=== PATIENT | female | born 1980 | race Two or more races ===

== ENCOUNTER 2020-07-13 09:58 | Outpatient (REF) | payer OTHER, SELFPAY ==
[2020-07-20 02:17] LABS: HPV 16 RNA NOT DETECTED (NOT DETECTED); HPV mRNA E6/E7 rflx Detected (Not Detected)
== END 2020-07-13 09:59 | disposition home or self-care (01) ==
LOC: HO.LAB 09:58
PROVIDERS: PCP Internal Medicine; Referring Provider Internal Medicine; Visit Provider Obstetrics & Gynecology
DX: Z01.419 Encounter for gynecological examination (general) (routine) without abnormal findings (principal); R87.610 Atypical squamous cells of undetermined significance on cytologic smear of cervix (ASC-US); R87.810 Cervical high risk human papillomavirus (HPV) DNA test positive; N94.9 Unspecified condition associated with female genital organs and menstrual cycle; F17.200 Nicotine dependence, unspecified, uncomplicated; Z79.899 Other long term (current) drug therapy; Z79.82 Long term (current) use of aspirin; Z79.84 Long term (current) use of oral hypoglycemic drugs; Z79.3 Long term (current) use of hormonal contraceptives
CPT/HCPCS: 87624; 87625; 88141; 88142

== ENCOUNTER 2020-07-25 15:38 | Outpatient (REF) | payer OTHER, SELFPAY ==
--- NOTE | 2020-07-25 15:41 | US_ITS ---
EXAMINATION: ULTRASOUND OF THE PELVIS CLINICAL INFORMATION: Unspecified condition associated with the menstrual cycle. Cramping.. COMPARISON: 01/23/2018. TECHNIQUE: Transabdominal and transvaginal pelvic ultrasound. A transvaginal study was performed in addition to the transabdominal study which did not yield an adequate examination of the uterus and ovaries due to superimposed distended gas-filled loops of bowel. FINDINGS: The uterus is normal in size and appearance, measuring 11.2 x 3.9 x 5.2 cm longitudinally, anteroposteriorly and transversely. The endometrial stripe thickness is normal, measuring 0.6 cm in thickness. Fluid in the endometrial canal noted. No focal myometrial mass is seen. Nabothian cysts at the cervix. The ovaries bilaterally are visualized, with the right ovary measuring 6.2 x 4.1 x 4.1 cm and the left ovary measuring 2 x 1.8 x 2.1 cm. There is a dominant right ovarian cyst which measures 4.5 x 3.4 x 3.5 cm. No adnexal mass or free fluid collection seen. US/US transvaginal IMPRESSION: 1. Enlargement of the right ovary associated with a dominant right ovarian cyst which measures up to 4.5 cm. No free fluid. 2. Fluid in the endometrial canal, likely associated with the phase of cycle.
--- NOTE | 2020-07-25 15:41 | US_ITS ---
EXAMINATION: ULTRASOUND OF THE PELVIS CLINICAL INFORMATION: Unspecified condition associated with the menstrual cycle. Cramping.. COMPARISON: 01/23/2018. TECHNIQUE: Transabdominal and transvaginal pelvic ultrasound. A transvaginal study was performed in addition to the transabdominal study which did not yield an adequate examination of the uterus and ovaries due to superimposed distended gas-filled loops of bowel. FINDINGS: The uterus is normal in size and appearance, measuring 11.2 x 3.9 x 5.2 cm longitudinally, anteroposteriorly and transversely. The endometrial stripe thickness is normal, measuring 0.6 cm in thickness. Fluid in the endometrial canal noted. No focal myometrial mass is seen. Nabothian cysts at the cervix. The ovaries bilaterally are visualized, with the right ovary measuring 6.2 x 4.1 x 4.1 cm and the left ovary measuring 2 x 1.8 x 2.1 cm. There is a dominant right ovarian cyst which measures 4.5 x 3.4 x 3.5 cm. No adnexal mass or free fluid collection seen. US/US pelvic complete IMPRESSION: 1. Enlargement of the right ovary associated with a dominant right ovarian cyst which measures up to 4.5 cm. No free fluid. 2. Fluid in the endometrial canal, likely associated with the phase of cycle.
== END 2020-07-25 15:39 | disposition home or self-care (01) ==
LOC: HO.US 15:38
PROVIDERS: PCP Internal Medicine; Visit Provider Obstetrics & Gynecology
DX: N94.9 Unspecified condition associated with female genital organs and menstrual cycle (principal)
CPT/HCPCS: 76830; 76856

== ENCOUNTER → 2020-08-08 10:50 | Outpatient (BNVA) | payer OTHER, SELFPAY | PROVIDERS: Visit Provider Obstetrics & Gynecology | DX: Z76.89 Persons encountering health services in other specified circumstances (principal) ==

== ENCOUNTER 2020-10-02 08:45 | Outpatient (REF) | payer OTHER, SELFPAY | END 2020-10-02 08:46 | disposition home or self-care (01) | LOC: HO.LAB 08:45 | PROVIDERS: PCP Internal Medicine; Visit Provider Obstetrics & Gynecology | DX: R87.610 Atypical squamous cells of undetermined significance on cytologic smear of cervix (ASC-US) (principal); R87.810 Cervical high risk human papillomavirus (HPV) DNA test positive | CPT/HCPCS: 57454; 88305; 88341; 88342; 88360 ==

== ENCOUNTER → 2020-10-16 12:35 | Outpatient (BNVA) | payer OTHER, SELFPAY | PROVIDERS: PCP Internal Medicine; Visit Provider Obstetrics & Gynecology ==

== ENCOUNTER → 2020-10-26 09:01 | Outpatient (BNVA) | payer OTHER, SELFPAY | PROVIDERS: PCP Internal Medicine; Visit Provider Obstetrics & Gynecology ==

== ENCOUNTER 2020-11-03 11:26 | Day surgery (SDC) | payer OTHER, SELFPAY ==
--- NOTE | 2020-11-01 12:21 | P.CONAN_ITS ---
HPI - Anesthesia Eval Consult details Narrative: 40yo F for Cone LEEP PMFSH Active Problems Active Problems: All Active Problems (Updated 10/16/20 @ 12:52 by Ryan Zamarripa MD) ELLI III (cervical intraepithelial neoplasia grade III) with severe dysplasia (Acute) Simple physiological cyst of ovary (Acute) ASCUS with positive high risk HPV cervical (Acute) Adnexal fullness (Acute) Well woman exam (Acute) Past Medical History Medical History Anxiety ASCUS with positive high risk HPV cervical History of migraine headaches PCOS (polycystic ovarian syndrome) Family History Family History Mother Diabetes HTN (hypertension) Maternal Uncle Esophageal cancer Maternal Grandmother Diabetes HTN (hypertension) Maternal Grandfather Diabetes HTN (hypertension) Paternal Grandmother Diabetes Paternal Uncle CVD (cardiovascular disease) Surgical History Surgical History History of History of cholecystectomy Hx of tonsillectomy Social History Social History Alcohol intake: current Alcohol intake frequency: holidays/special occasions only Smoking Status: Former smoker Sexual orientation: Straight/Heterosexual Gender identity: female Meds Allergies Allergy/AdvReac Type Severity Reaction Status Date / Time bee pollen [BEE STINGS] Allergy Unknown SWELLING Verified 11/03/20 11:52 Home Medications Medication Instructions Recorded Confirmed Last Taken Type albuterol sulfate 90 mcg/actuation INHALATION 07/13/20 08/08/20 Unknown History aerosol inhaler aspirin 81 mg tablet,delayed 81 mg PO DAILY 07/13/20 08/08/20 11/02/20 08:00 History release cetirizine 10 mg tablet 10 mg PO DAILY 07/13/20 08/08/20 Unknown History fenofibrate micronized 200 mg 200 mg PO QAM 07/13/20 08/08/20 Unknown History capsule fluticasone propionate 50 INTRANASAL 07/13/20 08/08/20 Unknown History mcg/actuation nasal spray,suspension lorazepam 0.5 mg tablet 0.5 mg PO BID PRN 07/13/20 08/08/20 Unknown History metformin 500 mg tablet,extended 1,000 mg PO BID 07/13/20 08/08/20 Unknown History release 24 hr pantoprazole 40 mg tablet,delayed 40 mg PO DAILY 07/13/20 08/08/20 Unknown Hist ory release sertraline 50 mg tablet 50 mg PO DAILY 07/13/20 08/08/20 Unknown History spironolactone 100 mg tablet mg PO 07/13/20 08/08/20 Unknown History varenicline 1 mg tablet 1 mg PO BID 10/02/20 Unknown History Exam Exam Date and Time: November 01, 2020 1221 Assessment and Plan Assessment Anesthesia Assessment: Chart Reviewed
[2020-11-03] VITALS (8 sets, daily range): BP systolic 116–134; BP diastolic 76–86; PULSE 77–91; RESP 16–18; TEMP 36.1; O2SAT 95–100; BMI 37.4
[2020-11-03 11:54] LABS: UPreg QC Valid YES; Urine Pregnancy NEGATIVE (NEGATIVE)
[2020-11-03] MEDS: Lactated Ringers 1,000 ML 100 ML IVCONT (12:12)
--- NOTE | 2020-11-03 12:42 | MHC.SHP ---
Pre-Procedural Eval Section A The patient is an INPATIENT: No Changes since office visit: No Cold of Flu in the past 2 weeks, No New Medical Problems, No Changes in Medication and No Patient answered all questions The History & Physical has been completed within 30 days and I have reviewed it.: Yes Section B Chief Complaint: ELLI 2-3 Allergies: Allergies Allergy/AdvReac Type Severity Reaction Status Date / Time bee pollen [BEE STINGS] Allergy Unknown SWELLING Verified 11/03/20 11:52 Plan Diagnosis/Plan: Unchanged I have reviewed the history and physical and performed a pertinent physical examination on my patient. No changes have occurred unless specified.
--- NOTE | 2020-11-03 13:29 | PM.OP ---
Brief Operative Note Date of Service: 11/03/20 Pre-op diagnosis: ELLI 2-3 with + ECC ELLI I Post-op diagnosis: same Procedure: LEEP CONE with post CONE ECC Surgeon: Ryan Zamarripa MD Anesthesia: local and other (Paracervical block) Estimated blood loss (mL): 0 Pathology: other (Ant+post Cerv lip, Endocx, Post cone ECC) Condition: stable Disposition: other (Home)
--- NOTE | 2020-11-03 13:31 | W.PM.OPN ---
Operative Note Operative Note Date of Service: 08/18/20 Narrative: Preop diagnosis: ELLI 2-3 with + ECC Operation: LEEP Cone with post cone ECC Post op diagnosis: same Anesthesia: paracervical block Complications: none Pathology: Anterior and Posterior cervical lip with endocervix & post cone RCC QBL: minimal Procedure: The patient was put in the dorsal lithotomy position, was prepped and draped in the usual sterile fashion. A sterile speculum was inserted inside the patient vagina. Using Lugol solution the cervix with Dyed with Lugol solution to identifiy the abnormal demarcating line. 10 cc of Marcaine 0.5% with epinephrine were given at 2,4 , 8, and 10 o'clock. Using a medium-size loop wire, the anterior cervical lip was excised followed by the posterior cervical lip and endocervix, post cone ECC was done afterwards. Hemostasis was assured using cautery and Monsel solution. All instruments were taken out of the patient's vaginal cavity. the patient tolerated the procedure well and was discharged home with the following instructions: call if temperature is above 100.4, vaginal bleeding, abdominal pain or nausea or vomiting. Follow-up in the office in 2 weeks for postop visit
[2020-11-03] MEDS: Acetaminophen 325 MG TABLET 650 MG PO (14:23)
== END 2020-11-03 15:21 | disposition home or self-care (01) ==
LOC: HO.SSS 11:27
PROVIDERS: Nurse Practitioner; PCP Internal Medicine; Visit Provider Obstetrics & Gynecology
PROC: 0UBC7ZZ Excision of Cervix, Via Natural or Artificial Opening (ICD-10-PCS; CPT 57522; principal; 2020-11-03 13:10)
DX: D06.9 Carcinoma in situ of cervix, unspecified (principal); E28.2 Polycystic ovarian syndrome; Z90.49 Acquired absence of other specified parts of digestive tract; Z79.82 Long term (current) use of aspirin
CPT/HCPCS: 57522; 81025; 88305; 88307; 88342; 88360; J1100; J2250; J2405; J3010

== ENCOUNTER → 2020-11-16 11:41 | Outpatient (BNVA) | payer OTHER, SELFPAY | PROVIDERS: PCP Internal Medicine; Visit Provider Obstetrics & Gynecology ==

== ENCOUNTER 2021-11-13 08:53 | Outpatient (REF) | payer OTHER, SELFPAY ==
[2021-11-17 09:52] LABS: HPV mRNA E6/E7 rflx Not Detected (Not Detected)
== END 2021-11-13 08:54 | disposition home or self-care (01) ==
LOC: HO.LAB 08:53
PROVIDERS: PCP Internal Medicine; Visit Provider Obstetrics & Gynecology
DX: Z01.419 Encounter for gynecological examination (general) (routine) without abnormal findings (principal); Z11.51 Encounter for screening for human papillomavirus (HPV); D06.9 Carcinoma in situ of cervix, unspecified
CPT/HCPCS: 57454; 81025; 87624; 88142; 88305

== ENCOUNTER 2021-11-28 12:26 | Outpatient (REF) | payer OTHER, SELFPAY | END 2021-11-28 12:27 | disposition home or self-care (01) | LOC: HO.LAB 12:26 | PROVIDERS: PCP Internal Medicine; Visit Provider Obstetrics & Gynecology | DX: D06.9 Carcinoma in situ of cervix, unspecified (principal) | CPT/HCPCS: 81025; 88305 ==

== ENCOUNTER → 2021-12-12 14:30 | Outpatient (BNVA) | payer OTHER, SELFPAY | PROVIDERS: Visit Provider Obstetrics & Gynecology | DX: Z13.89 Encounter for screening for other disorder (principal) ==

== ENCOUNTER 2022-06-19 10:34 | Outpatient (REF) | payer OTHER, SELFPAY ==
--- NOTE | ~2022-06-19 | MM_ITS ---
EXAMINATION: MM SCREENING DIGITAL BREAST TOMOSYNTHESIS, BILATERAL CLINICAL INFORMATION: Screening. Asymptomatic. No prior breast imaging. Age 42. No known family history breast cancer. The lifetime risk of breast cancer based on the Tyrer-Cuzick Model is 11%. COMPARISON: None (current study represents initial baseline exam). TECHNIQUE: Digital breast tomosynthesis is performed in both the craniocaudal and mediolateral oblique views along with computer-aided detection (CAD). Synthesized 2D images are generated from the tomosynthesis. FINDINGS: There are scattered areas of fibroglandular density (ACR BI-RADS breast composition Category b). There are no significant masses, abnormal calcifications, or other abnormalities. No architectural abnormality. The axilla are unremarkable. Skin contours are smooth. MM/MM tomosynthesis screening BI IMPRESSION: No mammographic evidence of malignancy. ASSESSMENT: BI-RADS 1: Negative RECOMMENDATION: Routine annual mammography screening. This patient's information was entered into a reminder system with a target due date for their next mammogram.
== END 2022-06-19 10:35 | disposition home or self-care (01) ==
LOC: HO.MAMMO 10:34
PROVIDERS: PCP Internal Medicine; Visit Provider Internal Medicine
DX: Z12.31 Encounter for screening mammogram for malignant neoplasm of breast (principal)
CPT/HCPCS: 77063; 77067

== ENCOUNTER → 2022-08-12 16:00 | Outpatient (BNVA) | payer OTHER, SELFPAY | PROVIDERS: PCP Internal Medicine; Visit Provider Surgery | DX: K64.8 Other hemorrhoids (principal) | CPT/HCPCS: 46600 ==

== ENCOUNTER 2022-09-27 07:34 | Day surgery (SDC) | payer OTHER, SELFPAY ==
[2022-09-24 10:35] VITALS: BMI 35.7
[2022-09-27] VITALS (7 sets, daily range): BP systolic 119–155; BP diastolic 78–94; PULSE 90–108; RESP 14–21; TEMP 36.1–36.7; O2SAT 94–98
[2022-09-27 07:51] LABS: UPreg QC Valid YES; Urine Pregnancy NEGATIVE (NEGATIVE)
[2022-09-27] MEDS: Lactated Ringers 1,000 ML 50 ML IVCONT (08:01)
--- NOTE | 2022-09-27 08:27 | HO.ANESPROP2 ---
HPI - Anesthesia Eval Consult details Narrative: hemorrhoidectomy PMFSH Active Problems Active Problems: All Active Problems (Updated 09/24/22 @ 10:28 by Radha Enrique, RN) Well woman exam (Acute) Adnexal fullness (Acute) Simple physiological cyst of ovary (Acute) ELLI III (cervical intraepithelial neoplasia grade III) with severe dysplasia (Acute) Hemorrhoids with complication (Acute) ASCUS with positive high risk HPV cervical (Acute) Past Medical History Medical History (Updated 09/24/22 @ 10:28 by Radha Enrique RN) Anxiety ASCUS with positive high risk HPV cervical Asthma Environmental and seasonal allergies Hemorrhoids with complication History of migraine headaches VACA (nonalcoholic steatohepatitis) PCOS (polycystic ovarian syndrome) Patient : No Family History Family History Mother Diabetes HTN (hypertension) Maternal Uncle Esophageal cancer Maternal Grandmother Diabetes HTN (hypertension) Maternal Grandfather Diabetes HTN (hypertension) Paternal Grandmother Diabetes Paternal Uncle CVD (cardiovascular disease) Family history of problems with anesthesia: No Surgical History Surgical History (Updated 09/24/22 @ 10:29 by Radha Enrique RN) History of History of cholecystectomy History of loop electrosurgical excision procedure (LEEP) Hx of tonsillectomy History of Problems with Anesthesia: No Social History Social History Are you a primary career placement specialist to a significant other at home: Yes (son) Do you presently have visiting nurse or other home services: No Alcohol intake: current Alcohol intake frequency: holidays/special occasions only Patient Tobacco Use Status: Current everyday Tobacco user Tobacco use type: Cigarette Cigarettes Per Day: 10 Years Smoked: 24 Substance Use Frequency: Occasionally Have you been hit, kicked, punched, or otherwise hurt by someone within the past year? If so, by whom?: No Are you DNR?: No Advance Directives: No Advance Directives Information Provided: Yes Advance Directives on File: No Recently lost weight without trying: No Nutrition Risks: No Nutritional Risk Patient : No FDLMP: 09/06/2022 : No Poor oral hygiene: No Sexual orientation: Straight/Heterosexual Gender identity: Female Meds Allergies Allergy/AdvReac Type Severity Reaction Status Date / Time bee pollen [BEE STINGS] Allergy Severe Anaphylaxis Verified 09/24/22 10:30 Active Medications: Current Medications Lactated Ringer's (Lr) 1,000 mls @ 50 mls/hr IVCONT .Q20H JORGITO Last Admin: 09/27/22 08:01 Dose: 50 mls/hr Home Medications Medication Instructions Recorded Confirmed Last Taken Type albuterol sulfate 90 mcg/actuation 2 puff inhalation Q4-6H PRN 07/13/20 09/24/22 08/26/22 History aerosol inhaler Shortness Of Breath Or Wheezing aspirin 81 mg tablet,delayed 81 mg PO DAILY 07/13/20 09/24/22 09/26/22 History release fenofibrate micronized 200 mg 200 mg PO QAM 07/13/20 09/24/22 09/26/22 History capsule fluticasone propionate 50 1 spray intranasal DAILY 07/13/20 09/27/22 08/26/22 History mcg/actuation nasal spray,suspension lorazepam 0.5 mg tablet 0.5 mg PO BID PRN anxiety 07/13/20 09/24/22 09/27/22 History metformin 500 mg tablet,extended 1,000 mg PO BID 07/13/20 09/24/22 09/26/22 History release 24 hr pantoprazole 40 mg tablet,delayed 40 mg PO DAILY 07/13/20 09/24/22 09/26/22 History release spironolactone 100 mg tablet 100 mg PO BID 07/13/20 09/24/22 09/26/22 History epinephrine 0.3 mg/0.3 mL 1 mg IM DIRECTED 11/28/21 09/27/22 03/06/16 History injection, auto-injector fexofenadine 180 mg tablet 180 mg PO DAILY 08/12/22 09/24/22 09/27/22 History (Allergy Relief (fexofenadine)) sertraline 50 mg tablet 150 mg PO BEDTIME 08/12/22 09/24/22 09/26/22 History Exam Exam Date and Time: September 27, 2022826 Height,Weight and Vital Signs: Height 5 ft 5 in Weight 97.522 kg Last Vital Signs Temp 97 F 09/27/22 07:39 Pulse 108 H 09/27/22 07:39 Resp 18 01/20/23 07:39 BP 119/78 09/27/22 07:39 Pulse Ox 98 09/27/22 07:39 O2 Del Method 09/27/22 07:39 Pertinent Lab Results Pertinent Lab Results: Laboratory Tests 09/27/22 07:40 Urine Test NEGATIVE Airway Mallampati Class: II TM Dist: >3cm Neck ROM: Full Loose/Missing/Broken Teeth: No Heart: ok Lungs: ok Assessment and Plan Final Anesthetic Review Family History of Problems with Anesthesia: No History of Problems with Anesthesia: No NPO: Yes ASA Class: II Final Preanesthetic Review: No Changes in Pt Med Stat, Meds/Allgs Chart Reviewed, Consent Obtained/Reviewed and Anes Risks/Benef Reviewed Patient Risk: Intermediate Procedure Risk: Intermediate Anesthetic Plan Anesthetic Plan: GA and Agree w/ Assess. and Plan Disposition: Standard PACU
--- NOTE | 2022-09-27 09:39 | P.OP_ITS ---
Operative Note Operative Note Date of Service: 09/27/22 Narrative: Preop diagnosis: Internal and external hemorrhoids with pain and bleeding Postop diagnosis: The same Procedure: Exam under anesthesia, hemorrhoidectomy x2 columns Surgeon: Kael Garcia MD The patient is a 42-year-old female, the a long history of pain and bleeding with her hemorrhoids. She was seen in the office and was noted to have moderate-sized internal hemorrhoid. She wanted to proceed with hemorrhoide ctomy. She understood the technique of the procedure. She was aware of the risks, benefits, and alternatives. She was brought to the operating room placed in prone kodak-knife position under general seizure via endotracheal tube. The buttocks were retracted with wide tape laterally. The perianal area was prepped draped in the usual sterile fashion. A surgical time-out was done. The patient received Cefotan 2 g IV preoperatively. Examination of the anal orifice revealed very prominent external hemorrhoids on both the left and right side. I inserted the Melodie Duran retractor. I examined the anal canal circumferentially. These mixed internal external hemorrhoids were seen on both the left and right side. There were no other lesions. There was no fissure. I applied a Palomino grasper at the moderate size hemorrhoidal column on the left to retract this. I made a figure 8 stitch at the pedicle using a chromic 3-0 stitch. I made an incision around this hemorrhoidal column to the perianal skin using a bed 15. I excised this hemorrhoidal column above the plane of sphincters along this incision using Metzenbaum scissors. I closed this incision with a running chromic 3-0 stitch. Multiple [id number] hemostatic sutures were placed for oozing areas. I repeated the procedure on the hemorrhoidal column on the right. Again this was retracted with a Palomino grasper. I applied a [id number]-gr-[id number] stitch at the pedicle. I made an incision around this hemorrhoidal column to the perianal skin and excised this above the plane of sphincters using scissors. I closed this incision with a running chromic 3-0 stitch. Again multiple hemostatic [id number]-qi-rgpbr sutures were placed. Hemostasis was ensured. I infiltrated the perianal area with Marcaine 0.5% for postop analgesia. A Gelfoam packing was placed in the anal canal for additional hemostasis The procedure was then completed. The patient tolerated procedure well. There were no immediate complications. Initial and final counts of sponges and instruments were correct. Estimated blood loss was about 5 cc The patient was extubated without difficulty and transferred to the recovery room with stable vital signs.
[2022-09-27] MEDS: Acetaminophen 325 MG TABLET 650 MG PO (10:16)
[2022-09-27] MEDS: oxyCODONE HCl Immed Release 5 MG TABLET PO (10:17)
== END 2022-09-27 11:15 | disposition home or self-care (01) ==
PROVIDERS: Anesthesiology; PCP Internal Medicine; Visit Provider Surgery
PROC: (CPT 46260; principal; 2022-09-27 09:00)
DX: K64.8 Other hemorrhoids (principal); K64.4 Residual hemorrhoidal skin tags; K62.89 Other specified diseases of anus and rectum; F41.1 Generalized anxiety disorder; J45.909 Unspecified asthma, uncomplicated; D06.9 Carcinoma in situ of cervix, unspecified; E28.2 Polycystic ovarian syndrome; K75.81 Nonalcoholic steatohepatitis (NASH); Z79.82 Long term (current) use of aspirin; Z79.51 Long term (current) use of inhaled steroids; Z79.899 Other long term (current) drug therapy; Z90.49 Acquired absence of other specified parts of digestive tract; F17.210 Nicotine dependence, cigarettes, uncomplicated
CPT/HCPCS: 46260; 81025; 88304; J1100; J1885; J2250; J2405; J2795; J3010

== ENCOUNTER → 2022-10-10 09:28 | Outpatient (BNVA) | payer OTHER, SELFPAY | PROVIDERS: PCP Internal Medicine; Visit Provider Surgery | DX: Z13.89 Encounter for screening for other disorder (principal) ==

== ENCOUNTER 2022-12-25 11:39 | Outpatient (REF) | payer OTHER, SELFPAY ==
[2022-12-28 03:09] LABS: HPV mRNA E6/E7 rflx Not Detected (Not Detected)
== END 2022-12-25 11:40 | disposition home or self-care (01) ==
LOC: HO.LNP 11:39
PROVIDERS: PCP Internal Medicine; Visit Provider Obstetrics & Gynecology
DX: Z01.419 Encounter for gynecological examination (general) (routine) without abnormal findings (principal); Z11.51 Encounter for screening for human papillomavirus (HPV); D06.9 Carcinoma in situ of cervix, unspecified
CPT/HCPCS: 87624; 88142

== ENCOUNTER 2023-01-22 15:51 | Outpatient (REF) | payer OTHER, SELFPAY ==
--- NOTE | ~2023-01-22 | XR_ITS ---
EXAMINATION: XR CERVICAL SPINE CLINICAL INFORMATION: Neck pain COMPARISON: None available. TECHNIQUE: 5 views of the cervical spine were obtained. FINDINGS: Bone alignment is normal. No fracture or dislocation. Mild degenerative spondylosis at C4-C5 and C5-C6. Left-sided neural foramen are patent. Right-sided neuroforamen difficult to visualize due to technique. No definite right-sided neuroforaminal narrowing is seen. Soft tissues are normal. XR/XR cervical spine 4V IMPRESSION: Mild degenerative spondylosis at C4-C5 and C5-C6.
== END 2023-01-22 15:52 | disposition home or self-care (01) ==
LOC: HO.HHCX 15:51
PROVIDERS: Visit Provider Internal Medicine
DX: M54.2 Cervicalgia (principal)
CPT/HCPCS: 72050

== ENCOUNTER 2023-04-21 09:07 | Outpatient (REF) | payer OTHER, SELFPAY ==
[2023-04-21 12:24] LABS: Estimated Average Glucose 94 mg/dL; Hemoglobin A1c % 4.9 %
[2023-04-21 12:38] LABS: Cholesterol 224 mg/dL; HDL Cholesterol 37 mg/dL; LDL Cholesterol Calculated 139 mg/dl; Triglycerides 242 mg/dL
[2023-04-21 13:26] LABS: Insulin 23 uU/mL (2-29)
== END 2023-04-21 09:08 | disposition home or self-care (01) ==
LOC: HO.HHCL 09:07
PROVIDERS: Visit Provider Registered Nurse Emergency
DX: Z13.1 Encounter for screening for diabetes mellitus (principal); Z13.220 Encounter for screening for lipoid disorders
CPT/HCPCS: 36415; 80061; 83036; 83525

== ENCOUNTER 2023-05-06 09:45 | Outpatient (REF) | payer OTHER, SELFPAY ==
[2023-05-07 08:26] LABS: HBS Num1 > 1000.00 mIU/mL (0-7.99); ~Hepatitis B Surface Antibody REACTIVE (Nonreactive)
[2023-05-08 01:19] LABS: Rubella IgG Antibody 5.94 Index
[2023-05-08 20:38] LABS: TS Negative Control Passed; TS Panel A 1; TS Panel B 0; TS Positive Control Passed; TSpotTB Negative (Negative)
== END 2023-05-06 09:46 | disposition home or self-care (01) ==
LOC: HO.HHCL 09:45
PROVIDERS: Visit Provider Internal Medicine
DX: Z00.00 Encounter for general adult medical examination without abnormal findings (principal); Z11.1 Encounter for screening for respiratory tuberculosis
CPT/HCPCS: 36415; 86481; 86706; 86735; 86762; 86765; 86787

== ENCOUNTER 2023-08-15 08:47 | Outpatient (REF) | payer OTHER, SELFPAY ==
[2023-08-15 14:42] LABS: MANUAL DIFF FLAG NO
[2023-08-15 14:46] LABS: Basophils Absolute Auto 0.1 X10*3/uL (0.0-0.2); Basophils Percent Auto 0.7 % (0-2); Eosinophils Absolute Auto 0.7 X10*3/uL (0.0-0.4); Eosinophils Percent Auto 5.4 % (0-4); Hematocrit 44.9 % (37.0-47.0); Hemoglobin 14.6 g/dl (12.0-16.0); Imm Gran Abs Auto 0.04 X10*3/uL (0.00-0.03); Imm Gran Pct Auto 0.3 % (0.0-0.4); Lymphocytes Absolute Auto 2.7 X10*3/uL (1.2-4.9); Lymphocytes Percent Auto 21.4 % (20-40); Mean Corpuscular HGB Conc 32.5 g/dl (31.0-35.0); Mean Corpuscular Hemoglobin 31.8 pg (27.0-33.0); Mean Corpuscular Volume 97.8 fL (80.0-98.0); Mean Platelet Volume 9.6 fL (9.4-12.3); Monocytes Absolute Auto 0.6 X10*3/uL (0.1-1.2); Monocytes Percent Auto 4.5 % (2-11); Neutrophils Absolute Auto 8.5 x10*3/uL (2.0-8.3); Neutrophils Percent Auto 67.7 % (45-73); Platelet Count 454 X10*3/uL (160-400); Red Blood Count 4.59 X10*6/uL (4.20-5.50); Red Cell Distribution Width 12.2 % (11.0-16.0); White Blood Count 12.6 X10*3/uL (4.8-10.8)
[2023-08-15 14:53] LABS: Appearance Urine Cloudy; Color Urine Dark Yellow; Glucose Urine UA Negative (Negative); Leukocyte Esterase Urine Moderate (2+) (Negative); Nitrite Urine Positive (Negative); Specific Gravity - Urine 1.025 (1.005-1.025); UMIC TRIGGER UACC YES; Urine Blood Negative (Negative); Urine Ketones Trace mg/dL (Negative); Urine Protein Trace mg/dL (Neg-Trace)
[2023-08-15 15:00] LABS: Bacteria Urine 4+ (None Seen); Hyaline Casts Urine 0-2 /LPF (0-2); RBC Urine 0-2 /HPF (0-2); UACC Culture Trigger YES; WBC Urine >50 /HPF (0-5)
== END 2023-08-15 08:48 | disposition home or self-care (01) ==
LOC: HO.CHCLDS 08:47
PROVIDERS: Visit Provider Internal Medicine
DX: E66.9 Obesity, unspecified (principal); Z68.36 Body mass index [BMI] 36.0-36.9, adult; R35.0 Frequency of micturition; D72.828 Other elevated white blood cell count
CPT/HCPCS: 36415; 81001; 85025; 87086; 87088; 87186

== ENCOUNTER 2023-11-25 08:42 | Outpatient (REF) | payer OTHER, SELFPAY ==
[2023-11-25 14:06] LABS: MANUAL DIFF FLAG NO
[2023-11-25 14:08] LABS: Basophils Absolute Auto 0.1 X10*3/uL (0.0-0.2); Basophils Percent Auto 0.5 % (0-2); Eosinophils Absolute Auto 0.3 X10*3/uL (0.0-0.4); Eosinophils Percent Auto 2.6 % (0-4); Hemoglobin 13.3 g/dl (12.0-16.0); Imm Gran Abs Auto 0.02 X10*3/uL (0.00-0.03); Imm Gran Pct Auto 0.2 % (0.0-0.4); Lymphocytes Absolute Auto 3.2 X10*3/uL (1.2-4.9); Lymphocytes Percent Auto 32.4 % (20-40); Mean Corpuscular HGB Conc 33.3 g/dl (31.0-35.0); Mean Corpuscular Hemoglobin 32.3 pg (27.0-33.0); Mean Corpuscular Volume 97.1 fL (80.0-98.0); Mean Platelet Volume 9.2 fL (9.4-12.3); Monocytes Absolute Auto 0.6 X10*3/uL (0.1-1.2); Monocytes Percent Auto 6.2 % (2-11); Neutrophils Absolute Auto 5.7 x10*3/uL (2.0-8.3); Neutrophils Percent Auto 58.1 % (45-73); Platelet Count 440 X10*3/uL (160-400); Red Blood Count 4.12 X10*6/uL (4.20-5.50); Red Cell Distribution Width 12.5 % (11.0-16.0); White Blood Count 9.8 X10*3/uL (4.8-10.8)
[2023-11-25 14:48] LABS: Erythrocyte Sedimentation Rate 10 MM/HR (0-20)
[2023-11-25 15:09] LABS: Rheumatoid Factor < 13.0 IU/mL (<15.0)
[2023-11-25 15:17] LABS: Alanine Aminotransferase 14 U/L (0-31); Albumin Level 4.6 g/dL (3.5-5.0); Alkaline Phosphatase 45 U/L (39-117); Anion Gap 15 (12-20); Aspartate Amino Transferase 13 U/L (5-31); Bilirubin Direct 0.1 mg/dL (0.0-0.5); Bilirubin Total 0.5 mg/dL (0.0-1.0); Blood Urea Nitrogen 10 mg/dL (9-16); C Reactive Protein 0.32 mg/dL (< or = 0.50); Calcium 9.3 mg/dL (8.4-10.2); Carbon Dioxide 24 mmol/L (22-29); Chloride 105 mmol/L (96-108); Cholesterol 211 mg/dL (<200); Estimated Glomerular Filt Rate > 60; Glucose Random 42 mg/dL (60-115); HDL Cholesterol 45 mg/dL (>40); LDL Cholesterol Calculated 130 mg/dL (<100); Potassium 3.7 mmol/L (3.3-5.1); Sodium 140 mmol/L (135-145); Total Protein 7.4 g/dL (6.5-8.0); Triglycerides 180 mg/dL (<150)
[2023-11-25 15:18] LABS: Vitamin D 25-OH Total 39.8 ng/mL (>30)
[2023-11-25 15:25] LABS: Folate 10.5 ng/mL (> or = 4.0); Vitamin B12 611 pg/mL (200-900)
[2023-11-29 06:04] LABS: Methylmalonic Acid 83 nmol/L (87-318)
[2023-12-02 08:19] LABS: Anti Nuclear Antibody Screen NEGATIVE (NEGATIVE)
== END 2023-11-25 08:43 | disposition home or self-care (01) ==
LOC: HO.CHCLDS 08:42
PROVIDERS: Visit Provider Internal Medicine
DX: Z13.6 Encounter for screening for cardiovascular disorders (principal); R53.82 Chronic fatigue, unspecified
CPT/HCPCS: 36415; 80048; 80061; 80076; 82306; 82607; 82746; 83921; 84443; 85025; 85652; 86038; 86140; 86431

== ENCOUNTER 2023-12-30 11:38 | Outpatient (REF) | payer OTHER, SELFPAY ==
[2024-01-05 23:24] LABS: HPV mRNA E6/E7 rflx Not Detected (Not Detected)
== END 2023-12-30 11:39 | disposition home or self-care (01) ==
LOC: HO.LNP 11:38
PROVIDERS: PCP Internal Medicine; Visit Provider Obstetrics & Gynecology
DX: Z01.419 Encounter for gynecological examination (general) (routine) without abnormal findings (principal); Z11.51 Encounter for screening for human papillomavirus (HPV); D06.9 Carcinoma in situ of cervix, unspecified
CPT/HCPCS: 87624; 88142

== ENCOUNTER 2023-12-30 11:38 | Outpatient (AMB) | payer OTHER, SELFPAY ==
[2023-12-30 11:49] VITALS: BP 122/82; BMI 31.2
--- NOTE | 2023-12-30 11:49 | A.OFFVIS_ITS ---
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 No complaints. Last Pap/HPV was negative in 12/29, the patient has history of ELLI 3 status post LEEP in 2020 Last Mammogram was BI-RADS 1 in 06/29 [facility] Medical History Asthma VACA (nonalcoholic steatohepatitis) Environmental and seasonal allergies Hemorrhoids with complication ELLI III (cervical intraepithelial neoplasia grade III) with severe dysplasia ASCUS with positive high risk HPV cervical Anxiety History of migraine headaches PCOS (polycystic ovarian syndrome) Surgical History Hx of hemorrhoidectomy History of loop electrosurgical excision procedure (LEEP) Hx of tonsillectomy History of cholecystectomy History of Family History Mother Diabetes HTN (hypertension) Maternal Uncle Esophageal cancer Maternal Grandmother Diabetes HTN (hypertension) Maternal Grandfather Diabetes HTN (hypertension) Paternal Grandmother Diabetes Paternal Uncle CVD (cardiovascular disease) Maternal Aunt Breast cancer Social History Household Members: Spouse Household Members Other:: son Housing: House Are you a primary child care counselor to a significant other at home: Yes (son) Do you presently have visiting nurse or other home services: No Alcohol intake: current Alcohol intake frequency: holidays/special occasions only Patient Tobacco Use Status: Current everyday Tobacco user Tobacco use type: Cigarette Cigarettes Per Day: 10 Years Smoked: 24 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 occupational 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 Sexual orientation: Straight/Heterosexual Gender identity: Female Female Reproductive History Menstrual Age of Menarche: 12 Duration of menses: 3-5 days Date of last menstrual period: 12/11/23 control method: none Total pregnancies: 1 Full term: 1 Number of Living Children: 1 Date of last pap smear: 12/26/22 (negative) History of abnormal pap smear: Yes Date of Mammogram: 06/19/22 Review of Systems Const All systems reviewed & are unremarkable except as noted in HPI and below Card Reports as per HPI Resp Reports as per HPI GI Reports as per HPI and Reports no additional complaints Reports as per HPI Physical Exam Vital Signs: BMI result Body Mass Index 31.2 Const General: cooperative, healthy appearing and comfortable Chest Chest palpation & inspection: normal inspection of the chest and normal palpation of entire chest wall Breast/axilla inspection: normal inspection of the breasts and normal inspection of the axillae Breast/axilla palpation: normal palpation of the breasts, normal palpation of the axillae and no axillary lymphadenopathy Resp Effort & Inspection: normal respiratory effort Auscultation: clear to auscultation bilaterally Percussion: percussion normal Cardio Palpation: normal PMI Rate: regular rate Rhythm: regular rhythm Heart sounds: no murmurs and no rubs Peripheral pulses: Peripheral pulses 2+ throughout GI Inspection: Yes normal to inspection Palpation (GI): Soft to palpation, nontender, no guarding, not rigid and No hepatosplenomegaly present Percussion: Yes normal to percussion Auscultation: normal bowel sounds Rectal Exam - Female: deferred General: Yes bladder normal to palpation External Female Exam: No lesion Speculum Exam - Vagina: normal appearance of the vagina, normal palpation, normal vaginal discharge and not erythematous Speculum Exam - Cervix: normal appearance of the cervix and normal palpation Bimanual exam- vagina & uterus: normal bimanual exam, normal palpation, uterine size normal, bladder normal to palpation, consistency normal and normal palpation Bimanual Exam- Adnexa, other: normal adnexae, no masses and no tenderness Assessment & Plan Assessment & Plan (1) Well woman exam: Code(s): Z01.419 - Encounter for gynecological examination (general) (routine) without abnormal findings Category: Medical Plan: Cotesting done. Mammogram ordered. Counseled the patient about the recommended dietary allowance of 1000 mg of Calcium & 600 IU of vitamin D. The patient was instructed to perform monthly self-breast exams and to schedule an annual exam in a year; All questions answered and the patient verbalized understanding. Instructed the patient to schedule annual exam in a year Orders: Orders MM tomosynthesis screening BI Today Z12.31 - Encounter for screening mammogram for malignant neoplasm of breast Coding Level of Care Code Est Pt Prev Care 40-64y(41894) Diagnoses Well woman exam Z01.419
== END 2023-12-30 12:05 | disposition home or self-care (01) ==
LOC: HO.HWS 11:38
PROVIDERS: PCP Internal Medicine; Visit Provider Obstetrics & Gynecology
DX: Z01.419 Encounter for gynecological examination (general) (routine) without abnormal findings (principal)
CPT/HCPCS: 99396

== ENCOUNTER → 2024-01-14 15:30 | Outpatient (BNV) | payer OTHER, SELFPAY | PROVIDERS: PCP Internal Medicine; Visit Provider Radiology Diagnostic Radiology | DX: Z12.31 Encounter for screening mammogram for malignant neoplasm of breast (principal) | CPT/HCPCS: 77063; 77067 ==

== ENCOUNTER 2024-01-14 15:31 | Outpatient (REF) | payer OTHER, SELFPAY | END 2024-01-14 15:32 | disposition home or self-care (01) | LOC: HO.MAMMO 15:31 | PROVIDERS: PCP Internal Medicine; Visit Provider Obstetrics & Gynecology | DX: Z12.31 Encounter for screening mammogram for malignant neoplasm of breast (principal) | CPT/HCPCS: 77063; 77067 ==

== ENCOUNTER 2024-12-14 08:32 | Outpatient (REF) | payer OTHER, SELFPAY ==
--- OUTSIDE RECORDS SUMMARY | 2024-12-14 08:54 | XMS_ITS | Encounter Summary ---
Author Organization [employer] Address [address] [place] [address] [address] [place] [address] Care Team Providers Care Lokie Driver Name Role Phone Komal Ghotra MD Primary Care Provide r Reason for Visit * Reason Comments Med Refill Encounter Details Date Type Department Care Team (Late st Contact Info) Description 05/06/2023 Refill [facility] [address] [place], [place] [phone] Komal Ghotra MD [address] [place], [place] [phone] Chronic migraine without aura without status migrainosus, not intractable Social History Tobacco Use Types Packs/Day Years Used Date Smoking Tobacco: Every Day Cigarettes Smokeless Tobacco: Never Alcohol Use Standard Drinks/Week Comments Not Currently 0 (1 standard drink = 0.6 oz pur e alcohol) Comments Unknown Sex and Gender Information Value Date Recorded Sex Assigned at Female 07/08/2022 10:37 AM EDT Legal Sex Female 10:37 AM EDT Gender Identity Female 07/08/2022 10:37 AM EDT Sexual Orientation Straight 07/08/2022 10 :37 AM EDT documented as of this encounter Plan of Treatment Not on file documented as of this encounter Visit Diagnoses Diagnosis Chronic migraine without aura without status migrainosus, not intractable documented in this encounter Care Teams Lokie Driver Relationship Specialty Start Date End Date Komal Ghotra MD [address] [place], [place] [phone] PCP - General Family Medicine 12/20/21 documented as of this encounter
--- OUTSIDE RECORDS SUMMARY | 2024-12-14 08:54 | XMS_ITS | Encounter Summary ---
Author Organization [facility] Address [address] [place] [address] 7 [place] [address] Care Team Providers Care Ocular Care Technician Name Role Phone Komal Ghotra MD Primary Care Provide r Reason for Visit * Reason Comments Med Refill Encounter Details Date Type Department Care Team ([facility] st Contact Info) Description 02/25/2023 Refill [facility] [address] [place], [place] [phone] Name, MD Kory [address] [place], [place] [phone] Gastroesophageal reflux disease without esophagitis Social History Tobacco Use Types Packs/Day Years [...] Orientation Straight 07/08/2022 10 :37 AM EDT COVID-19 Exposure Response Date Recorded In the last 10 days, have yo u been in contact with someone who was confirmed or suspected to have Coronavirus/COVID-19? No / Unsure 02/12/2023 9:57 AM EDT documented as of this encounter Plan of Treatment Not on file documented as of this encounter Visit Diagnoses Diagnosis Gastroesophageal reflux disease without esophagitis Esophageal reflux documented in this encounter Care Teams Ocular Care Technician Relationship Specialty Start Date End Date Komal Ghotra MD [address] [place] [address] PCP - General Family Medicine 12/20/21 documented as of this encounter
--- OUTSIDE RECORDS SUMMARY | 2024-12-14 08:54 | XMS_ITS | Encounter Summary ---
Author Organization [employer] Address [address] [place] [address] 7 [place] [address] Care Team Providers Care Information Coder Name Role Phone Komal Ghotra MD Primary Care Provide r Encounter Details Date Type Department Care Team (Late st Contact Info) Description 05/30/2023 Orders Only [facility] [address] [place], [place] [phone] Provider, MD Maria G Social History Tobacco Use Types Packs/Day Years [...] on file documented as of this encounter Procedures Procedure Name Priority Date/Time Associated Diagnosis Comments HM PAP/HPV Routine 11/15/2021 documented in this encounter Results * Hm Pap Smear (11/15/2021) Historical Provider HEALTH MAINTENANCE Final Result documented in this encounter Visit Diagnoses Not on filedocumented in this encounter Care Teams Information Coder Relationship Specialty Start Date End Date Komal Ghotra MD [address] [place], [place] [phone] PCP - General Family Medicine 12/20/21 documented as of this encounter
--- OUTSIDE RECORDS SUMMARY | 2024-12-14 08:54 | XMS_ITS ---
Author Organization [facility] Address [address] [place] [address] Care Team Providers Care Material Lister Name Role Phone WILVERVERNELL ANDERSON Unavailable [phone] REASON FOR VISIT zepbound MEDICATIONS Medication SIG (Take, Route, Fr equency, Duration) Notes Start Date End Date Status Zepbound 5 MG/0.5ML 0.5 mL Subcutaneous once a week for 30 days 11/12/2024 Active Encounters Encounter Location Date Provider Diagnosis [address] [facility] [address] [place] [address] 11/11/2024 VERNELL TAM PLAN OF TREATMENT Medication Medication Name Sig Start Date Stop Date Notes Zepbound 5 MG/0.5ML 0.5 mL Subcutaneous once a week for 30 days 11/12/2024 Next Appt Details Provider Name:VERNELL TAM, 01/11/2025 03:00:00 PM, [address] [facility], [address], [place], [address], Progress Notes * SOULEYMANEIrenafernyDOB:1980 ( 44 yo F)Acc No.[id number]:11/11/2024 Patient:??COMERCaroline :1980?Age:44 Y?Sex:Fe male Address:[place] [address] * Refills?? Start Zepbound Solution, 5 MG/0.5ML, Subcutaneous, 4 Pen Needle, 0.5 mL, once a week, 30 days, Refills=1 * true * Date:??
--- OUTSIDE RECORDS SUMMARY | 2024-12-14 08:54 | XMS_ITS | Encounter Summary ---
Author Organization [employer] Address [address] [place] [address] 7 [place] [address] Care Team Providers Care Mold Puller Name Role Phone Komal Ghotra MD Primary Care Provide r Encounter Details Date Type Department Care Team (Late st Contact Info) Description 04/01/2023 Orders Only [facility] [address] [place], [place] [phone] Komal Ghotra MD [address] [place], [place] [phone] Social History Tobacco Use Types Packs/Day Years [...] documented as of this encounter Visit Diagnoses Not on filedocumented in this encounter Care Teams Mold Puller Relationship Specialty Start Date End Date Komal Ghotra MD [address] [place], [place] [phone] PCP - General Family Medicine 12/20/21 documented as of this encounter
--- OUTSIDE RECORDS SUMMARY | 2024-12-14 08:54 | XMS_ITS ---
Author Organization [facility] Address [address] [place] [address] Care Team Providers Care Media Sales Representative Name Role Phone WILVERVERNELL ANDERSON Unavailable [phone] REASON FOR VISIT RE:RE:zepbound MEDICATIONS Medication SIG (Take, Route, Fr equency, Duration) Notes Start Date End Date Status Zepbound 5 MG/0.5ML inject.5mg Subcutane ous once a week for 30 days 10/19/2024 Active Encounters Encounter Location Date Provider Diagnosis [address] [facility] [address] [place] [address] 11/10/2024 VERNELLMILKA HOLLANDClint Other obesity due to excess calories E66.09 ASSESSMENTS Encounter Date Diagnosis Assessment Notes Treatment Notes Treatment Clinical Notes Section Notes 11/10/2024 Other obesity due to excess calories (ICD-10 - E66.09) PLAN OF TREATMENT Medication Medication Name Sig Start Date Stop Date Notes Zepbound 5 MG/0.5ML inject.5mg Subcutane ous once a week for 30 days 10/19/2024 Next Appt Details Provider Name:VERNELL TAM, 01/11/2025 03:00:00 PM, [address] , [address], [place], [address], Progress Notes * Caroline COMERDOB:1980 ( 44 yo F)Acc No.[id number]:11/10/2024 Patient:??Caroline COMER :1980?Age:44 Y?Sex:Fe male Address:[place] [address] * Refills?? Refill Zepbound Solution Auto-injector, 5 MG/0.5ML, Subcutaneous, 4 Pen Needle, inject.5mg, once a week, 30 days, Refills=0 * true * Date:??
--- OUTSIDE RECORDS SUMMARY | 2024-12-14 08:55 | XMS_ITS | Encounter Summary ---
Author Organization [employer] Address [address] [place] [address] [address] [place] [address] Care Team Providers Care Embedded Software Engineer Name Role Phone Komal Ghotra MD Primary Care Provide r Reason for Visit * Reason Comments Med Refill Encounter Details Date Type Department Care Team (Late st Contact Info) Description 12/11/[address] [facility] MED[facility]INE [address] [place], [place] [phone] Komal Ghotra MD [address] [place], [place] [phone] Gastroesophageal reflux disease without esophagitis Social History Tobacco Use Types Packs/Day Years Used Date Smoking Tobacco: Every Day Cigarettes Passive Smoke Exposure: Current Smokeless Tobacco: Never Alcohol Use Standard Drinks/Week Comments Not Currently 0 (1 standard drink = 0.6 oz pur e alcohol) Depression Answer Date Recorded Patient Health Questionnaire-9 Score 0 09/09/2024 Patient Health Questionnaire-9 Score 0 09/09/2024 Last PHQ-9: Questionnaire Data Not on file 0 09/09/2024 Housing Stability Answer Date Recorded What is your housing situation today? I have tamra garcía 03/08/[address] you li ve. Do you have problems with any of the following? None of the above 03/08/2024 Food Insecurity Answer Date Recorded Within the past 12 months, y ou worried that your food would run out before you got money to buy more: Never True 03/08/2024 Within the past 12 months,th e food you bought just didn't last and you didn't have enough money to get more: Never True 09/2023 Transportation Answer Date Recorded In the past 12 months, has l ack of transportation kept you from medical appts, meetings, work or from getting things needed for daily living? No 03/08/2024 Utilities Answer Date Recorded In the past 12 months, has t he electric, gas, oil or water company threatened to shut off services in your home? No 03/08/2024 Depression Answer Date Recorded Patient Health Questionnaire-2 Score 0 09/09/2024 Internet Access Answer Date Recorded Internet Access Q1 Yes 05/10/2024 Internet Access Q2 Not on file 05/10/2024 Comments Unknown Sex and Gender Information Value [...] esophagitis Esophageal reflux documented in this encounter Additional Health Concerns Assessment Noted Time PHQ-9 Depression Total Score: 0 09/09/19 25 11:24 AM EST documented as of this encounter Care Teams Embedded Software Engineer Relationship Specialty Start Date End Date Komal Ghotra MD [address] [place] [address] PCP - General Family Medicine 12/20/21 documented as of this encounter
--- OUTSIDE RECORDS SUMMARY | 2024-12-14 08:55 | XMS_ITS | Clinical Summary ---
Author Organization [employer] Address [address] [place] [address] 7[address] [place] [address] Care Team Providers Care Dental Director Name Role Phone Komal Ghotra MD Primary Care Provide r Allergies Active Allergy Reactions Criticality Noted Date Comments Bee Venom Anaphylaxis High 11/18/2018 Wasp Venom Protein Anaphylaxis High 04/03/2021 Medications docusate sodium (Colace) 100 MG capsule Take 1 capsule by mouth every 12 (twelve) hours. 06/25/20 22 Active EPINEPHrine (EpiPen 2-Rajesh) 0.3 MG/0.3ML injection syringe Inject 0.3 mL into the shoulder, thigh, or buttocks. 12/21/19 22 Active fluticasone (Flonase) 50 MCG/ACT nasal spray Administer 1-2 sprays into affected nostril(s) at bed time. 12/21/19 22 Active hydrocortisone 2.5 % creamIndication s:Rash Apply topically 2 times daily. 28 g 1 01/23/20 23 Active Aspirin Adult Low Strength 81 MG EC tablet TAKE 1 TABLET BY MOUTH EVERY MORNING 90 tablet 1 06/17/20 23 Active famotidine (Pepcid) 20 MG tabletIndicatio ns:Epigastric pain Take 1 tablet (20 mg) by mouth 2 times daily. 60 tablet 11 08/11/20 23 Active Lancets miscIndications :Hypoglycemia Use to test blood sugar 2 times daily 100 each 1 12/09/19 24 Active Blood Glucose Monitoring Suppl (FreeStyle [place] Lite) w/Device kitIndications: Hypoglycemia Use to test blood sugar 2 times daily 1 kit 2 12/09/19 24 Active Semaglutide-Guille ght Management (Wegovy) 2.4 MG/0.75ML solution auto-injectorIn dications:Class 2 obesity without serious comorbidity with body mass index (BMI) of 36.0 to 36.9 in adult, unspecified obesity type Inject 2.4 mg under the skin 1 (one) time per week. 3 mL 2 12/10/19 24 Active fexofenadine (Paola Allergy) 180 MG tabletIndicatio ns:Allergy, subsequent encounter Take 1 tablet (180 mg) by mouth Once per day. 30 tablet 11 03/08/20 24 Active buPROPion SR (Wellbutrin SR) 150 MG 12 hr tabletIndicatio ns:Smoking Take 1 tablet (150 mg) by mouth 2 times daily. Do not crush, chew, or split. 60 tablet 11 04/07/20 24 025 Active hydrOXYzine HCl (Atarax) 25 MG tabletIndicatio ns:Anxiety with depression Take 1-2 tablets by oral route as needed up to four times daily for anxiety 60 tablet 05/31/20 24 Active fenofibrate micronized (Lofibra) 200 MG capsuleIndicati ons:Dyslipidemi a Take 1 capsule (200 mg) by mouth with breakfast. 90 capsule 1 07/08/20 24 Active LORazepam (Ativan) 0.5 MG tabletIndicatio ns:Anxiety with depression Take 1 tablet (0.5 mg) by mouth every 6 (six) hours if needed for anxiety for up to 10 days. 10 tablet 07/08/20 24 Active spironolactone (Aldactone) 100 MG tablet TAKE ONE TABLET TWICE DAILY 180 tablet 1 09/07/20 24 Active albuterol 108 (90 Base) MCG/ACT inhalerIndicati ons:Mild intermittent asthma, unspecified whether complicated Inhale 2 puffs every 4 (four) hours if needed for wheezing. 18 g 1 09/09/19 25 Active azithromycin (Zithromax) 250 MG tabletIndicatio ns:Acute cough 500 mg on day 1, followed by 250 mg day 2-5 6 tablet 09/16/19 25 Active sertraline (Zoloft) 50 MG tabletIndicatio ns:Anxiety TAKE ONE TABLET EVERY DAY WITH 100 MG TABLET 90 tablet 2 09/24/19 25 Active sertraline (Zoloft) 100 MG tabletIndicatio ns:Anxiety TAKE ONE TABLET EVERY DAY WITH 50 MG TABLET 90 tablet 2 09/24/19 25 Active amitriptyline (Elavil) 75 MG tabletIndicatio ns:Chronic migraine without aura without status migrainosus, not intractable Take 1 tablet (75 mg) by mouth at bedtime. 90 tablet 3 11/16/19 25 026 Active pantoprazole (ProtoNix) 40 MG EC tabletIndicatio ns:Gastroesopha geal reflux disease without esophagitis TAKE ONE TABLET EVERY MORNING BEFORE BREAKFAST 30 tablet 3 12/14/19 25 Active FREESTYLE LITE test stripIndication s:Hypoglycemia Use to test blood sugar 2 times daily 100 each 12 12/09/19 24 025 pantoprazole (ProtoNix) 40 MG EC tabletIndicatio ns:Gastroesopha geal reflux disease without esophagitis TAKE ONE TABLET EVERY MORNING BEFORE BREAKFAST 30 tablet 3 09/09/19 25 025 Discontinued amitriptyline (Elavil) 75 MG tabletIndicatio ns:Chronic migraine without aura without status migrainosus, not intractable TAKE ONE TABLET EVERY NIGHT AT BEDTIME 30 tablet 10/04/19 25 025 Discontinued(R eorder (will not trigger notification to Pharmacy)) Active Problems Problem Noted Date Diagnosed Date Acute maxillary sinusitis 09/09/2024 Assessment & Plan (09/09/2024 3:59 PM EST): Conservatory treatment for now (Flonase + antihistaminics) if symptoms persist or worse call back, will consider antibiotic treatment Anxiety with depression 05/31/2024 Assessment & Plan (09/09/2024 3:59 PM EST): Stable c/w same interventions Assessment & Plan (07/08/2024 10:19 AM EDT): Stable C/w same medication regimen Sertraline 150mg daily Hydroxyzine PRN Lorazepam only with extreme anxiety Assessment & Plan (05/31/2024 4:30 PM EDT): Counseling done today, I will refer her to [facility] I will refill her lorazepam for short course and I advise to try to intercalate with hydroxyzine PRN (do not take both medications at the same time) Smoking 04/07/2024 Assessment & Plan (04/07/2024 4:41 PM EDT): Smoking cessation counseling done Bupropion initiated today Hypoglycemia 12/08/2023 Assessment & Plan (12/08/2023 11:22 AM EDT): I will prescribe for patient glucometer supply I advise frequent meals low in sugar and carbs but high in protein and vegetables, I advise to eat 5 times a day and f/u with weight management Chronic fatigue 11/24/2023 Assessment & Plan (11/26/2023 11:43 AM EDT): Blood work will be check Rtc 2 weeks Acute pain of right shoulder 02/12/2023 Assessment & Plan (02/12/2023 10:30 AM EDT): As above Viral gastroenteritis 02/12/2023 Assessment & Plan (02/12/2023 10:31 AM EDT): Drink plenty of fluids and rest Continue with pantoprazole zofran PRN Neck pain 01/21/2023 Assessment & Plan (03/08/2024 4:21 PM EDT): Apply heat on affected area Acetaminophen and ibuprofen PRN Assessment & Plan (02/12/2023 10:30 AM EDT): Apply heat on affected area Alternate acetaminophen and ibuprofen PRN Cyclobenzaprine 5mg Q 8hrs PT referral Orthopedics referral RTC 4 weeks Anxiety 09/21/2022 Assessment & Plan (04/07/2024 4:41 PM EDT): Controlled with current medication regimen, continue for now with same medications Assessment & Plan (03/08/2024 4:21 PM EDT): C/w same dose of sertraline I will prescribe lorazepam 0.5mg to be use only if she has a panic attack COVID-19 09/21/2022 Hemorrhoids 09/21/2022 Hypertriglyceridemia 09/21/2022 Assessment & Plan (07/08/2024 10:18 AM EDT): I renewed her fenofibrate Today extensive discussion was done about life style modifications I advise healthy diet (low calorie) and cardiovascular exercise Mild intermittent asthma 09/21/2022 Assessment & Plan (09/09/2024 3:58 PM EST): Patient educated to avoid triggers Albuterol refilled Polycystic ovary syndrome 09/21/2022 Assessment & Plan (12/08/2023 11:22 AM EDT): Patient will f/u with gynecology Assessment & Plan (11/26/2023 11:42 AM EDT): At this point after significant amount of weight loss I believe she will no longer need metformin I will recheck her glucose and A1C Obesity 03/07/2017 Assessment & Plan (01/21/2023 4:06 PM EDT): Please see HPI In light of failure weight reduction with healthy diet and exercise and failure to pheniramine I will submit PA for ozempic Asthma 02/18/2017 Assessment & Plan (07/08/2024 10:20 AM EDT): Stable c/w same interventions Chronic nonalcoholic liver disease 02/18/2017 Esophageal reflux 02/18/2017 Assessment & Plan (09/09/2024 3:58 PM EST): I advise patient to avoid NSAIDs, spicy and acid food, I advise to eat at the same time every day, I advise to elevate the head of the bed and take medications as prescribe Thrombocytosis 02/18/2017 Overview (01/21/2023): Per transfer records - OCPs stopped due to mild thrombocytosis - plt 455 (2015). Per transfer records - OCPs stopped due to mild thrombocytosis - plt 455 (2016). Depression 12/06/2005 Migraine 12/06/2005 Assessment & Plan (03/08/2024 4:22 PM EDT): I advise to avoid migraine triggers like red wine, chocolate, cheese, strong perfumes I will increase amitriptyline to 75mg at bed time Acetaminophen and ibuprofen PRN for break through headaches Assessment & Plan (12/08/2023 11:23 AM EDT): I advise to avoid migraine triggers like red wine, chocolate, cheese, strong perfumes C/w amitriptyline 50mg at bed time Assessment & Plan (11/26/2023 11:43 AM EDT): I advise to avoid migraine triggers like red wine, chocolate, cheese, strong perfumes I will increase elavil to 50mg at bed nubia Assessment & Plan (01/21/2023 4:03 PM EDT): I advise to avoid migraine triggers like red wine, chocolate, cheese, strong perfumes I will start amytriptiline 25mg at bed time RTC 6 weeks Encounters Date Type Department Care Team Description 12/11/2024 Refill [facility] [address] [place] [address] Komal Ghotra MD Gastroesophageal reflux disease without esophagitis 11/15/2024 Telephone [facility] [address] [place] [address] Baltazar Luevano MD 10/02/2024 Refill [facility] [address] [place] [address] Komal Ghotra MD Chronic migraine without aura without status migrainosus, not intractable 09/24/2024 Refill [facility] [address] [place] [address] Baltazar Luevano MD Anxiety 09/16/2024 Orders Only [facility] [address] [place] [address] Baltazar Luevano MD Acute cough (Primary Dx) from Last 3 Months Immunizations Name Administration Dates Next Due Hep B, Unspecified 02/07/2014 Hep B, adult 02/07/2014 Influenza Injectable Quadriv alant Preservative Free IIV4 MDCK 05/29/2021,05/17/2020 Influenza injectable quadriv alent IIV4 with preservative 05/19/2019,05/20/2018 Influenza injectable quadriv alent preservative free 08/27/2023,08/05/2022,06/28/2016 Influenza, IIV3, injectable 05/19/2019, 8,06/28/2016 Influenza, seasonal, injecta ble, preservative free 07/08/2024 MMR 02/07/2014 Moderna Covid-19 Vaccine 12+ 09/28/2020 Pneumococcal Polysaccharide PPSV23 11/18/2018 Tdap 11/18/2018 Social History Tobacco Use Types Packs/Day Years [...] Orientation Straight 07/08/2022 10 :37 AM EDT Last Filed Vital Signs Vital Sign Reading Time Taken Comments Blood Pressure 112/80 07/08/2024 9:13 AM EDT Pulse 82 07/08/2024 9:13 AM EDT Temperature 36.5 ??C (97.7 ??F) 07/08/2024 9:13 AM ED T Respiratory Rate 17 07/08/2024 9:13 AM EDT Oxygen Saturation 99% 03/08/2024 3:39 PM EDT Inhaled Oxygen Concentration - - Weight 85 kg (187 lb 8 oz) 07/08/2024 9:13 AM ED T Height 162.6 cm (5' 4 ) 07/08/2024 9:13 AM EDT Body Mass Index 32.18 07/08/2024 9:13 AM EDT Plan of Treatment Health Maintenance Due Date Last Done Comments HIV Screening 1980 Family Planning (PISQ) 1997 Hepatitis C Screening 2000 Hepatitis A Vaccines (1 of 2 - Risk 2-dose series) 2001 Hepatitis B Vaccines (2 of 3 - 19+ 3-dose series) 03/07/2014 02/07/2014, 02/07/2014 Pneumococcal Vaccine: Pediatrics (0 to 5 Years) and At-Risk Patients (6 to 49) Years) (2 of 2 - PCV) 11/19/2019 11/18/2018 COVID-19 Vaccine ( season) 2024 08/05/2022, 09/05/2021, 09/28/2020, Additional history exists Mammogram 01/13/2025 01/14/2024, 06/19/2022 SDOH Screening 03/08/2025 03/08/2024 Alcohol/Substance Use Screening 07/08/2025 07/08/2024 Depression Screening 09/09/2025 09/09/2024, 09/09/19 Tobacco Screening 09/16/2025 09/16/2024 Pap Smear 12/29/2026 12/30/2023, 12/07, 11/15/2021 Cervical Cancer Screening 12/26/2027 HPV/Cotest 12/26/2027 12/25/2022 DTaP/Tdap/Td Vaccines (2 - Td or Tdap) 11/18/2028 11/18/2018 Lipid Panel 11/24/2028 11/25/2023, 02/26/2022 Zoster Vaccines (1 of 2) 2032 RSV Patients and Patients Aged 60 years or older (1 - 1-dose 75+ series) 2057 Influenza Vaccine Completed 07/08/2024, , 08/05/2022, Additional history exists HIB Vaccines Aged Out No longer eligi ble based on patient's age to complete this topic HPV Vaccines Aged Out No longer eligi ble based on patient's age to complete this topic IPV Vaccines Aged Out No longer eligi ble based on patient's age to complete this topic Meningococcal Vaccine Aged Out No dinesh pamela eligible based on patient's age to complete this topic RSV under 20 months Aged Out No longe r eligible based on patient's age to complete this topic Rotavirus Vaccines Aged Out No longer eligible based on patient's age to complete this topic Procedures Procedure Name Priority Date/Time Associated Diagnosis Comments BI MAMMOGRAM SCREENING TOMOSYNTHESIS BILATERAL Routine 01/14/2024 3:48 PM EDT PAP SMEAR Routine 12/30/2023 12:19 PM EDT LIPID PANEL, STANDARD Routine 11/25/2023 8:49 AM EDT Chronic fatigue HPV MRNA E6/E7 REFLEX TO HPV 16, 18/45 Routine 12/25/2022 12:17 PM EDT from Last 3 Months or Most Recently Relevant to Health Maintenance Results * BI Mammogram Screening Tomosynthesis Bilateral (01/14/2024 3:48 PM EDT) Anatomical Region Laterality Modality Breast Bilateral Mammography 01/14/2024 3:48 PM EDT Narrative 02/13/2024 8:59 AM EDT ? [facility] [place] ? [address] ?[place] [address] ? Mammography Report ? Signed ? Patient: Caroline Bernard ?MR#: [id number] ? : 1980 ?Acct:[id number] ? Age/Sex: 43 / F ?ADM Date: 01/14/24 ? Loc: HO.MAMMO ? Attending Dr: Ryan Zamarripa MD ? Ordering Physician: Ryan Zamarripa MD ?Results: 1Negativ ?? e ? Date of Service: 01/14/24 ?Follow Up: 1 Year From Orig ?? inal Mammogram ? Procedure(s): MM tomosynthesis screening BI ?? Accession Number(s): [id number] ? cc: Komal Ghotra MD; Ryan Zamarripa MD ? EXAMINATION: ?? MM SCREENING DIGITAL BREAST TOMOSYNTHESIS, BILATERAL ? CLINICAL INFORMATION: ? Screening. Asymptomatic. ? COMPARISON: ?? Mammography: This study is compared with prior exams dating back to ?? 2021. ? TECHNIQUE: ?? Digital breast tomosynthesis is performed in both the craniocaudal and ?? mediolateral oblique views along with computer-aided detection (CAD). ?? Synthesized 2D images are generated from the tomosynthesis. ? FINDINGS: ?? There are scattered areas of fibroglandular density (ACR BI-RADS breast ?? composition Category b). ? There are no significant masses, abnormal calcifications, or other ?? abnormalities. ? MM/MM tomosynthesis screening BI ?? IMPRESSION: ?? No mammographic evidence of malignancy. ? ASSESSMENT: ? BI-RADS BI-RADS 1 - Negative ? RECOMMENDATION: ?? Routine annual mammography screening. ? 1 year F/U ? This examination should not preclude the clinical evaluation of a ?? suspicious palpable abnormality. ? This patient's information was entered into a reminder system with a ?? target due date for their next mammogram. ? Dictated By: ?Irais Stallworth MD ? Signed By: ?<Electronically signed by Irias Stallworth MD in OV> ? 02/13/24 0856 ? DD/ 1548 ? TD/TT: ? Electronic Calibration Technician: ? Procedure Note Jose, Image - 02/13/2024 [facility] [address] [place] [address] Mammography Report Signed Patient: Octavio Bernard#: [id number] : 1980Acct:[id number] Age/Sex: 43 / FADM Date: 01/14/24 Loc: HO.MAMMO Attending Dr: Ryan Zamarripa MD Ordering Physician: Ryan Zamarripa MDResults: 1Negativ e Date of Service: 01/14/24Follow Up: 1 Year From Orig inal Mammogram Procedure(s): MM tomosynthesis screening BI Accession Number(s): [id number] cc: Komal Ghotra MD; Ryan Zamarripa MD EXAMINATION: MM SCREENING DIGITAL BREAST TOMOSYNTHESIS, BILATERAL CLINICAL INFORMATION: Screening. Asymptomatic. COMPARISON: Mammography: This study is compared with prior exams dating back to 2021. TECHNIQUE: Digital breast tomosynthesis is performed in both the craniocaudal and mediolateral oblique views along with computer-aided detection (CAD). Synthesized 2D images are generated from the tomosynthesis. FINDINGS: There are scattered areas of fibroglandular density (ACR BI-RADS breast composition Category b). There are no significant masses, abnormal calcifications, or other abnormalities. MM/MM tomosynthesis screening BI IMPRESSION: No mammographic evidence of malignancy. ASSESSMENT: BI-RADS BI-RADS 1 - Negative RECOMMENDATION: Routine annual mammography screening. 1 year F/U This examination should not preclude the clinical evaluation of a suspicious palpable abnormality. This patient's information was entered into a reminder system with a target due date for their next mammogram. Dictated By: Irais Stallworth MD Signed By: <Electronically signed by Irais Stallworth MD in OV> 02/13/24 0856 DD/ 1548 TD/TT: Electronic Calibration Technician: [facility] External Provider IMG BI PROCEDURES Edited Result - Final * Pap Smear (12/30/2023 12:19 PM EDT) 12/30/2023 12:1 9 PM EDT 12/31/2023 1:00 PM EDT [facility] - 01/19/2024 12:05 PM EDT ----- ------- Name: Caroline Bernard ?Age/Sex: 43/F ? : 1980 Unit#: [id number] ?? Attend Dr: Ryan Zamarripa MD ?Re12/30/23 ?Status: DEP REF ? Location: HO.LN ?Disch: ? ----- ------- SPEC : [id number] ? RECD: 12/31/23-1299 ? STATUS: ??SOUT ? REQ NUM: [id number] ? PRITI: 12/30/23-1219 ? SUBM DR: Ryan Zamarripa MD ? ENTERED: ??12/31/23-1 ?SP TYPE: Pap Smr ?OTHR DR: Komal Ghotra MD ? ORDERED: ??Pap Smear ? Interpretation ?? Satisfactory for evaluation. ?? Negative for intraepithelial lesion or malignancy. ?HPV mRNA E6/E7: ?NOT DETECTED ? This assay detects E6/E7 viral messenger RNA (mRNA) from 14 high-risk HPV types (16, 18, ?? 31, 33, 35, 39, 45, 51, 52, 56, 58, 59, 66, 68) ?? HPV testing performed by [facility], [place], [place]. ??See reference laboratory ?? portion of the EMR for entire report. ?Clinical Information LMP: 12/12/23 Previous PAP test: 2022, ELLI III Other history: Carcinoma in situ of cervix ? Material Received ?? ThinPrep-Cervical Copies To: ?? Komal Ghotra MD ?? [address] [facility] ?? [place] [address] ?? [phone] ?? Ryan Zamarripa MD ?? [address] [facility] ?? [place] ?? [phone] ----- ------- Signed (signature on file) RICKIE Mcnulty (ASCP) 01/19/24 1205 ? ----- ------- ? END OF REPORT ? us Generic External Data Provider LAB CYTOLOGY EMELIA LOMAS Final Result [facility] [address] [place] [phone] * (ABNORMAL) Lipid Panel, Standard (11/25/2023 8:49 AM EDT) Triglycerides 180(H) <150 mg/dL [facility] Comment:Desirable Triglyceri de: less than 150 mg/dLBorderline High Triglyceride 150-199 mg/dLHigh Triglyceride: 200-499 mg/dLVery High Triglyceride: greater than or equal to 5OO mg/dL Cholesterol 211(H) <200 mg/dL [facility] Comment:Desirable Cholestero l: less than 200 mg/dLBorderline High Cholesterol: 200-239 mg/dLHigh Cholesterol: greater than 239 mg/dL LDL Cholesterol Calculated 130(H) <100 mg/dL [facility] Comment:Desirable LDL: less than 100 mg/dLNear Optimal/Above Optimal LDL: 110- 129 mg/dLBorderline High LDL: 130-159 mg/dLHigh LDL: 160-189 mg/dLVery High LDL: greater than or equal to 190 mg/dL HDL Cholesterol 45 >40 mg/dL [facility] Comment:Desirable HDL: great er than 40 mg/dL Note: This HDL assay may give artificially low results in patients with liver disease. Blood Venous blood specimen / Unknown 11/25/2023 8:49 AM EDT 11/25/2023 1:59 PM EDT Komal Spivey MD LAB BLOOD ORDERABLES Final Result [facility] [address] [place] [phone] * HPV mRNA E6/E7 w/Reflex to HPV Genotypes 16, 18/45 (12/25/2022 12:17 PM EDT) HPV nRNA E6/E7 Not Detected Not Detected [facility] Comment:Methodology: Transcr iption-Mediated AmplificationThis assay detects E6/E7 viral messenger RNA (mRNA) from 14high-risk HPV types (16,18,31,33,35,39,45,51,52,56,58,59,66,68).Cervical sources are required for HPV testing.If a vaginal source from a patient who has had atotal hysterectomy with removal of cervix wassubmitted, please contact the testing laboratoryfor alternative testing options.For additional information, please refer [email or web address](This link if provided for information/educational purposes only.)THIS TEST WAS PERFORMED AT:[facility] [place] [id number] PIERRE MD HPV mRNA E6/E7 [facility] HPV 16 RNA [facility] HPV 18/45 RNA [facility] 12/25/2022 12:1 7 PM EDT 12/26/2022 8:15 AM EDT [facility] External Provider LAB CYT OLOGY ORDERABLES Final Result Performing Organization Address City/State/[facility] Co de Phone Number [facility] [address] [place] [phone] from Last 3 Months or Most Recently Relevant to Health Maintenance Insurance Care Teams Dental Director Relationship Specialty Start Date End Date Komal Ghotra MD [address] [place] [phone] PCP - General Family Medicine 12/20/21
--- OUTSIDE RECORDS SUMMARY | 2024-12-14 08:55 | XMS_ITS | Encounter Summary ---
Author Organization [employer] Address [address] [place] [address] Care Team Providers Care Crusher Machine Operator Name Role Phone Komal Ghotra MD Primary Care Provide r Encounter Details Date Type Department Care Team ([facility] st Contact Info) Description 11/25/2023 Telephone [facility] [address] [place], [place] [phone] Komal Ghotra MD [address] [place], [place] [phone] Social History Tobacco Use Types Packs/Day Years Used Date Smoking Tobacco: Every Day Cigarettes Smokeless Tobacco: Never Alcohol Use Standard Drinks/Week Comments Not Currently 0 (1 standard drink = 0.6 oz pur e alcohol) Housing Stability Answer Date Recorded What is your housing situation today? I have tamraselena garcía 07/04/[address] you li ve. Do you have problems with any of the following? None of the above 07/04/2023 Food Insecurity Answer Date Recorded Within the past 12 months, y ou worried that your food would run out before you got money to buy more: Never True 07/04/2023 Within the past 12 months,th e food you bought just didn't last and you didn't have enough money to get more: Never True Transportation Answer Date Recorded In the past 12 months, has l ack of transportation kept you from medical appts, meetings, work or from getting things needed for daily living? No 07/04/2023 Utilities Answer Date Recorded In the past 12 months, has t he electric, gas, oil or water company threatened to shut off services in your home? No 07/04/2023 Comments Unknown Sex and Gender Information Value Date Recorded Sex Assigned at Female 07/08/2022 10:37 AM EDT Legal Sex Female 10:37 AM EDT Gender Identity Female 07/08/2022 10:37 AM EDT Sexual Orientation Straight 07/08/2022 10 :37 AM EDT documented as of this encounter Miscellaneous Notes * Telephone Encounter - Tana Farnsworth RN - 11/25/2023 3:52 PM EDT Critical Lab Result of 42 blood glucose noted this morning at 819 for pt. Currently asymptomatic asshe fasting at the time of the fingerstick. PCP made aware * Telephone Encounter - Laura Humphreys LPN - 11/25/2023 3:25 PM EDT Critical result line call received at this time Suzanna reporting patient Blood Glucose 42 as drawn this morning at 819am. Patient called and informed. She is fine and was fasting at time of blood draw. Please update PCP. documented in this encounter Plan of Treatment Not on file documented as of this encounter Visit Diagnoses Not on filedocumented in this encounter Care Teams Crusher Machine Operator Relationship Specialty Start Date End Date Komal Ghotra MD [address] [place] [phone] PCP - General Family Medicine 12/20/21 documented as of this encounter
--- OUTSIDE RECORDS SUMMARY | 2024-12-14 08:55 | XMS_ITS ---
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 MEDICATIONS Medication SIG (Take, Route, Frequency, Duration) Notes Start Date End Date Status Ondansetron 4 MG 1 tablet on the tong ue and allow to dissolve prn nausea/vomiting Orally Once a day for 30 days Active Zepbound 7.5 MG/0.5ML 7.5mg Subcutaneous weekly for 30 days 11/30/2024 Active Fenofibrate 48 MG 1 tablet Orally Once a day Not-Taking metFORMIN HCl 1000 MG 1 tablet with a me al Orally TWICE DAILY Not-Taking Zepbound 2.5 MG/0.5ML Inject 2.5 mg (0.5 mL) Subcutaneous once weekly for 28 days 08/24/2024 Not-Taking Baby Aspirin Not-Bunny ing Zepbound 5 MG/0.5ML inject.5mg Subcutane ous once a week for 30 days 10/19/2024 Active Sertraline HCl 150 MG 1 capsule Orally O nce a day Active Spironolactone 100 MG 1 tablet Orally TW ICE DAILY Active Pantoprazole Sodium 40 MG 1 tablet Orall y Once a day Active Amitriptyline HCl 25 MG 1 tablet at bedt rangel Orally Once a day Active Linzess 145 MCG 1 capsule at least 3 0 minutes before the first meal of the day on an empty stomach Orally Once a day for 30 days 08/24/2024 Active LORazepam 0.5 MG 1 tablet at bedtime as needed Orally Once a day Active Probiotic 250 MG as directed Orally Active Wegovy 2.4 MG/0.75ML as directed Subcutaneous weekly for 30 days Active SOCIAL HISTORY Tobacco Use: Social History Observation Description Date Details (start date - stop date) Never Smoker NA - NA Sex Assigned At : Social History Observation Description Sex Assigned At Unknown Tobacco Use/Smoking Question Answer Notes Are you a nonsmoker PROBLEMS Problem Type ICD Code Onset Dates Problem Status W/U Status Risk SNOMED Code Notes Problem BMI 35.0-35.9,ad ult (Z68.35) Active confirmed 591489869 Problem HARMAN (obstructive sleep apnea) (G47.33) Active confirmed 67908059 VITAL SIGNS Blood pressure systolic 114 mm Hg 12/01/19 Blood pressure diastolic 82 mm Hg 025 Heart Rate 96 /min 11/30/2024 Height 64 in 11/30/2024 Weight 206 lbs 11/30/2024 BMI 35.36 kg/m2 11/30/2024 Oximetry 98 % 11/30/2024 Encounters Encounter Location Date Provider Diagnosis [facility] [address] [facility] [address] [place] [address] 11/30/2024 VERNELL TAM Other obesity due to excess calories E66.09 ; BMI 35.0-35.9,adult Z68.35 ; Dietary counseling and surveillance Z71.3 ; Daytime somnolence R40.0 ; Snoring R06.83 and HARMAN (obstructive sleep apnea) G47.33 ASSESSMENTS Encounter Date Diagnosis Assessment Notes Treatment Notes Treatment Clinical Notes Section Notes 11/30/2024 Other obesity due to excess calories (ICD-10 - E66.09) #Weight Management 11/30/2024 _update labs Not recommended to use borth Wegovy and Zepbound at the same time, discussed patient should stick to Zepbound, Would like to increase from 5-7.5 in the upcoming weeks She has decided against sleep study Total time spent today was 30 minutes of which greater than 50% was spent on coordinating and counseling Patient has been found to be obese with a BMI of (32). Patient has class (1) obesity Of note, some information is being carried forward from prior records for informational purposes only and is being cited so that efficiency, safety and quality of the patient's care is not compromised This note was prepared using voice recognition software and direct typing Please excuse inadvertent information security consultant or typing errors, or uncorrected word substitutions Although every attempt has been made by the provider to proofread this document, occasional misspellings and typographical errors may still be present Due to the previous pandemic, and the use of personal protective equipment (PPE) This may decrease voice recognition accuracy Inadvertent information security consultant errors may occur 11/30/2024 BMI 35.0-35.9,adult (ICD-10 - Z68.35) #Weight Management 11/30/2024 _update labs Not recommended to use borth Wegovy and Zepbound at the same time, discussed patient should stick to Zepbound, Would like to increase from 5-7.5 in the upcoming weeks She has decided against sleep study Total time spent today was 30 minutes of which greater than 50% was spent on coordinating and counseling Patient has been found to be obese with a BMI of (32). Patient has class (1) obesity Of note, some information is being carried forward from prior records for informational purposes only and is being cited so that efficiency, safety and quality of the patient's care is not compromised This note was prepared using voice recognition software and direct typing Please excuse inadvertent information security consultant or typing errors, or uncorrected word substitutions Although every attempt has been made by the provider to proofread this document, occasional misspellings and typographical errors may still be present Due to the previous pandemic, and the use of personal protective equipment (PPE) This may decrease voice recognition accuracy Inadvertent information security consultant errors may occur 11/30/2024 Dietary counseling and surveillance (ICD-10 - Z71.3) #Weight Management 11/30/2024 _update labs Not recommended to use borth Wegovy and Zepbound at the same time, discussed patient should stick to Zepbound, Would like to increase from 5-7.5 in the upcoming weeks She has decided against sleep study Total time spent today was 30 minutes of which greater than 50% was spent on coordinating and counseling Patient has been found to be obese with a BMI of (32). Patient has class (1) obesity Of note, some information is being carried forward from prior records for informational purposes only and is being cited so that efficiency, safety and quality of the patient's care is not compromised This note was prepared using voice recognition software and direct typing Please excuse inadvertent information security consultant or typing errors, or uncorrected word substitutions Although every attempt has been made by the provider to proofread this document, occasional misspellings and typographical errors may still be present Due to the previous pandemic, and the use of personal protective equipment (PPE) This may decrease voice recognition accuracy Inadvertent information security consultant errors may occur 11/30/2024 Daytime somnolence (ICD-10 - R40.0) #Weight Management 11/30/2024 _update labs Not recommended to use borth Wegovy and Zepbound at the same time, discussed patient should stick to Zepbound, Would like to increase from 5-7.5 in the upcoming weeks She has decided against sleep study Total time spent today was 30 minutes of which greater than 50% was spent on coordinating and counseling Patient has been found to be obese with a BMI of (32). Patient has class (1) obesity Of note, some information is being carried forward from prior records for informational purposes only and is being cited so that efficiency, safety and quality of the patient's care is not compromised This note was prepared using voice recognition software and direct typing Please excuse inadvertent information security consultant or typing errors, or uncorrected word substitutions Although every attempt has been made by the provider to proofread this document, occasional misspellings and typographical errors may still be present Due to the previous pandemic, and the use of personal protective equipment (PPE) This may decrease voice recognition accuracy Inadvertent information security consultant errors may occur 11/30/2024 Snoring (ICD-10 - R06.83) #Weight Management 11/30/2024 _update labs Not recommended to use borth Wegovy and Zepbound at the same time, discussed patient should stick to Zepbound, Would like to increase from 5-7.5 in the upcoming weeks She has decided against sleep study Total time spent today was 30 minutes of which greater than 50% was spent on coordinating and counseling Patient has been found to be obese with a BMI of (32). Patient has class (1) obesity Of note, some information is being carried forward from prior records for informational purposes only and is being cited so that efficiency, safety and quality of the patient's care is not compromised This note was prepared using voice recognition software and direct typing Please excuse inadvertent information security consultant or typing errors, or uncorrected word substitutions Although every attempt has been made by the provider to proofread this document, occasional misspellings and typographical errors may still be present Due to the previous pandemic, and the use of personal protective equipment (PPE) This may decrease voice recognition accuracy Inadvertent information security consultant errors may occur 11/30/2024 HARMAN (obstructive sleep apnea) (ICD-10 - G47.33) #Weight Management 11/30/2024 _update labs Not recommended to use borth Wegovy and Zepbound at the same time, discussed patient should stick to Zepbound, Would like to increase from 5-7.5 in the upcoming weeks She has decided against sleep study Total time spent today was 30 minutes of which greater than 50% was spent on coordinating and counseling Patient has been found to be obese with a BMI of (32). Patient has class (1) obesity Of note, some information is being carried forward from prior records for informational purposes only and is being cited so that efficiency, safety and quality of the patient's care is not compromised This note was prepared using voice recognition software and direct typing Please excuse inadvertent information security consultant or typing errors, or uncorrected word substitutions Although every attempt has been made by the provider to proofread this document, occasional misspellings and typographical errors may still be present Due to the previous pandemic, and the use of personal protective equipment (PPE) This may decrease voice recognition accuracy Inadvertent information security consultant errors may occur PLAN OF TREATMENT Medication Medication Name Sig Start Date Stop Date Notes Ondansetron 4 MG 1 tablet on the tong ue and allow to dissolve prn nausea/vomiting Orally Once a day for 30 days Zepbound 7.5 MG/0.5ML 7.5mg Subcutaneous weekly for 30 days 11/30/2024 Pending Test Test Name Order Date VITAMIN B12 11/30/2024 LIPID PANEL, STANDARD 11/30/2024 COMPREHENSIVE METABOLIC PANEL 11/30/2024 CBC (INCLUDES DIFF/PLT) 11/30/2024 URINALYSIS, COMPLETE 11/30/2024 HEMOGLOBIN A1c 11/30/2024 TSH W/REFLEX TO FT4 11/30/2024 VITAMIN D,25-OH,TOTAL,IA 11/30/2024 Next Appt Details Provider Name:VERNELL TAM, 01/11/2025 03:00:00 PM, [address], [address], [place], [address], Progress Notes * Lauren COMER:1980 ( 44 yo F)Acc No.[id number]:11/30/2024 Patient:??Caroline COMER Provider:??VERNELL TAM NP :1980?Age:44 Y?Sex:Fe male Date:11/30/2024 Address: [id number] Subjective: * Chief Complaints: * ?1. Pt here for weight management follow up, SECA done.. * HPI: ?Constitutional:? Patient presents for a weight management follow up. ?Patient seen and examined. ? Full past medical history, social history, family history, ?allergies and current medications were reviewed and updated. ?Body composition analysis reviewed ?#Weight Management ?11/30/2024 ?Due for updated labs ?PCP, Dr. Melo at [facility], ?On Wegovy 2.4 mg weekly, alternating with Zepbound 5mg just started last week ?Zepbound 5mg through [facility] direct, started in october ?Feels she does not feel full with this dose ?Injection Day: Vary but is either Friday or Friday ?New Goal weight: 140-150 ?Was initially having nausea after the injection but denies any at this time. ?Although she has done quite well she feels as if she is plateauing ?No longer taking Contrave ?We discussed the new surmount HARMAN trial and indication for tirzepatide ?She would be amendable to sleep study given her ESS score but feels this is an extra expense at this time ?Currently denies nausea, vomiting, diarrhea, lightheadedness, or dizziness. ?Her PCP took her off of metformin as well as her fibrate with significant improvements while on GLP-1 ?Discussed importance of protein consumption for muscle maintenance ?No longer taking phentermine. ?However, once her prescription was up, she stated she slowly regained the weight. ?Because of her PCOS, she also is prescribed spironolactone and previously metformin which she says helps her to keep weight off. ?She states she does not exercise and does not follow any certain diet or lifestyle. ?Denies tracking calories or protein intake, reports most of her calories during the day and with chocolates. ?Is working on high-protein and increasing her step count. ?Exercise: Walking 1506-2390 steps a day (prev 6048-3046) ?highest weight: 250 lbs ?goal weight: 190 lbs ?11/30/2024, Weight 207lbs, BMI 35.9 (+8lbs) ?10/18/2024, Weight 199lbs , BMI 34 (+4lbs) ?09/21/2024, Weight 195lbs , BMI 33 ?08/24/2024, Weight 194lbs, BMI 33 ?06/17/2024, Weight 186, BMI 32.07 ?04/14/2024, Weight 187, BMI 32 ?12/23/2023, Weight 182lbs , BMI 31 ?11/05/2023, Weight 182, BMI 31, (-10Ibs) ?09/12/2023, Weight 192, BMI (-10) ?07/17/2023: Weight 202 lbs, BMI 35 (-13lbs) ?2023: 215lbs, BMI 36 (-2 lbs) ?05/13/2023: weight 217, BMI 37, (-4 lbs) ?04/25/2023:, weight 221, BMI 38 (-5 lbs) ?03/28/2023:, 226 pounds, BMI 38 ?Comprehensive Labs 11/2023 at [facility] ?CBC stable ?Renal fun, electrolytes, and LFTs stable ?Total Cholesterol 211 ?Triglycerides 180 ?LDL 130 ?HDL 45 ?Vitamin D 39 ?TSH 0.7 ?B12 611 ?Folate 10.5 ?MITCHEL and rheumatoid factor were negative. * ROS:?All Other Systems:?Review of Systems (ROS)??All others negative except those mentioned in HPI.? * Medical History:??PCOS, FATT Y LIVER, HYPERLIPIDEMIA, GERD, ANXIETY. * Family History:??No Family H istory documented..?? * Social History:?Tobacco Use:??Tobacco Use/Smoking??Are you a??nonsmoker.?? * Medications:??Taking Wegovy 2.4 MG/0.75ML Solution Auto-injector as directed Subcutaneous weekly , Taking Ondansetron 4 MG Tablet Disintegrating 1 tablet on the tongue and allow to dissolve prn nausea/vomiting Orally Once a day , Taking LORazepam 0.5 MG Tablet 1 tablet at bedtime as needed Orally Once a day , Taking Probiotic 250 MG Capsule as directed Orally , Taking Pantoprazole Sodium 40 MG Tablet Delayed Release 1 tablet Orally Once a day , Taking Amitriptyline HCl 25 MG Tablet 1 tablet at bedtime Orally Once a day , Taking Sertraline HCl 150 MG Capsule 1 capsule Orally Once a day , Taking Spironolactone 100 MG Tablet 1 tablet Orally TWICE DAILY , Taking Linzess 145 MCG Capsule 1 capsule at least 30 minutes before the first meal of the day on an empty stomach Orally Once a day , Taking Zepbound 5 MG/0.5ML Solution Auto-injector inject.5mg Subcutaneous once a week , Not-Taking Zepbound 2.5 MG/0.5ML Solution Inject 2.5 mg (0.5 mL) Subcutaneous once weekly , Not-Taking Baby Aspirin , Not-Taking metFORMIN HCl 1000 MG Tablet 1 tablet with a meal Orally TWICE DAILY , Not-Taking Fenofibrate 48 MG Tablet 1 tablet Orally Once a day , Discontinued Wegovy 2.4 MG/0.75ML Solution Auto-injector INJECT 2.4 MG SUBCUTANEOUSLY ONCE A WEEK , Discontinued Zepbound 5 MG/0.5ML Solution 0.5 mL Subcutaneous once a week , Discontinued Contrave 8-90 MG Tablet Extended Release 12 Hour Week 1, take 1 tablet in the morning Week 2 take 1 tablet in the morning, 1 tablet in the evening Week 3 take 2 tablets in the morning, 1 tablet in the evening Week 4 onward 2 tablets in the morning, 2 tablets in the evening Orally twice a day , Medication List reviewed and reconciled with the patient * Allergies:??N.K.D.A. Objective: * Vitals:??HR:96/min, BP:114/8 2mm Hg, Wt:206lbs, BMI:35.36Index, Ht: 64 in, Oxygen sat %:98%. * Examination: ?General Examination: ?GENERAL APPEARANCE:??in no acute distress, well developed, well nourished.??HEAD:??normocephalic, atraumatic.??EYES:??pupils equal, round, reactive to light and accommodation.??EARS:??normal.??ORAL CAVITY:??mucosa moist.??THROAT:??clear.??NECK/THYROID:??neck supple, full range of motion, no cervical lymphadenopathy.??SKIN:??no suspicious lesions, warm and dry.??HEART:??no murmurs, regular rate and rhythm, S1, S2 normal.??LUNGS:??clear to auscultation bilaterally.??ABDOMEN:??normal, bowel sounds present, soft, nontender, nondistended.??EXTREMITIES:??no clubbing, cyanosis, or edema.??NEUROLOGIC:??nonfocal, motor strength normal upper and lower extremities, sensory exam intact.? Assessment: * Assessment: 1.??Other obesity due to exc ess calories - E66.09 (Primary)??2.??BMI 35.0- 35.9,adult - Z68.35??3.??Dietary counseling and surveillance - Z71.3??4.??Daytime somnolence - R40.0??5.??Snoring - R06.83??6.??HARMAN (obstructive sleep apnea) - G47.33?? #Weight Management 11/30/2024 _update labs Not recommended to use borth Wegovy and Zepbound at the same time, discussed patient should stick to Zepbound, Would like to increase from 5-7.5 in the upcoming weeks She has decided against sleep study Total time spent today was 30 minutes of which greater than 50% was spent on coordinating and counseling Patient has been found to be obese with a BMI of (32). Patient has class (1) obesity Of note, some information is being carried forward from prior records for informational purposes only and is being cited so that efficiency, safety and quality of the patient's care is not compromised This note was prepared using voice recognition software and direct typing Please excuse inadvertent information security consultant or typing errors, or uncorrected word substitutions Although every attempt has been made by the provider to proofread this document, occasional misspellings and typographical errors may still be present Due to the previous pandemic, and the use of personal protective equipment (PPE) This may decrease voice recognition accuracy Inadvertent information security consultant errors may occur. Plan: * Treatment: 2.??HARMAN (obstructive sleep a pnea)?? Start Zepbound Solution Auto-injector, 7.5 MG/0.5ML, 7.5mg, Subcutaneous, weekly, 30 days, 4 Pen Needle, Refills 1.? * Labs:?? * ?Lab: VITAMIN B12 ?Lab: HEMOGLOBIN A1 c ?Lab: VITAMIN D,25- [place],TOTAL,IA ?Lab: URINALYSIS, C OMPLETE ?Lab: COMPREHENSIVE METABOLIC PANEL ?Lab: CBC (INCLUDES DIFF/PLT) ?Lab: TSH W/REFLEX TO FT4 ?Lab: LIPID PANEL, STANDARD * Procedure Codes:??74305 P/M FALSEWORK BUILDER, INDIV 15 MIN, Modifiers: 33 , SA * Images: Billing Information: * Visit Code:?? 56944 Office Visit, Est Pt., Level 4. Modifiers: 25, SA * Procedure Codes:?? 79674 P/M FALSEWORK BUILDER, INDIV 15 MIN. Modifiers: 33, SA * Sign off status: Completed true * Provider:??VERNELL TAM NP Date:??11/07 History and Physical Notes * HPI (History of Present Illness) Category Sub-Category Detail Notes Category Not es Constitutional Patient presents for a weight management follow up. Patient seen and examined. Full past medical history, social history, family history, allergies and current medications were reviewed and updated. Body composition analysis reviewed #Weight Management 11/30/2024 Due for updated labs PCP, Dr. Melo at [facility], On Wegovy 2.4 mg weekly, alternating with Zepbound 5mg just started last week Zepbound 5mg through [facility] direct, started in october Feels she does not feel full with this dose Injection Day: Vary but is either Friday or Friday New Goal weight: 140-150 Was initially having nausea after the injection but denies any at this time. Although she has done quite well she feels as if she is plateauing No longer taking Contrave We discussed the new surmount HARMAN trial and indication for tirzepatide She would be amendable to sleep study given her ESS score but feels this is an extra expense at this time Currently denies nausea, vomiting, diarrhea, lightheadedness, or dizziness. Her PCP took her off of metformin as well as her fibrate with significant improvements while on GLP-1 Discussed importance of protein consumption for muscle maintenance No longer taking phentermine. However, once her prescription was up, she stated she slowly regained the weight. Because of her PCOS, she also is prescribed spironolactone and previously metformin which she says helps her to keep weight off. She states she does not exercise and does not follow any certain diet or lifestyle. Denies tracking calories or protein intake, reports most of her calories during the day and with chocolates. Is working on high-protein and increasing her step count. Exercise: Walking 6315-3592 steps a day (prev [id number]) highest weight: 250 lbs goal weight: 190 lbs 11/30/2024, Weight 207lbs, BMI 35.9 (+8lbs) 10/18/2024, Weight 199lbs , BMI 34 (+4lbs) 09/21/2024, Weight 195lbs , BMI 33 08/24/2024, Weight 194lbs, BMI 33 06/17/2024, Weight 186, BMI 32.07 04/14/2024, Weight 187, BMI 32 12/23/2023, Weight 182lbs , BMI 31 11/05/2023, Weight 182, BMI 31, (-10Ibs) 09/12/2023, Weight 192, BMI (-10) 07/17/2023: Weight 202 lbs, BMI 35 (-13lbs) 2023: 215lbs, BMI 36 (-2 lbs) 05/13/2023: weight 217, BMI 37, (-4 lbs) 04/25/2023:, weight 221, BMI 38 (-5 lbs) 03/28/2023:, 226 pounds, BMI 38 Comprehensive Labs 11/2023 at [facility] CBC stable Renal fun, electrolytes, and LFTs stable Total Cholesterol 211 Triglycerides 180 LDL 130 HDL 45 Vitamin D 39 TSH 0.7 B12 611 Folate 10.5 MITCHEL and rheumatoid factor were negative Examination Category Sub-Category Detail Notes Category Not es General Examination GENERAL APPEARANCE: in no ac heather distress, well developed, well nourished HEAD: normocephalic, atrau matic EYES: pupils equal, round, reactive to light and accommodation EARS: normal THROAT: clear NECK/THYROID: neck supple, full ra nge of motion, no cervical lymphadenopathy HEART: no murmurs, regular rate and rhythm, S1, S2 normal LUNGS: clear to auscultatio n bilaterally ABDOMEN: normal, bowel sounds present, soft, nontender, nondistended NEUROLOGIC: nonfocal, motor stre ngth normal upper and lower extremities, sensory exam intact SKIN: no suspicious lesion s, warm and dry EXTREMITIES: no clubbing, cyanosi s, or edema ORAL CAVITY: mucosa moist
--- OUTSIDE RECORDS SUMMARY | 2024-12-14 08:55 | XMS_ITS | Patient Health Record ---
Author Organization [facility] Address [address] [place] [address] Care Team Providers Care Rug Sizer Name Role Phone SKYLERClintVERNELL Unavailable [phone] REGIS WATSON Unavailable [phone] ALLERGIES No Known Allergies REASON FOR REFERRAL Reason Sleep Medicine Servi thom Diagnosis 1 Daytime sleepiness ( R40.0) Diagnosis 2 Habitual snoring (R0 6.83) Referral Organization [facility] 119 Referring Provider First Name VERNELL Referring Provider Last Name ANEL Referring Provider Speciality Internal M edicine Referred Provider Specialty Pulmonology General Notes Cyndy Zazueta 07/2025 08:58:56 AM > referral form faxed to [phone] and pt given phone [phone] to call and make an appt. Clinical Notes Nelly Milner 04:01:06 PM > I called the office and they informed me that they have contacted the patient and left her voicemails but has not received a callback yet Referral Priority Routine MEDICATIONS Medication SIG (Take, Route, Frequency, Duration) Notes Start Date End Date Status Zepbound 2.5 MG/0.5ML Inject 2.5 mg (0.5 mL) Subcutaneous once weekly for 28 days 08/24/2024 Not-Taking Ondansetron 4 MG 1 tablet on the tong ue and allow to dissolve prn nausea/vomiting Orally Once a day for 30 days Active Wegovy 2.4 MG/0.75ML as directed Subcutaneous weekly for 30 days Active Baby Aspirin Not-Bunny ing Linzess 145 MCG 1 capsule at least 3 0 minutes before the first meal of the day on an empty stomach Orally Once a day for 30 days 08/24/2024 Active Zepbound 7.5 MG/0.5ML 7.5mg Subcutaneous weekly for 30 days 11/30/2024 Active Zepbound 5 MG/0.5ML inject.5mg Subcutane ous once a week for 30 days 10/19/2024 Active Sertraline HCl 150 MG 1 capsule Orally O nce a day Active Spironolactone 100 MG 1 tablet Orally TW ICE DAILY Active Pantoprazole Sodium 40 MG 1 tablet Orall y Once a day Active Amitriptyline HCl 25 MG 1 tablet at bedt rangel Orally Once a day Active LORazepam 0.5 MG 1 tablet at bedtime as needed Orally Once a day Active Fenofibrate 48 MG 1 tablet Orally Once a day Not-Taking Probiotic 250 MG as directed Orally Active metFORMIN HCl 1000 MG 1 tablet with a me al Orally TWICE DAILY Not-Taking SOCIAL HISTORY Tobacco Use: Social History Observation Description Date Details (start date - stop date) Never Smoker NA - NA Sex Assigned At : Social History Observation Description Sex Assigned At Unknown Tobacco Use/Smoking Question Answer Notes Are you a nonsmoker PROBLEMS Problem Type ICD Code Onset Dates Problem Status W/U Status Risk SNOMED Code Notes Problem Other obesity due to excess calories (E66.09) Active confirmed 254905999 Problem Mixed hyperlipidemia (E78.2) Active confirmed 891729031 Problem Encounter for screening for lipoid disorders (Z13.220) Active confirmed Lipid sc reening (656236984) Problem Irritable bowel syndrome with constipation (K58.1) Active confirmed 737724693 Problem Anxiety (F41.9) Active confirmed 274625 02 Problem Adult general medica l exam (Z00.00) Active confirmed Adult health examination (532716580) Problem HARMAN (obstructive sleep apnea) (G47.33) Active confirmed 67753771 Problem Diabetes mellitus screening (Z13.1) Active confirmed Diabetes m ellitus screening (501260300) Problem Body mass index [BMI ] 36.0-36.9, adult (Z68.36) Active confirmed 946810563 Problem BMI 37.0-37.9, adult (Z68.37) Active confirmed Obese class II (722552558423775) Problem BMI 35.0-35.9,adult (Z68.35) Active confirmed 611806447 Problem BMI 33.0-33.9,adult (Z68.33) Active confirmed 981386335 Problem BMI 32.0-32.9,adult (Z68.32) Active confirmed 030080281 Problem Screening for diabetes mellitus (Z13.1) Active confirmed Diabetes mellit us screening (680342834) Problem PCOS (polycystic ovarian syndrome) (E28.2) Active confirmed 520777443 Problem Hypertriglyceridemia (E78.1) Active confirmed Hypertriglyceri demia (971807085) Problem Anemia due to vitami n B12 deficiency, unspecified B12 deficiency type (D51.9) Active confirmed Vitamin B>12< deficiency anaemia (15794392) Problem BMI 38.0-38.9,adult (Z68.38) Active confirmed Obese class II (612849085688800) Problem BMI 31.0-31.9,adult (Z68.31) Active confirmed 201533686 Problem Adult-onset obesity (E66.9) Active confirmed 935750359 Problem BMI 34.0-34.9,adult (Z68.34) Active confirmed 069297969 Problem Daytime somnolence (R40.0) Active confirmed 218422498542 Problem Screening for cardiovascular condition (Z13.6) Active confirmed Screening for cardiovascular system disease (693677652) Problem GERD without esophagitis (K21.9) Active confirmed 354586637 Problem Daytime sleepiness (R40.0) Active confirmed Excessive dayti me sleepiness - normal night sleep (787984851) Problem Avitaminosis D (E55.9) Active confirmed Avitaminosis D (61243788) Problem Encounter for screening for endocrine disorder (Z13.29) Active confirmed Endocrine/metab olic screening (098860052) Problem Lipid screening (Z13.220) Active confirmed Lipid screening (374067267) Problem Habitual snoring (R06.83) Active confirmed Habitual snorin g (606599807) VITAL SIGNS Heart Rate 96 /min 11/30/2024 Blood pressure diastolic 82 mm Hg 11/30/2024 Oximetry 98 % 11/30/2024 Height 64 in 11/30/2024 Blood pressure systolic 114 mm Hg 11/30/2024 Weight 206 lbs 11/30/2024 BMI 35.36 kg/m2 11/30/2024 Encounters Encounter Location Date Provider Diagnosis [facility] 119 [address] [facility] [address] [place] [address] 02/16/2024 VERNELL TAM [place] [address] 07/26/2024 REGIS WATSON [place] [address] 12/23/2023 VERNELL BORHOT Other obesity due to excess calories E66.09 and BMI 31.0-31.9,adult Z68.31 [place] [address] 04/14/2024 VERNELL BORHOT Other obesity due to excess calories E66.09 ; BMI 32.0-32.9,adult Z68.32 and Dietary counseling and surveillance Z71.3 [place] [address] 06/17/2024 VERNELL BORHOT Other obesity due to excess calories E66.09 ; BMI 32.0-32.9,adult Z68.32 and Dietary counseling and surveillance Z71.3 [place] [address] 08/24/2024 REGIS WATSON Adult-onset obesity E66.9 ; BMI 33.0-33.9,adult Z68.33 ; PCOS (polycystic ovarian syndrome) E28.2 ; GERD without esophagitis K21.9 ; Anxiety F41.9 ; Mixed hyperlipidemia E78.2 and Irritable bowel syndrome with constipation K58.1 [place] [address] [address] 09/21/2024 REGIS WATSON Adult-onset obesity E66.9 ; BMI 33.0-33.9,adult Z68.33 ; PCOS (polycystic ovarian syndrome) E28.2 ; GERD without esophagitis K21.9 ; Anxiety F41.9 ; Mixed hyperlipidemia E78.2 and Irritable bowel syndrome with constipation K58.1 [place] [address] 10/19/2024 VERNELL BORHOT Other obesity due to excess calories E66.09 ; BMI 34.0-34.9,adult Z68.34 ; Dietary counseling and surveillance Z71.3 ; Daytime somnolence R40.0 and Snoring R06.83 [place] [address] [address] 11/30/2024 VERNELL BORHOT Other obesity due to excess calories E66.09 ; BMI 35.0-35.9,adult Z68.35 ; Dietary counseling and surveillance Z71.3 ; Daytime somnolence R40.0 ; Snoring R06.83 and HARMAN (obstructive sleep apnea) G47.33 [facility] [address] [address] 01/26/2024 VERNELL BORHOT [facility] [address] [address] 01/28/2024 VERNELL BORHOT Other obesity due to excess calories E66.09 [place] [address] [address] 08/24/2024 REGIS WATSON [place] [address] [address] 09/17/2024 REGIS CLKS [address] [address] 09/21/2024 REGIS BIRKS [address] [address] 11/08/2024 VERNELL BORHOT Other obesity due to excess calories E66.09 [address] [address] 11/09/2024 VERNELL BORHOT [address] [address] 11/09/2024 VERNELL BORHOT [address] [address] 11/10/2024 VERNELL BORHOT Other obesity due to excess calories E66.09 [address] [address] 11/10/2024 VERNELL BORHOT Other obesity due to excess calories E66.09 [address] [address] 11/11/2024 VERNELL BORHOT ASSESSMENTS Encounter Date Diagnosis Assessment Notes Treatment Notes Treatment Clinical Notes Section Notes 12/23/2023 Other obesity due to excess calories (ICD-10 - E66.09) #Weight Management 12/23/2023 Request recent labs cont 2.4mg marvin Discussed adding on perhaps Hayley Discussed importance of protein consumption for muscle maintenance as well as probiotics, B12 complex biotin , iron and other nutrients, To help avoid telogen effluvium while on weight loss medications such as GLP-1 Total time spent today was 30 minutes of which greater than 50% was spent on coordinating and counseling Patient has been found to be obese with a BMI of (31). Patient has class (1) obesity We are a board certified obesity and weight management practice Patient has trialed behavioral modification, dietary restrictions and exercise for a minimum of 6 months Patient counseled regarding effects of GLP/GIP-1 agonists, and other FDA approved wgt loss meds with regards to a multifactorial approach of weight loss as mentioned above and not solely appetite suppression. We have discussed the mechanism of GLP-1's/GIP I think this would be fantastic option for her given her metabolic workup and body composition We have discussed the risks and benefits and side effects including/and not limited to Sarcopenia, intestinal obstruction, constipation, nausea, lethargy, headache Discussed importance of protein consumption for muscle maintenance as well as probiotics, B12 complex biotin , iron and other nutrients, To help avoid telogen effluvium We have discussed the lifelong requirement of nutritional supplementation And adherence to an exercise regimen as well as importance of follow-up The patient understands and agrees There is no history of medullary thyroid cancer or multiple endocrine neoplasia There is also no history of cardiovascular disease, hypertension, palpitations, or arrhythmias In the setting of potential stimulant/amphetamin e use such as phentermine We have also discussed risks and benefits, and the use of compounded medications to help offset the national shortages as well as financial implications vs trade name drugs Patient was reassured and welcomed to the practice. We discussed that we stress a hollistic medical approach with emphasis on lifestyle modification. Patient was informed that a healthy lifestyle with exercise and good eating habits can help reduce his risk of medical complications. He is explained that obesity increases his risk of diabetes, cardiovascular disease, or organ damage. We spent a lot of time discussing the relationship between food, exercise, sleep, mental health and obesity. Patient was counseled on the importance EATING local, organic food when possible. Patient was educated on clean 15 and dirty dozen. I provided information about reading books called The Food Rules by Eyal Borges and Eat Fat Get Lean by Dr Malik Mansfield. Self education is important in the journey for weight management. Patient was offered diagnostic testing. We want to measure visceral adiposity, advanced body composition, adverse lipids, fatty acid balance, risk for heart disease and atherosclerosis, markers of inflammation and genetic susceptibility. Patient was counseled on weight management and was advised to lose weight using A. Meal Replacement Products We discussed the lifelong requirement of nutritional supplementation and adherence to an exercise regimen as well as importance of dietary follow-up Patient was educated on the replacement products called optifast. This is a good way of taking fixed amount of calories. It has been shown in studies to be ineffective weight management tool. We also recommend maintaining adequate protein intake and muscle composition, 1.5mg/kg This however has to be coupled with lifestyle intervention as well as laboratory data and EKG monitoring. It is impossible to know how a person will tolerate complete meal replacement. The side effects of meal replacement and weight loss could include syncopal attacks, dizziness, gallstones, potential cholecystectomy, possible heart attack and even . The benefits of meal replacement would be potential weight loss but no guarantees can be made. Meal replacement products are not covered by insurance. Once the patient has bought these products we cannot return them B. Lifestyle management which includes several strategies as below 1. Eat a low carbohydrate good fat good protein diet. Eliminate refined carbohydrates from the diet. Continue blood sugar and sugared beverages. Eat local organic when possible. Cook your own meals. Read food labels. None about healthy snacks. Portion control and food with low glycemic index 2. Exercise regularly. Try to get at least 6000 steps a day. Use a predominant to track activity level. Consider using apps like Lema21, myfitnesspal, lose it, stick as needed for self-monitoring and weight management. Consider group exercises. Consider hiring a personal lines appraiser. Regular exercise is brandon to sustainable health and prevents as a buffer against weight regain 3. Sleep is most important for healing. Tried to sleep at least 8 hours a night. A good quality sleep needs a sleep ritual with ideal room temperature of around 68. It might help to take a shower and have no electronics in the room and sleep in a very dark room without artificial light. Start her sleep routine and get up early in the morning and go to bed on time 4. Make a social connection. Surround yourself with positive people with positive energy. Connect with friends and family. 5. Get into the habit of meditating and mindfulness while doing everything. 6. Go outside and connect with nature. C. Prescription medications Patient was educated on the use of prescription medications for medical weight loss. This is a growing list and includes phentermine, Topamax,Qsymia, contrave, belviq and saxenda. All prescription medications could have side effects including but not limited to kidney stones, seizure disorder cardiac arrhythmias heart attack pancreatitis etc. etc.. Patient was encouraged to read the prescription insert and have coaching with their pharmacist and make an informed decision about taking medication and know that these medications are being prescribed with good intentions and we do not know how a patient would react to her medication. Sudden medications are FDA approved for weight loss and there is also off label use depending on patient's inability to afford medications in an attempt to lose weight D. Behavioral counseling was done to establish a relationship between food and an mood. Patient was provided information about local counseling and psychiatry and Dr Cuevas at [facility]. We would like to cover regular topics and build on low glycemic eating exercise mindful eating, using yoga and meditation along with deep breathing and connecting with friends and family. E. MASS PAT reviewed, Patient's current medications were reviewed and opinion was given on medication that can cause weight gain and can be substituted F. Patient was assessed for risk with obesity including and not limiting to atherosclerosis heart disease stroke kidney disease, restrictive lung disease, irritable bowel syndrome and overall mortality. Risk of developing prediabetes diabetes and metabolic syndrome was discussed G. Therapeutic plan: We have decided to make therapeutic plan which would include choosing wisely on calories restricting portion getting active, tracking weight, getting good quality sleep and working on time management H. Patient will follow up in (4) weeks for weight management Of note, some information is being carried forward from prior records for informational purposes only and is being cited so that efficiency, safety and quality of the patient's care is not compromised This note was prepared using voice recognition software and direct typing Please excuse inadvertent master black belt or typing errors, or uncorrected word substitutions Although every attempt has been made by the provider to proofread this document, occasional misspellings and typographical errors may still be present Due to the previous pandemic, and the use of personal protective equipment (PPE) This may decrease voice recognition accuracy Inadvertent master black belt errors may occur 01/28/2024 Other obesity due to excess calories (ICD-10 - E66.09) 04/14/2024 Other obesity due to excess calories (ICD-10 - E66.09) #Weight Management 04/14/2024 Labs recently reviewed Continue 2.4 mg of Wegovy Will send Hayley to [facility] per her request at $70 monthly cost which is reasonable for her Discussed importance of protein consumption for muscle maintenance as well as probiotics, B12 complex biotin , iron and other nutrients, To help avoid telogen effluvium while on weight loss medications such as GLP-1 Total time spent today was 30 minutes of which greater than 50% was spent on coordinating and counseling Patient has been found to be obese with a BMI of (32). Patient has class (1) obesity We are a board certified obesity and weight management practice Patient has trialed behavioral modification, dietary restrictions and exercise for a minimum of 6 months Patient counseled regarding effects of GLP/GIP-1 agonists, and other FDA approved wgt loss meds with regards to a multifactorial approach of weight loss as mentioned above and not solely appetite suppression. We have discussed the mechanism of GLP-1's/GIP I think this would be fantastic option for her given her metabolic workup and body composition We have discussed the risks and benefits and side effects including/and not limited to Sarcopenia, intestinal obstruction, constipation, nausea, lethargy, headache Discussed importance of protein consumption for muscle maintenance as well as probiotics, B12 complex biotin , iron and other nutrients, To help avoid telogen effluvium We have discussed the lifelong requirement of nutritional supplementation And adherence to an exercise regimen as well as importance of follow-up The patient understands and agrees There is no history of medullary thyroid cancer or multiple endocrine neoplasia There is also no history of cardiovascular disease, hypertension, palpitations, or arrhythmias In the setting of potential stimulant/amphetamin e use such as phentermine We have also discussed risks and benefits, and the use of compounded medications to help offset the national shortages as well as financial implications vs trade name drugs Patient was reassured and welcomed to the practice. We discussed that we stress a hollistic medical approach with emphasis on lifestyle modification. Patient was informed that a healthy lifestyle with exercise and good eating habits can help reduce his risk of medical complications. He is explained that obesity increases his risk of diabetes, cardiovascular disease, or organ damage. We spent a lot of time discussing the relationship between food, exercise, sleep, mental health and obesity. Patient was counseled on the importance EATING local, organic food when possible. Patient was educated on clean 15 and dirty dozen. I provided information about reading books called The Food Rules by Eyal Borges and Eat Fat Get Lean by Dr Malik Mansfield. Self education is important in the journey for weight management. Patient was offered diagnostic testing. We want to measure visceral adiposity, advanced body composition, adverse lipids, fatty acid balance, risk for heart disease and atherosclerosis, markers of inflammation and genetic susceptibility. Patient was counseled on weight management and was advised to lose weight using A. Meal Replacement Products We discussed the lifelong requirement of nutritional supplementation and adherence to an exercise regimen as well as importance of dietary follow-up Patient was educated on the replacement products called optifast. This is a good way of taking fixed amount of calories. It has been shown in studies to be ineffective weight management tool. We also recommend maintaining adequate protein intake and muscle composition, 1.5mg/kg This however has to be coupled with lifestyle intervention as well as laboratory data and EKG monitoring. It is impossible to know how a person will tolerate complete meal replacement. The side effects of meal replacement and weight loss could include syncopal attacks, dizziness, gallstones, potential cholecystectomy, possible heart attack and even . The benefits of meal replacement would be potential weight loss but no guarantees can be made. Meal replacement products are not covered by insurance. Once the patient has bought these products we cannot return them B. Lifestyle management which includes several strategies as below 1. Eat a low carbohydrate good fat good protein diet. Eliminate refined carbohydrates from the diet. Continue blood sugar and sugared beverages. Eat local organic when possible. Cook your own meals. Read food labels. None about healthy snacks. Portion control and food with low glycemic index 2. Exercise regularly. Try to get at least 6000 steps a day. Use a predominant to track activity level. Consider using apps like Lema21, myfitnesspal, lose it, stick as needed for self-monitoring and weight management. Consider group exercises. Consider hiring a personal lines appraiser. Regular exercise is brandon to sustainable health and prevents as a buffer against weight regain 3. Sleep is most important for healing. Tried to sleep at least 8 hours a night. A good quality sleep needs a sleep ritual with ideal room temperature of around 68. It might help to take a shower and have no electronics in the room and sleep in a very dark room without artificial light. Start her sleep routine and get up early in the morning and go to bed on time 4. Make a social connection. Surround yourself with positive people with positive energy. Connect with friends and family. 5. Get into the habit of meditating and mindfulness while doing everything. 6. Go outside and connect with nature. C. Prescription medications Patient was educated on the use of prescription medications for medical weight loss. This is a growing list and includes phentermine, Topamax,Qsymia, contrave, belviq and saxenda. All prescription medications could have side effects including but not limited to kidney stones, seizure disorder cardiac arrhythmias heart attack pancreatitis etc. etc.. Patient was encouraged to read the prescription insert and have coaching with their pharmacist and make an informed decision about taking medication and know that these medications are being prescribed with good intentions and we do not know how a patient would react to her medication. Sudden medications are FDA approved for weight loss and there is also off label use depending on patient's inability to afford medications in an attempt to lose weight D. Behavioral counseling was done to establish a relationship between food and an mood. Patient was provided information about local counseling and psychiatry and Dr Cuevas at [facility]. We would like to cover regular topics and build on low glycemic eating exercise mindful eating, using yoga and meditation along with deep breathing and connecting with friends and family. E. MASS PAT reviewed, Patient's current medications were reviewed and opinion was given on medication that can cause weight gain and can be substituted F. Patient was assessed for risk with obesity including and not limiting to atherosclerosis heart disease stroke kidney disease, restrictive lung disease, irritable bowel syndrome and overall mortality. Risk of developing prediabetes diabetes and metabolic syndrome was discussed G. Therapeutic plan: We have decided to make therapeutic plan which would include choosing wisely on calories restricting portion getting active, tracking weight, getting good quality sleep and working on time management H. Patient will follow up in (4) weeks for weight management Of note, some information is being carried forward from prior records for informational purposes only and is being cited so that efficiency, safety and quality of the patient's care is not compromised This note was prepared using voice recognition software and direct typing Please excuse inadvertent master black belt or typing errors, or uncorrected word substitutions Although every attempt has been made by the provider to proofread this document, occasional misspellings and typographical errors may still be present Due to the previous pandemic, and the use of personal protective equipment (PPE) This may decrease voice recognition accuracy Inadvertent master black belt errors may occur 04/14/2024 BMI 32.0-32.9,adult (ICD-10 - Z68.32) #Weight Management 04/14/2024 Labs recently reviewed Continue 2.4 mg of Wegovy Will send Hayley to [facility] per her request at $70 monthly cost which is reasonable for her Discussed importance of protein consumption for muscle maintenance as well as probiotics, B12 complex biotin , iron and other nutrients, To help avoid telogen effluvium while on weight loss medications such as GLP-1 Total time spent today was 30 minutes of which greater than 50% was spent on coordinating and counseling Patient has been found to be obese with a BMI of (32). Patient has class (1) obesity We are a board certified obesity and weight management practice Patient has trialed behavioral modification, dietary restrictions and exercise for a minimum of 6 months Patient counseled regarding effects of GLP/GIP-1 agonists, and other FDA approved wgt loss meds with regards to a multifactorial approach of weight loss as mentioned above and not solely appetite suppression. We have discussed the mechanism of GLP-1's/GIP I think this would be fantastic option for her given her metabolic workup and body composition We have discussed the risks and benefits and side effects including/and not limited to Sarcopenia, intestinal obstruction, constipation, nausea, lethargy, headache Discussed importance of protein consumption for muscle maintenance as well as probiotics, B12 complex biotin , iron and other nutrients, To help avoid telogen effluvium We have discussed the lifelong requirement of nutritional supplementation And adherence to an exercise regimen as well as importance of follow-up The patient understands and agrees There is no history of medullary thyroid cancer or multiple endocrine neoplasia There is also no history of cardiovascular disease, hypertension, palpitations, or arrhythmias In the setting of potential stimulant/amphetamin e use such as phentermine We have also discussed risks and benefits, and the use of compounded medications to help offset the national shortages as well as financial implications vs trade name drugs Patient was reassured and welcomed to the practice. We discussed that we stress a hollistic medical approach with emphasis on lifestyle modification. Patient was informed that a healthy lifestyle with exercise and good eating habits can help reduce his risk of medical complications. He is explained that obesity increases his risk of diabetes, cardiovascular disease, or organ damage. We spent a lot of time discussing the relationship between food, exercise, sleep, mental health and obesity. Patient was counseled on the importance EATING local, organic food when possible. Patient was educated on clean 15 and dirty dozen. I provided information about reading books called The Food Rules by Eyal Borges and Eat Fat Get Lean by Dr Malik Mansfield. Self education is important in the journey for weight management. Patient was offered diagnostic testing. We want to measure visceral adiposity, advanced body composition, adverse lipids, fatty acid balance, risk for heart disease and atherosclerosis, markers of inflammation and genetic susceptibility. Patient was counseled on weight management and was advised to lose weight using A. Meal Replacement Products We discussed the lifelong requirement of nutritional supplementation and adherence to an exercise regimen as well as importance of dietary follow-up Patient was educated on the replacement products called optifast. This is a good way of taking fixed amount of calories. It has been shown in studies to be ineffective weight management tool. We also recommend maintaining adequate protein intake and muscle composition, 1.5mg/kg This however has to be coupled with lifestyle intervention as well as laboratory data and EKG monitoring. It is impossible to know how a person will tolerate complete meal replacement. The side effects of meal replacement and weight loss could include syncopal attacks, dizziness, gallstones, potential cholecystectomy, possible heart attack and even . The benefits of meal replacement would be potential weight loss but no guarantees can be made. Meal replacement products are not covered by insurance. Once the patient has bought these products we cannot return them B. Lifestyle management which includes several strategies as below 1. Eat a low carbohydrate good fat good protein diet. Eliminate refined carbohydrates from the diet. Continue blood sugar and sugared beverages. Eat local organic when possible. Cook your own meals. Read food labels. None about healthy snacks. Portion control and food with low glycemic index 2. Exercise regularly. Try to get at least 6000 steps a day. Use a predominant to track activity level. Consider using apps like [employer], [employer], lose it, stick as needed for self-monitoring and weight management. Consider group exercises. Consider hiring a personal lines appraiser. Regular exercise is brandon to sustainable health and prevents as a buffer against weight regain 3. Sleep is most important for healing. Tried to sleep at least 8 hours a night. A good quality sleep needs a sleep ritual with ideal room temperature of around 68. It might help to take a shower and have no electronics in the room and sleep in a very dark room without artificial light. Start her sleep routine and get up early in the morning and go to bed on time 4. Make a social connection. Surround yourself with positive people with positive energy. Connect with friends and family. 5. Get into the habit of meditating and mindfulness while doing everything. 6. Go outside and connect with nature. C. Prescription medications Patient was educated on the use of prescription medications for medical weight loss. This is a growing list and includes phentermine, Topamax,Qsymia, contrave, belviq and saxenda. All prescription medications could have side effects including but not limited to kidney stones, seizure disorder cardiac arrhythmias heart attack pancreatitis etc. etc.. Patient was encouraged to read the prescription insert and have coaching with their pharmacist and make an informed decision about taking medication and know that these medications are being prescribed with good intentions and we do not know how a patient would react to her medication. Sudden medications are FDA approved for weight loss and there is also off label use depending on patient's inability to afford medications in an attempt to lose weight D. Behavioral counseling was done to establish a relationship between food and an mood. Patient was provided information about local counseling and psychiatry and Dr Cuevas at [facility]. We would like to cover regular topics and build on low glycemic eating exercise mindful eating, using yoga and meditation along with deep breathing and connecting with friends and family. E. MASS PAT reviewed, Patient's current medications were reviewed and opinion was given on medication that can cause weight gain and can be substituted F. Patient was assessed for risk with obesity including and not limiting to atherosclerosis heart disease stroke kidney disease, restrictive lung disease, irritable bowel syndrome and overall mortality. Risk of developing prediabetes diabetes and metabolic syndrome was discussed G. Therapeutic plan: We have decided to make therapeutic plan which would include choosing wisely on calories restricting portion getting active, tracking weight, getting good quality sleep and working on time management H. Patient will follow up in (4) weeks for weight management Of note, some information is being carried forward from prior records for informational purposes only and is being cited so that efficiency, safety and quality of the patient's care is not compromised This note was prepared using voice recognition software and direct typing Please excuse inadvertent master black belt or typing errors, or uncorrected word substitutions Although every attempt has been made by the provider to proofread this document, occasional misspellings and typographical errors may still be present Due to the previous pandemic, and the use of personal protective equipment (PPE) This may decrease voice recognition accuracy Inadvertent master black belt errors may occur 06/17/2024 Other obesity due to excess calories (ICD-10 - E66.09) #Weight Management 06/17/2024 Labs recently reviewed. Discussed adding fish oil supplement to lower triglycerides. Continue 2.4 mg of Wegovy and Contrave 8-90 mg BID until she can reapply for Zepbound coverage with insurance. Educated patient on Martha direct and compounded options. She chose to stay on her current regimen. She will try a sample of Linzess in office today. Advised that she can also take Miralax PRN for constipation. Discussed importance of protein consumption for muscle maintenance as well as probiotics, B12 complex biotin , iron and other nutrients, To help avoid telogen effluvium while on weight loss medications such as GLP-1 F/u 1 month Total time spent today was 30 minutes of which greater than 50% was spent on coordinating and counseling Patient has been found to be obese with a BMI of (32). Patient has class (1) obesity We are a board certified obesity and weight management practice Patient has trialed behavioral modification, dietary restrictions and exercise for a minimum of 6 months Patient counseled regarding effects of GLP/GIP-1 agonists, and other FDA approved wgt loss meds with regards to a multifactorial approach of weight loss as mentioned above and not solely appetite suppression. We have discussed the mechanism of GLP-1's/GIP I think this would be fantastic option for her given her metabolic workup and body composition We have discussed the risks and benefits and side effects including/and not limited to Sarcopenia, intestinal obstruction, constipation, nausea, lethargy, headache Discussed importance of protein consumption for muscle maintenance as well as probiotics, B12 complex biotin , iron and other nutrients, To help avoid telogen effluvium We have discussed the lifelong requirement of nutritional supplementation And adherence to an exercise regimen as well as importance of follow-up The patient understands and agrees There is no history of medullary thyroid cancer or multiple endocrine neoplasia There is also no history of cardiovascular disease, hypertension, palpitations, or arrhythmias In the setting of potential stimulant/amphetamin e use such as phentermine We have also discussed risks and benefits, and the use of compounded medications to help offset the national shortages as well as financial implications vs trade name drugs Patient was reassured and welcomed to the practice. We discussed that we stress a hollistic medical approach with emphasis on lifestyle modification. Patient was informed that a healthy lifestyle with exercise and good eating habits can help reduce his risk of medical complications. He is explained that obesity increases his risk of diabetes, cardiovascular disease, or organ damage. We spent a lot of time discussing the relationship between food, exercise, sleep, mental health and obesity. Patient was counseled on the importance EATING local, organic food when possible. Patient was educated on clean 15 and dirty dozen. I provided information about reading books called The Food Rules by Eyal Borges and Eat Fat Get Lean by Dr Malik Mansfield. Self education is important in the journey for weight management. Patient was offered diagnostic testing. We want to measure visceral adiposity, advanced body composition, adverse lipids, fatty acid balance, risk for heart disease and atherosclerosis, markers of inflammation and genetic susceptibility. Patient was counseled on weight management and was advised to lose weight using A. Meal Replacement Products We discussed the lifelong requirement of nutritional supplementation and adherence to an exercise regimen as well as importance of dietary follow-up Patient was educated on the replacement products called optifast. This is a good way of taking fixed amount of calories. It has been shown in studies to be ineffective weight management tool. We also recommend maintaining adequate protein intake and muscle composition, 1.5mg/kg This however has to be coupled with lifestyle intervention as well as laboratory data and EKG monitoring. It is impossible to know how a person will tolerate complete meal replacement. The side effects of meal replacement and weight loss could include syncopal attacks, dizziness, gallstones, potential cholecystectomy, possible heart attack and even . The benefits of meal replacement would be potential weight loss but no guarantees can be made. Meal replacement products are not covered by insurance. Once the patient has bought these products we cannot return them B. Lifestyle management which includes several strategies as below 1. Eat a low carbohydrate good fat good protein diet. Eliminate refined carbohydrates from the diet. Continue blood sugar and sugared beverages. Eat local organic when possible. Cook your own meals. Read food labels. None about healthy snacks. Portion control and food with low glycemic index 2. Exercise regularly. Try to get at least 6000 steps a day. Use a predominant to track activity level. Consider using apps like [employer], [employer], lose it, stick as needed for self-monitoring and weight management. Consider group exercises. Consider hiring a personal lines appraiser. Regular exercise is brandon to sustainable health and prevents as a buffer against weight regain 3. Sleep is most important for healing. Tried to sleep at least 8 hours a night. A good quality sleep needs a sleep ritual with ideal room temperature of around 68. It might help to take a shower and have no electronics in the room and sleep in a very dark room without artificial light. Start her sleep routine and get up early in the morning and go to bed on time 4. Make a social connection. Surround yourself with positive people with positive energy. Connect with friends and family. 5. Get into the habit of meditating and mindfulness while doing everything. 6. Go outside and connect with nature. C. Prescription medications Patient was educated on the use of prescription medications for medical weight loss. This is a growing list and includes phentermine, Topamax,Qsymia, contrave, belviq and saxenda. All prescription medications could have side effects including but not limited to kidney stones, seizure disorder cardiac arrhythmias heart attack pancreatitis etc. etc.. Patient was encouraged to read the prescription insert and have coaching with their pharmacist and make an informed decision about taking medication and know that these medications are being prescribed with good intentions and we do not know how a patient would react to her medication. Sudden medications are FDA approved for weight loss and there is also off label use depending on patient's inability to afford medications in an attempt to lose weight D. Behavioral counseling was done to establish a relationship between food and an mood. Patient was provided information about local counseling and psychiatry and Dr Cuevas at [facility]. We would like to cover regular topics and build on low glycemic eating exercise mindful eating, using yoga and meditation along with deep breathing and connecting with friends and family. E. MASS PAT reviewed, Patient's current medications were reviewed and opinion was given on medication that can cause weight gain and can be substituted F. Patient was assessed for risk with obesity including and not limiting to atherosclerosis heart disease stroke kidney disease, restrictive lung disease, irritable bowel syndrome and overall mortality. Risk of developing prediabetes diabetes and metabolic syndrome was discussed G. Therapeutic plan: We have decided to make therapeutic plan which would include choosing wisely on calories restricting portion getting active, tracking weight, getting good quality sleep and working on time management H. Patient will follow up in (4) weeks for weight management Of note, some information is being carried forward from prior records for informational purposes only and is being cited so that efficiency, safety and quality of the patient's care is not compromised This note was prepared using voice recognition software and direct typing Please excuse inadvertent master black belt or typing errors, or uncorrected word substitutions Although every attempt has been made by the provider to proofread this document, occasional misspellings and typographical errors may still be present Due to the previous pandemic, and the use of personal protective equipment (PPE) This may decrease voice recognition accuracy Inadvertent master black belt errors may occur 08/24/2024 Adult-onset obesity (ICD-10 - E66.9) Patient is here for weight management follow-up. We focused on significance of healthy lifestyle changes. We talked about need to track steps with goal between 6000-10,000 steps daily, focus on portion control, read food labels, get adequate sleep between 7 to 8 hours, get adequate rest to the body, meditate, frequent nutritious meals including vegetables and healthy choices of lean meats, fish, and elimination of refined carbohydrates. We also talked about mindfulness and mindful eating. Particular focus was on continuing portion control, mindful eating, and increasing activity. Total time spent with 30 minutes with greater than 50% spent on counseling and coordinating care. 03/28/2023: Weight 226 pounds, BMI 38 04/25/2023: Weight 221 pounds, BMI 38 05/13/2023: Weight 217 pounds, BMI 37 2023: Weight 215 pounds, BMI 36 07/17/2023: Weight 202 pounds, BMI 35 09/12/2023: Weight 192 pounds 11/05/2023: Weight 182 pounds, BMI 31 12/23/23: Weight 182 pounds, BMI 31 04/14/2024: Weight 187 pounds, BMI 32 06/17/2024: Weight 186 pounds, BMI 32.07 08/24/2024: Weight 194 pounds, BMI 33.3. SECA scan completed today and interpreted with the patient. Has had an increase in weight including increase of fat mass by 5 pounds. Was off the medication for several weeks while prior authorization was being reinitiated. Has now been back on Wegovy 2.4 mg for the past week. Tolerating medication well. Has decreased her Contrave to 1 tablet once daily as she is continuing to experience constipation. Has tried vqxz-skj-xlyofsr medications like Colace, fiber, senna, and MiraLAX. Has responded well to samples of Linzess. Will attempt prior authorization for the medication for constipation. Advised to take Linzess 145 mcg once daily 30 minutes before morning meal for constipation. Discussed proper use of the medication as well as expected side effect profile including but not limited to diarrhea, abdominal pain, and flatulence. At this time we also discussed methods of transitioning to Zepbound. Low likelihood of insurance coverage. Discussed use of co-pay card for $550 per month as well as Martha direct. She is interested in Martha direct 2.5 mg once weekly with medication mailed to her address for $399 per month. When she has access of the medication advised to discontinue Wegovy. Discussed proper use of the medication as well as expected side effect profile including but not limited to nausea, constipation, abdominal pain, and heartburn. She will follow-up in the office in approximately 4 weeks for continued weight management. # PCOS: Continue spironolactone 100 mg 1 tablet twice daily. Will continue to monitor. Please follow-up with PCP. Was removed off of metformin due to improvement on GLP-1. # GERD: Continue pantoprazole 40 mg 1 tablet once daily 30 to 60 minutes for morning meal. Will continue to monitor. # Anxiety: Stable mood in the office today. Continue sertraline 150 mg once daily. Continue amitriptyline 25 mg 1 tablet at bedtime once daily. Continue lorazepam 0.5 mg 1 tablet at bedtime as needed for increased anxiety. Will continue to monitor. # Hyperlipidemia: Lipid panel with cholesterol 211, triglycerides 180, LDL 130, HDL 45. No longer on fenofibrate. Discussed importance of increasing omega-3 fatty acids to reduce triglyceride levels and maintain high levels of HDL. Will continue to monitor. All questions have been answered to patient's satisfaction. Patient verbalized understanding of diagnosis and treatments explained. Advised to call sooner prior to next visit it any questions/concerns arise. Case discussed with collaborating physician Florin Leslie who reviewed the assessment and plan. Chart, medications, labs, vital signs reviewed. Dictation was accomplished with the use of [employer] voice recognition software, which is prone to medical misidentifications and grammatical errors. This are unintentional and the practitioner does try to identify and correct these, but some could still be present. Please do not hesitate to contact practitioner for clarification. 08/24/2024 BMI 33.0-33.9,adult (ICD-10 - Z68.33) Patient is here for weight management follow-up. We focused on significance of healthy lifestyle changes. We talked about need to track steps with goal between 6000-10,000 steps daily, focus on portion control, read food labels, get adequate sleep between 7 to 8 hours, get adequate rest to the body, meditate, frequent nutritious meals including vegetables and healthy choices of lean meats, fish, and elimination of refined carbohydrates. We also talked about mindfulness and mindful eating. Particular focus was on continuing portion control, mindful eating, and increasing activity. Total time spent with 30 minutes with greater than 50% spent on counseling and coordinating care. 03/28/2023: Weight 226 pounds, BMI 38 04/25/2023: Weight 221 pounds, BMI 38 05/13/2023: Weight 217 pounds, BMI 37 2023: Weight 215 pounds, BMI 36 07/17/2023: Weight 202 pounds, BMI 35 09/12/2023: Weight 192 pounds 11/05/2023: Weight 182 pounds, BMI 31 12/23/23: Weight 182 pounds, BMI 31 04/14/2024: Weight 187 pounds, BMI 32 06/17/2024: Weight 186 pounds, BMI 32.07 08/24/2024: Weight 194 pounds, BMI 33.3. SECA scan completed today and interpreted with the patient. Has had an increase in weight including increase of fat mass by 5 pounds. Was off the medication for several weeks while prior authorization was being reinitiated. Has now been back on Wegovy 2.4 mg for the past week. Tolerating medication well. Has decreased her Contrave to 1 tablet once daily as she is continuing to experience constipation. Has tried meac-cew-uyjcflu medications like Colace, fiber, senna, and MiraLAX. Has responded well to samples of Linzess. Will attempt prior authorization for the medication for constipation. Advised to take Linzess 145 mcg once daily 30 minutes before morning meal for constipation. Discussed proper use of the medication as well as expected side effect profile including but not limited to diarrhea, abdominal pain, and flatulence. At this time we also discussed methods of transitioning to Zepbound. Low likelihood of insurance coverage. Discussed use of co-pay card for $550 per month as well as Martha direct. She is interested in Martha direct 2.5 mg once weekly with medication mailed to her address for $399 per month. When she has access of the medication advised to discontinue Wegovy. Discussed proper use of the medication as well as expected side effect profile including but not limited to nausea, constipation, abdominal pain, and heartburn. She will follow-up in the office in approximately 4 weeks for continued weight management. # PCOS: Continue spironolactone 100 mg 1 tablet twice daily. Will continue to monitor. Please follow-up with PCP. Was removed off of metformin due to improvement on GLP-1. # GERD: Continue pantoprazole 40 mg 1 tablet once daily 30 to 60 minutes for morning meal. Will continue to monitor. # Anxiety: Stable mood in the office today. Continue sertraline 150 mg once daily. Continue amitriptyline 25 mg 1 tablet at bedtime once daily. Continue lorazepam 0.5 mg 1 tablet at bedtime as needed for increased anxiety. Will continue to monitor. # Hyperlipidemia: Lipid panel with cholesterol 211, triglycerides 180, LDL 130, HDL 45. No longer on fenofibrate. Discussed importance of increasing omega-3 fatty acids to reduce triglyceride levels and maintain high levels of HDL. Will continue to monitor. All questions have been answered to patient's satisfaction. Patient verbalized understanding of diagnosis and treatments explained. Advised to call sooner prior to next visit it any questions/concerns arise. Case discussed with collaborating physician Florin Leslie who reviewed the assessment and plan. Chart, medications, labs, vital signs reviewed. Dictation was accomplished with the use of Crossbar voice recognition software, which is prone to medical misidentifications and grammatical errors. This are unintentional and the practitioner does try to identify and correct these, but some could still be present. Please do not hesitate to contact practitioner for clarification. 09/21/2024 Adult-onset obesity (ICD-10 - E66.9) Patient is here for weight management follow-up. We focused on significance of healthy lifestyle changes. We talked about need to track steps with goal between 6000-10,000 steps daily, focus on portion control, read food labels, get adequate sleep between 7 to 8 hours, get adequate rest to the body, meditate, frequent nutritious meals including vegetables and healthy choices of lean meats, fish, and elimination of refined carbohydrates. We also talked about mindfulness and mindful eating. Particular focus was on continuing portion control, mindful eating, and increasing activity. Total time spent with 30 minutes with greater than 50% spent on counseling and coordinating care. 03/28/2023: Weight 226 pounds, BMI 38 04/25/2023: Weight 221 pounds, BMI 38 05/13/2023: Weight 217 pounds, BMI 37 2023: Weight 215 pounds, BMI 36 07/17/2023: Weight 202 pounds, BMI 35 09/12/2023: Weight 192 pounds 11/05/2023: Weight 182 pounds, BMI 31 12/23/23: Weight 182 pounds, BMI 31 04/14/2024: Weight 187 pounds, BMI 32 06/17/2024: Weight 186 pounds, BMI 32.07 08/24/2024: Weight 194 pounds, BMI 33.3. SECA scan completed today and interpreted with the patient. Has had an increase in weight including increase of fat mass by 5 pounds. Was off the medication for several weeks while prior authorization was being reinitiated. Has now been back on Wegovy 2.4 mg for the past week. Tolerating medication well. Has decreased her Contrave to 1 tablet once daily as she is continuing to experience constipation. Has tried xvgq-yzs-rhvlunb medications like Colace, fiber, senna, and MiraLAX. Has responded well to samples of Linzess. Will attempt prior authorization for the medication for constipation. Advised to take Linzess 145 mcg once daily 30 minutes before morning meal for constipation. Discussed proper use of the medication as well as expected side effect profile including but not limited to diarrhea, abdominal pain, and flatulence. At this time we also discussed methods of transitioning to Zepbound. Low likelihood of insurance coverage. Discussed use of co-pay card for $550 per month as well as Martha direct. She is interested in Martha direct 2.5 mg once weekly with medication mailed to her address for $399 per month. When she has access of the medication advised to discontinue Wegovy. Discussed proper use of the medication as well as expected side effect profile including but not limited to nausea, constipation, abdominal pain, and heartburn. She will follow-up in the office in approximately 4 weeks for continued weight management. 09/21/2024: Weight 195, BMI 33.47. Seca scan completed today and interpreted with the patient. Weight has been stable since previous visit. Currently on Wegovy 2.4 mg weekly. Tolerating medication well without side effects. Reviewed goals of diet and exercise and discussed importance of increasing her physical activity to further augment weight loss. Pending determination of Zepbound at this time with prior authorization initiated at last visit. Otherwise until further notice will continue Wegovy 2.4 mg weekly. Discussed proper use of medication and side effect profile. She will follow-up in office in 4 weeks for further management. # PCOS: Continue spironolactone 100 mg 1 tablet twice daily. Will continue to monitor. Please follow-up with PCP. Was removed off of metformin due to improvement on GLP-1. # GERD: Continue pantoprazole 40 mg 1 tablet once daily 30 to 60 minutes for morning meal. Will continue to monitor. # Anxiety: Stable mood in the office today. Continue sertraline 150 mg once daily. Continue amitriptyline 25 mg 1 tablet at bedtime once daily. Continue lorazepam 0.5 mg 1 tablet at bedtime as needed for increased anxiety. Will continue to monitor. # Hyperlipidemia: Lipid panel with cholesterol 211, triglycerides 180, LDL 130, HDL 45. No longer on fenofibrate. Discussed importance of increasing omega-3 fatty acids to reduce triglyceride levels and maintain high levels of HDL. Will continue to monitor. All questions have been answered to patient's satisfaction. Patient verbalized understanding of diagnosis and treatments explained. Advised to call sooner prior to next visit it any questions/concerns arise. Case discussed with collaborating physician Florin Leslie who reviewed the assessment and plan. Chart, medications, labs, vital signs reviewed. Dictation was accomplished with the use of Crossbar voice recognition software, which is prone to medical misidentifications and grammatical errors. This are unintentional and the practitioner does try to identify and correct these, but some could still be present. Please do not hesitate to contact practitioner for clarification. 10/19/2024 Other obesity due to excess calories (ICD-10 - E66.09) #Weight Management 10/19/2024 We discussed the new [place] [facility] trial and indication for tirzepatide Sleep study Discussed [employer], will send 2.5 in the interim Total time spent today was 30 minutes [...] software and direct typing Please excuse inadvertent master black belt or typing errors, or uncorrected word substitutions Although every attempt has been made by the provider to proofread this document, occasional misspellings and typographical errors may still be present Due to the previous pandemic, and the use of personal protective equipment (PPE) This may decrease voice recognition accuracy Inadvertent master black belt errors may occur 10/19/2024 BMI 34.0-34.9,adult (ICD-10 - Z68.34) #Weight Management 10/19/2024 We discussed the new [place] [facility] trial and indication for tirzepatide Sleep study Discussed [employer], will send 2.5 in the interim Total time spent today was 30 minutes [...] software and direct typing Please excuse inadvertent master black belt or typing errors, or uncorrected word substitutions Although every attempt has been made by the provider to proofread this document, occasional misspellings and typographical errors may still be present Due to the previous pandemic, and the use of personal protective equipment (PPE) This may decrease voice recognition accuracy Inadvertent master black belt errors may occur 11/08/2024 Other obesity due to excess calories (ICD-10 - E66.09) 11/10/2024 Other obesity due to excess calories (ICD-10 - E66.09) 11/10/2024 Other obesity due to excess calories (ICD-10 - E66.09) 11/30/2024 Other obesity due to excess calories [...] software and direct typing Please excuse inadvertent master black belt or typing errors, or uncorrected word substitutions Although every attempt has been made by the provider to proofread this document, occasional misspellings and typographical errors may still be present Due to the previous pandemic, and the use of personal protective equipment (PPE) This may decrease voice recognition accuracy Inadvertent master black belt errors may occur 11/30/2024 BMI 35.0-35.9,adult (ICD-10 [...] software and direct typing Please excuse inadvertent master black belt or typing errors, or uncorrected word substitutions Although every attempt has been made by the provider to proofread this document, occasional misspellings and typographical errors may still be present Due to the previous pandemic, and the use of personal protective equipment (PPE) This may decrease voice recognition accuracy Inadvertent master black belt errors may occur 11/30/2024 Dietary counseling and [...] software and direct typing Please excuse inadvertent master black belt or typing errors, or uncorrected word substitutions Although every attempt has been made by the provider to proofread this document, occasional misspellings and typographical errors may still be present Due to the previous pandemic, and the use of personal protective equipment (PPE) This may decrease voice recognition accuracy Inadvertent master black belt errors may occur 10/19/2024 Dietary counseling and surveillance (ICD-10 - Z71.3) #Weight Management 10/19/2024 We discussed the new [place] [facility] trial and indication for tirzepatide Sleep study Discussed Martha direct, will send 2.5 in the interim Total time spent today was 30 minutes [...] software and direct typing Please excuse inadvertent master black belt or typing errors, or uncorrected word substitutions Although every attempt has been made by the provider to proofread this document, occasional misspellings and typographical errors may still be present Due to the previous pandemic, and the use of personal protective equipment (PPE) This may decrease voice recognition accuracy Inadvertent master black belt errors may occur 08/24/2024 PCOS (polycystic ovarian syndrome) (ICD-10 - E28.2) Patient is here for weight management follow-up. We focused on significance of healthy lifestyle changes. We talked about need to track steps with goal between 6000-10,000 steps daily, focus on portion control, read food labels, get adequate sleep between 7 to 8 hours, get adequate rest to the body, meditate, frequent nutritious meals including vegetables and healthy choices of lean meats, fish, and elimination of refined carbohydrates. We also talked about mindfulness and mindful eating. Particular focus was on continuing portion control, mindful eating, and increasing activity. Total time spent with 30 minutes with greater than 50% spent on counseling and coordinating care. 03/28/2023: Weight 226 pounds, BMI 38 04/25/2023: Weight 221 pounds, BMI 38 05/13/2023: Weight 217 pounds, BMI 37 2023: Weight 215 pounds, BMI 36 07/17/2023: Weight 202 pounds, BMI 35 09/12/2023: Weight 192 pounds 11/05/2023: Weight 182 pounds, BMI 31 12/23/23: Weight 182 pounds, BMI 31 04/14/2024: Weight 187 pounds, BMI 32 06/17/2024: Weight 186 pounds, BMI 32.07 08/24/2024: Weight 194 pounds, BMI 33.3. SECA scan completed today and interpreted with the patient. Has had an increase in weight including increase of fat mass by 5 pounds. Was off the medication for several weeks while prior authorization was being reinitiated. Has now been back on Wegovy 2.4 mg for the past week. Tolerating medication well. Has decreased her Contrave to 1 tablet once daily as she is continuing to experience constipation. Has tried sfyx-pxq-sxhzocq medications like Colace, fiber, senna, and MiraLAX. Has responded well to samples of Linzess. Will attempt prior authorization for the medication for constipation. Advised to take Linzess 145 mcg once daily 30 minutes before morning meal for constipation. Discussed proper use of the medication as well as expected side effect profile including but not limited to diarrhea, abdominal pain, and flatulence. At this time we also discussed methods of transitioning to Zepbound. Low likelihood of insurance coverage. Discussed use of co-pay card for $550 per month as well as Martha direct. She is interested in Martha direct 2.5 mg once weekly with medication mailed to her address for $399 per month. When she has access of the medication advised to discontinue Wegovy. Discussed proper use of the medication as well as expected side effect profile including but not limited to nausea, constipation, abdominal pain, and heartburn. She will follow-up in the office in approximately 4 weeks for continued weight management. # PCOS: Continue spironolactone 100 mg 1 tablet twice daily. Will continue to monitor. Please follow-up with PCP. Was removed off of metformin due to improvement on GLP-1. # GERD: Continue pantoprazole 40 mg 1 tablet once daily 30 to 60 minutes for morning meal. Will continue to monitor. # Anxiety: Stable mood in the office today. Continue sertraline 150 mg once daily. Continue amitriptyline 25 mg 1 tablet at bedtime once daily. Continue lorazepam 0.5 mg 1 tablet at bedtime as needed for increased anxiety. Will continue to monitor. # Hyperlipidemia: Lipid panel with cholesterol 211, triglycerides 180, LDL 130, HDL 45. No longer on fenofibrate. Discussed importance of increasing omega-3 fatty acids to reduce triglyceride levels and maintain high levels of HDL. Will continue to monitor. All questions have been answered to patient's satisfaction. Patient verbalized understanding of diagnosis and treatments explained. Advised to call sooner prior to next visit it any questions/concerns arise. Case discussed with collaborating physician Florin Leslie who reviewed the assessment and plan. Chart, medications, labs, vital signs reviewed. Dictation was accomplished with the use of Crossbar voice recognition software, which is prone to medical misidentifications and grammatical errors. This are unintentional and the practitioner does try to identify and correct these, but some could still be present. Please do not hesitate to contact practitioner for clarification. 09/21/2024 BMI 33.0-33.9,adult (ICD-10 - Z68.33) Patient is here for weight management follow-up. We focused on significance of healthy lifestyle changes. We talked about need to track steps with goal between 6000-10,000 steps daily, focus on portion control, read food labels, get adequate sleep between 7 to 8 hours, get adequate rest to the body, meditate, frequent nutritious meals including vegetables and healthy choices of lean meats, fish, and elimination of refined carbohydrates. We also talked about mindfulness and mindful eating. Particular focus was on continuing portion control, mindful eating, and increasing activity. Total time spent with 30 minutes with greater than 50% spent on counseling and coordinating care. 03/28/2023: Weight 226 pounds, BMI 38 04/25/2023: Weight 221 pounds, BMI 38 05/13/2023: Weight 217 pounds, BMI 37 2023: Weight 215 pounds, BMI 36 07/17/2023: Weight 202 pounds, BMI 35 09/12/2023: Weight 192 pounds 11/05/2023: Weight 182 pounds, BMI 31 12/23/23: Weight 182 pounds, BMI 31 04/14/2024: Weight 187 pounds, BMI 32 06/17/2024: Weight 186 pounds, BMI 32.07 08/24/2024: Weight 194 pounds, BMI 33.3. SECA scan completed today and interpreted with the patient. Has had an increase in weight including increase of fat mass by 5 pounds. Was off the medication for several weeks while prior authorization was being reinitiated. Has now been back on Wegovy 2.4 mg for the past week. Tolerating medication well. Has decreased her Contrave to 1 tablet once daily as she is continuing to experience constipation. Has tried ddyb-hxv-ruxhnfx medications like Colace, fiber, senna, and MiraLAX. Has responded well to samples of Linzess. Will attempt prior authorization for the medication for constipation. Advised to take Linzess 145 mcg once daily 30 minutes before morning meal for constipation. Discussed proper use of the medication as well as expected side effect profile including but not limited to diarrhea, abdominal pain, and flatulence. At this time we also discussed methods of transitioning to Zepbound. Low likelihood of insurance coverage. Discussed use of co-pay card for $550 per month as well as Martha direct. She is interested in Martha direct 2.5 mg once weekly with medication mailed to her address for $399 per month. When she has access of the medication advised to discontinue Wegovy. Discussed proper use of the medication as well as expected side effect profile including but not limited to nausea, constipation, abdominal pain, and heartburn. She will follow-up in the office in approximately 4 weeks for continued weight management. 09/21/2024: Weight 195, BMI 33.47. Seca scan completed today and interpreted with the patient. Weight has been stable since previous visit. Currently on Wegovy 2.4 mg weekly. Tolerating medication well without side effects. Reviewed goals of diet and exercise and discussed importance of increasing her physical activity to further augment weight loss. Pending determination of Zepbound at this time with prior authorization initiated at last visit. Otherwise until further notice will continue Wegovy 2.4 mg weekly. Discussed proper use of medication and side effect profile. She will follow-up in office in 4 weeks for further management. # PCOS: Continue spironolactone 100 mg 1 tablet twice daily. Will continue to monitor. Please follow-up with PCP. Was removed off of metformin due to improvement on GLP-1. # GERD: Continue pantoprazole 40 mg 1 tablet once daily 30 to 60 minutes for morning meal. Will continue to monitor. # Anxiety: Stable mood in the office today. Continue sertraline 150 mg once daily. Continue amitriptyline 25 mg 1 tablet at bedtime once daily. Continue lorazepam 0.5 mg 1 tablet at bedtime as needed for increased anxiety. Will continue to monitor. # Hyperlipidemia: Lipid panel with cholesterol 211, triglycerides 180, LDL 130, HDL 45. No longer on fenofibrate. Discussed importance of increasing omega-3 fatty acids to reduce triglyceride levels and maintain high levels of HDL. Will continue to monitor. All questions have been answered to patient's satisfaction. Patient verbalized understanding of diagnosis and treatments explained. Advised to call sooner prior to next visit it any questions/concerns arise. Case discussed with collaborating physician Florin Leslie who reviewed the assessment and plan. Chart, medications, labs, vital signs reviewed. Dictation was accomplished with the use of Crossbar voice recognition software, which is prone to medical misidentifications and grammatical errors. This are unintentional and the practitioner does try to identify and correct these, but some could still be present. Please do not hesitate to contact practitioner for clarification. 04/14/2024 Dietary counseling and surveillance (ICD-10 - Z71.3) #Weight Management 04/14/2024 Labs recently reviewed Continue 2.4 mg of Wegovy Will send Hayley to [facility] per her request at $70 monthly cost which is reasonable for her Discussed importance of protein consumption for muscle maintenance as well as probiotics, B12 complex biotin , iron and other nutrients, To help avoid telogen effluvium while on weight loss medications such as GLP-1 Total time spent today was 30 minutes of which greater than 50% was spent on coordinating and counseling Patient has been found to be obese with a BMI of (32). Patient has class (1) obesity We are a board certified obesity and weight management practice Patient has trialed behavioral modification, dietary restrictions and exercise for a minimum of 6 months Patient counseled regarding effects of GLP/GIP-1 agonists, and other FDA approved wgt loss meds with regards to a multifactorial approach of weight loss as mentioned above and not solely appetite suppression. We have discussed the mechanism of GLP-1's/GIP I think this would be fantastic option for her given her metabolic workup and body composition We have discussed the risks and benefits and side effects including/and not limited to Sarcopenia, intestinal obstruction, constipation, nausea, lethargy, headache Discussed importance of protein consumption for muscle maintenance as well as probiotics, B12 complex biotin , iron and other nutrients, To help avoid telogen effluvium We have discussed the lifelong requirement of nutritional supplementation And adherence to an exercise regimen as well as importance of follow-up The patient understands and agrees There is no history of medullary thyroid cancer or multiple endocrine neoplasia There is also no history of cardiovascular disease, hypertension, palpitations, or arrhythmias In the setting of potential stimulant/amphetamin e use such as phentermine We have also discussed risks and benefits, and the use of compounded medications to help offset the national shortages as well as financial implications vs trade name drugs Patient was reassured and welcomed to the practice. We discussed that we stress a hollistic medical approach with emphasis on lifestyle modification. Patient was informed that a healthy lifestyle with exercise and good eating habits can help reduce his risk of medical complications. He is explained that obesity increases his risk of diabetes, cardiovascular disease, or organ damage. We spent a lot of time discussing the relationship between food, exercise, sleep, mental health and obesity. Patient was counseled on the importance EATING local, organic food when possible. Patient was educated on clean 15 and dirty dozen. I provided information about reading books called The Food Rules by Eyal Borges and Eat Fat Get Lean by Dr Malik Mansfield. Self education is important in the journey for weight management. Patient was offered diagnostic testing. We want to measure visceral adiposity, advanced body composition, adverse lipids, fatty acid balance, risk for heart disease and atherosclerosis, markers of inflammation and genetic susceptibility. Patient was counseled on weight management and was advised to lose weight using A. Meal Replacement Products We discussed the lifelong requirement of nutritional supplementation and adherence to an exercise regimen as well as importance of dietary follow-up Patient was educated on the replacement products called optifast. This is a good way of taking fixed amount of calories. It has been shown in studies to be ineffective weight management tool. We also recommend maintaining adequate protein intake and muscle composition, 1.5mg/kg This however has to be coupled with lifestyle intervention as well as laboratory data and EKG monitoring. It is impossible to know how a person will tolerate complete meal replacement. The side effects of meal replacement and weight loss could include syncopal attacks, dizziness, gallstones, potential cholecystectomy, possible heart attack and even . The benefits of meal replacement would be potential weight loss but no guarantees can be made. Meal replacement products are not covered by insurance. Once the patient has bought these products we cannot return them B. Lifestyle management which includes several strategies as below 1. Eat a low carbohydrate good fat good protein diet. Eliminate refined carbohydrates from the diet. Continue blood sugar and sugared beverages. Eat local organic when possible. Cook your own meals. Read food labels. None about healthy snacks. Portion control and food with low glycemic index 2. Exercise regularly. Try to get at least 6000 steps a day. Use a predominant to track activity level. Consider using apps like Foldax exceFanIQise, myFlapsharepal, lose it, stick as needed for self-monitoring and weight management. Consider group exercises. Consider hiring a personal lines appraiser. Regular exercise is brandon to sustainable health and prevents as a buffer against weight regain 3. Sleep is most important for healing. Tried to sleep at least 8 hours a night. A good quality sleep needs a sleep ritual with ideal room temperature of around 68. It might help to take a shower and have no electronics in the room and sleep in a very dark room without artificial light. Start her sleep routine and get up early in the morning and go to bed on time 4. Make a social connection. Surround yourself with positive people with positive energy. Connect with friends and family. 5. Get into the habit of meditating and mindfulness while doing everything. 6. Go outside and connect with nature. C. Prescription medications Patient was educated on the use of prescription medications for medical weight loss. This is a growing list and includes phentermine, Topamax,Qsymia, contrave, belviq and saxenda. All prescription medications could have side effects including but not limited to kidney stones, seizure disorder cardiac arrhythmias heart attack pancreatitis etc. etc.. Patient was encouraged to read the prescription insert and have coaching with their pharmacist and make an informed decision about taking medication and know that these medications are being prescribed with good intentions and we do not know how a patient would react to her medication. Sudden medications are FDA approved for weight loss and there is also off label use depending on patient's inability to afford medications in an attempt to lose weight D. Behavioral counseling was done to establish a relationship between food and an mood. Patient was provided information about local counseling and psychiatry and Dr Cuevas at [facility]. We would like to cover regular topics and build on low glycemic eating exercise mindful eating, using yoga and meditation along with deep breathing and connecting with friends and family. E. MASS PAT reviewed, Patient's current medications were reviewed and opinion was given on medication that can cause weight gain and can be substituted F. Patient was assessed for risk with obesity including and not limiting to atherosclerosis heart disease stroke kidney disease, restrictive lung disease, irritable bowel syndrome and overall mortality. Risk of developing prediabetes diabetes and metabolic syndrome was discussed G. Therapeutic plan: We have decided to make therapeutic plan which would include choosing wisely on calories restricting portion getting active, tracking weight, getting good quality sleep and working on time management H. Patient will follow up in (4) weeks for weight management Of note, some information is being carried forward from prior records for informational purposes only and is being cited so that efficiency, safety and quality of the patient's care is not compromised This note was prepared using voice recognition software and direct typing Please excuse inadvertent master black belt or typing errors, or uncorrected word substitutions Although every attempt has been made by the provider to proofread this document, occasional misspellings and typographical errors may still be present Due to the previous pandemic, and the use of personal protective equipment (PPE) This may decrease voice recognition accuracy Inadvertent master black belt errors may occur 06/17/2024 BMI 32.0-32.9,adult (ICD-10 - Z68.32) #Weight Management 06/17/2024 Labs recently reviewed. Discussed adding fish oil supplement to lower triglycerides. Continue 2.4 mg of Wegovy and Contrave 8-90 mg BID until she can reapply for Zepbound coverage with insurance. Educated patient on Martha direct and compounded options. She chose to stay on her current regimen. She will try a sample of Linzess in office today. Advised that she can also take Miralax PRN for constipation. Discussed importance of protein consumption for muscle maintenance as well as probiotics, B12 complex biotin , iron and other nutrients, To help avoid telogen effluvium while on weight loss medications such as GLP-1 F/u 1 month Total time spent today was 30 minutes of which greater than 50% was spent on coordinating and counseling Patient has been found to be obese with a BMI of (32). Patient has class (1) obesity We are a board certified obesity and weight management practice Patient has trialed behavioral modification, dietary restrictions and exercise for a minimum of 6 months Patient counseled regarding effects of GLP/GIP-1 agonists, and other FDA approved wgt loss meds with regards to a multifactorial approach of weight loss as mentioned above and not solely appetite suppression. We have discussed the mechanism of GLP-1's/GIP I think this would be fantastic option for her given her metabolic workup and body composition We have discussed the risks and benefits and side effects including/and not limited to Sarcopenia, intestinal obstruction, constipation, nausea, lethargy, headache Discussed importance of protein consumption for muscle maintenance as well as probiotics, B12 complex biotin , iron and other nutrients, To help avoid telogen effluvium We have discussed the lifelong requirement of nutritional supplementation And adherence to an exercise regimen as well as importance of follow-up The patient understands and agrees There is no history of medullary thyroid cancer or multiple endocrine neoplasia There is also no history of cardiovascular disease, hypertension, palpitations, or arrhythmias In the setting of potential stimulant/amphetamin e use such as phentermine We have also discussed risks and benefits, and the use of compounded medications to help offset the national shortages as well as financial implications vs trade name drugs Patient was reassured and welcomed to the practice. We discussed that we stress a hollistic medical approach with emphasis on lifestyle modification. Patient was informed that a healthy lifestyle with exercise and good eating habits can help reduce his risk of medical complications. He is explained that obesity increases his risk of diabetes, cardiovascular disease, or organ damage. We spent a lot of time discussing the relationship between food, exercise, sleep, mental health and obesity. Patient was counseled on the importance EATING local, organic food when possible. Patient was educated on clean 15 and dirty dozen. I provided information about reading books called The Food Rules by Eyal Borges and Eat Fat Get Lean by Dr Malik Mansfield. Self education is important in the journey for weight management. Patient was offered diagnostic testing. We want to measure visceral adiposity, advanced body composition, adverse lipids, fatty acid balance, risk for heart disease and atherosclerosis, markers of inflammation and genetic susceptibility. Patient was counseled on weight management and was advised to lose weight using A. Meal Replacement Products We discussed the lifelong requirement of nutritional supplementation and adherence to an exercise regimen as well as importance of dietary follow-up Patient was educated on the replacement products called optifast. This is a good way of taking fixed amount of calories. It has been shown in studies to be ineffective weight management tool. We also recommend maintaining adequate protein intake and muscle composition, 1.5mg/kg This however has to be coupled with lifestyle intervention as well as laboratory data and EKG monitoring. It is impossible to know how a person will tolerate complete meal replacement. The side effects of meal replacement and weight loss could include syncopal attacks, dizziness, gallstones, potential cholecystectomy, possible heart attack and even . The benefits of meal replacement would be potential weight loss but no guarantees can be made. Meal replacement products are not covered by insurance. Once the patient has bought these products we cannot return them B. Lifestyle management which includes several strategies as below 1. Eat a low carbohydrate good fat good protein diet. Eliminate refined carbohydrates from the diet. Continue blood sugar and sugared beverages. Eat local organic when possible. Cook your own meals. Read food labels. None about healthy snacks. Portion control and food with low glycemic index 2. Exercise regularly. Try to get at least 6000 steps a day. Use a predominant to track activity level. Consider using apps like [employer], myfitnesspal, lose it, stick as needed for self-monitoring and weight management. Consider group exercises. Consider hiring a personal lines appraiser. Regular exercise is brandon to sustainable health and prevents as a buffer against weight regain 3. Sleep is most important for healing. Tried to sleep at least 8 hours a night. A good quality sleep needs a sleep ritual with ideal room temperature of around 68. It might help to take a shower and have no electronics in the room and sleep in a very dark room without artificial light. Start her sleep routine and get up early in the morning and go to bed on time 4. Make a social connection. Surround yourself with positive people with positive energy. Connect with friends and family. 5. Get into the habit of meditating and mindfulness while doing everything. 6. Go outside and connect with nature. C. Prescription medications Patient was educated on the use of prescription medications for medical weight loss. This is a growing list and includes phentermine, Topamax,Qsymia, contrave, belviq and saxenda. All prescription medications could have side effects including but not limited to kidney stones, seizure disorder cardiac arrhythmias heart attack pancreatitis etc. etc.. Patient was encouraged to read the prescription insert and have coaching with their pharmacist and make an informed decision about taking medication and know that these medications are being prescribed with good intentions and we do not know how a patient would react to her medication. Sudden medications are FDA approved for weight loss and there is also off label use depending on patient's inability to afford medications in an attempt to lose weight D. Behavioral counseling was done to establish a relationship between food and an mood. Patient was provided information about local counseling and psychiatry and Dr Cuevas at [facility]. We would like to cover regular topics and build on low glycemic eating exercise mindful eating, using yoga and meditation along with deep breathing and connecting with friends and family. E. MASS PAT reviewed, Patient's current medications were reviewed and opinion was given on medication that can cause weight gain and can be substituted F. Patient was assessed for risk with obesity including and not limiting to atherosclerosis heart disease stroke kidney disease, restrictive lung disease, irritable bowel syndrome and overall mortality. Risk of developing prediabetes diabetes and metabolic syndrome was discussed G. Therapeutic plan: We have decided to make therapeutic plan which would include choosing wisely on calories restricting portion getting active, tracking weight, getting good quality sleep and working on time management H. Patient will follow up in (4) weeks for weight management Of note, some information is being carried forward from prior records for informational purposes only and is being cited so that efficiency, safety and quality of the patient's care is not compromised This note was prepared using voice recognition software and direct typing Please excuse inadvertent master black belt or typing errors, or uncorrected word substitutions Although every attempt has been made by the provider to proofread this document, occasional misspellings and typographical errors may still be present Due to the previous pandemic, and the use of personal protective equipment (PPE) This may decrease voice recognition accuracy Inadvertent master black belt errors may occur 12/23/2023 BMI 31.0-31.9,adult (ICD-10 - Z68.31) #Weight Management 12/23/2023 Request recent labs cont 2.4mg marvin Discussed adding on perhaps Contrave Discussed importance of protein consumption for muscle maintenance as well as probiotics, B12 complex biotin , iron and other nutrients, To help avoid telogen effluvium while on weight loss medications such as GLP-1 Total time spent today was 30 minutes of which greater than 50% was spent on coordinating and counseling Patient has been found to be obese with a BMI of (31). Patient has class (1) obesity We are a board certified obesity and weight management practice Patient has trialed behavioral modification, dietary restrictions and exercise for a minimum of 6 months Patient counseled regarding effects of GLP/GIP-1 agonists, and other FDA approved wgt loss meds with regards to a multifactorial approach of weight loss as mentioned above and not solely appetite suppression. We have discussed the mechanism of GLP-1's/GIP I think this would be fantastic option for her given her metabolic workup and body composition We have discussed the risks and benefits and side effects including/and not limited to Sarcopenia, intestinal obstruction, constipation, nausea, lethargy, headache Discussed importance of protein consumption for muscle maintenance as well as probiotics, B12 complex biotin , iron and other nutrients, To help avoid telogen effluvium We have discussed the lifelong requirement of nutritional supplementation And adherence to an exercise regimen as well as importance of follow-up The patient understands and agrees There is no history of medullary thyroid cancer or multiple endocrine neoplasia There is also no history of cardiovascular disease, hypertension, palpitations, or arrhythmias In the setting of potential stimulant/amphetamin e use such as phentermine We have also discussed risks and benefits, and the use of compounded medications to help offset the national shortages as well as financial implications vs trade name drugs Patient was reassured and welcomed to the practice. We discussed that we stress a hollistic medical approach with emphasis on lifestyle modification. Patient was informed that a healthy lifestyle with exercise and good eating habits can help reduce his risk of medical complications. He is explained that obesity increases his risk of diabetes, cardiovascular disease, or organ damage. We spent a lot of time discussing the relationship between food, exercise, sleep, mental health and obesity. Patient was counseled on the importance EATING local, organic food when possible. Patient was educated on clean 15 and dirty dozen. I provided information about reading books called The Food Rules by Eyal Borges and Eat Fat Get Lean by Dr Malik Mansfield. Self education is important in the journey for weight management. Patient was offered diagnostic testing. We want to measure visceral adiposity, advanced body composition, adverse lipids, fatty acid balance, risk for heart disease and atherosclerosis, markers of inflammation and genetic susceptibility. Patient was counseled on weight management and was advised to lose weight using A. Meal Replacement Products We discussed the lifelong requirement of nutritional supplementation and adherence to an exercise regimen as well as importance of dietary follow-up Patient was educated on the replacement products called optifast. This is a good way of taking fixed amount of calories. It has been shown in studies to be ineffective weight management tool. We also recommend maintaining adequate protein intake and muscle composition, 1.5mg/kg This however has to be coupled with lifestyle intervention as well as laboratory data and EKG monitoring. It is impossible to know how a person will tolerate complete meal replacement. The side effects of meal replacement and weight loss could include syncopal attacks, dizziness, gallstones, potential cholecystectomy, possible heart attack and even . The benefits of meal replacement would be potential weight loss but no guarantees can be made. Meal replacement products are not covered by insurance. Once the patient has bought these products we cannot return them B. Lifestyle management which includes several strategies as below 1. Eat a low carbohydrate good fat good protein diet. Eliminate refined carbohydrates from the diet. Continue blood sugar and sugared beverages. Eat local organic when possible. Cook your own meals. Read food labels. None about healthy snacks. Portion control and food with low glycemic index 2. Exercise regularly. Try to get at least 6000 steps a day. Use a predominant to track activity level. Consider using apps like [employer], [employer], lose it, stick as needed for self-monitoring and weight management. Consider group exercises. Consider hiring a personal lines appraiser. Regular exercise is brandon to sustainable health and prevents as a buffer against weight regain 3. Sleep is most important for healing. Tried to sleep at least 8 hours a night. A good quality sleep needs a sleep ritual with ideal room temperature of around 68. It might help to take a shower and have no electronics in the room and sleep in a very dark room without artificial light. Start her sleep routine and get up early in the morning and go to bed on time 4. Make a social connection. Surround yourself with positive people with positive energy. Connect with friends and family. 5. Get into the habit of meditating and mindfulness while doing everything. 6. Go outside and connect with nature. C. Prescription medications Patient was educated on the use of prescription medications for medical weight loss. This is a growing list and includes phentermine, Topamax,Qsymia, contrave, belviq and saxenda. All prescription medications could have side effects including but not limited to kidney stones, seizure disorder cardiac arrhythmias heart attack pancreatitis etc. etc.. Patient was encouraged to read the prescription insert and have coaching with their pharmacist and make an informed decision about taking medication and know that these medications are being prescribed with good intentions and we do not know how a patient would react to her medication. Sudden medications are FDA approved for weight loss and there is also off label use depending on patient's inability to afford medications in an attempt to lose weight D. Behavioral counseling was done to establish a relationship between food and an mood. Patient was provided information about local counseling and psychiatry and Dr Cuevas at [facility]. We would like to cover regular topics and build on low glycemic eating exercise mindful eating, using yoga and meditation along with deep breathing and connecting with friends and family. E. MASS PAT reviewed, Patient's current medications were reviewed and opinion was given on medication that can cause weight gain and can be substituted F. Patient was assessed for risk with obesity including and not limiting to atherosclerosis heart disease stroke kidney disease, restrictive lung disease, irritable bowel syndrome and overall mortality. Risk of developing prediabetes diabetes and metabolic syndrome was discussed G. Therapeutic plan: We have decided to make therapeutic plan which would include choosing wisely on calories restricting portion getting active, tracking weight, getting good quality sleep and working on time management H. Patient will follow up in (4) weeks for weight management Of note, some information is being carried forward from prior records for informational purposes only and is being cited so that efficiency, safety and quality of the patient's care is not compromised This note was prepared using voice recognition software and direct typing Please excuse inadvertent master black belt or typing errors, or uncorrected word substitutions Although every attempt has been made by the provider to proofread this document, occasional misspellings and typographical errors may still be present Due to the previous pandemic, and the use of personal protective equipment (PPE) This may decrease voice recognition accuracy Inadvertent master black belt errors may occur 06/17/2024 Dietary counseling and surveillance (ICD-10 - Z71.3) #Weight Management 06/17/2024 Labs recently reviewed. Discussed adding fish oil supplement to lower triglycerides. Continue 2.4 mg of Wegovy and Contrave 8-90 mg BID until she can reapply for Zepbound coverage with insurance. Educated patient on Martha direct and compounded options. She chose to stay on her current regimen. She will try a sample of Linzess in office today. Advised that she can also take Miralax PRN for constipation. Discussed importance of protein consumption for muscle maintenance as well as probiotics, B12 complex biotin , iron and other nutrients, To help avoid telogen effluvium while on weight loss medications such as GLP-1 F/u 1 month Total time spent today was 30 minutes of which greater than 50% was spent on coordinating and counseling Patient has been found to be obese with a BMI of (32). Patient has class (1) obesity We are a board certified obesity and weight management practice Patient has trialed behavioral modification, dietary restrictions and exercise for a minimum of 6 months Patient counseled regarding effects of GLP/GIP-1 agonists, and other FDA approved wgt loss meds with regards to a multifactorial approach of weight loss as mentioned above and not solely appetite suppression. We have discussed the mechanism of GLP-1's/GIP I think this would be fantastic option for her given her metabolic workup and body composition We have discussed the risks and benefits and side effects including/and not limited to Sarcopenia, intestinal obstruction, constipation, nausea, lethargy, headache Discussed importance of protein consumption for muscle maintenance as well as probiotics, B12 complex biotin , iron and other nutrients, To help avoid telogen effluvium We have discussed the lifelong requirement of nutritional supplementation And adherence to an exercise regimen as well as importance of follow-up The patient understands and agrees There is no history of medullary thyroid cancer or multiple endocrine neoplasia There is also no history of cardiovascular disease, hypertension, palpitations, or arrhythmias In the setting of potential stimulant/amphetamin e use such as phentermine We have also discussed risks and benefits, and the use of compounded medications to help offset the national shortages as well as financial implications vs trade name drugs Patient was reassured and welcomed to the practice. We discussed that we stress a hollistic medical approach with emphasis on lifestyle modification. Patient was informed that a healthy lifestyle with exercise and good eating habits can help reduce his risk of medical complications. He is explained that obesity increases his risk of diabetes, cardiovascular disease, or organ damage. We spent a lot of time discussing the relationship between food, exercise, sleep, mental health and obesity. Patient was counseled on the importance EATING local, organic food when possible. Patient was educated on clean 15 and dirty dozen. I provided information about reading books called The Food Rules by Eyal Borges and Eat Fat Get Lean by Dr Malik Mansfield. Self education is important in the journey for weight management. Patient was offered diagnostic testing. We want to measure visceral adiposity, advanced body composition, adverse lipids, fatty acid balance, risk for heart disease and atherosclerosis, markers of inflammation and genetic susceptibility. Patient was counseled on weight management and was advised to lose weight using A. Meal Replacement Products We discussed the lifelong requirement of nutritional supplementation and adherence to an exercise regimen as well as importance of dietary follow-up Patient was educated on the replacement products called optifast. This is a good way of taking fixed amount of calories. It has been shown in studies to be ineffective weight management tool. We also recommend maintaining adequate protein intake and muscle composition, 1.5mg/kg This however has to be coupled with lifestyle intervention as well as laboratory data and EKG monitoring. It is impossible to know how a person will tolerate complete meal replacement. The side effects of meal replacement and weight loss could include syncopal attacks, dizziness, gallstones, potential cholecystectomy, possible heart attack and even . The benefits of meal replacement would be potential weight loss but no guarantees can be made. Meal replacement products are not covered by insurance. Once the patient has bought these products we cannot return them B. Lifestyle management which includes several strategies as below 1. Eat a low carbohydrate good fat good protein diet. Eliminate refined carbohydrates from the diet. Continue blood sugar and sugared beverages. Eat local organic when possible. Cook your own meals. Read food labels. None about healthy snacks. Portion control and food with low glycemic index 2. Exercise regularly. Try to get at least 6000 steps a day. Use a predominant to track activity level. Consider using apps like [employer], [employer], lose it, stick as needed for self-monitoring and weight management. Consider group exercises. Consider hiring a personal lines appraiser. Regular exercise is brandon to sustainable health and prevents as a buffer against weight regain 3. Sleep is most important for healing. Tried to sleep at least 8 hours a night. A good quality sleep needs a sleep ritual with ideal room temperature of around 68. It might help to take a shower and have no electronics in the room and sleep in a very dark room without artificial light. Start her sleep routine and get up early in the morning and go to bed on time 4. Make a social connection. Surround yourself with positive people with positive energy. Connect with friends and family. 5. Get into the habit of meditating and mindfulness while doing everything. 6. Go outside and connect with nature. C. Prescription medications Patient was educated on the use of prescription medications for medical weight loss. This is a growing list and includes phentermine, Topamax,Qsymia, contrave, belviq and saxenda. All prescription medications could have side effects including but not limited to kidney stones, seizure disorder cardiac arrhythmias heart attack pancreatitis etc. etc.. Patient was encouraged to read the prescription insert and have coaching with their pharmacist and make an informed decision about taking medication and know that these medications are being prescribed with good intentions and we do not know how a patient would react to her medication. Sudden medications are FDA approved for weight loss and there is also off label use depending on patient's inability to afford medications in an attempt to lose weight D. Behavioral counseling was done to establish a relationship between food and an mood. Patient was provided information about local counseling and psychiatry and Dr Cuevas at [facility]. We would like to cover regular topics and build on low glycemic eating exercise mindful eating, using yoga and meditation along with deep breathing and connecting with friends and family. E. MASS PAT reviewed, Patient's current medications were reviewed and opinion was given on medication that can cause weight gain and can be substituted F. Patient was assessed for risk with obesity including and not limiting to atherosclerosis heart disease stroke kidney disease, restrictive lung disease, irritable bowel syndrome and overall mortality. Risk of developing prediabetes diabetes and metabolic syndrome was discussed G. Therapeutic plan: We have decided to make therapeutic plan which would include choosing wisely on calories restricting portion getting active, tracking weight, getting good quality sleep and working on time management H. Patient will follow up in (4) weeks for weight management Of note, some information is being carried forward from prior records for informational purposes only and is being cited so that efficiency, safety and quality of the patient's care is not compromised This note was prepared using voice recognition software and direct typing Please excuse inadvertent master black belt or typing errors, or uncorrected word substitutions Although every attempt has been made by the provider to proofread this document, occasional misspellings and typographical errors may still be present Due to the previous pandemic, and the use of personal protective equipment (PPE) This may decrease voice recognition accuracy Inadvertent master black belt errors may occur 09/21/2024 PCOS (polycystic ovarian syndrome) (ICD-10 - E28.2) Patient is here for weight management follow-up. We focused on significance of healthy lifestyle changes. We talked about need to track steps with goal between 6000-10,000 steps daily, focus on portion control, read food labels, get adequate sleep between 7 to 8 hours, get adequate rest to the body, meditate, frequent nutritious meals including vegetables and healthy choices of lean meats, fish, and elimination of refined carbohydrates. We also talked about mindfulness and mindful eating. Particular focus was on continuing portion control, mindful eating, and increasing activity. Total time spent with 30 minutes with greater than 50% spent on counseling and coordinating care. 03/28/2023: Weight 226 pounds, BMI 38 04/25/2023: Weight 221 pounds, BMI 38 05/13/2023: Weight 217 pounds, BMI 37 2023: Weight 215 pounds, BMI 36 07/17/2023: Weight 202 pounds, BMI 35 09/12/2023: Weight 192 pounds 11/05/2023: Weight 182 pounds, BMI 31 12/23/23: Weight 182 pounds, BMI 31 04/14/2024: Weight 187 pounds, BMI 32 06/17/2024: Weight 186 pounds, BMI 32.07 08/24/2024: Weight 194 pounds, BMI 33.3. SECA scan completed today and interpreted with the patient. Has had an increase in weight including increase of fat mass by 5 pounds. Was off the medication for several weeks while prior authorization was being reinitiated. Has now been back on Wegovy 2.4 mg for the past week. Tolerating medication well. Has decreased her Contrave to 1 tablet once daily as she is continuing to experience constipation. Has tried gvna-yqk-yjddvpj medications like Colace, fiber, senna, and MiraLAX. Has responded well to samples of Linzess. Will attempt prior authorization for the medication for constipation. Advised to take Linzess 145 mcg once daily 30 minutes before morning meal for constipation. Discussed proper use of the medication as well as expected side effect profile including but not limited to diarrhea, abdominal pain, and flatulence. At this time we also discussed methods of transitioning to Zepbound. Low likelihood of insurance coverage. Discussed use of co-pay card for $550 per month as well as Martha direct. She is interested in Martha direct 2.5 mg once weekly with medication mailed to her address for $399 per month. When she has access of the medication advised to discontinue Wegovy. Discussed proper use of the medication as well as expected side effect profile including but not limited to nausea, constipation, abdominal pain, and heartburn. She will follow-up in the office in approximately 4 weeks for continued weight management. 09/21/2024: Weight 195, BMI 33.47. Seca scan completed today and interpreted with the patient. Weight has been stable since previous visit. Currently on Wegovy 2.4 mg weekly. Tolerating medication well without side effects. Reviewed goals of diet and exercise and discussed importance of increasing her physical activity to further augment weight loss. Pending determination of Zepbound at this time with prior authorization initiated at last visit. Otherwise until further notice will continue Wegovy 2.4 mg weekly. Discussed proper use of medication and side effect profile. She will follow-up in office in 4 weeks for further management. # PCOS: Continue spironolactone 100 mg 1 tablet twice daily. Will continue to monitor. Please follow-up with PCP. Was removed off of metformin due to improvement on GLP-1. # GERD: Continue pantoprazole 40 mg 1 tablet once daily 30 to 60 minutes for morning meal. Will continue to monitor. # Anxiety: Stable mood in the office today. Continue sertraline 150 mg once daily. Continue amitriptyline 25 mg 1 tablet at bedtime once daily. Continue lorazepam 0.5 mg 1 tablet at bedtime as needed for increased anxiety. Will continue to monitor. # Hyperlipidemia: Lipid panel with cholesterol 211, triglycerides 180, LDL 130, HDL 45. No longer on fenofibrate. Discussed importance of increasing omega-3 fatty acids to reduce triglyceride levels and maintain high levels of HDL. Will continue to monitor. All questions have been answered to patient's satisfaction. Patient verbalized understanding of diagnosis and treatments explained. Advised to call sooner prior to next visit it any questions/concerns arise. Case discussed with collaborating physician Florin Leslie who reviewed the assessment and plan. Chart, medications, labs, vital signs reviewed. Dictation was accomplished with the use of Cross[employer] voice recognition software, which is prone to medical misidentifications and grammatical errors. This are unintentional and the practitioner does try to identify and correct these, but some could still be present. Please do not hesitate to contact practitioner for clarification. 08/24/2024 GERD without esophagitis (ICD-10 - K21.9) Patient is here for weight management follow-up. We focused on significance of healthy lifestyle changes. We talked about need to track steps with goal between 6000-10,000 steps daily, focus on portion control, read food labels, get adequate sleep between 7 to 8 hours, get adequate rest to the body, meditate, frequent nutritious meals including vegetables and healthy choices of lean meats, fish, and elimination of refined carbohydrates. We also talked about mindfulness and mindful eating. Particular focus was on continuing portion control, mindful eating, and increasing activity. Total time spent with 30 minutes with greater than 50% spent on counseling and coordinating care. 03/28/2023: Weight 226 pounds, BMI 38 04/25/2023: Weight 221 pounds, BMI 38 05/13/2023: Weight 217 pounds, BMI 37 2023: Weight 215 pounds, BMI 36 07/17/2023: Weight 202 pounds, BMI 35 09/12/2023: Weight 192 pounds 11/05/2023: Weight 182 pounds, BMI 31 12/23/23: Weight 182 pounds, BMI 31 04/14/2024: Weight 187 pounds, BMI 32 06/17/2024: Weight 186 pounds, BMI 32.07 08/24/2024: Weight 194 pounds, BMI 33.3. SECA scan completed today and interpreted with the patient. Has had an increase in weight including increase of fat mass by 5 pounds. Was off the medication for several weeks while prior authorization was being reinitiated. Has now been back on Wegovy 2.4 mg for the past week. Tolerating medication well. Has decreased her Contrave to 1 tablet once daily as she is continuing to experience constipation. Has tried ojxj-pym-ghieezf medications like Colace, fiber, senna, and MiraLAX. Has responded well to samples of Linzess. Will attempt prior authorization for the medication for constipation. Advised to take Linzess 145 mcg once daily 30 minutes before morning meal for constipation. Discussed proper use of the medication as well as expected side effect profile including but not limited to diarrhea, abdominal pain, and flatulence. At this time we also discussed methods of transitioning to Zepbound. Low likelihood of insurance coverage. Discussed use of co-pay card for $550 per month as well as Martha direct. She is interested in Martha direct 2.5 mg once weekly with medication mailed to her address for $399 per month. When she has access of the medication advised to discontinue Wegovy. Discussed proper use of the medication as well as expected side effect profile including but not limited to nausea, constipation, abdominal pain, and heartburn. She will follow-up in the office in approximately 4 weeks for continued weight management. # PCOS: Continue spironolactone 100 mg 1 tablet twice daily. Will continue to monitor. Please follow-up with PCP. Was removed off of metformin due to improvement on GLP-1. # GERD: Continue pantoprazole 40 mg 1 tablet once daily 30 to 60 minutes for morning meal. Will continue to monitor. # Anxiety: Stable mood in the office today. Continue sertraline 150 mg once daily. Continue amitriptyline 25 mg 1 tablet at bedtime once daily. Continue lorazepam 0.5 mg 1 tablet at bedtime as needed for increased anxiety. Will continue to monitor. # Hyperlipidemia: Lipid panel with cholesterol 211, triglycerides 180, LDL 130, HDL 45. No longer on fenofibrate. Discussed importance of increasing omega-3 fatty acids to reduce triglyceride levels and maintain high levels of HDL. Will continue to monitor. All questions have been answered to patient's satisfaction. Patient verbalized understanding of diagnosis and treatments explained. Advised to call sooner prior to next visit it any questions/concerns arise. Case discussed with collaborating physician Florin Leslie who reviewed the assessment and plan. Chart, medications, labs, vital signs reviewed. Dictation was accomplished with the use of Cross[employer] voice recognition software, which is prone to medical misidentifications and grammatical errors. This are unintentional and the practitioner does try to identify and correct these, but some could still be present. Please do not hesitate to contact practitioner for clarification. 10/19/2024 Daytime somnolence (ICD-10 - R40.0) #Weight Management 10/19/2024 We discussed the new [place] [facility] trial and indication for tirzepatide Sleep study Discussed Martha direct, will send 2.5 in the interim Total time spent today was 30 minutes [...] software and direct typing Please excuse inadvertent master black belt or typing errors, or uncorrected word substitutions Although every attempt has been made by the provider to proofread this document, occasional misspellings and typographical errors may still be present Due to the previous pandemic, and the use of personal protective equipment (PPE) This may decrease voice recognition accuracy Inadvertent master black belt errors may occur 11/30/2024 Daytime somnolence (ICD-10 [...] software and direct typing Please excuse inadvertent master black belt or typing errors, or uncorrected word substitutions Although every attempt has been made by the provider to proofread this document, occasional misspellings and typographical errors may still be present Due to the previous pandemic, and the use of personal protective equipment (PPE) This may decrease voice recognition accuracy Inadvertent master black belt errors may occur 11/30/2024 Snoring (ICD-10 - [...] software and direct typing Please excuse inadvertent master black belt or typing errors, or uncorrected word substitutions Although every attempt has been made by the provider to proofread this document, occasional misspellings and typographical errors may still be present Due to the previous pandemic, and the use of personal protective equipment (PPE) This may decrease voice recognition accuracy Inadvertent master black belt errors may occur 10/19/2024 Snoring (ICD-10 - R06.83) #Weight Management 10/19/2024 We discussed the new [place] [facility] trial and indication for tirzepatide Sleep study Discussed Martha direct, will send 2.5 in the interim Total time spent today was 30 minutes [...] software and direct typing Please excuse inadvertent master black belt or typing errors, or uncorrected word substitutions Although every attempt has been made by the provider to proofread this document, occasional misspellings and typographical errors may still be present Due to the previous pandemic, and the use of personal protective equipment (PPE) This may decrease voice recognition accuracy Inadvertent master black belt errors may occur 09/21/2024 GERD without esophagitis (ICD-10 - K21.9) Patient is here for weight management follow-up. We focused on significance of healthy lifestyle changes. We talked about need to track steps with goal between 6000-10,000 steps daily, focus on portion control, read food labels, get adequate sleep between 7 to 8 hours, get adequate rest to the body, meditate, frequent nutritious meals including vegetables and healthy choices of lean meats, fish, and elimination of refined carbohydrates. We also talked about mindfulness and mindful eating. Particular focus was on continuing portion control, mindful eating, and increasing activity. Total time spent with 30 minutes with greater than 50% spent on counseling and coordinating care. 03/28/2023: Weight 226 pounds, BMI 38 04/25/2023: Weight 221 pounds, BMI 38 05/13/2023: Weight 217 pounds, BMI 37 2023: Weight 215 pounds, BMI 36 07/17/2023: Weight 202 pounds, BMI 35 09/12/2023: Weight 192 pounds 11/05/2023: Weight 182 pounds, BMI 31 12/23/23: Weight 182 pounds, BMI 31 04/14/2024: Weight 187 pounds, BMI 32 06/17/2024: Weight 186 pounds, BMI 32.07 08/24/2024: Weight 194 pounds, BMI 33.3. SECA scan completed today and interpreted with the patient. Has had an increase in weight including increase of fat mass by 5 pounds. Was off the medication for several weeks while prior authorization was being reinitiated. Has now been back on Wegovy 2.4 mg for the past week. Tolerating medication well. Has decreased her Contrave to 1 tablet once daily as she is continuing to experience constipation. Has tried uvfh-wup-krgewbn medications like Colace, fiber, senna, and MiraLAX. Has responded well to samples of Linzess. Will attempt prior authorization for the medication for constipation. Advised to take Linzess 145 mcg once daily 30 minutes before morning meal for constipation. Discussed proper use of the medication as well as expected side effect profile including but not limited to diarrhea, abdominal pain, and flatulence. At this time we also discussed methods of transitioning to Zepbound. Low likelihood of insurance coverage. Discussed use of co-pay card for $550 per month as well as Martha direct. She is interested in Martha direct 2.5 mg once weekly with medication mailed to her address for $399 per month. When she has access of the medication advised to discontinue Wegovy. Discussed proper use of the medication as well as expected side effect profile including but not limited to nausea, constipation, abdominal pain, and heartburn. She will follow-up in the office in approximately 4 weeks for continued weight management. 09/21/2024: Weight 195, BMI 33.47. Seca scan completed today and interpreted with the patient. Weight has been stable since previous visit. Currently on Wegovy 2.4 mg weekly. Tolerating medication well without side effects. Reviewed goals of diet and exercise and discussed importance of increasing her physical activity to further augment weight loss. Pending determination of Zepbound at this time with prior authorization initiated at last visit. Otherwise until further notice will continue Wegovy 2.4 mg weekly. Discussed proper use of medication and side effect profile. She will follow-up in office in 4 weeks for further management. # PCOS: Continue spironolactone 100 mg 1 tablet twice daily. Will continue to monitor. Please follow-up with PCP. Was removed off of metformin due to improvement on GLP-1. # GERD: Continue pantoprazole 40 mg 1 tablet once daily 30 to 60 minutes for morning meal. Will continue to monitor. # Anxiety: Stable mood in the office today. Continue sertraline 150 mg once daily. Continue amitriptyline 25 mg 1 tablet at bedtime once daily. Continue lorazepam 0.5 mg 1 tablet at bedtime as needed for increased anxiety. Will continue to monitor. # Hyperlipidemia: Lipid panel with cholesterol 211, triglycerides 180, LDL 130, HDL 45. No longer on fenofibrate. Discussed importance of increasing omega-3 fatty acids to reduce triglyceride levels and maintain high levels of HDL. Will continue to monitor. All questions have been answered to patient's satisfaction. Patient verbalized understanding of diagnosis and treatments explained. Advised to call sooner prior to next visit it any questions/concerns arise. Case discussed with collaborating physician Florin Leslie who reviewed the assessment and plan. Chart, medications, labs, vital signs reviewed. Dictation was accomplished with the use of Crossbar voice recognition software, which is prone to medical misidentifications and grammatical errors. This are unintentional and the practitioner does try to identify and correct these, but some could still be present. Please do not hesitate to contact practitioner for clarification. 08/24/2024 Anxiety (ICD-10 - F41.9) Patient is here for weight management follow-up. We focused on significance of healthy lifestyle changes. We talked about need to track steps with goal between 6000-10,000 steps daily, focus on portion control, read food labels, get adequate sleep between 7 to 8 hours, get adequate rest to the body, meditate, frequent nutritious meals including vegetables and healthy choices of lean meats, fish, and elimination of refined carbohydrates. We also talked about mindfulness and mindful eating. Particular focus was on continuing portion control, mindful eating, and increasing activity. Total time spent with 30 minutes with greater than 50% spent on counseling and coordinating care. 03/28/2023: Weight 226 pounds, BMI 38 04/25/2023: Weight 221 pounds, BMI 38 05/13/2023: Weight 217 pounds, BMI 37 2023: Weight 215 pounds, BMI 36 07/17/2023: Weight 202 pounds, BMI 35 09/12/2023: Weight 192 pounds 11/05/2023: Weight 182 pounds, BMI 31 4/16/24: Weight 182 pounds, BMI 31 04/14/2024: Weight 187 pounds, BMI 32 06/17/2024: Weight 186 pounds, BMI 32.07 08/24/2024: Weight 194 pounds, BMI 33.3. SECA scan completed today and interpreted with the patient. Has had an increase in weight including increase of fat mass by 5 pounds. Was off the medication for several weeks while prior authorization was being reinitiated. Has now been back on Wegovy 2.4 mg for the past week. Tolerating medication well. Has decreased her Contrave to 1 tablet once daily as she is continuing to experience constipation. Has tried wara-ooi-hpjaigu medications like Colace, fiber, senna, and MiraLAX. Has responded well to samples of Linzess. Will attempt prior authorization for the medication for constipation. Advised to take Linzess 145 mcg once daily 30 minutes before morning meal for constipation. Discussed proper use of the medication as well as expected side effect profile including but not limited to diarrhea, abdominal pain, and flatulence. At this time we also discussed methods of transitioning to Zepbound. Low likelihood of insurance coverage. Discussed use of co-pay card for $550 per month as well as Martha direct. She is interested in Martha direct 2.5 mg once weekly with medication mailed to her address for $399 per month. When she has access of the medication advised to discontinue Wegovy. Discussed proper use of the medication as well as expected side effect profile including but not limited to nausea, constipation, abdominal pain, and heartburn. She will follow-up in the office in approximately 4 weeks for continued weight management. # PCOS: Continue spironolactone 100 mg 1 tablet twice daily. Will continue to monitor. Please follow-up with PCP. Was removed off of metformin due to improvement on GLP-1. # GERD: Continue pantoprazole 40 mg 1 tablet once daily 30 to 60 minutes for morning meal. Will continue to monitor. # Anxiety: Stable mood in the office today. Continue sertraline 150 mg once daily. Continue amitriptyline 25 mg 1 tablet at bedtime once daily. Continue lorazepam 0.5 mg 1 tablet at bedtime as needed for increased anxiety. Will continue to monitor. # Hyperlipidemia: Lipid panel with cholesterol 211, triglycerides 180, LDL 130, HDL 45. No longer on fenofibrate. Discussed importance of increasing omega-3 fatty acids to reduce triglyceride levels and maintain high levels of HDL. Will continue to monitor. All questions have been answered to patient's satisfaction. Patient verbalized understanding of diagnosis and treatments explained. Advised to call sooner prior to next visit it any questions/concerns arise. Case discussed with collaborating physician Florin Leslie who reviewed the assessment and plan. Chart, medications, labs, vital signs reviewed. Dictation was accomplished with the use of Crossbar voice recognition software, which is prone to medical misidentifications and grammatical errors. This are unintentional and the practitioner does try to identify and correct these, but some could still be present. Please do not hesitate to contact practitioner for clarification. 08/24/2024 Mixed hyperlipidemia (ICD-10 - E78.2) Patient is here for weight management follow-up. We focused on significance of healthy lifestyle changes. We talked about need to track steps with goal between 6000-10,000 steps daily, focus on portion control, read food labels, get adequate sleep between 7 to 8 hours, get adequate rest to the body, meditate, frequent nutritious meals including vegetables and healthy choices of lean meats, fish, and elimination of refined carbohydrates. We also talked about mindfulness and mindful eating. Particular focus was on continuing portion control, mindful eating, and increasing activity. Total time spent with 30 minutes with greater than 50% spent on counseling and coordinating care. 03/28/2023: Weight 226 pounds, BMI 38 04/25/2023: Weight 221 pounds, BMI 38 05/13/2023: Weight 217 pounds, BMI 37 2023: Weight 215 pounds, BMI 36 07/17/2023: Weight 202 pounds, BMI 35 09/12/2023: Weight 192 pounds 11/05/2023: Weight 182 pounds, BMI 31 12/23/23: Weight 182 pounds, BMI 31 04/14/2024: Weight 187 pounds, BMI 32 06/17/2024: Weight 186 pounds, BMI 32.07 08/24/2024: Weight 194 pounds, BMI 33.3. SECA scan completed today and interpreted with the patient. Has had an increase in weight including increase of fat mass by 5 pounds. Was off the medication for several weeks while prior authorization was being reinitiated. Has now been back on Wegovy 2.4 mg for the past week. Tolerating medication well. Has decreased her Contrave to 1 tablet once daily as she is continuing to experience constipation. Has tried yerc-qik-uamuwpy medications like Colace, fiber, senna, and MiraLAX. Has responded well to samples of Linzess. Will attempt prior authorization for the medication for constipation. Advised to take Linzess 145 mcg once daily 30 minutes before morning meal for constipation. Discussed proper use of the medication as well as expected side effect profile including but not limited to diarrhea, abdominal pain, and flatulence. At this time we also discussed methods of transitioning to Zepbound. Low likelihood of insurance coverage. Discussed use of co-pay card for $550 per month as well as Martha direct. She is interested in Martha direct 2.5 mg once weekly with medication mailed to her address for $399 per month. When she has access of the medication advised to discontinue Wegovy. Discussed proper use of the medication as well as expected side effect profile including but not limited to nausea, constipation, abdominal pain, and heartburn. She will follow-up in the office in approximately 4 weeks for continued weight management. # PCOS: Continue spironolactone 100 mg 1 tablet twice daily. Will continue to monitor. Please follow-up with PCP. Was removed off of metformin due to improvement on GLP-1. # GERD: Continue pantoprazole 40 mg 1 tablet once daily 30 to 60 minutes for morning meal. Will continue to monitor. # Anxiety: Stable mood in the office today. Continue sertraline 150 mg once daily. Continue amitriptyline 25 mg 1 tablet at bedtime once daily. Continue lorazepam 0.5 mg 1 tablet at bedtime as needed for increased anxiety. Will continue to monitor. # Hyperlipidemia: Lipid panel with cholesterol 211, triglycerides 180, LDL 130, HDL 45. No longer on fenofibrate. Discussed importance of increasing omega-3 fatty acids to reduce triglyceride levels and maintain high levels of HDL. Will continue to monitor. All questions have been answered to patient's satisfaction. Patient verbalized understanding of diagnosis and treatments explained. Advised to call sooner prior to next visit it any questions/concerns arise. Case discussed with collaborating physician Florin Leslie who reviewed the assessment and plan. Chart, medications, labs, vital signs reviewed. Dictation was accomplished with the use of Crossbar voice recognition software, which is prone to medical misidentifications and grammatical errors. This are unintentional and the practitioner does try to identify and correct these, but some could still be present. Please do not hesitate to contact practitioner for clarification. 09/21/2024 Anxiety (ICD-10 - F41.9) Patient is here for weight management follow-up. We focused on significance of healthy lifestyle changes. We talked about need to track steps with goal between 6000-10,000 steps daily, focus on portion control, read food labels, get adequate sleep between 7 to 8 hours, get adequate rest to the body, meditate, frequent nutritious meals including vegetables and healthy choices of lean meats, fish, and elimination of refined carbohydrates. We also talked about mindfulness and mindful eating. Particular focus was on continuing portion control, mindful eating, and increasing activity. Total time spent with 30 minutes with greater than 50% spent on counseling and coordinating care. 03/28/2023: Weight 226 pounds, BMI 38 04/25/2023: Weight 221 pounds, BMI 38 05/13/2023: Weight 217 pounds, BMI 37 2023: Weight 215 pounds, BMI 36 07/17/2023: Weight 202 pounds, BMI 35 09/12/2023: Weight 192 pounds 11/05/2023: Weight 182 pounds, BMI 31 12/23/23: Weight 182 pounds, BMI 31 04/14/2024: Weight 187 pounds, BMI 32 06/17/2024: Weight 186 pounds, BMI 32.07 08/24/2024: Weight 194 pounds, BMI 33.3. SECA scan completed today and interpreted with the patient. Has had an increase in weight including increase of fat mass by 5 pounds. Was off the medication for several weeks while prior authorization was being reinitiated. Has now been back on Wegovy 2.4 mg for the past week. Tolerating medication well. Has decreased her Contrave to 1 tablet once daily as she is continuing to experience constipation. Has tried nidq-pko-gsuidmy medications like Colace, fiber, senna, and MiraLAX. Has responded well to samples of Linzess. Will attempt prior authorization for the medication for constipation. Advised to take Linzess 145 mcg once daily 30 minutes before morning meal for constipation. Discussed proper use of the medication as well as expected side effect profile including but not limited to diarrhea, abdominal pain, and flatulence. At this time we also discussed methods of transitioning to Zepbound. Low likelihood of insurance coverage. Discussed use of co-pay card for $550 per month as well as Martha direct. She is interested in Martha direct 2.5 mg once weekly with medication mailed to her address for $399 per month. When she has access of the medication advised to discontinue Wegovy. Discussed proper use of the medication as well as expected side effect profile including but not limited to nausea, constipation, abdominal pain, and heartburn. She will follow-up in the office in approximately 4 weeks for continued weight management. 09/21/2024: Weight 195, BMI 33.47. Seca scan completed today and interpreted with the patient. Weight has been stable since previous visit. Currently on Wegovy 2.4 mg weekly. Tolerating medication well without side effects. Reviewed goals of diet and exercise and discussed importance of increasing her physical activity to further augment weight loss. Pending determination of Zepbound at this time with prior authorization initiated at last visit. Otherwise until further notice will continue Wegovy 2.4 mg weekly. Discussed proper use of medication and side effect profile. She will follow-up in office in 4 weeks for further management. # PCOS: Continue spironolactone 100 mg 1 tablet twice daily. Will continue to monitor. Please follow-up with PCP. Was removed off of metformin due to improvement on GLP-1. # GERD: Continue pantoprazole 40 mg 1 tablet once daily 30 to 60 minutes for morning meal. Will continue to monitor. # Anxiety: Stable mood in the office today. Continue sertraline 150 mg once daily. Continue amitriptyline 25 mg 1 tablet at bedtime once daily. Continue lorazepam 0.5 mg 1 tablet at bedtime as needed for increased anxiety. Will continue to monitor. # Hyperlipidemia: Lipid panel with cholesterol 211, triglycerides 180, LDL 130, HDL 45. No longer on fenofibrate. Discussed importance of increasing omega-3 fatty acids to reduce triglyceride levels and maintain high levels of HDL. Will continue to monitor. All questions have been answered to patient's satisfaction. Patient verbalized understanding of diagnosis and treatments explained. Advised to call sooner prior to next visit it any questions/concerns arise. Case discussed with collaborating physician Florin Leslie who reviewed the assessment and plan. Chart, medications, labs, vital signs reviewed. Dictation was accomplished with the use of Crossbar voice recognition software, which is prone to medical misidentifications and grammatical errors. This are unintentional and the practitioner does try to identify and correct these, but some could still be present. Please do not hesitate to contact practitioner for clarification. 11/30/2024 HARMAN (obstructive sleep apnea) (ICD-10 - [...] software and direct typing Please excuse inadvertent master black belt or typing errors, or uncorrected word substitutions Although every attempt has been made by the provider to proofread this document, occasional misspellings and typographical errors may still be present Due to the previous pandemic, and the use of personal protective equipment (PPE) This may decrease voice recognition accuracy Inadvertent master black belt errors may occur 08/24/2024 Irritable bowel syndrome with constipation (ICD-10 - K58.1) Patient is here for weight management follow-up. We focused on significance of healthy lifestyle changes. We talked about need to track steps with goal between 6000-10,000 steps daily, focus on portion control, read food labels, get adequate sleep between 7 to 8 hours, get adequate rest to the body, meditate, frequent nutritious meals including vegetables and healthy choices of lean meats, fish, and elimination of refined carbohydrates. We also talked about mindfulness and mindful eating. Particular focus was on continuing portion control, mindful eating, and increasing activity. Total time spent with 30 minutes with greater than 50% spent on counseling and coordinating care. 03/28/2023: Weight 226 pounds, BMI 38 04/25/2023: Weight 221 pounds, BMI 38 05/13/2023: Weight 217 pounds, BMI 37 2023: Weight 215 pounds, BMI 36 07/17/2023: Weight 202 pounds, BMI 35 09/12/2023: Weight 192 pounds 11/05/2023: Weight 182 pounds, BMI 31 12/23/23: Weight 182 pounds, BMI 31 04/14/2024: Weight 187 pounds, BMI 32 06/17/2024: Weight 186 pounds, BMI 32.07 08/24/2024: Weight 194 pounds, BMI 33.3. SECA scan completed today and interpreted with the patient. Has had an increase in weight including increase of fat mass by 5 pounds. Was off the medication for several weeks while prior authorization was being reinitiated. Has now been back on Wegovy 2.4 mg for the past week. Tolerating medication well. Has decreased her Contrave to 1 tablet once daily as she is continuing to experience constipation. Has tried atcg-scj-helrfta medications like Colace, fiber, senna, and MiraLAX. Has responded well to samples of Linzess. Will attempt prior authorization for the medication for constipation. Advised to take Linzess 145 mcg once daily 30 minutes before morning meal for constipation. Discussed proper use of the medication as well as expected side effect profile including but not limited to diarrhea, abdominal pain, and flatulence. At this time we also discussed methods of transitioning to Zepbound. Low likelihood of insurance coverage. Discussed use of co-pay card for $550 per month as well as Martha direct. She is interested in Martha direct 2.5 mg once weekly with medication mailed to her address for $399 per month. When she has access of the medication advised to discontinue Wegovy. Discussed proper use of the medication as well as expected side effect profile including but not limited to nausea, constipation, abdominal pain, and heartburn. She will follow-up in the office in approximately 4 weeks for continued weight management. # PCOS: Continue spironolactone 100 mg 1 tablet twice daily. Will continue to monitor. Please follow-up with PCP. Was removed off of metformin due to improvement on GLP-1. # GERD: Continue pantoprazole 40 mg 1 tablet once daily 30 to 60 minutes for morning meal. Will continue to monitor. # Anxiety: Stable mood in the office today. Continue sertraline 150 mg once daily. Continue amitriptyline 25 mg 1 tablet at bedtime once daily. Continue lorazepam 0.5 mg 1 tablet at bedtime as needed for increased anxiety. Will continue to monitor. # Hyperlipidemia: Lipid panel with cholesterol 211, triglycerides 180, LDL 130, HDL 45. No longer on fenofibrate. Discussed importance of increasing omega-3 fatty acids to reduce triglyceride levels and maintain high levels of HDL. Will continue to monitor. All questions have been answered to patient's satisfaction. Patient verbalized understanding of diagnosis and treatments explained. Advised to call sooner prior to next visit it any questions/concerns arise. Case discussed with collaborating physician Florin Leslie who reviewed the assessment and plan. Chart, medications, labs, vital signs reviewed. Dictation was accomplished with the use of Crossbar voice recognition software, which is prone to medical misidentifications and grammatical errors. This are unintentional and the practitioner does try to identify and correct these, but some could still be present. Please do not hesitate to contact practitioner for clarification. 09/21/2024 Mixed hyperlipidemia (ICD-10 - E78.2) Patient is here for weight management follow-up. We focused on significance of healthy lifestyle changes. We talked about need to track steps with goal between 6000-10,000 steps daily, focus on portion control, read food labels, get adequate sleep between 7 to 8 hours, get adequate rest to the body, meditate, frequent nutritious meals including vegetables and healthy choices of lean meats, fish, and elimination of refined carbohydrates. We also talked about mindfulness and mindful eating. Particular focus was on continuing portion control, mindful eating, and increasing activity. Total time spent with 30 minutes with greater than 50% spent on counseling and coordinating care. 03/28/2023: Weight 226 pounds, BMI 38 04/25/2023: Weight 221 pounds, BMI 38 05/13/2023: Weight 217 pounds, BMI 37 2023: Weight 215 pounds, BMI 36 07/17/2023: Weight 202 pounds, BMI 35 09/12/2023: Weight 192 pounds 11/05/2023: Weight 182 pounds, BMI 31 12/23/23: Weight 182 pounds, BMI 31 04/14/2024: Weight 187 pounds, BMI 32 06/17/2024: Weight 186 pounds, BMI 32.07 08/24/2024: Weight 194 pounds, BMI 33.3. SECA scan completed today and interpreted with the patient. Has had an increase in weight including increase of fat mass by 5 pounds. Was off the medication for several weeks while prior authorization was being reinitiated. Has now been back on Wegovy 2.4 mg for the past week. Tolerating medication well. Has decreased her Contrave to 1 tablet once daily as she is continuing to experience constipation. Has tried nvpt-coz-jajiezy medications like Colace, fiber, senna, and MiraLAX. Has responded well to samples of Linzess. Will attempt prior authorization for the medication for constipation. Advised to take Linzess 145 mcg once daily 30 minutes before morning meal for constipation. Discussed proper use of the medication as well as expected side effect profile including but not limited to diarrhea, abdominal pain, and flatulence. At this time we also discussed methods of transitioning to Zepbound. Low likelihood of insurance coverage. Discussed use of co-pay card for $550 per month as well as Martha direct. She is interested in Martha direct 2.5 mg once weekly with medication mailed to her address for $399 per month. When she has access of the medication advised to discontinue Wegovy. Discussed proper use of the medication as well as expected side effect profile including but not limited to nausea, constipation, abdominal pain, and heartburn. She will follow-up in the office in approximately 4 weeks for continued weight management. 09/21/2024: Weight 195, BMI 33.47. Seca scan completed today and interpreted with the patient. Weight has been stable since previous visit. Currently on Wegovy 2.4 mg weekly. Tolerating medication well without side effects. Reviewed goals of diet and exercise and discussed importance of increasing her physical activity to further augment weight loss. Pending determination of Zepbound at this time with prior authorization initiated at last visit. Otherwise until further notice will continue Wegovy 2.4 mg weekly. Discussed proper use of medication and side effect profile. She will follow-up in office in 4 weeks for further management. # PCOS: Continue spironolactone 100 mg 1 tablet twice daily. Will continue to monitor. Please follow-up with PCP. Was removed off of metformin due to improvement on GLP-1. # GERD: Continue pantoprazole 40 mg 1 tablet once daily 30 to 60 minutes for morning meal. Will continue to monitor. # Anxiety: Stable mood in the office today. Continue sertraline 150 mg once daily. Continue amitriptyline 25 mg 1 tablet at bedtime once daily. Continue lorazepam 0.5 mg 1 tablet at bedtime as needed for increased anxiety. Will continue to monitor. # Hyperlipidemia: Lipid panel with cholesterol 211, triglycerides 180, LDL 130, HDL 45. No longer on fenofibrate. Discussed importance of increasing omega-3 fatty acids to reduce triglyceride levels and maintain high levels of HDL. Will continue to monitor. All questions have been answered to patient's satisfaction. Patient verbalized understanding of diagnosis and treatments explained. Advised to call sooner prior to next visit it any questions/concerns arise. Case discussed with collaborating physician Florin Leslie who reviewed the assessment and plan. Chart, medications, labs, vital signs reviewed. Dictation was accomplished with the use of Crossbar voice recognition software, which is prone to medical misidentifications and grammatical errors. This are unintentional and the practitioner does try to identify and correct these, but some could still be present. Please do not hesitate to contact practitioner for clarification. 09/21/2024 Irritable bowel syndrome with constipation (ICD-10 - K58.1) Patient is here for weight management follow-up. We focused on significance of healthy lifestyle changes. We talked about need to track steps with goal between 6000-10,000 steps daily, focus on portion control, read food labels, get adequate sleep between 7 to 8 hours, get adequate rest to the body, meditate, frequent nutritious meals including vegetables and healthy choices of lean meats, fish, and elimination of refined carbohydrates. We also talked about mindfulness and mindful eating. Particular focus was on continuing portion control, mindful eating, and increasing activity. Total time spent with 30 minutes with greater than 50% spent on counseling and coordinating care. 03/28/2023: Weight 226 pounds, BMI 38 04/25/2023: Weight 221 pounds, BMI 38 05/13/2023: Weight 217 pounds, BMI 37 2023: Weight 215 pounds, BMI 36 07/17/2023: Weight 202 pounds, BMI 35 09/12/2023: Weight 192 pounds 11/05/2023: Weight 182 pounds, BMI 31 12/23/23: Weight 182 pounds, BMI 31 04/14/2024: Weight 187 pounds, BMI 32 06/17/2024: Weight 186 pounds, BMI 32.07 08/24/2024: Weight 194 pounds, BMI 33.3. SECA scan completed today and interpreted with the patient. Has had an increase in weight including increase of fat mass by 5 pounds. Was off the medication for several weeks while prior authorization was being reinitiated. Has now been back on Wegovy 2.4 mg for the past week. Tolerating medication well. Has decreased her Contrave to 1 tablet once daily as she is continuing to experience constipation. Has tried mcsc-shq-sctgqrq medications like Colace, fiber, senna, and MiraLAX. Has responded well to samples of Linzess. Will attempt prior authorization for the medication for constipation. Advised to take Linzess 145 mcg once daily 30 minutes before morning meal for constipation. Discussed proper use of the medication as well as expected side effect profile including but not limited to diarrhea, abdominal pain, and flatulence. At this time we also discussed methods of transitioning to Zepbound. Low likelihood of insurance coverage. Discussed use of co-pay card for $550 per month as well as Martha direct. She is interested in Martha direct 2.5 mg once weekly with medication mailed to her address for $399 per month. When she has access of the medication advised to discontinue Wegovy. Discussed proper use of the medication as well as expected side effect profile including but not limited to nausea, constipation, abdominal pain, and heartburn. She will follow-up in the office in approximately 4 weeks for continued weight management. 09/21/2024: Weight 195, BMI 33.47. Seca scan completed today and interpreted with the patient. Weight has been stable since previous visit. Currently on Wegovy 2.4 mg weekly. Tolerating medication well without side effects. Reviewed goals of diet and exercise and discussed importance of increasing her physical activity to further augment weight loss. Pending determination of Zepbound at this time with prior authorization initiated at last visit. Otherwise until further notice will continue Wegovy 2.4 mg weekly. Discussed proper use of medication and side effect profile. She will follow-up in office in 4 weeks for further management. # PCOS: Continue spironolactone 100 mg 1 tablet twice daily. Will continue to monitor. Please follow-up with PCP. Was removed off of metformin due to improvement on GLP-1. # GERD: Continue pantoprazole 40 mg 1 tablet once daily 30 to 60 minutes for morning meal. Will continue to monitor. # Anxiety: Stable mood in the office today. Continue sertraline 150 mg once daily. Continue amitriptyline 25 mg 1 tablet at bedtime once daily. Continue lorazepam 0.5 mg 1 tablet at bedtime as needed for increased anxiety. Will continue to monitor. # Hyperlipidemia: Lipid panel with cholesterol 211, triglycerides 180, LDL 130, HDL 45. No longer on fenofibrate. Discussed importance of increasing omega-3 fatty acids to reduce triglyceride levels and maintain high levels of HDL. Will continue to monitor. All questions have been answered to patient's satisfaction. Patient verbalized understanding of diagnosis and treatments explained. Advised to call sooner prior to next visit it any questions/concerns arise. Case discussed with collaborating physician Florin Leslie who reviewed the assessment and plan. Chart, medications, labs, vital signs reviewed. Dictation was accomplished with the use of Crossbar voice recognition software, which is prone to medical misidentifications and grammatical errors. This are unintentional and the practitioner does try to identify and correct these, but some could still be present. Please do not hesitate to contact practitioner for clarification. PLAN OF TREATMENT Pending Test Test Name Order Date VITAMIN B12 11/30/2024 LIPID PANEL, STANDARD 03/28/2023 LIPID PANEL, STANDARD 11/30/2024 COMPREHENSIVE METABOLIC PANEL 11/30/2024 CBC (INCLUDES DIFF/PLT) 11/30/2024 URINALYSIS, COMPLETE 11/30/2024 HEMOGLOBIN A1c 11/30/2024 HEMOGLOBIN A1c 03/28/2023 INSULIN 03/28/2023 TSH W/REFLEX TO FT4 11/30/2024 VITAMIN D,25-OH,TOTAL,IA 11/30/2024 Next Appt Details Provider Name:VERNELL TAM, 01/11/2025 03:00:00 PM, [address] [facility], [facility] [address], [place], [id number], Insurance Providers Payer Name Payer Address Payer Phone Subscriber Number Group Number Insured Name Patient Relationship to Insured Coverage Start Date Coverage End Date [facility] [address] [place] [address] [id number] Caroilne Bernard Self - patient is the insured 3 MEDICATIONS ADMINISTERED Medication Instructions Date of Administration Dosage Notes MICC B12 INJECTION 03/28/2023 Lot# [id number] MICC B12 INJECTION 06/19/2023 Semaglutide 04/25/2023 .25 Lot#[id number] Semaglutide 04/30/2023 Semaglutide 05/07/2023 0.50 mL Semaglutide 05/13/2023 sema 0.25mg Semaglutide 05/20/2023 sema 0.25mg Semaglutide 2023 0.50 mL Semaglutide 06/13/2023 0.50 mL Semaglutide 06/25/2023 1 mL MEDICAL (GENERAL) HISTORY Medical History History ICD Code PCOS FATTY LIVER HYPERLIPIDEMIA GERD ANXIETY
--- OUTSIDE RECORDS SUMMARY | 2024-12-14 08:55 | XMS_ITS | Encounter Summary ---
Author Organization [employer] Address [address] [place] [address] 7 [place] [address] Care Team Providers Care Sports Complex Attendant Name Role Phone Komal Ghotra MD Primary Care Provide r Encounter Details Date Type Department Care Team ([facility] st Contact Info) Description 09/16/2024 Orders Only [facility] CH[facility] MED & PEDS [address] [place], [place] [phone] Baltazar Luevano MD 505 [place] [address] Acute cough (Primary Dx) Social History Tobacco Use Types Packs/Day Years [...] as of this encounter Visit Diagnoses Diagnosis Acute cough- Primary documented in this encounter Additional Health Concerns Assessment Noted Time PHQ-9 Depression Total Score: 0 09/09/19 25 11:24 AM EST documented as of this encounter Care Teams Sports Complex Attendant Relationship Specialty Start Date End Date Komal Ghotra MD [address] [place] [address] PCP - General Family Medicine 12/20/21 documented as of this encounter
--- OUTSIDE RECORDS SUMMARY | 2024-12-14 08:55 | XMS_ITS | Encounter Summary ---
Author Organization [employer] Address [address] [place] [address] 7 [place] [address] Care Team Providers Care Email Marketing Intern Name Role Phone Komal Ghotra MD Primary Care Provide r Encounter Details Date Type Department Care Team ([facility] st Contact Info) Description 02/13/2024 Orders Only [facility] CHC MED & PEDS [address] [place], [place] [phone] Baltazar Luevano MD 505 [place] [address] Chronic migraine without aura without status migrainosus, not intractable Social History Tobacco Use Types Packs/Day Years Used Date Smoking Tobacco: Every Day Cigarettes Smokeless Tobacco: Never Alcohol Use Standard Drinks/Week Comments Not Currently 0 (1 standard drink = 0.6 oz pur e alcohol) Housing Stability Answer Date Recorded What is your housing situation today? I have tamra garcía 07/04/[address] you [...] the past 12 months, has t he [employer], [employer], oil or water [employer] threatened to shut off services in your [...] intractable documented in this encounter Care Teams Email Marketing Intern Relationship Specialty Start Date End Date Komal Ghotra MD [address] [place] [phone] PCP - General Family Medicine 12/20/21 documented as of this encounter
--- OUTSIDE RECORDS SUMMARY | 2024-12-14 08:55 | XMS_ITS | Encounter Summary ---
Author Organization [employer] Address [address] [place] [address] 7 [place] [address] Care Team Providers Care Personal Lines Appraiser Name Role Phone Komal Ghotra MD Primary Care Provide r Reason for Visit * Reason Onset Date Comments Paperwork/Forms 08/06/2023 Encounter Details Date Type Department Care Team ([facility] st Contact Info) Description 08/06/2023 Telephone [facility] MEDICINE [address] [place], [place] [phone] Komal Ghotra MD [address] [place] [address] Paperwork/Forms Social History Tobacco Use Types Packs/Day Years [...] t he electric, gas, oil or water [employer] threatened to shut off services in your home? No 07/04/2023 Comments Unknown Sex and Gender Information Value Date Recorded Sex Assigned at Female 07/08/2022 10:37 AM EDT Legal Sex Female 10:37 AM EDT Gender Identity Female 07/08/2022 10:37 AM EDT Sexual Orientation Straight 07/08/2022 10 :37 AM EDT documented as of this encounter Miscellaneous Notes * Telephone Encounter - Lisa Fatima RN - 08/06/2023 2:00 PM EST Can number of visits be updated to 3 if possible and faxed? Thank you! * Telephone Encounter - Hermilo Lawler - 08/06/2023 1:50 PM EST Tc from [facility] from the doctors office of Dr. Sean Newman requesting the referral for manager fine dining on 06/17 - 07/15 for three times and it can be faxed to documented in this encounter Plan of Treatment Not on file documented as of this encounter Visit Diagnoses Not on filedocumented in this encounter Care Teams Personal Lines Appraiser Relationship Specialty Start Date End Date Komal Ghotra MD [address] [place] [phone] PCP - General Family Medicine 12/20/21 documented as of this encounter
--- OUTSIDE RECORDS SUMMARY | 2024-12-14 08:56 | XMS_ITS | Encounter Summary ---
Author Organization [employer] Address [address] [place] [address] 7 [place] [address] Care Team Providers Care Dye House Vat Worker Name Role Phone Komal Ghotra MD Primary Care Provide r Encounter Details Date Type Department Care Team ([facility] st Contact Info) Description 12/24/2023 Orders Only [facility] CHC MED & PEDS 505 [place], [place] [phone] Baltazar Luevano MD [address] [place] [address] Anxiety Social History Tobacco Use Types Packs/Day Years [...] as of this encounter Visit Diagnoses Diagnosis Anxiety Anxiety state, unspecified documented in this encounter Care Teams Dye House Vat Worker Relationship Specialty Start Date End Date Komal Ghotra MD 230 [place] [address] PCP - General Family Medicine 12/20/21 documented as of this encounter
[2024-12-14 14:09] LABS: MANUAL DIFF FLAG NO
[2024-12-14 14:10] LABS: Appearance Urine Clear; Color Urine Dark Yellow; Glucose Urine UA Negative (Negative); Leukocyte Esterase Urine Trace (Negative); Nitrite Urine Positive (Negative); Specific Gravity - Urine 1.025 (1.005-1.025); UMIC TRIGGER UA YES; Urine Blood Negative (Negative); Urine Ketones Trace mg/dL (Negative); Urine Protein Negative (Neg-Trace)
[2024-12-14 14:14] LABS: Basophils Absolute Auto 0.1 X10*3/uL (0.0-0.2); Basophils Percent Auto 0.7 % (0-2); Eosinophils Absolute Auto 0.3 X10*3/uL (0.0-0.4); Eosinophils Percent Auto 1.9 % (0-4); Hematocrit 41.2 % (37.0-47.0); Hemoglobin 13.8 g/dl (12.0-16.0); Imm Gran Abs Auto 0.12 X10*3/uL (0.00-0.03); Imm Gran Pct Auto 0.9 % (0.0-0.4); Lymphocytes Absolute Auto 3.7 X10*3/uL (1.2-4.9); Lymphocytes Percent Auto 27.6 % (20-40); Mean Corpuscular HGB Conc 33.5 g/dl (31.0-35.0); Mean Corpuscular Hemoglobin 32.1 pg (27.0-33.0); Mean Corpuscular Volume 95.8 fL (80.0-98.0); Mean Platelet Volume 8.7 fL (9.4-12.3); Monocytes Absolute Auto 0.8 X10*3/uL (0.1-1.2); Monocytes Percent Auto 5.8 % (2-11); NRBC Pct Auto 0.2 /100WBC (0.0-0.2); Neutrophils Absolute Auto 8.4 x10*3/uL (2.0-8.3); Neutrophils Percent Auto 63.1 % (45-73); Platelet Count 444 X10*3/uL (160-400); Red Cell Distribution Width 12.3 % (11.0-16.0); White Blood Count 13.3 X10*3/uL (4.8-10.8)
[2024-12-14 14:22] LABS: Bacteria Urine 4+ (None Seen); Hyaline Casts Urine 0-2 /LPF (0-2); RBC Urine 0-2 /HPF (0-2); Squamous Epithelial Cell Urine 0-2 /HPF (0-2); WBC Urine 0-5 /HPF (0-5)
[2024-12-14 14:29] LABS: Estimated Average Glucose 94 mg/dL; Hemoglobin A1C 111.8635 umol/L; Hemoglobin A1c % 4.9 % (<6.0); Total Hemoglobin (HGBA1C) 3710.1049 umol/L
[2024-12-14 14:55] LABS: Vitamin B12 419 pg/mL (200-900)
[2024-12-14 15:07] LABS: Alanine Aminotransferase 13 U/L (0-31); Albumin Level 4.5 g/dL (3.5-5.0); Alkaline Phosphatase 46 U/L (39-117); Anion Gap 12 (12-20); Aspartate Amino Transferase 23 U/L (5-31); Bilirubin Total 0.3 mg/dL (0.0-1.0); Blood Urea Nitrogen 11 mg/dL (9-16); Calcium 9.2 mg/dL (8.4-10.2); Carbon Dioxide 24 mmol/L (22-29); Chloride 106 mmol/L (96-108); Cholesterol 227 mg/dL (<200); Estimated Glomerular Filt Rate > 60; Glucose Fasting 77 mg/dL (60-99); HDL Cholesterol 46 mg/dL (>40); LDL Cholesterol Calculated 150 mg/dL (<100); Potassium 4.2 mmol/L (3.3-5.1); Sodium 138 mmol/L (135-145); Total Protein 7.5 g/dL (6.5-8.0); Triglycerides 157 mg/dL (<150)
[2024-12-14 15:22] LABS: Vitamin D 25-OH Total 63.6 ng/mL (>30)
== END 2024-12-14 08:33 | disposition home or self-care (01) ==
LOC: HO.CHCLDS 08:32
PROVIDERS: Visit Provider Nurse Practitioner Acute Care
DX: Z00.00 Encounter for general adult medical examination without abnormal findings (principal); D51.9 Vitamin B12 deficiency anemia, unspecified; Z13.1 Encounter for screening for diabetes mellitus; E55.9 Vitamin D deficiency, unspecified; Z13.29 Encounter for screening for other suspected endocrine disorder; Z13.220 Encounter for screening for lipoid disorders; Z13.6 Encounter for screening for cardiovascular disorders
CPT/HCPCS: 36415; 80053; 80061; 81001; 82306; 82607; 83036; 84443; 85025

== ENCOUNTER 2025-01-19 15:26 | Outpatient (REF) | payer OTHER, SELFPAY ==
--- OUTSIDE RECORDS SUMMARY | 2025-01-19 15:29 | XMS_ITS | Encounter Summary ---
Author Organization [employer] Address [address] [place] [address] 7t [place] [address] Care Team Providers Care Control Systems Designer Name Role Phone Komal Ghotra MD Primary Care Provide r Reason for Visit * Reason Comments Med Refill Encounter Details Date Type Department Care Team ([facility] st Contact Info) Description 02/25/2023 Refill [facility] MEDICINE [address] [place], [place] [phone] Name, MD Kory [address] [place] [address] Gastroesophageal reflux disease without esophagitis Social History [...] reflux documented in this encounter Care Teams Control Systems Designer Relationship Specialty Start Date End Date Komal Ghotra MD [address] [place] [phone] PCP - General Family Medicine 12/20/21 documented as of this encounter
--- OUTSIDE RECORDS SUMMARY | 2025-01-19 15:29 | XMS_ITS | Encounter Summary ---
Author Organization [employer] Address [address] [place] [address] 7 [place] [address] Care Team Providers Care Sales Support Technician Name Role Phone Komal Ghotra MD Primary Care Provide r Reason for Visit * Reason Comments Med Refill Encounter Details Date Type Department Care Team (Late st Contact Info) Description 05/06/2023 Refill [facility] MEDICINE 230 [place], [place] [phone] Komal Ghotra MD 230 [place], [place] [phone] Chronic migraine without aura without status migrainosus, [...] intractable documented in this encounter Care Teams Sales Support Technician Relationship Specialty Start Date End Date Komal Ghotra MD 230 [place], [place] [phone] PCP - General Family Medicine 12/20/21 documented as of this encounter
--- OUTSIDE RECORDS SUMMARY | 2025-01-19 15:29 | XMS_ITS | Encounter Summary ---
Author Organization [employer] Address [address] [place] [address] 7t [place] [address] Care Team Providers Care Clerk Travel Reservations Name Role Phone Komal hGotra MD Primary Care Provide r Encounter Details Date Type Department Care Team (Late st Contact Info) Description 04/01/2023 Orders Only [facility] MEDICINE [address] [place], [place] [phone] Komal Ghotra MD 230 [place], [place] [phone] Social History Tobacco Use Types Packs/Day Years [...] on filedocumented in this encounter Care Teams Clerk Travel Reservations Relationship Specialty Start Date End Date Komal Ghotra MD 230 [place], [place] [phone] PCP - General Family Medicine 12/20/21 documented as of this encounter
--- OUTSIDE RECORDS SUMMARY | 2025-01-19 15:29 | XMS_ITS | Encounter Summary ---
Author Organization [employer] Address [address] [facility] 7 [place] [address] Care Team Providers Care Edi Developer Name Role Phone Komal Ghotra MD Primary Care Provide r Reason for Visit * Reason Onset Date Comments Paperwork/Forms 08/06/2023 Encounter Details Date Type Department Care Team ([facility] st Contact Info) Description 08/06/2023 Telephone [facility] MEDICINE 230 [place], [place] [phone] Komal Ghotra MD 230 [place] [address] Paperwork/Forms Social History Tobacco Use Types Packs/Day [...] t he electric, gas, oil or water [employer] threatened to shut off services in your [...] - 08/06/2023 1:50 PM EST Tc from [facility] from the doctors office of Dr. Sean Newman requesting the referral for nut threader on 06/17 - 07/15 for three times and it can be faxed to documented in this encounter Plan of Treatment Not on file documented as of this encounter Visit Diagnoses Not on filedocumented in this encounter Care Teams Edi Developer Relationship Specialty Start Date End Date Komal Ghotra MD [address] [place] [address] PCP - General Family Medicine 12/20/21 documented as of this encounter
--- OUTSIDE RECORDS SUMMARY | 2025-01-19 15:29 | XMS_ITS | Encounter Summary ---
Author Organization [employer] Address [address] [place] [address] 7 [place] [address] Care Team Providers Care Galley Boy Name Role Phone Komal Ghotra MD Primary Care Provide r Encounter Details Date Type Department Care Team ([facility] st Contact Info) Description 02/13/2024 Orders Only [facility] CHC MED & PEDS [address] [place], [place] [phone] Baltazar Luevano MD 505 [place] [address] Chronic migraine without aura without status migrainosus, [...] intractable documented in this encounter Care Teams Galley Boy Relationship Specialty Start Date End Date Komal Ghotra MD [address] [place] [address] PCP - General Family Medicine 12/20/21 documented as of this encounter
--- OUTSIDE RECORDS SUMMARY | 2025-01-19 15:29 | XMS_ITS | Clinical Summary ---
Author Organization [employer] Address [address] [place] [address] 7t [place] [address] Care Team Providers Care El Teacher Name Role Phone Komal Ghotra MD Primary Care Provide r Allergies Active Allergy Reactions Criticality Noted Date Comments Bee Venom Anaphylaxis High 11/18/2018 Wasp Venom Protein Anaphylaxis High 04/03/2021 Medications docusate sodium (Colace) 100 MG capsule Take 1 capsule by mouth every 12 (twelve) hours. 2 Active EPINEPHrine (EpiPen 2-Rajesh) 0.3 MG/0.3ML injection syringe Inject 0.3 mL into the shoulder, thigh, or buttocks. 2 Active fluticasone (Flonase) 50 MCG/ACT nasal spray Administer 1-2 sprays into affected nostril(s) at bed time. 2 Active hydrocortisone 2.5 % creamIndications: Rash Apply topically 2 times daily. 28 g 1 3 Active Aspirin Adult Low Strength 81 MG EC tablet TAKE 1 TABLET BY MOUTH EVERY MORNING 90 tablet 1 3 Active famotidine (Pepcid) 20 MG tabletIndications :Epigastric pain Take 1 tablet (20 mg) by mouth 2 times daily. 60 tablet 11 3 Active Lancets miscIndications:H ypoglycemia Use to test blood sugar 2 times daily 100 each 1 4 Active Blood Glucose Monitoring Suppl (FreeStyle Farwell Lite) w/Device kitIndications:Hy poglycemia Use to test blood sugar 2 times daily 1 kit 2 4 Active Semaglutide-Weigh t Management (Wegovy) 2.4 MG/0.75ML solution auto-injectorIndi cations:Class 2 obesity without serious comorbidity with body mass index (BMI) of 36.0 to 36.9 in adult, unspecified obesity type Inject 2.4 mg under the skin 1 (one) time per week. 3 mL 2 4 Active fexofenadine (Paola Allergy) 180 MG tabletIndications :Allergy, subsequent encounter Take 1 tablet (180 mg) by mouth Once per day. 30 tablet 11 4 Active buPROPion SR (Wellbutrin SR) 150 MG 12 hr tabletIndications :Smoking Take 1 tablet (150 mg) by mouth 2 times daily. Do not crush, chew, or split. 60 tablet 11 4 04/07/20 25 Active hydrOXYzine HCl (Atarax) 25 MG tabletIndications :Anxiety with depression Take 1-2 tablets by oral route as needed up to four times daily for anxiety 60 tablet 4 Active fenofibrate micronized (Lofibra) 200 MG capsuleIndication s:Dyslipidemia Take 1 capsule (200 mg) by mouth with breakfast. 90 capsule 1 4 Active LORazepam (Ativan) 0.5 MG tabletIndications :Anxiety with depression Take 1 tablet (0.5 mg) by mouth every 6 (six) hours if needed for anxiety for up to 10 days. 10 tablet 4 Active spironolactone (Aldactone) 100 MG tablet TAKE ONE TABLET TWICE DAILY 180 tablet 1 4 Active albuterol 108 (90 Base) MCG/ACT inhalerIndication s:Mild intermittent asthma, unspecified whether complicated Inhale 2 puffs every 4 (four) hours if needed for wheezing. 18 g 1 5 Active azithromycin (Zithromax) 250 MG tabletIndications :Acute cough 500 mg on day 1, followed by 250 mg day 2-5 6 tablet 5 Active sertraline (Zoloft) 50 MG tabletIndications :Anxiety TAKE ONE TABLET EVERY DAY WITH 100 MG TABLET 90 tablet 2 5 Active sertraline (Zoloft) 100 MG tabletIndications :Anxiety TAKE ONE TABLET EVERY DAY WITH 50 MG TABLET 90 tablet 2 5 Active amitriptyline (Elavil) 75 MG tabletIndications :Chronic migraine without aura without status migrainosus, not intractable Take 1 tablet (75 mg) by mouth at bedtime. 90 tablet 3 5 11/16/19 26 Active pantoprazole (ProtoNix) 40 MG EC tabletIndications :Gastroesophageal reflux disease without esophagitis TAKE ONE TABLET EVERY MORNING BEFORE BREAKFAST 30 tablet 3 5 Active Active Problems Problem Noted Date Diagnosed Date [...] done today, I will refer her to [place] I will refill her lorazepam for short [...] Encounters Date Type Department Care Team Description 12/16/2024 Telephone [facility] MEDICINE [address] [place] [address] Komal Ghotra MD March12/11/2024 Refill [facility] MEDICINE [address] [place], [place] [phone] Komal Ghotra MD Gastroesophageal reflux disease without esophagitis 11/15/2024 Telephone [facility] CHC MED & PEDS [address] [place], [place] [phone] Baltazar Luevano MD from Last 3 Months Immunizations Immunization Administration Dates Next Due Hep B, Unspecified [...] 2 - PCV) 11/19/2019 11/18/2018 COVID-19 Vaccine (2023- season) 2024 08/05/2022, 09/05/2021, 09/28/2020, Additional history exists Mammogram 01/13/2025 01/14/2024, 06/19/2022 SDOH Screening 03/08/2025 03/08/2024 Alcohol/Substance Use Screening 07/08/2025 07/08/2024 Depression Screening 09/09/2025 09/09/2024, 09/09/19 Tobacco Screening 09/16/2025 09/16/2024 Pap Smear 12/29/2026 12/30/2023, 04/05/2023, 11/15/2021 Cervical Cancer Screening 12/26/2027 HPV/Cotest 12/26/2027 [...] EDT Narrative 02/13/2024 8:59 AM EDT ? [facility] [place] ? [address] ?[place] [address] ? Mammography Report ? Signed ? Patient: Bernard,Caroline ?MR#: [id number] ? : 1980 ?Acct:[id number] ? Age/Sex: 43 / F ?ADM Date: 05/08/24 ? Loc: HO.MAMMO ? Attending Dr: Ryan Zamarripa MD ? Ordering Physician: Ryan Zamarripa MD ?Results: 1Negativ ?? e ? Date of Service: 01/14/24 ?Follow Up: 1 Year From Orig ?? inal Mammogram ? Procedure(s): MM tomosynthesis screening BI ?? Accession Number(s): [id number] ? cc: Komal Ghotra MD; Ryan Zamarripa [...] MD ? Signed By: ?<Electronically signed by Irais Stallworth MD in OV> ? 02/13/24 08 ? DD/ ? TD/TT: ? Industrial Sales Representative: ? Procedure Note Jose, Ju - 02/13/2024 [facility] [address] [place], [place] [address] Mammography Report Signed Patient: Caroline BernardMR#: [id number] : 1980Acct:[id number] Age/Sex: 43 / FADM Date: 01/14/24 Loc: HO.MAMMO Attending Dr: Ryan Zamarripa MD Ordering Physician: Ryan Zamarripa MDResults: 1Negativ e Date of Service: 01/14/24Follow Up: 1 Year From Orig inal Mammogram Procedure(s): MM tomosynthesis screening BI Accession Number(s): [id number] cc: Komal Ghotra MD; Ryan Zamarripa MD [...] in OV> 02/13/24 0856 DD/ 1548 TD/TT: Industrial Sales Representative: [facility] External Provider IMG BI PROCEDURES Edited Result - Final * Pap Smear (12/30/2023 12:19 PM EDT) 12/30/2023 12:1 9 PM EDT 12/31/2023 1:00 PM EDT Margarita [facility] - 01/19/2024 12:05 PM EDT ----- ------- Name: Caroline Bernard ?Age/Sex: 43/F ? : 1980 Unit#: [id number] ?? Attend Dr: Ryan Zamarripa MD ?Re12/30/23 ?Status: DEP REF ? Location: HO.LNP ?Disch: ? ----- ------- SPEC : [id number] ? RECD: 12/31/23-1300 ? STATUS: ??SOUT ? REQ NUM: [id number] ? PRITI: 12/30/23-1219 ? SUBM DR: Ryan Zamarripa MD ? ENTERED: ??12/31/23-1441 ?SP TYPE: Pap Smr ?OTHR DR: Komal [...] 66, 68) ?? HPV testing performed by [employer], [place], [place]. ??See reference laboratory ?? portion of the EMR for entire report. ?Clinical Information LMP: 12/12/23 Previous PAP test: 2022, ELLI III Other history: Carcinoma in situ of cervix ? Material Received ?? ThinPrep-Cervical Copies To: ?? Komal Ghotra MD ?? [address] [facility] ?? [place] [address] ?? [phone] ?? Ryan Zamarripa MD ?? [address] [place] [address] [address] ?? [place] [address] ?? [phone] ----- ------- Signed (signature on file) RICKIE Mcnulty (ASCP) 01/19/24 1205 ? ----- ------- ? END OF REPORT ? us Generic External Data Provider LAB CYTOLOGY ORDE RABLES Final Result [facility] [address] [place] [address] [phone] * (ABNORMAL) Lipid Panel, Standard (11/25/2023 8:49 AM EDT) Triglycerides 180(H) <150 mg/dL [facility] Comment:Desirable Triglyceri de: less than 150 mg/dLBorderline High Triglyceride 150-199 mg/dLHigh Triglyceride: 200-499 mg/dLVery High Triglyceride: greater than or equal to 5OO mg/dL Cholesterol 211(H) <200 mg/dL [facility] Comment:Desirable Cholestero l: less than 200 mg/dLBorderline High Cholesterol: 200-239 mg/dLHigh Cholesterol: greater than 239 mg/dL LDL Cholesterol Calculated 130(H) <100 mg/dL [facility] Comment:Desirable LDL: less than 100 mg/dLNear Optimal/Above Optimal LDL: 110- 129 mg/dLBorderline High LDL: 130-159 mg/dLHigh LDL: 160-189 mg/dLVery High LDL: greater than or equal to 190 mg/dL HDL Cholesterol 45 >40 mg/dL [facility] Comment:Desirable HDL: great er than 40 mg/dL Note: This HDL assay may give artificially low results in patients with liver disease. Blood Venous blood specimen / Unknown 11/25/2023 8:49 AM EDT 11/25/2023 1:59 PM EDT us Komal Spivey MD LAB BLOOD ORDERABLES Final Result Performing Organization Address [facility]/ZIP Co de Phone Number [facility] [address] [place] [address] [phone] * HPV mRNA E6/E7 w/Reflex to HPV Genotypes 16, 18/45 (12/25/2022 12:17 PM EDT) HPV nRNA E6/E7 Not Detected Not Detected [facility] Comment:Methodology: Transcr iption-Mediated AmplificationThis assay detects E6/E7 viral messenger RNA (mRNA) from 14high-risk HPV types (16,18,31,33,35,39,45,51,52,56,58,59,66,68).Cervical sources are required for HPV testing.If a vaginal source from a patient who has had atotal hysterectomy with removal of cervix wassubmitted, please contact the testing laboratoryfor alternative testing options.For additional information, please refer [email or web address]/faq/TVF679b8(This link if provided for information/educational purposes only.)THIS TEST WAS PERFORMED AT:[facility] [facility] [place] [phone] PIERRE MD HPV mRNA E6/E7 TNP [facility] HPV 16 RNA [facility] HPV 18/45 RNA [facility] 12/25/2022 12:1 7 PM EDT 12/26/2022 8:15 AM EDT [facility] External Provider LAB CYT OLOGY ORDERABLES Final Result Performing Organization Address [facility]/ZIP Co de Phone Number [facility] [address] [place] [address] [phone] from Last 3 Months or Most Recently Relevant to Health Maintenance Insurance , [address] [place] [address] Care Teams El Teacher Relationship Specialty Start Date End Date Komal Ghotra MD [address] [place] [phone] PCP - General Family Medicine 12/20/21
--- OUTSIDE RECORDS SUMMARY | 2025-01-19 15:29 | XMS_ITS | Encounter Summary ---
Author Organization [employer] Address [address] [place] [address] 7 [place] [address] Care Team Providers Care Yardage Caller Name Role Phone Komal Ghotra MD Primary Care Provide r Encounter Details Date Type Department Care Team (Late st Contact Info) Description 05/30/2023 Orders Only [facility] MEDICINE [address] [place], [place] [phone] Provider, Maria G, Social History Tobacco Use Types Packs/Day Years [...] encounter Results * Hm Pap Smear (11/15/2021) us Historical Provider HEALTH MAINTENANCE Final Result documented in this encounter Visit Diagnoses Not on filedocumented in this encounter Care Teams Yardage Caller Relationship Specialty Start Date End Date Komal Ghotra MD [address] [place], [place] [phone] PCP - General Family Medicine 12/20/21 documented as of this encounter
--- OUTSIDE RECORDS SUMMARY | 2025-01-19 15:29 | XMS_ITS | Patient Health Record ---
Author Organization [employer] [facility] Address [address] [place] [address] Care Team Providers [employer] Licensee Name Role Phone VERNELL TAM Unavailable [phone] REGIS WATSON Unavailable [phone] Allergies No Known Allergies Reason For Referral Reason Sleep Medicine Servi thom Diagnosis 1 Daytime sleepiness ( R40.0) Diagnosis 2 Habitual snoring (R0 6.83) Referral Organization [facility] 119 Referring Provider First Name VERNELL Referring Provider Last Name ANEL Referring Provider Speciality Internal M edicine Referred Provider Specialty Pulmonology General Notes Cyndy Zazueta 07/2025 08:58:56 AM > referral form faxed to [phone] and pt given phone [phone] to call and make an appt. Clinical Notes Nelly Milner 04:01:06 PM > I called the office and they informed me that they have contacted the patient and left her voicemails but has not received a callback yet Referral Priority Routine Medications Medication SIG (Take, Route, Frequency, Duration) Notes Start Date End Date Status Wegovy 2.4 MG/0.75ML as directed Subcutaneous weekly for 30 days Not-Taking Zepbound 5 MG/0.5ML inject.5mg Subcutane ous once a week for 30 days 10/19/2024 Not-Taki ng Zepbound 2.5 MG/0.5ML Inject 2.5 mg (0.5 mL) Subcutaneous once weekly for 28 days 08/24/2024 Not-Taking LORazepam 0.5 MG 1 tablet at bedtime as needed Orally Once a day Active Baby Aspirin Not-Bunny ing Probiotic 250 MG as directed Orally Active metFORMIN HCl 1000 MG 1 tablet with a me al Orally TWICE DAILY Not-Taking Pantoprazole Sodium 40 MG 1 tablet Orall y Once a day Active Fenofibrate 48 MG 1 tablet Orally Once a day Not-Taking Amitriptyline HCl 25 MG 1 tablet at bedt rangel Orally Once a day Active Sertraline HCl 150 MG 1 capsule Orally O nce a day Active Ondansetron 4 MG 1 tablet on the tong ue and allow to dissolve prn nausea/vomiting Orally Once a day for 30 days Active Spironolactone 100 MG 1 tablet Orally TW ICE DAILY Active Linzess 145 MCG 1 capsule at least 3 0 minutes before the first meal of the day on an empty stomach Orally Once a day for 30 days 08/24/2024 Active Zepbound 7.5 MG/0.5ML 7.5mg Subcutaneous weekly for 30 days 11/30/2024 Active Zepbound 10 MG/0.5ML 10mg Subcutaneous weekly for 28 days 01/11/2025 Active Social History Tobacco Use: Social History Observation Description Date Details (start date - stop date) Never Smoker NA - NA Tobacco Use/Smoking Question Answer Notes Are you a nonsmoker Problems Problem Type SNOMED Code ICD Code Onset Dates Problem Status W/U Status Risk Notes Problem 101128637 Other obesity du e to excess calories (E66.09) Active confirmed Problem 836810263 Mixed hyperlipid emia (E78.2) Active confirmed Problem Lipid screening (203222717) Encounter for screening for lipoid disorders (Z13.220) Active confirmed Problem 502989030 Irritable bowel syndrome with constipation (K58.1) Active confirmed Problem 02464650 Anxiety (F41.9) Active confirmed Problem Adult health examination (048390036) Adult general medical exam (Z00.00) Active confirmed Problem 74699557 HARMAN (obstructive sleep apnea) (G47.33) Active confirmed Problem Diabetes mellitus screening (325719489) Diabetes mellitus screening (Z13.1) Active confirmed Problem 943958995 Body mass index [BMI] 36.0-36.9, adult (Z68.36) Active confirmed Problem Obese class II (594341362518644) BMI 37.0-37.9, adult (Z68.37) Active confirmed Problem 336884642 BMI 35.0-35.9,ad ult (Z68.35) Active confirmed Problem 437122772 BMI 33.0-33.9,ad ult (Z68.33) Active confirmed Problem 198958903 BMI 32.0-32.9,ad ult (Z68.32) Active confirmed Problem Diabetes mellitus screening (731171215) Screening for diabetes mellitus (Z13.1) Active confirmed Problem 710914140 PCOS (polycystic ovarian syndrome) (E28.2) Active confirmed Problem Hypertriglyceridemia (672084675) Hypertriglyceridemia (E78.1) Active confirmed Problem Vitamin B>12< deficiency anaemia (34782714) Anemia due to vitamin B12 deficiency, unspecified B12 deficiency type (D51.9) Active confirmed Problem Obese class II (073716399771079) BMI 38.0-38.9,adult (Z68.38) Active confirmed Problem 318810740 BMI 31.0-31.9,ad ult (Z68.31) Active confirmed Problem 087120967 Adult-onset obes ity (E66.9) Active confirmed Problem 033018546 BMI 34.0-34.9,ad ult (Z68.34) Active confirmed Problem 638261885747 Daytime somnolen ce (R40.0) Active confirmed Problem Screening for cardiovascular system disease (088847296) Screening for cardiovascular condition (Z13.6) Active confirmed Problem 323113113 GERD without esophagitis (K21.9) Active confirmed Problem Excessive daytime sleepiness - normal night sleep (991149899) Daytime sleepiness (R40.0) Active confirmed Problem Avitaminosis D (77732081) Avitaminosis D (E55.9) Active confirmed Problem Endocrine/metabolic screening (837333287) Encounter for screening for endocrine disorder (Z13.29) Active confirmed Problem Lipid screening (952386670) Lipid screening (Z13.220) Active confirmed Problem Habitual snoring (900378895) Habitual snoring (R06.83) Active confirmed Vital Signs Heart Rate 90 /min 01/11/2025 Oximetry 98 % 01/11/2025 Blood pressure diastolic 86 mm Hg 01/11/2025 Height 64 in 01/11/2025 Blood pressure systolic 128 mm Hg 01/11/2025 Weight 212.9 lbs 01/11/2025 BMI 36.54 kg/m2 01/11/2025 Encounters Encounter Location Date Provider Diagnosis [facility] [address] [address] 04/14/2024 VERNELL BORHOT Other obesity due to excess calories E66.09 ; BMI 32.0-32.9,adult Z68.32 and Dietary counseling and surveillance Z71.3 [place] [address] [address] [address] 06/17/2024 VERNELL BORHOT Other obesity due to excess calories E66.09 ; BMI 32.0-32.9,adult Z68.32 and Dietary counseling and surveillance Z71.3 [place] [address] 08/24/2024 REGIS WATSON Adult-onset obesity E66.9 ; BMI 33.0-33.9,adult Z68.33 ; PCOS (polycystic ovarian syndrome) E28.2 ; GERD without esophagitis K21.9 ; Anxiety F41.9 ; Mixed hyperlipidemia E78.2 and Irritable bowel syndrome with constipation K58.1 [place] [address] 09/21/2024 REGIS WATSON Adult-onset obesity E66.9 ; BMI 33.0-33.9,adult Z68.33 ; PCOS (polycystic ovarian syndrome) E28.2 ; GERD without esophagitis K21.9 ; Anxiety F41.9 ; Mixed hyperlipidemia E78.2 and Irritable bowel syndrome with constipation K58.1 [place] [address] 10/19/2024 VERNELL BORHOT Other obesity due to excess calories E66.09 ; BMI 34.0-34.9,adult Z68.34 ; Dietary counseling and surveillance Z71.3 ; Daytime somnolence R40.0 and Snoring R06.83 [place] [address] 11/30/2024 VERNELL BORHOT Other obesity due to excess calories E66.09 ; BMI 35.0-35.9,adult Z68.35 ; Dietary counseling and surveillance Z71.3 ; Daytime somnolence R40.0 ; Snoring R06.83 and HARMAN (obstructive sleep apnea) G47.33 [place] [address] [address] 01/11/2025 VERNELL BORHOT Other obesity due to excess calories E66.09 ; BMI 35.0-35.9,adult Z68.35 ; Dietary counseling and surveillance Z71.3 ; Daytime somnolence R40.0 ; Snoring R06.83 and HARMAN (obstructive sleep apnea) G47.33 [facility] [address] [address] 01/26/[address] [facility] [address] [address] 01/28/2024 VERNELL BORHOT Other obesity due to excess calories E66.09 [place] [address] [address] 08/24/[address] [facility] [address] [address] 09/17/2024 REGIS BIRKS [address] [address] 09/21/2024 REGIS BIRKS [address] [address] 11/08/2024 VERNELL BORHOT Other obesity due to excess calories E66.09 [address] [address] 11/09/2024 VERNELL BORHOT [address] [address] 11/09/2024 VERNELL BORHOT [address] [address] 11/10/2024 VERNELL BORHOT Other obesity due to excess calories E66.09 [address] [address] 11/10/2024 VERNELL BORHOT Other obesity due to excess calories E66.09 [address] [address] 11/11/2024 VERNELL BORHOT [address] [address] 12/25/2024 VERNELL BORHOT HARMAN (obstructive sle ep apnea) G47.33 Assessments Encounter Date Diagnosis (ICD Code) Assessment Notes Treatment Notes Treatment Clinical Notes Section Notes 01/28/2024 Other obesity due to excess calories (ICD-10 - E66.09) 04/14/2024 Other obesity due to excess calories (ICD-10 - E66.09) #Weight Management 04/14/2024 Labs recently reviewed Continue 2.4 mg of Wegovy Will send Hayley to [facility] pharmacy per her request at $70 monthly [...] track activity level. Consider using apps like [employer] excercise, [employer], lose it, stick as needed for self-monitoring and weight management. Consider group exercises. Consider hiring a personal secretary. Regular exercise is brandon to sustainable health [...] counseling and psychiatry and Dr Cuevas at [facility]. We would like to cover regular topics [...] software and direct typing Please excuse inadvertent contract consultant or typing errors, or uncorrected word substitutions Although every attempt has been made by the provider to proofread this document, occasional misspellings and typographical errors may still be present Due to the previous pandemic, and the use of personal protective equipment (PPE) This may decrease voice recognition accuracy Inadvertent contract consultant errors may occur 04/14/2024 BMI 32.0-32.9,adult (ICD-10 - Z68.32) #Weight Management 04/14/2024 Labs recently reviewed Continue 2.4 mg of Wegovy Will send Hayley to [facility] pharmacy per her request at $70 monthly [...] track activity level. Consider using apps like [employer], [employer], lose it, stick as needed for self-monitoring and weight management. Consider group exercises. Consider hiring a personal secretary. Regular exercise is brandon to sustainable health [...] counseling and psychiatry and Dr Cuevas at [facility]. We would like to cover regular topics [...] software and direct typing Please excuse inadvertent contract consultant or typing errors, or uncorrected word substitutions Although every attempt has been made by the provider to proofread this document, occasional misspellings and typographical errors may still be present Due to the previous pandemic, and the use of personal protective equipment (PPE) This may decrease voice recognition accuracy Inadvertent contract consultant errors may occur 06/17/2024 Other obesity due [...] track activity level. Consider using apps like [employer], [employer], lose it, stick as needed for self-monitoring and weight management. Consider group exercises. Consider hiring a personal secretary. Regular exercise is brandon to sustainable health [...] counseling and psychiatry and Dr Cuevas at [facility]. We would like to cover regular topics [...] software and direct typing Please excuse inadvertent contract consultant or typing errors, or uncorrected word substitutions Although every attempt has been made by the provider to proofread this document, occasional misspellings and typographical errors may still be present Due to the previous pandemic, and the use of personal protective equipment (PPE) This may decrease voice recognition accuracy Inadvertent contract consultant errors may occur 08/24/2024 Adult-onset obesity (ICD-10 [...] is continuing to experience constipation. Has tried dmgg-fxh-vdydnhn medications like Colace, fiber, senna, and MiraLAX. [...] Dictation was accomplished with the use of [employer] voice recognition software, which is prone to [...] is continuing to experience constipation. Has tried gwnr-arv-yyrsguh medications like Colace, fiber, senna, and MiraLAX. [...] Dictation was accomplished with the use of [employer] voice recognition software, which is prone to [...] is continuing to experience constipation. Has tried tgvi-igd-fnpwjtu medications like Colace, fiber, senna, and MiraLAX. [...] Dictation was accomplished with the use of [employer] voice recognition software, which is prone to [...] and indication for tirzepatide Sleep study Discussed [facility], will send 2.5 in the interim Total [...] software and direct typing Please excuse inadvertent contract consultant or typing errors, or uncorrected word substitutions Although every attempt has been made by the provider to proofread this document, occasional misspellings and typographical errors may still be present Due to the previous pandemic, and the use of personal protective equipment (PPE) This may decrease voice recognition accuracy Inadvertent contract consultant errors may occur 10/19/2024 BMI 34.0-34.9,adult (ICD-10 - Z68.34) #Weight Management 10/19/2024 We discussed the new [place] HARMAN trial and indication for tirzepatide Sleep study Discussed [employer], will send 2.5 in the interim Total [...] software and direct typing Please excuse inadvertent contract consultant or typing errors, or uncorrected word substitutions Although every attempt has been made by the provider to proofread this document, occasional misspellings and typographical errors may still be present Due to the previous pandemic, and the use of personal protective equipment (PPE) This may decrease voice recognition accuracy Inadvertent contract consultant errors may occur 11/08/2024 Other obesity due [...] software and direct typing Please excuse inadvertent contract consultant or typing errors, or uncorrected word substitutions Although every attempt has been made by the provider to proofread this document, occasional misspellings and typographical errors may still be present Due to the previous pandemic, and the use of personal protective equipment (PPE) This may decrease voice recognition accuracy Inadvertent contract consultant errors may occur 11/30/2024 BMI 35.0-35.9,adult [...] software and direct typing Please excuse inadvertent contract consultant or typing errors, or uncorrected word substitutions Although every attempt has been made by the provider to proofread this document, occasional misspellings and typographical errors may still be present Due to the previous pandemic, and the use of personal protective equipment (PPE) This may decrease voice recognition accuracy Inadvertent contract consultant errors may occur 12/25/2024 HARMAN (obstructive sleep apnea) (ICD-10 - G47.33) 01/11/2025 Other obesity due to excess calories (ICD-10 - E66.09) #Weight Management 01/11/2025 Comprehensive Labs 12/2024 at [facility] CBC stable Renal fun, electrolytes, and LFTs stable Total Cholesterol 227 LDL 150 HDL 46 TSH 1.10 B12 419 A1C 4.9 Not recommended to use borth Wegovy and Zepbound at the same time, discussed patient should stick to Zepbound at increased dosage of 10mg with contrave to target different pathway and to reduce cravings; patient will use the extra she has at home. She has decided against sleep study Total time spent today was 30 minutes of which greater than 50% was spent on coordinating and counseling Patient has been found to be obese with a BMI of (36). Patient has class (2) obesity Of note, some information is being carried forward from prior records for informational purposes only and is being cited so that efficiency, safety and quality of the patient's care is not compromised This note was prepared using voice recognition software and direct typing Please excuse inadvertent contract consultant or typing errors, or uncorrected word substitutions Although every attempt has been made by the provider to proofread this document, occasional misspellings and typographical errors may still be present Due to the previous pandemic, and the use of personal protective equipment (PPE) This may decrease voice recognition accuracy Inadvertent contract consultant errors may occur 01/11/2025 BMI 35.0-35.9,adult (ICD-10 - Z68.35) #Weight Management 01/11/2025 Comprehensive Labs 12/2024 at [facility] CBC stable Renal fun, electrolytes, and LFTs stable Total Cholesterol 227 LDL 150 HDL 46 TSH 1.10 B12 419 A1C 4.9 Not recommended to use borth Wegovy and Zepbound at the same time, discussed patient should stick to Zepbound at increased dosage of 10mg with contrave to target different pathway and to reduce cravings; patient will use the extra she has at home. She has decided against sleep study Total time spent today was 30 minutes of which greater than 50% was spent on coordinating and counseling Patient has been found to be obese with a BMI of (36). Patient has class (2) obesity Of note, some information is being carried forward from prior records for informational purposes only and is being cited so that efficiency, safety and quality of the patient's care is not compromised This note was prepared using voice recognition software and direct typing Please excuse inadvertent contract consultant or typing errors, or uncorrected word substitutions Although every attempt has been made by the provider to proofread this document, occasional misspellings and typographical errors may still be present Due to the previous pandemic, and the use of personal protective equipment (PPE) This may decrease voice recognition accuracy Inadvertent contract consultant errors may occur 11/30/2024 Dietary counseling [...] software and direct typing Please excuse inadvertent contract consultant or typing errors, or uncorrected word substitutions Although every attempt has been made by the provider to proofread this document, occasional misspellings and typographical errors may still be present Due to the previous pandemic, and the use of personal protective equipment (PPE) This may decrease voice recognition accuracy Inadvertent contract consultant errors may occur 10/19/2024 Dietary counseling and [...] software and direct typing Please excuse inadvertent contract consultant or typing errors, or uncorrected word substitutions Although every attempt has been made by the provider to proofread this document, occasional misspellings and typographical errors may still be present Due to the previous pandemic, and the use of personal protective equipment (PPE) This may decrease voice recognition accuracy Inadvertent contract consultant errors may occur 08/24/2024 PCOS (polycystic ovarian [...] is continuing to experience constipation. Has tried vrag-qed-pbwpyar medications like Colace, fiber, senna, and MiraLAX. [...] Dictation was accomplished with the use of [employer] voice recognition software, which is prone to [...] is continuing to experience constipation. Has tried yqup-njk-axtuxiu medications like Colace, fiber, senna, and MiraLAX. [...] Dictation was accomplished with the use of [employer] voice recognition software, which is prone to medical misidentifications and grammatical errors. This are unintentional and the practitioner does try to identify and correct these, but some could still be present. Please do not hesitate to contact practitioner for clarification. 04/14/2024 Dietary counseling and surveillance (ICD-10 - Z71.3) #Weight Management 04/14/2024 Labs recently reviewed Continue 2.4 mg of Wegovy Will send Contrfrieda to [facility] pharmacy per her request at $70 monthly [...] track activity level. Consider using apps like [employer], [employer], lose it, stick as needed for self-monitoring and weight management. Consider group exercises. Consider hiring a personal secretary. Regular exercise is brandon to sustainable health [...] counseling and psychiatry and Dr Cuevas at [facility]. We would like to cover regular topics [...] software and direct typing Please excuse inadvertent contract consultant or typing errors, or uncorrected word substitutions Although every attempt has been made by the provider to proofread this document, occasional misspellings and typographical errors may still be present Due to the previous pandemic, and the use of personal protective equipment (PPE) This may decrease voice recognition accuracy Inadvertent contract consultant errors may occur 06/17/2024 BMI 32.0-32.9,adult (ICD-10 [...] track activity level. Consider using apps like [employer], [employer], lose it, stick as needed for self-monitoring and weight management. Consider group exercises. Consider hiring a personal secretary. Regular exercise is brandon to sustainable health [...] counseling and psychiatry and Dr Cuevas at [employer]. We would like to cover regular topics [...] software and direct typing Please excuse inadvertent contract consultant or typing errors, or uncorrected word substitutions Although every attempt has been made by the provider to proofread this document, occasional misspellings and typographical errors may still be present Due to the previous pandemic, and the use of personal protective equipment (PPE) This may decrease voice recognition accuracy Inadvertent contract consultant errors may occur 06/17/2024 Dietary counseling and [...] track activity level. Consider using apps like [employer], [employer], lose it, stick as needed for self-monitoring and weight management. Consider group exercises. Consider hiring a personal secretary. Regular exercise is brandon to sustainable health [...] counseling and psychiatry and Dr Cuevas at [employer]. We would like to cover regular topics [...] software and direct typing Please excuse inadvertent contract consultant or typing errors, or uncorrected word substitutions Although every attempt has been made by the provider to proofread this document, occasional misspellings and typographical errors may still be present Due to the previous pandemic, and the use of personal protective equipment (PPE) This may decrease voice recognition accuracy Inadvertent contract consultant errors may occur 09/21/2024 PCOS (polycystic ovarian [...] is continuing to experience constipation. Has tried oidg-zmt-nkirnrt medications like Colace, fiber, senna, and MiraLAX. [...] Dictation was accomplished with the use of [employer] voice recognition software, which is prone to [...] is continuing to experience constipation. Has tried nzkq-wkb-kjwfayo medications like Colace, fiber, senna, and MiraLAX. [...] Dictation was accomplished with the use of [employer] voice recognition software, which is prone to [...] software and direct typing Please excuse inadvertent contract consultant or typing errors, or uncorrected word substitutions Although every attempt has been made by the provider to proofread this document, occasional misspellings and typographical errors may still be present Due to the previous pandemic, and the use of personal protective equipment (PPE) This may decrease voice recognition accuracy Inadvertent contract consultant errors may occur 11/30/2024 Daytime somnolence [...] software and direct typing Please excuse inadvertent contract consultant or typing errors, or uncorrected word substitutions Although every attempt has been made by the provider to proofread this document, occasional misspellings and typographical errors may still be present Due to the previous pandemic, and the use of personal protective equipment (PPE) This may decrease voice recognition accuracy Inadvertent contract consultant errors may occur 01/11/2025 Dietary counseling and surveillance (ICD-10 - Z71.3) #Weight Management 01/11/2025 Comprehensive Labs 12/2024 at [facility] CBC stable Renal fun, electrolytes, and LFTs stable Total Cholesterol 227 LDL 150 HDL 46 TSH 1.10 B12 419 A1C 4.9 Not recommended to use borth Wegovy and Zepbound at the same time, discussed patient should stick to Zepbound at increased dosage of 10mg with contrave to target different pathway and to reduce cravings; patient will use the extra she has at home. She has decided against sleep study Total time spent today was 30 minutes of which greater than 50% was spent on coordinating and counseling Patient has been found to be obese with a BMI of (36). Patient has class (2) obesity Of note, some information is being carried forward from prior records for informational purposes only and is being cited so that efficiency, safety and quality of the patient's care is not compromised This note was prepared using voice recognition software and direct typing Please excuse inadvertent contract consultant or typing errors, or uncorrected word substitutions Although every attempt has been made by the provider to proofread this document, occasional misspellings and typographical errors may still be present Due to the previous pandemic, and the use of personal protective equipment (PPE) This may decrease voice recognition accuracy Inadvertent contract consultant errors may occur 01/11/2025 Daytime somnolence (ICD-10 - R40.0) #Weight Management 01/11/2025 Comprehensive Labs 12/2024 at [facility] CBC stable Renal fun, electrolytes, and LFTs stable Total Cholesterol 227 LDL 150 HDL 46 TSH 1.10 B12 419 A1C 4.9 Not recommended to use borth Wegovy and Zepbound at the same time, discussed patient should stick to Zepbound at increased dosage of 10mg with contrave to target different pathway and to reduce cravings; patient will use the extra she has at home. She has decided against sleep study Total time spent today was 30 minutes of which greater than 50% was spent on coordinating and counseling Patient has been found to be obese with a BMI of (36). Patient has class (2) obesity Of note, some information is being carried forward from prior records for informational purposes only and is being cited so that efficiency, safety and quality of the patient's care is not compromised This note was prepared using voice recognition software and direct typing Please excuse inadvertent contract consultant or typing errors, or uncorrected word substitutions Although every attempt has been made by the provider to proofread this document, occasional misspellings and typographical errors may still be present Due to the previous pandemic, and the use of personal protective equipment (PPE) This may decrease voice recognition accuracy Inadvertent contract consultant errors may occur 11/30/2024 Snoring (ICD-10 [...] software and direct typing Please excuse inadvertent contract consultant or typing errors, or uncorrected word substitutions Although every attempt has been made by the provider to proofread this document, occasional misspellings and typographical errors may still be present Due to the previous pandemic, and the use of personal protective equipment (PPE) This may decrease voice recognition accuracy Inadvertent contract consultant errors may occur 10/19/2024 Snoring (ICD-10 - R06.83) #Weight Management 10/19/2024 We discussed the new surmount HARAMN trial and indication for tirzepatide Sleep study [...] software and direct typing Please excuse inadvertent contract consultant or typing errors, or uncorrected word substitutions Although every attempt has been made by the provider to proofread this document, occasional misspellings and typographical errors may still be present Due to the previous pandemic, and the use of personal protective equipment (PPE) This may decrease voice recognition accuracy Inadvertent contract consultant errors may occur 09/21/2024 GERD without esophagitis [...] is continuing to experience constipation. Has tried rbts-syi-xzcyucy medications like Colace, fiber, senna, and MiraLAX. [...] Dictation was accomplished with the use of [employer] voice recognition software, which is prone to [...] is continuing to experience constipation. Has tried uitg-mxi-dwjrpte medications like Colace, fiber, senna, and MiraLAX. [...] Dictation was accomplished with the use of [employer] voice recognition software, which is prone to [...] is continuing to experience constipation. Has tried wrvh-rjv-rhovecr medications like Colace, fiber, senna, and MiraLAX. [...] Dictation was accomplished with the use of [employer] voice recognition software, which is prone to [...] is continuing to experience constipation. Has tried tgfi-zlh-apnydxc medications like Colace, fiber, senna, and MiraLAX. [...] Dictation was accomplished with the use of [employer] voice recognition software, which is prone to [...] software and direct typing Please excuse inadvertent contract consultant or typing errors, or uncorrected word substitutions Although every attempt has been made by the provider to proofread this document, occasional misspellings and typographical errors may still be present Due to the previous pandemic, and the use of personal protective equipment (PPE) This may decrease voice recognition accuracy Inadvertent contract consultant errors may occur 01/11/2025 Snoring (ICD-10 - R06.83) #Weight Management 01/11/2025 Comprehensive Labs 12/2024 at [facility] CBC stable Renal fun, electrolytes, and LFTs stable Total Cholesterol 227 LDL 150 HDL 46 TSH 1.10 B12 419 A1C 4.9 Not recommended to use borth Wegovy and Zepbound at the same time, discussed patient should stick to Zepbound at increased dosage of 10mg with contrave to target different pathway and to reduce cravings; patient will use the extra she has at home. She has decided against sleep study Total time spent today was 30 minutes of which greater than 50% was spent on coordinating and counseling Patient has been found to be obese with a BMI of (36). Patient has class (2) obesity Of note, some information is being carried forward from prior records for informational purposes only and is being cited so that efficiency, safety and quality of the patient's care is not compromised This note was prepared using voice recognition software and direct typing Please excuse inadvertent contract consultant or typing errors, or uncorrected word substitutions Although every attempt has been made by the provider to proofread this document, occasional misspellings and typographical errors may still be present Due to the previous pandemic, and the use of personal protective equipment (PPE) This may decrease voice recognition accuracy Inadvertent contract consultant errors may occur 01/11/2025 HARMAN (obstructive sleep apnea) (ICD-10 - G47.33) #Weight Management 01/11/2025 Comprehensive Labs 12/2024 at [facility] CBC stable Renal fun, electrolytes, and LFTs stable Total Cholesterol 227 LDL 150 HDL 46 TSH 1.10 B12 419 A1C 4.9 Not recommended to use borth Wegovy and Zepbound at the same time, discussed patient should stick to Zepbound at increased dosage of 10mg with contrave to target different pathway and to reduce cravings; patient will use the extra she has at home. She has decided against sleep study Total time spent today was 30 minutes of which greater than 50% was spent on coordinating and counseling Patient has been found to be obese with a BMI of (36). Patient has class (2) obesity Of note, some information is being carried forward from prior records for informational purposes only and is being cited so that efficiency, safety and quality of the patient's care is not compromised This note was prepared using voice recognition software and direct typing Please excuse inadvertent contract consultant or typing errors, or uncorrected word substitutions Although every attempt has been made by the provider to proofread this document, occasional misspellings and typographical errors may still be present Due to the previous pandemic, and the use of personal protective equipment (PPE) This may decrease voice recognition accuracy Inadvertent contract consultant errors may occur 08/24/2024 Irritable bowel syndrome [...] is continuing to experience constipation. Has tried vozm-jpw-iauquks medications like Colace, fiber, senna, and MiraLAX. [...] Dictation was accomplished with the use of [employer] voice recognition software, which is prone to [...] is continuing to experience constipation. Has tried ryaw-dna-wecvtpd medications like Colace, fiber, senna, and MiraLAX. [...] Dictation was accomplished with the use of [employer] voice recognition software, which is prone to [...] is continuing to experience constipation. Has tried utlk-gxd-ttfvgbv medications like Colace, fiber, senna, and MiraLAX. [...] Dictation was accomplished with the use of [employer] voice recognition software, which is prone to medical misidentifications and grammatical errors. This are unintentional and the practitioner does try to identify and correct these, but some could still be present. Please do not hesitate to contact practitioner for clarification. Plan Of Treatment Pending Test Test Name Order Date VITAMIN B12 11/30/2024 LIPID PANEL, STANDARD 03/28/2023 LIPID PANEL, STANDARD 11/30/2024 COMPREHENSIVE METABOLIC PANEL 11/30/2024 CBC (INCLUDES DIFF/PLT) 11/30/2024 URINALYSIS, COMPLETE 11/30/2024 HEMOGLOBIN A1c 11/30/2024 HEMOGLOBIN A1c 03/28/2023 INSULIN 03/28/2023 TSH W/REFLEX TO FT4 11/30/2024 VITAMIN D,25-OH,TOTAL,IA 11/30/2024 Next Appt Details Provider Name:VERNELLMILKA TAM, 03/03/2025 03:00:00 PM, [address] [facility] [address], [place], [address], Insurance Providers Payer Name Payer Address Payer Phone Subscriber Number Group Number Insured Name Patient Relationship to Insured Coverage Start Date Coverage End Date [facility] [address] [place] [address] [id number] Caroline Bernard Self - patient is the insured 3 Medications Administered Medication Instructions Date of Administration Dosage Notes MICC B12 INJECTION 03/28/2023 Lot# [id number] MICC B12 INJECTION 06/19/2023 Semaglutide 04/25/2023 .25 Lot#[id number] Semaglutide 04/30/2023 Semaglutide 05/07/2023 0.50 mL Semaglutide 05/13/2023 sema 0.25mg Semaglutide 05/20/2023 sema 0.25mg Semaglutide 2023 0.50 mL Semaglutide 06/13/2023 0.50 mL Semaglutide 06/25/2023 1 mL Medical (General) History Medical History History ICD Code PCOS FATTY LIVER HYPERLIPIDEMIA GERD ANXIETY
--- OUTSIDE RECORDS SUMMARY | 2025-01-19 15:30 | XMS_ITS | Encounter Summary ---
Author Organization [employer] Address [address] [place] [address] [address] [place] [address] Care Team Providers Care Lock And Dam Equipment Repairer Name Role Phone Komal Ghotra MD Primary Care Provide r Encounter Details Date Type Department Care Team ([facility] st Contact Info) Description 09/16/2024 Orders Only [facility] [address] [place], [place] [phone] Baltazar Luevano MD [address] [place] [address] Acute cough (Primary Dx) Social History Tobacco [...] documented as of this encounter Care Teams Lock And Dam Equipment Repairer Relationship Specialty Start Date End Date Komal Ghotra MD [address] [place] [address] PCP - General Family Medicine 12/20/21 documented as of this encounter
--- OUTSIDE RECORDS SUMMARY | 2025-01-19 15:30 | XMS_ITS | Encounter Summary ---
Author Organization [employer] Address [address] [place] [address] [address] [place] [address] Care Team Providers Care Substation Operator Automatic Name Role Phone Komal Ghotra MD Primary Care Provide r Encounter Details Date Type Department Care Team ([facility] st Contact Info) Description 12/24/2023 Orders Only [facility] PEDS [address] [place] [address] Baltazar Luevano MD [address] [place] [address] Anxiety Social History Tobacco Use Types Packs/Day [...] unspecified documented in this encounter Care Teams Substation Operator Automatic Relationship Specialty Start Date End Date Komal Ghotra MD [address] [place] [address] PCP - General Family Medicine 12/20/21 documented as of this encounter
--- OUTSIDE RECORDS SUMMARY | 2025-01-19 15:30 | XMS_ITS | Encounter Summary ---
Author Organization [employer] Address [address] [facility] [address] [place] [address] Care Team Providers Care Outboard Motor Mechanic Name Role Phone Komal Ghotra MD Primary Care Provide r Encounter Details Date Type Department Care Team ([facility] st Contact Info) Description 11/25/2023 Telephone [facility] [address] [place], [place] [phone] Komal Ghotra MD [address] [place], [place] [phone] Social History Tobacco Use Types Packs/Day Years [...] on filedocumented in this encounter Care Teams Outboard Motor Mechanic Relationship Specialty Start Date End Date Komal Ghotra MD [address] [place] [address] PCP - General Family Medicine 12/20/21 documented as of this encounter
== END 2025-01-19 15:27 | disposition home or self-care (01) ==
LOC: HO.MAMMO 15:26
PROVIDERS: PCP Internal Medicine; Visit Provider Internal Medicine
DX: Z12.31 Encounter for screening mammogram for malignant neoplasm of breast (principal)
CPT/HCPCS: 77063; 77067

== ENCOUNTER → 2025-01-19 15:30 | Outpatient (BNV) | payer OTHER, SELFPAY | PROVIDERS: PCP Internal Medicine; Visit Provider Internal Medicine | DX: Z12.31 Encounter for screening mammogram for malignant neoplasm of breast (principal) | CPT/HCPCS: 77063; 77067 ==

== ENCOUNTER 2025-02-21 08:54 | Outpatient (REF) | payer OTHER, SELFPAY ==
[2025-02-24 08:18] LABS: HPV Genotype 16 Negative (Negative); HPV Genotype 18 Negative (Negative); HPV High Risk Negative (Negative)
== END 2025-02-21 08:55 | disposition home or self-care (01) ==
LOC: HO.LNP 08:54
PROVIDERS: PCP Internal Medicine; Visit Provider Obstetrics & Gynecology
DX: D06.9 Carcinoma in situ of cervix, unspecified (principal)
CPT/HCPCS: 87626; 88175

== ENCOUNTER 2025-02-21 08:54 | Outpatient (AMB) | payer OTHER, SELFPAY ==
--- NOTE | 2025-02-21 08:55 | A.OFFVIS_ITS ---
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 No complaints. 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 Anxiety History of migraine headaches PCOS (polycystic ovarian syndrome) Surgical History Hx of hemorrhoidectomy History of loop electrosurgical excision procedure (LEEP) Hx of tonsillectomy History of cholecystectomy History of Family History Mother Diabetes HTN (hypertension) Maternal Uncle Esophageal cancer Maternal Grandmother Diabetes HTN (hypertension) Maternal Grandfather Diabetes HTN (hypertension) Paternal Grandmother Diabetes Paternal Uncle CVD (cardiovascular disease) Maternal Aunt Breast cancer Social History Household Members: Spouse Household Members Other:: son Housing: House Are you a primary pharmacist critical care to a significant other at home: Yes (son) Do you presently have visiting nurse or other home services: No Alcohol intake: current Alcohol intake frequency: holidays/special occasions only Patient Tobacco Use Status: Current everyday Tobacco user Tobacco use type: Cigarette Cigarettes Per Day: 10 Years Smoked: 24 Current occupational 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 Sexual orientation: Straight/Heterosexual Gender identity: Female Female Reproductive History Menstrual Age of Menarche: 12 Duration of menses: 3-5 days Date of last menstrual period: 06/03/25 control method: none Total pregnancies: 1 Full term: 1 Number of Living Children: 1 Date of last pap smear: 12/31/23 (negative pap smear, negative hpv ) Date of Mammogram: 01/19/25 (bi rad 1) History of abnormal mammogram: No Review of Systems Const All systems reviewed & are unremarkable except as noted in HPI and below Card Reports as per HPI Resp Reports as per HPI GI Reports as per HPI and Reports no additional complaints Reports as per HPI Physical Exam Vital Signs: Last Vital Signs BP 110/80 02/21/25 09:02 BMI result Body Mass Index 35.4 Const General: cooperative, healthy appearing and comfortable Chest Chest palpation & inspection: normal inspection of the chest and normal palpation of entire chest wall Breast/axilla inspection: normal inspection of the breasts and normal inspection of the axillae Breast/axilla palpation: normal palpation of the breasts, normal palpation of the axillae and no axillary lymphadenopathy Resp Effort & Inspection: normal respiratory effort Auscultation: clear to auscultation bilaterally Percussion: percussion normal Cardio Palpation: normal PMI Rate: regular rate Rhythm: regular rhythm Heart sounds: no murmurs and no rubs Peripheral pulses: Peripheral pulses 2+ throughout GI Inspection: Yes normal to inspection Palpation (GI): Soft to palpation, nontender, no guarding, not rigid and No hepatosplenomegaly present Percussion: Yes normal to percussion Auscultation: normal bowel sounds Rectal Exam - Female: deferred General: Yes bladder normal to palpation External Female Exam: No lesion Speculum Exam - Vagina: normal appearance of the vagina, normal palpation, normal vaginal discharge and not erythematous Speculum Exam - Cervix: normal appearance of the cervix and normal palpation Bimanual exam- vagina & uterus: normal bimanual exam, normal palpation, uterine size normal, bladder normal to palpation, consistency normal and normal palpation Bimanual Exam- Adnexa, other: adnexae abnormal (Right adnexal fullness, left adnexa within normal), no masses and no tenderness Assessment & Plan Assessment & Plan (1) Well woman exam: Comment: History of ELLI 3 status post LEEP with negative pathology in 09/28 followed by 3 negative co testing , and Code(s): Z01.419 - Encounter for gynecological examination (general) (routine) without abnormal findings Category: Medical Plan: Cotesting done. Instructions given the patient to schedule next screening Mammogram in 01/31 Counseled the patient about the recommended dietary allowance of 1000 mg of Calcium & 600 IU of vitamin D. The patient was instructed to perform monthly self-breast exams and to schedule an annual exam in a year; All questions answered and the patient verbalized understanding. Instructed the patient to schedule annual exam in a year (2) Adnexal fullness: Comment: Right side Code(s): N94.9 - Unspecified condition associated with female genital organs and menstrual cycle Category: Medical Plan: Discussed with the patient the finding on pelvic exam, right adnexal fullness. Pelvic ultrasound ordered. Instructions given the patient to schedule a follow- up appointment within 2 weeks. Orders: Orders US pelvic and transvaginal Today N94.9 - Unspecified condition associated with female genital organs and menstrual cycle Coding Level of Care Code Est Pt Prev Care 40-64y(06821) Diagnoses Well woman exam Z01.419 Adnexal fullness N94.9
[2025-02-21 09:02] VITALS: BP 110/80; BMI 35.4
--- OUTSIDE RECORDS SUMMARY | 2025-02-21 09:21 | XMS_ITS | Encounter Summary ---
Author Organization [employer] Address [address] [place] [address] [address] [place] [address] Care Team Providers Care Bookmaker'S Clerk Name Role Phone Komal Ghotra MD Primary Care Provide r Encounter Details Date Type Department Care Team (Late st Contact Info) Description 04/01/2023 Orders Only [facility] [address] [place] [address] [phone] Komal Ghotra MD [address] [place], [place] [phone] Social History Tobacco Use Types Packs/Day Years [...] on filedocumented in this encounter Care Teams Bookmaker'S Clerk Relationship Specialty Start Date End Date Komal Ghotra MD [address] [place] [address] [phone] PCP - General Family Medicine 12/20/21 documented as of this encounter
== END 2025-02-21 09:17 | disposition home or self-care (01) ==
LOC: HO.HWS 08:55
PROVIDERS: PCP Internal Medicine; Visit Provider Obstetrics & Gynecology
DX: Z01.419 Encounter for gynecological examination (general) (routine) without abnormal findings (principal); N94.9 Unspecified condition associated with female genital organs and menstrual cycle
CPT/HCPCS: 99396; 99459

== ENCOUNTER 2025-03-25 16:21 | Outpatient (REF) | payer OTHER, SELFPAY ==
--- NOTE | ~2025-03-25 | US_ITS ---
EXAMINATION: US PELVIS CLINICAL INFORMATION: N94.9 - Unspecified condition associated with female genital organs COMPARISON: July 25, 2020 TECHNIQUE: Ultrasound of the pelvis is performed using both transabdominal and transvaginal transducers along with Doppler. Transvaginal imaging is performed due to inadequate visualization transabdominally. FINDINGS: Uterus: The uterus is anteverted and measures 10 x 4 x 5 cm. The double wall endometrial thickness is 6 mm. The uterus is smooth in contour and has normal myometrial echogenicity. No visible fibroid. Adnexa: Both ovaries are visualized. There is normal color flow to the adnexa. There is no ovarian torsion. There is no pelvic ascites or fluid collection. Right ovary measures 4.0 x 2.3 x 2.2 cm. Left ovary measures 4.8 x 3.4 x 4.0 cm. The left ovary demonstrates a 3.9 x 3.6 x 3.7 centimeter complex appearing cyst that has internal echogenicity with increased through transmission without internal blood flow. There is trace adjacent free fluid. US/US pelvic and transvaginal IMPRESSION: Complex left ovarian cyst measuring 3.9 cm in length. Probable hemorrhagic cyst, follow-up is not indicated. Electronically signed by: Ariel Fraga MD 03/25/2025 05:34 PM EDT
--- OUTSIDE RECORDS SUMMARY | 2025-03-25 16:23 | XMS_ITS | Patient Health Record ---
Author Organization [facility] [address] Address [address] [place] [address] Care Team Providers Care Tobacco Flavorer Name Role Phone VERNELL TAM Unavailable [phone] REGIS WATSON Unavailable [phone] Allergies No Known Allergies Reason For Referral Reason Sleep Medicine Servi thom Diagnosis 1 Daytime sleepiness ( R40.0) Diagnosis 2 Habitual snoring (R0 6.83) Referral Organization [facility] [address] Referring Provider First Name VERNELL Referring Provider Last Name ANEL Referring Provider Speciality Internal M edicine Referred Provider Specialty Pulmonology General Notes Cyndy Zazueta 07/2025 08:58:56 AM > referral form faxed to [phone] and pt given phone [phone] to call and make an appt. Clinical Notes Nelly Milner 04:01:06 PM > I called the office and they informed me that they have contacted the patient and left her voicemails but has not received a callback yet Referral Priority Routine Medications Medication SIG (Take, Route, Frequency, Duration) Notes Start Date End Date Status Pantoprazole Sodium 40 MG 1 tablet Orall y Once a day Active metFORMIN HCl 1000 MG 1 tablet with a me al Orally TWICE DAILY Not-Taking Amitriptyline HCl 25 MG 1 tablet at bedt rangel Orally Once a day Active LORazepam 0.5 MG 1 tablet at bedtime as needed Orally Once a day Active Zepbound 2.5 MG/0.5ML Inject 2.5 mg (0.5 mL) Subcutaneous once weekly; Duration: 28 days 08/24/2024 Not-Taking Probiotic 250 MG as directed Orally Active Baby Aspirin Not-Bunny ing metFORMIN HCl ER 500 MG 1 tablet with ev ening meal Orally Once a day; Duration: 90 days 03/03/2025 Active Wegovy 2.4 MG/0.75ML as directed Subcutaneous weekly; Duration: 30 days Not-Taking Ondansetron 4 MG 1 tablet on the tong ue and allow to dissolve prn nausea/vomiting Orally Once a day; Duration: 30 days Active Zepbound 5 MG/0.5ML inject.5mg Subcutane ous once a week; Duration: 30 days 10/19/2024 Not-Taking Zepbound 7.5 MG/0.5ML 7.5mg Subcutaneous weekly; Duration: 30 days 11/30/2024 Not-Taking Zepbound 10 MG/0.5ML INJECT 0.5 ML (10 M G) UNDER THE SKIN ONCE WEEKLY (0.5ML= 50 UNITS); Duration: 28 Active Spironolactone 100 MG 1 tablet Orally TW ICE DAILY Active Linzess 145 MCG 1 capsule at least 3 0 minutes before the first meal of the day on an empty stomach Orally Once a day; Duration: 30 days 08/24/2024 Active Fenofibrate 48 MG 1 tablet Orally Once a day Not-Taking Sertraline HCl 150 MG 1 capsule Orally O nce a day Active Social History Tobacco Use: Social History Observation Description Date Details (start date - stop date) Never Smoker NA - NA Tobacco Use/Smoking Question Answer Notes Are you a nonsmoker Problems Problem Type SNOMED Code ICD Code Onset Dates Problem Status W/U Status Risk Notes Problem Obesity due to exces s calories (845530523) Other obesity due to excess calories (E66.09) Active confirmed Problem Mixed hyperlipidemia (764919041) Mixed hyperlipidemia (E78.2) Active confirmed Problem Lipid screening (307347867) Encounter for screening for lipoid disorders (Z13.220) Active confirmed Problem Irritable bowel syndrome characterized by constipation (796198042) Irritable bowel syndrome with constipation (K58.1) Active confirmed Problem Anxiety (76401871) Anxiety (F41.9) Active confi rmed Problem Adult health examination (789715479) Adult general medical exam (Z00.00) Active confirmed Problem Obstructive sleep apnea syndrome (00776414) HARMAN (obstructive sleep apnea) (G47.33) Active confirmed Problem Diabetes mellitus screening (330319566) Diabetes mellitus screening (Z13.1) Active confirmed Problem Body mass index 35.0 0 to 39.99 (047182897162725) Body mass index [BMI] 36.0-36.9, adult (Z68.36) Active confirmed Problem Obese class II (418037676615008) BMI 37.0-37.9, adult (Z68.37) Active confirmed Problem Obese class II (116692130213979) BMI 35.0-35.9,adult (Z68.35) Active confirmed Problem Obese class I (632708367047904) BMI 33.0-33.9,adult (Z68.33) Active confirmed Problem BMI 30+ - obesity (484126488) BMI 32.0-32.9,adult (Z68.32) Active confirmed Problem Diabetes mellitus screening (599597066) Screening for diabetes mellitus (Z13.1) Active confirmed Problem Polycystic ovary syndrome (disorder) (227392605) PCOS (polycystic ovarian syndrome) (E28.2) Active confirmed Problem Hypertriglyceridemia (374433645) Hypertriglyceridemia (E78.1) Active confirmed Problem Vitamin B>12< deficiency anaemia (59238691) Anemia due to vitamin B12 deficiency, unspecified B12 deficiency type (D51.9) Active confirmed Problem Obese class II (288347409752198) BMI 38.0-38.9,adult (Z68.38) Active confirmed Problem Body mass index 30.0 0 to 34.99 (428639729093752) BMI 31.0-31.9,adult (Z68.31) Active confirmed Problem Adult-onset obesity (339011522) Adult-onset obesity (E66.9) Active confirmed Problem Body mass index 30.0 0 to 34.99 (191121591776900) BMI 34.0-34.9,adult (Z68.34) Active confirmed Problem Daytime somnolence (204916645285) Daytime somnolence (R40.0) Active confirmed Problem Screening for cardiovascular system disease (718681346) Screening for cardiovascular condition (Z13.6) Active confirmed Problem Gastroesophageal reflux disease (557480164) GERD without esophagitis (K21.9) Active confirmed Problem Excessive daytime sleepiness - normal night sleep (348867580) Daytime sleepiness (R40.0) Active confirmed Problem Avitaminosis D (63807614) Avitaminosis D (E55.9) Active confirmed Problem Endocrine/metabolic screening (142101237) Encounter for screening for endocrine disorder (Z13.29) Active confirmed Problem Lipid screening (184454464) Lipid screening (Z13.220) Active confirmed Problem Habitual snoring (452807181) Habitual snoring (R06.83) Active confirmed Vital Signs Heart Rate 98 /min 03/03/2025 Oximetry 99 % 03/03/2025 Blood pressure diastolic 82 mm Hg 03/03/2025 Height 64 in 03/03/2025 Blood pressure systolic 124 mm Hg 03/03/2025 Weight 209.7 lbs 03/03/2025 BMI 35.99 kg/m2 03/03/2025 Encounters Encounter Location Date Provider Diagnosis [facility] [address] [address] 04/14/2024 VERNELL TAM Other obesity due to excess calories E66.09 ; BMI 32.0-32.9,adult Z68.32 and Dietary counseling and surveillance Z71.3 [facility] [address] [address] 06/17/2024 VERNELL PETTITHOT Other obesity due to excess calories E66.09 ; BMI 32.0-32.9,adult Z68.32 and Dietary counseling and surveillance Z71.3 [facility] [address] [address] 08/24/2024 REGIS WATSON Adult-onset obesity E66.9 ; BMI 33.0-33.9,adult Z68.33 ; PCOS (polycystic ovarian syndrome) E28.2 ; GERD without esophagitis K21.9 ; Anxiety F41.9 ; Mixed hyperlipidemia E78.2 and Irritable bowel syndrome with constipation K58.1 [facility] [address] [address] 09/21/2024 REGIS WATSON Adult-onset obesity E66.9 ; BMI 33.0-33.9,adult Z68.33 ; PCOS (polycystic ovarian syndrome) E28.2 ; GERD without esophagitis K21.9 ; Anxiety F41.9 ; Mixed hyperlipidemia E78.2 and Irritable bowel syndrome with constipation K58.1 [facility] [address] [address] 10/19/2024 VERNELL BORHOT Other obesity due to excess calories E66.09 ; BMI 34.0-34.9,adult Z68.34 ; Dietary counseling and surveillance Z71.3 ; Daytime somnolence R40.0 and Snoring R06.83 [facility] [address] [address] 11/30/2024 VERNELL BORHOT Other obesity due to excess calories E66.09 ; BMI 35.0-35.9,adult Z68.35 ; Dietary counseling and surveillance Z71.3 ; Daytime somnolence R40.0 ; Snoring R06.83 and HARMAN (obstructive sleep apnea) G47.33 [facility] [address] 01/11/2025 VERNELL BORHOT Other obesity due to excess calories E66.09 ; BMI 35.0-35.9,adult Z68.35 ; Dietary counseling and surveillance Z71.3 ; Daytime somnolence R40.0 ; Snoring R06.83 and HARMAN (obstructive sleep apnea) G47.33 [facility] [address] [address] 03/03/2025 VERNELL BORHOT Other obesity due to excess calories E66.09 ; BMI 35.0-35.9,adult Z68.35 ; Dietary counseling and surveillance Z71.3 ; HARMAN (obstructive sleep apnea) G47.33 ; Daytime somnolence R40.0 ; Snoring R06.83 and Encounter for examination of blood pressure without abnormal findings Z01.30 [facility] [address] [address] 08/24/2024 REGIS BIRKS [facility] [address] [address] 09/17/2024 REGIS BIRKS [facility] [address] [address] 03/03/2025 VERNELL BORHOT [facility] [address] [address] 09/21/2024 REGIS BIRKS [facility] [address] [address] 11/08/2024 VERNELL BORHOT Other obesity due to excess calories E66.09 [facility] [address] [address] 11/09/2024 VERNELL BORHOT [facility] [address] [address] 11/09/2024 VERNELL BORHOT [facility] [address] [address] 11/10/2024 VERNELL BORHOT Other obesity due to excess calories E66.09 [facility] [address] [address] 11/10/2024 VERNELL BORHOT Other obesity due to excess calories E66.09 [facility] [address] [address] 11/11/2024 VERNELL BORHOT [facility] [address] [address] 12/25/2024 VERNELL WILVERHOT HARMAN (obstructive sle ep apnea) G47.33 [facility] [address] [address] 01/27/2025 VERNELL BORHOT Other obesity due to excess calories E66.09 Assessments Encounter Date Diagnosis (ICD Code) Assessment Notes Treatment Notes Treatment Clinical Notes Section Notes 04/14/2024 Other obesity due to excess calories (ICD-10 - E66.09) #Weight Management 04/14/2024 Labs recently reviewed Continue 2.4 mg of Wegovy Will send Hayley to [facility] pharmacy per her request [...] track activity level. Consider using apps like Sensr[employer]net, tastytradepal, lose it, stick as needed for self-monitoring and weight management. Consider group exercises. Consider hiring a boxing trainer. Regular exercise is brandon to sustainable health [...] counseling and psychiatry and Dr Cuevas at [employer] [facility]. We would like to cover regular topics [...] software and direct typing Please excuse inadvertent manager leasing or typing errors, or uncorrected word substitutions Although every attempt has been made by the provider to proofread this document, occasional misspellings and typographical errors may still be present Due to the previous pandemic, and the use of personal protective equipment (PPE) This may decrease voice recognition accuracy Inadvertent manager leasing errors may occur 04/14/2024 BMI 32.0-32.9,adult (ICD-10 - Z68.32) #Weight Management 04/14/2024 Labs recently reviewed Continue 2.4 mg of Wegovy Will send Contrfrieda to [facility] pharmacy per her request [...] track activity level. Consider using apps like Sensr[employer]net, tastytradepal, lose it, stick as needed for self-monitoring and weight management. Consider group exercises. Consider hiring a boxing trainer. Regular exercise is brandon to sustainable health [...] counseling and psychiatry and Dr Cuevas at [employer]. We would like to cover regular topics [...] software and direct typing Please excuse inadvertent manager leasing or typing errors, or uncorrected word substitutions Although every attempt has been made by the provider to proofread this document, occasional misspellings and typographical errors may still be present Due to the previous pandemic, and the use of personal protective equipment (PPE) This may decrease voice recognition accuracy Inadvertent manager leasing errors may occur 06/17/2024 Other obesity due [...] track activity level. Consider using apps like Sensr[employer]net, myfitnesspal, lose it, stick as needed for self-monitoring and weight management. Consider group exercises. Consider hiring a boxing trainer. Regular exercise is brandon to sustainable health [...] counseling and psychiatry and Dr Cuevas at [employer]. We would like to cover regular topics [...] software and direct typing Please excuse inadvertent manager leasing or typing errors, or uncorrected word substitutions Although every attempt has been made by the provider to proofread this document, occasional misspellings and typographical errors may still be present Due to the previous pandemic, and the use of personal protective equipment (PPE) This may decrease voice recognition accuracy Inadvertent manager leasing errors may occur 08/24/2024 BMI 33.0-33.9,adult (ICD-10 - Z68.33) Patient [...] is continuing to experience constipation. Has tried uoyb-adb-altyoce medications like Colace, fiber, senna, and MiraLAX. [...] Dictation was accomplished with the use of [employer] voice recognition software, which is prone to medical misidentifications and grammatical errors. This are unintentional and the practitioner does try to identify and correct these, but some could still be present. Please do not hesitate to contact practitioner for clarification. 08/24/2024 Adult-onset obesity (ICD-10 - E66.9) Patient [...] is continuing to experience constipation. Has tried ntas-yuf-npptrff medications like Colace, fiber, senna, and MiraLAX. [...] Dictation was accomplished with the use of [employer] voice recognition software, which is prone to [...] is continuing to experience constipation. Has tried vphv-yql-vdlxpwx medications like Colace, fiber, senna, and MiraLAX. [...] Dictation was accomplished with the use of [employer] voice recognition software, which is prone to [...] software and direct typing Please excuse inadvertent manager leasing or typing errors, or uncorrected word substitutions Although every attempt has been made by the provider to proofread this document, occasional misspellings and typographical errors may still be present Due to the previous pandemic, and the use of personal protective equipment (PPE) This may decrease voice recognition accuracy Inadvertent manager leasing errors may occur 11/08/2024 Other obesity due to excess calories (ICD-10 - E66.09) 11/10/2024 Other obesity due to excess calories (ICD-10 - E66.09) 11/10/2024 Other obesity due to excess calories (ICD-10 - E66.09) 12/25/2024 HARMAN (obstructive sleep apnea) (ICD-10 - G47.33) 01/11/2025 Other obesity due to excess calories (ICD-10 - E66.09) #Weight Management 01/11/2025 Comprehensive Labs 12/2024 at [facility] CBC stable Renal fun, electrolytes, and LFTs [...] software and direct typing Please excuse inadvertent manager leasing or typing errors, or uncorrected word substitutions Although every attempt has been made by the provider to proofread this document, occasional misspellings and typographical errors may still be present Due to the previous pandemic, and the use of personal protective equipment (PPE) This may decrease voice recognition accuracy Inadvertent manager leasing errors may occur 10/19/2024 BMI 34.0-34.9,adult (ICD-10 [...] software and direct typing Please excuse inadvertent manager leasing or typing errors, or uncorrected word substitutions Although every attempt has been made by the provider to proofread this document, occasional misspellings and typographical errors may still be present Due to the previous pandemic, and the use of personal protective equipment (PPE) This may decrease voice recognition accuracy Inadvertent manager leasing errors may occur 01/27/2025 Other obesity due to excess calories (ICD-10 - E66.09) 03/03/2025 Other obesity due to excess calories (ICD-10 - E66.09) #Weight Management 03/03/2025 She would like to resume metformin in the past she was on this and spironolactone for PCOS Discussed with her hypoglycemia risk when combined with the dual incretin and that she needs to eat Down 5 pounds of fat mass She will continue 10 mg dosing Will increase to 12.5 when Martha direct has 12.5 mg dosing option on March 14 with contrave to target different pathway and [...] software and direct typing Please excuse inadvertent manager leasing or typing errors, or uncorrected word substitutions Although every attempt has been made by the provider to proofread this document, occasional misspellings and typographical errors may still be present Due to the previous pandemic, and the use of personal protective equipment (PPE) This may decrease voice recognition accuracy Inadvertent manager leasing errors may occur 03/03/2025 BMI 35.0-35.9,adult (ICD-10 - Z68.35) #Weight Management 03/03/2025 She would like to resume metformin in the past she was on this and spironolactone for PCOS Discussed with her hypoglycemia risk when combined with the dual incretin and that she needs to eat Down 5 pounds of fat mass She will continue 10 mg dosing Will increase to 12.5 when Martha direct has 12.5 mg dosing option on March 14 with contrave to target different pathway and [...] software and direct typing Please excuse inadvertent manager leasing or typing errors, or uncorrected word substitutions Although every attempt has been made by the provider to proofread this document, occasional misspellings and typographical errors may still be present Due to the previous pandemic, and the use of personal protective equipment (PPE) This may decrease voice recognition accuracy Inadvertent manager leasing errors may occur 11/30/2024 Other obesity due to excess calories [...] software and direct typing Please excuse inadvertent manager leasing or typing errors, or uncorrected word substitutions Although every attempt has been made by the provider to proofread this document, occasional misspellings and typographical errors may still be present Due to the previous pandemic, and the use of personal protective equipment (PPE) This may decrease voice recognition accuracy Inadvertent manager leasing errors may occur 11/30/2024 BMI 35.0-35.9,adult (ICD-10 [...] software and direct typing Please excuse inadvertent manager leasing or typing errors, or uncorrected word substitutions Although every attempt has been made by the provider to proofread this document, occasional misspellings and typographical errors may still be present Due to the previous pandemic, and the use of personal protective equipment (PPE) This may decrease voice recognition accuracy Inadvertent manager leasing errors may occur 11/30/2024 Dietary counseling and [...] software and direct typing Please excuse inadvertent manager leasing or typing errors, or uncorrected word substitutions Although every attempt has been made by the provider to proofread this document, occasional misspellings and typographical errors may still be present Due to the previous pandemic, and the use of personal protective equipment (PPE) This may decrease voice recognition accuracy Inadvertent manager leasing errors may occur 01/11/2025 BMI 35.0-35.9,adult (ICD-10 - Z68.35) #Weight Management 01/11/2025 Comprehensive Labs 12/2024 at [facility] CBC stable Renal fun, electrolytes, and LFTs [...] software and direct typing Please excuse inadvertent manager leasing or typing errors, or uncorrected word substitutions Although every attempt has been made by the provider to proofread this document, occasional misspellings and typographical errors may still be present Due to the previous pandemic, and the use of personal protective equipment (PPE) This may decrease voice recognition accuracy Inadvertent manager leasing errors may occur 03/03/2025 Dietary counseling and surveillance (ICD-10 - Z71.3) #Weight Management 03/03/2025 She would like to resume metformin in the past she was on this and spironolactone for PCOS Discussed with her hypoglycemia risk when combined with the dual incretin and that she needs to eat Down 5 pounds of fat mass She will continue 10 mg dosing Will increase to 12.5 when Martha direct has 12.5 mg dosing option on March 14 with contrave to target different pathway and [...] software and direct typing Please excuse inadvertent manager leasing or typing errors, or uncorrected word substitutions Although every attempt has been made by the provider to proofread this document, occasional misspellings and typographical errors may still be present Due to the previous pandemic, and the use of personal protective equipment (PPE) This may decrease voice recognition accuracy Inadvertent manager leasing errors may occur 10/19/2024 Dietary counseling and [...] software and direct typing Please excuse inadvertent manager leasing or typing errors, or uncorrected word substitutions Although every attempt has been made by the provider to proofread this document, occasional misspellings and typographical errors may still be present Due to the previous pandemic, and the use of personal protective equipment (PPE) This may decrease voice recognition accuracy Inadvertent manager leasing errors may occur 09/21/2024 BMI 33.0-33.9,adult (ICD-10 - Z68.33) Patient [...] is continuing to experience constipation. Has tried iunb-vfx-knvfmug medications like Colace, fiber, senna, and MiraLAX. [...] Dictation was accomplished with the use of [employer] voice recognition software, which is prone to medical misidentifications and grammatical errors. This are unintentional and the practitioner does try to identify and correct these, but some could still be present. Please do not hesitate to contact practitioner for clarification. 08/24/2024 PCOS (polycystic ovarian syndrome) (ICD-10 - [...] is continuing to experience constipation. Has tried lcdb-fzj-nepggmy medications like Colace, fiber, senna, and MiraLAX. [...] Dictation was accomplished with the use of [employer] voice recognition software, which is prone to medical misidentifications and grammatical errors. This are unintentional and the practitioner does try to identify and correct these, but some could still be present. Please do not hesitate to contact practitioner for clarification. 06/17/2024 BMI 32.0-32.9,adult (ICD-10 - Z68.32) #Weight [...] track activity level. Consider using apps like Sensr.net, myfitnesspal, lose it, stick as needed for self-monitoring and weight management. Consider group exercises. Consider hiring a boxing trainer. Regular exercise is brandon to sustainable health [...] counseling and psychiatry and Dr Cuevas at [employer]. We would like to cover regular topics [...] software and direct typing Please excuse inadvertent manager leasing or typing errors, or uncorrected word substitutions Although every attempt has been made by the provider to proofread this document, occasional misspellings and typographical errors may still be present Due to the previous pandemic, and the use of personal protective equipment (PPE) This may decrease voice recognition accuracy Inadvertent manager leasing errors may occur 04/14/2024 Dietary counseling and surveillance (ICD-10 - Z71.3) #Weight Management 04/14/2024 Labs recently reviewed Continue 2.4 mg of Wegovy Will send Hayley to [facility] pharmacy per her request [...] track activity level. Consider using apps like Sensr.net, myfitnesspal, lose it, stick as needed for self-monitoring and weight management. Consider group exercises. Consider hiring a boxing trainer. Regular exercise is brandon to sustainable health [...] counseling and psychiatry and Dr Cuevas at [employer]. We would like to cover regular topics [...] software and direct typing Please excuse inadvertent manager leasing or typing errors, or uncorrected word substitutions Although every attempt has been made by the provider to proofread this document, occasional misspellings and typographical errors may still be present Due to the previous pandemic, and the use of personal protective equipment (PPE) This may decrease voice recognition accuracy Inadvertent manager leasing errors may occur 06/17/2024 Dietary counseling and [...] track activity level. Consider using apps like [employer] excercise, [employer], lose it, stick as needed for self-monitoring and weight management. Consider group exercises. Consider hiring a boxing trainer. Regular exercise is brandon to sustainable health [...] counseling and psychiatry and Dr Cuevas at [employer] [employer] We would like to cover regular topics [...] software and direct typing Please excuse inadvertent manager leasing or typing errors, or uncorrected word substitutions Although every attempt has been made by the provider to proofread this document, occasional misspellings and typographical errors may still be present Due to the previous pandemic, and the use of personal protective equipment (PPE) This may decrease voice recognition accuracy Inadvertent manager leasing errors may occur 09/21/2024 PCOS (polycystic ovarian [...] is continuing to experience constipation. Has tried rryc-mjd-sucobhj medications like Colace, fiber, senna, and MiraLAX. [...] Dictation was accomplished with the use of [employer] voice recognition software, which is prone to [...] is continuing to experience constipation. Has tried pkxq-oah-hbsyfnu medications like Colace, fiber, senna, and MiraLAX. [...] Dictation was accomplished with the use of [employer] voice recognition software, which is prone to [...] software and direct typing Please excuse inadvertent manager leasing or typing errors, or uncorrected word substitutions Although every attempt has been made by the provider to proofread this document, occasional misspellings and typographical errors may still be present Due to the previous pandemic, and the use of personal protective equipment (PPE) This may decrease voice recognition accuracy Inadvertent manager leasing errors may occur 01/11/2025 Dietary counseling and surveillance (ICD-10 - Z71.3) #Weight Management 01/11/2025 Comprehensive Labs 12/2024 at [facility] CBC stable Renal fun, electrolytes, and LFTs [...] software and direct typing Please excuse inadvertent manager leasing or typing errors, or uncorrected word substitutions Although every attempt has been made by the provider to proofread this document, occasional misspellings and typographical errors may still be present Due to the previous pandemic, and the use of personal protective equipment (PPE) This may decrease voice recognition accuracy Inadvertent manager leasing errors may occur 03/03/2025 HARMAN (obstructive sleep apnea) (ICD-10 - G47.33) #Weight Management 03/03/2025 She would like to resume metformin in the past she was on this and spironolactone for PCOS Discussed with her hypoglycemia risk when combined with the dual incretin and that she needs to eat Down 5 pounds of fat mass She will continue 10 mg dosing Will increase to 12.5 when Martha direct has 12.5 mg dosing option on March 14 with contrave to target different pathway and [...] software and direct typing Please excuse inadvertent manager leasing or typing errors, or uncorrected word substitutions Although every attempt has been made by the provider to proofread this document, occasional misspellings and typographical errors may still be present Due to the previous pandemic, and the use of personal protective equipment (PPE) This may decrease voice recognition accuracy Inadvertent manager leasing errors may occur 11/30/2024 Daytime somnolence (ICD-10 [...] software and direct typing Please excuse inadvertent manager leasing or typing errors, or uncorrected word substitutions Although every attempt has been made by the provider to proofread this document, occasional misspellings and typographical errors may still be present Due to the previous pandemic, and the use of personal protective equipment (PPE) This may decrease voice recognition accuracy Inadvertent manager leasing errors may occur 01/11/2025 Daytime somnolence (ICD-10 - R40.0) #Weight Management 01/11/2025 Comprehensive Labs 12/2024 at [facility] CBC stable Renal fun, electrolytes, and LFTs [...] software and direct typing Please excuse inadvertent manager leasing or typing errors, or uncorrected word substitutions Although every attempt has been made by the provider to proofread this document, occasional misspellings and typographical errors may still be present Due to the previous pandemic, and the use of personal protective equipment (PPE) This may decrease voice recognition accuracy Inadvertent manager leasing errors may occur 11/30/2024 Snoring (ICD-10 - [...] software and direct typing Please excuse inadvertent manager leasing or typing errors, or uncorrected word substitutions Although every attempt has been made by the provider to proofread this document, occasional misspellings and typographical errors may still be present Due to the previous pandemic, and the use of personal protective equipment (PPE) This may decrease voice recognition accuracy Inadvertent manager leasing errors may occur 03/03/2025 Daytime somnolence (ICD-10 - R40.0) #Weight Management 03/03/2025 She would like to resume metformin in the past she was on this and spironolactone for PCOS Discussed with her hypoglycemia risk when combined with the dual incretin and that she needs to eat Down 5 pounds of fat mass She will continue 10 mg dosing Will increase to 12.5 when Martha direct has 12.5 mg dosing option on March 14 with contrave to target different pathway and [...] software and direct typing Please excuse inadvertent manager leasing or typing errors, or uncorrected word substitutions Although every attempt has been made by the provider to proofread this document, occasional misspellings and typographical errors may still be present Due to the previous pandemic, and the use of personal protective equipment (PPE) This may decrease voice recognition accuracy Inadvertent manager leasing errors may occur 10/19/2024 Snoring (ICD-10 - [...] software and direct typing Please excuse inadvertent manager leasing or typing errors, or uncorrected word substitutions Although every attempt has been made by the provider to proofread this document, occasional misspellings and typographical errors may still be present Due to the previous pandemic, and the use of personal protective equipment (PPE) This may decrease voice recognition accuracy Inadvertent manager leasing errors may occur 09/21/2024 GERD without esophagitis [...] is continuing to experience constipation. Has tried kdgl-ijm-hxsnpqd medications like Colace, fiber, senna, and MiraLAX. [...] Dictation was accomplished with the use of [employer] voice recognition software, which is prone to [...] is continuing to experience constipation. Has tried cncq-hss-fitsmck medications like Colace, fiber, senna, and MiraLAX. [...] Dictation was accomplished with the use of [employer] voice recognition software, which is prone to [...] is continuing to experience constipation. Has tried rzcd-wab-rsioabg medications like Colace, fiber, senna, and MiraLAX. [...] Dictation was accomplished with the use of [employer] voice recognition software, which is prone to [...] is continuing to experience constipation. Has tried bdsr-nil-uhnyehp medications like Colace, fiber, senna, and MiraLAX. [...] Dictation was accomplished with the use of [employer] voice recognition software, which is prone to medical misidentifications and grammatical errors. This are unintentional and the practitioner does try to identify and correct these, but some could still be present. Please do not hesitate to contact practitioner for clarification. 01/11/2025 Snoring (ICD-10 - R06.83) #Weight Management 01/11/2025 Comprehensive Labs 12/2024 at [facility] CBC stable Renal fun, electrolytes, and LFTs [...] software and direct typing Please excuse inadvertent manager leasing or typing errors, or uncorrected word substitutions Although every attempt has been made by the provider to proofread this document, occasional misspellings and typographical errors may still be present Due to the previous pandemic, and the use of personal protective equipment (PPE) This may decrease voice recognition accuracy Inadvertent manager leasing errors may occur 03/03/2025 Snoring (ICD-10 - R06.83) #Weight Management 03/03/2025 She would like to resume metformin in the past she was on this and spironolactone for PCOS Discussed with her hypoglycemia risk when combined with the dual incretin and that she needs to eat Down 5 pounds of fat mass She will continue 10 mg dosing Will increase to 12.5 when Martha direct has 12.5 mg dosing option on March 14 with contrave to target different pathway and [...] software and direct typing Please excuse inadvertent manager leasing or typing errors, or uncorrected word substitutions Although every attempt has been made by the provider to proofread this document, occasional misspellings and typographical errors may still be present Due to the previous pandemic, and the use of personal protective equipment (PPE) This may decrease voice recognition accuracy Inadvertent manager leasing errors may occur 11/30/2024 HARMAN (obstructive sleep [...] software and direct typing Please excuse inadvertent manager leasing or typing errors, or uncorrected word substitutions Although every attempt has been made by the provider to proofread this document, occasional misspellings and typographical errors may still be present Due to the previous pandemic, and the use of personal protective equipment (PPE) This may decrease voice recognition accuracy Inadvertent manager leasing errors may occur 03/03/2025 Encounter for examination of blood pressure without abnormal findings (ICD-10 - Z01.30) #Weight Management 03/03/2025 She would like to resume metformin in the past she was on this and spironolactone for PCOS Discussed with her hypoglycemia risk when combined with the dual incretin and that she needs to eat Down 5 pounds of fat mass She will continue 10 mg dosing Will increase to 12.5 when Martha direct has 12.5 mg dosing option on March 14 with contrave to target different pathway and [...] software and direct typing Please excuse inadvertent manager leasing or typing errors, or uncorrected word substitutions Although every attempt has been made by the provider to proofread this document, occasional misspellings and typographical errors may still be present Due to the previous pandemic, and the use of personal protective equipment (PPE) This may decrease voice recognition accuracy Inadvertent manager leasing errors may occur 01/11/2025 HARMAN (obstructive sleep apnea) (ICD-10 - G47.33) #Weight Management 01/11/2025 Comprehensive Labs 12/2024 at [facility] CBC stable Renal fun, electrolytes, and LFTs [...] software and direct typing Please excuse inadvertent manager leasing or typing errors, or uncorrected word substitutions Although every attempt has been made by the provider to proofread this document, occasional misspellings and typographical errors may still be present Due to the previous pandemic, and the use of personal protective equipment (PPE) This may decrease voice recognition accuracy Inadvertent manager leasing errors may occur 08/24/2024 Irritable bowel syndrome [...] is continuing to experience constipation. Has tried uljc-erw-nxgtjua medications like Colace, fiber, senna, and MiraLAX. [...] Dictation was accomplished with the use of [employer] voice recognition software, which is prone to [...] is continuing to experience constipation. Has tried bicg-mnh-iqibgdl medications like Colace, fiber, senna, and MiraLAX. [...] Dictation was accomplished with the use of [employer] voice recognition software, which is prone to [...] is continuing to experience constipation. Has tried njfi-cld-gdcsoet medications like Colace, fiber, senna, and MiraLAX. [...] Dictation was accomplished with the use of [employer] voice recognition software, which is prone to [...] 11/30/2024 Next Appt Details Provider Name:VERNELL TAM, 04/14/2025 02:30:00 PM, [address] [facility], [facility] [address], [place], [address], Insurance Providers Payer Name Payer Address Payer Phone Subscriber Number Group Number Insured Name Patient Relationship to Insured Coverage Start Date Coverage End Date [facility] [address] [place] [address] [phone] [id number] Caroline Bernard Self - patient is the [...]
== END 2025-03-25 16:22 | disposition home or self-care (01) ==
LOC: HO.US 16:21
PROVIDERS: PCP Internal Medicine; Visit Provider Obstetrics & Gynecology
DX: N94.9 Unspecified condition associated with female genital organs and menstrual cycle (principal)
CPT/HCPCS: 76830; 76856

== ENCOUNTER → 2025-03-25 16:22 | Outpatient (BNV) | payer OTHER, SELFPAY | PROVIDERS: PCP Internal Medicine; Visit Provider Radiology Diagnostic Radiology | DX: N83.292 Other ovarian cyst, left side (principal) | CPT/HCPCS: 76830; 76856 ==

== ENCOUNTER 2025-04-13 16:03 | Outpatient (AMB) | payer OTHER, SELFPAY ==
--- NOTE | 2025-04-13 16:04 | A.OFFVIS_ITS ---
Intake Visit Reasons: TV for ultrasound results/ok Per [facility] Allergies bee pollen (BEE STINGS) Allergy (Severe, Verified 02/21/25 09:02) Anaphylaxis HPI Comments Details: The patient scheduled a telehealth visit for follow-up. On pelvic exam adnexal fullness was detected so a pelvic ultrasound was ordered which showed the following: Uterus: The uterus is anteverted and measures 10 x 4 x 5 cm. The double wall endometrial thickness is 6 mm. The uterus is smooth in contour and has normal myometrial echogenicity. No visible fibroid. Adnexa: Both ovaries are visualized. There is normal color flow to the adnexa. There is no ovarian torsion. There is no pelvic ascites or fluid collection. Right ovary measures 4.0 x 2.3 x 2.2 cm. Left ovary measures 4.8 x 3.4 x 4.0 cm. The left ovary demonstrates a 3.9 x 3.6 x 3.7 centimeter complex appearing cyst that has internal echogenicity with increased through transmission without internal blood flow. There is trace adjacent free fluid. US/US pelvic and transvaginal IMPRESSION: Complex left ovarian cyst measuring 3.9 cm in length. Probable hemorrhagic cyst, follow-up is not indicated. ON LICENSE OF [facility] Medical History Asthma VACA (nonalcoholic steatohepatitis) Environmental and seasonal allergies Hemorrhoids with complication ELLI III (cervical intraepithelial neoplasia grade III) with severe dysplasia ASCUS with positive high risk HPV cervical Anxiety History of migraine headaches PCOS (polycystic ovarian syndrome) Surgical History Hx of hemorrhoidectomy History of loop electrosurgical excision procedure (LEEP) Hx of tonsillectomy History of cholecystectomy History of Family History Mother Diabetes HTN (hypertension) Maternal Uncle Esophageal cancer Maternal Grandmother Diabetes HTN (hypertension) Maternal Grandfather Diabetes HTN (hypertension) Paternal Grandmother Diabetes Paternal Uncle CVD (cardiovascular disease) Maternal Aunt Breast cancer Social History Household Members: Spouse Household Members Other:: son Housing: House Are you a primary resident care supervisor to a significant other at home: Yes (son) Do you presently have visiting nurse or other home services: No Alcohol intake: current Alcohol intake frequency: holidays/special occasions only Patient Tobacco Use Status: Current everyday Tobacco user Tobacco use type: Cigarette Cigarettes Per Day: 10 Years Smoked: 24 Current occupational 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 Sexual orientation: Straight/Heterosexual Gender identity: Female Female Reproductive History Menstrual Age of Menarche: 12 Review of Systems Const All systems reviewed & are unremarkable except as noted in HPI and below Reports as per HPI and Reports no additional complaints GI Reports no additional complaints Reports no additional complaints Telehealth Telehealth Telehealth Platform: Telephone Patient Identification confirmed using: Name, : Yes Telehealth method: video Patient verbally consented to treatment: Yes Patient verbally consented to billing insurance company: Yes Patient informed of any privacy concerns related to visit: Yes Minutes spent on Phone/Video with Pt.: 4 Assessment & Plan Assessment & Plan (1) Complex ovarian cyst: Code(s): N83.299 - Other ovarian cyst, unspecified side Category: Medical Plan: Discussed with the patient the complex ovarian cyst by ultrasound. Discussed with the patient the Ultrasound findings, the main limitation of transvaginal ultrasonography alone as a diagnostic tool to distinguish benign from malignant masses relates to its lack of specificity and low positive predictive value for cancer. Laboratory evaluation include UPT and GC/CT , serum tumor marker CA 125 . Discussed with the patient that CA 125 is a protein associated with epithelial ovarian malignancies, but also frequently expressed at lower levels by nonmalignant tissue. Elevation of CA 125 levels may occur in nonmalignant gynecologic conditions, and in non-gynecologic cancers, It is most useful in postmenopausal women and in identifying non mucinous epithelial cancer. The CA 125 level is elevated in 80% of patients with epithelial ovarian cancer but in only 50% of patients with stage I disease. The overall sensitivity of CA 125 testing in distinguishing benign from malignant adnexal masses reportedly ranges from 61% to 90%; discussed with the patient the specificity, positive predictive value and negative predictive value. Discussed with the patient options of treatment , in case CA 125 is not elevated, including laparoscopy ovarian cystectomy/oophorectomy vs. expectant management with repeat US in repeating pelvic US in 6-12 weeks from previous US. If the ovarian complex cyst is persistent larger and / or more complex looking, or higher CA 125 will refer to gynecologic Oncology. All pros, cons, risks and benefits of each approach were discussed with the patient including but not limited to a delay in the diagnosis and treatment of ovarian cancer affecting the prognosis; The patient decided to go ahead with expectant management. Instructions given the patient to schedule a 3 months follow-up ultrasound appointment. All questions were answered & the patient verbalized understanding and agreed with the plan. I spent a total of 20 minutes reviewing the chart, talking to the patient via video and documenting in the medical record. Orders: Orders CA-125 Today N83.299 - Other ovarian cyst, unspecified side US pelvic and transvaginal 3 Months N83.299 - Other ovarian cyst, unspecified side Coding Level of Care Code Tele Est Pt Level 3 (93904) Diagnoses Complex ovarian cyst N83.299
--- OUTSIDE RECORDS SUMMARY | 2025-04-13 16:20 | XMS_ITS | Clinical Summary ---
Author Organization [facility] Address [address] [address] Phone Care Team Providers Care Flap Presser Name Role Phone Komal Ghotra MD Primary Care Provider Allergies Active Allergy Reactions Criticality Noted Date Comments Hymenoptera Allergenic Extract Anaphylaxis High 03/09 Medications aspirin 81 MG EC tablet Take 81 mg by mouth. 0 Active cetirizine (ZYRTEC) 10 MG tablet Take 10 mg by mouth. 0 Active EPINEPHrine (SYMJEPI) 0.3 mg/0.3 mL syringe Inject 0.3 mg as directed. 1 Active fluticasone propionate (FLONASE) 50 mcg/actuation nasal spray 100 mcg by Nasal route. 0 Active LORazepam (ATIVAN) 0.5 MG tablet Take 0.5 mg by mouth. 1 Active metFORMIN (GLUCOPHAGE-XR) 500 MG 24 hr tablet take 2 tablets by mouth twice a day 1 Active pantoprazole (PROTONIX) 40 MG tablet TAKE 1 TABLET BY MOUTH DAILY 1 Active sertraline (ZOLOFT) 50 MG tablet Take 50 mg by mouth. 1 Active spironolactone (ALDACTONE) 100 MG tablet Take 100 mg by mouth. 1 Active FENOFIBRATE ORAL Take by mouth. Active albuterol 90 mcg/actuation inhalerIndication s:Other asthma Inhale 2 puffs into the lungs every 6 (six) hours as needed for wheezing. 1 Inhaler 07/27/202 1 Active semaglutide (WEGOVY) 2.4 mg/0.75 mL subcutaneous pen injectionIndicati ons:last dose Friday Inject 2.4 mg under the skin every 7 days. Indications: last dose Friday Active Active Problems Problem Noted Date Diagnosed Date Obesity 03/07/2017 Asthma 02/18/2017 Chronic nonalcoholic liver disease 02/18/2017 Esophageal reflux 02/18/2017 Hypertriglyceridemia 02/18/2017 Thrombocytosis 02/18/2017 Overview (04/03/2021): Per transfer records - OCPs stopped due to mild thrombocytosis - plt 455 (2015). Polycystic ovaries 05/28/2007 Depression 12/06/2005 Migraine 12/06/2005 Social History Tobacco Use Types Packs/Day Years Used Date Smoking Tobacco: Every Day Smokeless Tobacco: Never Alcohol Use Standard Drinks/Week Comments Never 0 (1 standard drink = 0.6 oz pur e alcohol) Education Answer Date Recorded Are you interested in more education? Not on yary e 01/03/2023 Are you concerned about learning? Not on file 01/03/2023 No 01/03/2023 No 01/03/2023 Digital Access Answer Date Recorded No 01/31/2023 No 01/31/2023 Reliable internet access at home? Not on file 01/31/2023 Device with a working camera? Not on file Intimate Partner Violence Answer Date R ecorded Are you denied basic needs s [facility] as food, clothing, or medical care? No 08/10/2023 In the past 12 months have y ou been in a relationship with a person who hurts, threatens, or tries to control you? No 08/10/2023 Are you denied basic needs s [facility] as food, clothing, or medical care? No 08/10/2023 In the past 12 months have y ou been in a relationship with a person who hurts, threatens, or tries to control you? No 08/10/2023 Comments Unknown Sex and Gender Information Value Date Recorded Sex Assigned at Female 08/10/2023 6:34 AM EST Legal Sex Female 9:19 PM EDT Gender Identity Female 08/10/2023 6:34 AM EST Sexual Orientation Straight 08/10/2023 6: 34 AM EST Last Filed Vital Signs Vital Sign Reading Time Taken Comments Blood Pressure 108/73 08/10/2023 12:51 PM EST Pulse 79 08/10/2023 12:51 PM EST Temperature 36.8 C (98.2 F) 08/10/2023 12:51 PM EST Respiratory Rate 16 08/10/2023 12:51 PM EST Oxygen Saturation 100% 08/10/2023 12:51 PM EST Inhaled Oxygen Concentration - - Weight 88.9 kg (196 lb) 08/10/2023 6:33 AM EST Height 162.6 cm (5' 4 ) 08/10/2023 6:33 AM EST Body Mass Index 33.64 08/10/2023 6:33 AM EST Plan of Treatment Health Maintenance Due Date Last Done Comments DEPRESSION SCREENING 1994 SMOKING Hx and SMOKELESS TOBACCO SCREENING 1995 HEPATITIS C SCREENING 2000 HIV ONE-TIME SCREENING (18-6 5 YEARS) 2000 HEPATITIS A VACCINES (1 of 2 - Risk 2-dose series) 2001 PAP SMEAR 2003 PNEUMOCOCCAL VACCINES (0-49 years) (2 of 2 - PCV) 11/19/2019 11/18/2018 MAMMOGRAM 2022 COVID-19 VACCINE ( - 2023-2 5 season) 2024 09/27/2020, 08/30/2020 CREATININE LEVEL 08/10/2024 08/10/2023 SCREENING FOR DIABETES 08/10/2026 08/10/2023 Adult Td,Tdap Booster 11/18/2028 11/18/2018 HIB VACCINES Aged Out No longer eligi ble based on patient's age to complete this topic MENINGOCOCCAL VACCINES (ACWY) Aged Out No longer eligible based on patient's age to complete this topic MENINGOCOCCAL VACCINES (B) Aged Out N o longer eligible based on patient's age to complete this topic Medical Devices Not on file Procedures Procedure Name Priority Date/Time Associated Diagnosis Comments BASIC METABOLIC PANEL STAT 08/10/2023 7:38 AM EST from Last 3 Months or Most Recently Relevant to Health Maintenance Results * Basic metabolic panel (08/10/2023 7:38 AM EST) SODIUM 141 133 - 146 mmol/L [facility] CHLORIDE 102 96 - 108 mmol/L [facility] POTASSIUM 3.9 3.3 - 5.1 mmol/L [facility] CO2 24 21 - 35 mmol/L [facility] BUN 13 6 - 19 mg/dL [facility] CREATININE 0.80 0.5 - 1.5 mg/dL [facility] GLUCOSE 95 70 - 99 mg/dL [facility] CALCIUM 9.9 8.4 - 10.3 mg/dL [facility] EGFR 95 >59 mL/min/1.7 3m2 [facility] Comment:Estimated glomerular filtration rate calculated using the CKD-EPI refit equation. ANION GAP 19 10 - 20 mmol/L [facility] Blood 08/10/2023 7:38 AM EST 08/10/2023 7:40 AM EST John Zuniga MD LAB BLOOD [place]AB[place] [address] from Last 3 Months or Most Recently Relevant to Health Maintenance Insurance [address] [place] [id number] [place] [id number] [facility] H[facility] Care Teams Flap Presser Relationship Specialty Start Date End Date Komal Ghotra MD [address] [place] [address] PCP - General Internal Medicine 08/10/23 Additional Source Comments The information contained in this document represents components of the legal health record. It is not the complete legal health record.[facility]
--- OUTSIDE RECORDS SUMMARY | 2025-04-13 16:20 | XMS_ITS ---
Author Name [facility] ([place], [place]) Organization Unknown Care Team Organization Name Specialty Phone Email Start Date End Da te [facility] Maldonado Leslie Primary Care 05/15/2023 [facility] Rosalva, PROVIDER Primary Care 07/16/202204/08
--- OUTSIDE RECORDS SUMMARY | 2025-04-13 16:20 | XMS_ITS | Patient Health Record ---
Author Organization [facility] [address] Address [address] [place] [address] Care Team Providers Care Residential Monitor Name Role Phone VERNELL TAM Unavailable [phone] REGIS WATSON Unavailable [phone] Allergies No Known Allergies Reason For Referral Reason Sleep Medicine Servi thom Diagnosis 1 Daytime sleepiness ( R40.0) Diagnosis 2 Habitual snoring (R0 6.83) Referral Organization [facility] [address] Referring Provider First Name VERNELL Referring Provider Last Name ANEL Referring Provider Speciality Internal M edicine Referred Provider Specialty Pulmonology General Notes Cyndy Zazueta 07/2025 08:58:56 AM > referral form faxed to [phone] and pt given phone [phone] to call and make an appt. Clinical [...] Problem Obesity due to exces s calories (915237703) Other obesity due to excess calories (E66.09) Active confirmed Problem Mixed hyperlipidemia (409604700) Mixed hyperlipidemia (E78.2) Active confirmed Problem Lipid screening (537564542) Encounter for screening for lipoid disorders (Z13.220) Active confirmed Problem Irritable bowel syndrome characterized by constipation (539657108) Irritable bowel syndrome with constipation (K58.1) Active confirmed Problem Anxiety (46348214) Anxiety (F41.9) Active confi rmed Problem Adult health examination (361052677) Adult general medical exam (Z00.00) Active confirmed Problem Obstructive sleep apnea syndrome (85788511) HARMAN (obstructive sleep apnea) (G47.33) Active confirmed Problem Diabetes mellitus screening (094558296) Diabetes mellitus screening (Z13.1) Active confirmed Problem Body mass index 35.0 0 to 39.99 (562248574825723) Body mass index [BMI] 36.0-36.9, adult (Z68.36) Active confirmed Problem Obese class II (053925693335287) BMI 37.0-37.9, adult (Z68.37) Active confirmed Problem Obese class II (246683980326249) BMI 35.0-35.9,adult (Z68.35) Active confirmed Problem Obese class I (509470536297923) BMI 33.0-33.9,adult (Z68.33) Active confirmed Problem BMI 30+ - obesity (208171990) BMI 32.0-32.9,adult (Z68.32) Active confirmed Problem Diabetes mellitus screening (427807111) Screening for diabetes mellitus (Z13.1) Active confirmed Problem Polycystic ovary syndrome (disorder) (942526466) PCOS (polycystic ovarian syndrome) (E28.2) Active confirmed Problem Hypertriglyceridemia (161470119) Hypertriglyceridemia (E78.1) Active confirmed Problem Vitamin B>12< deficiency anaemia (17707117) Anemia due to vitamin B12 deficiency, unspecified B12 deficiency type (D51.9) Active confirmed Problem Obese class II (960392466000922) BMI 38.0-38.9,adult (Z68.38) Active confirmed Problem Body mass index 30.0 0 to 34.99 (533516898747392) BMI 31.0-31.9,adult (Z68.31) Active confirmed Problem Adult-onset obesity (491147153) Adult-onset obesity (E66.9) Active confirmed Problem Body mass index 30.0 0 to 34.99 (418802610808461) BMI 34.0-34.9,adult (Z68.34) Active confirmed Problem Daytime somnolence (552874690335) Daytime somnolence (R40.0) Active confirmed Problem Screening for cardiovascular system disease (697678063) Screening for cardiovascular condition (Z13.6) Active confirmed Problem Gastroesophageal reflux disease (572811978) GERD without esophagitis (K21.9) Active confirmed Problem Excessive daytime sleepiness - normal night sleep (352345910) Daytime sleepiness (R40.0) Active confirmed Problem Avitaminosis D (85588908) Avitaminosis D (E55.9) Active confirmed Problem Endocrine/metabolic screening (691990834) Encounter for screening for endocrine disorder (Z13.29) Active confirmed Problem Lipid screening (512155370) Lipid screening (Z13.220) Active confirmed Problem Habitual snoring (731424890) Habitual snoring (R06.83) Active confirmed Vital Signs Heart Rate 98 /min 03/03/2025 Oximetry 99 % 03/03/2025 Blood pressure diastolic 82 mm Hg 03/03/2025 Height 64 in 03/03/2025 Blood pressure systolic 124 mm Hg 03/03/2025 Weight 209.7 lbs 03/03/2025 BMI 35.99 kg/m2 03/03/2025 Encounters Encounter Location Date Provider Diagnosis [facility] [address] [address] 04/14/2024 VERNELL TAM Other obesity due to excess calories E66.09 ; BMI 32.0-32.9,adult Z68.32 and Dietary counseling and surveillance Z71.3 [facility] [address] [address] 06/17/2024 VERNELL PETTITHOT Other obesity due to excess calories E66.09 ; BMI 32.0-32.9,adult Z68.32 and Dietary counseling and surveillance Z71.3 [facility] [address] [address] 08/24/2024 REGIS WATSON Adult-onset obesity E66.9 ; BMI 33.0-33.9,adult Z68.33 ; PCOS (polycystic ovarian syndrome) E28.2 ; GERD without esophagitis K21.9 ; Anxiety F41.9 ; Mixed hyperlipidemia E78.2 and Irritable bowel syndrome with constipation K58.1 [facility] [address] [address] 09/21/2024 REGIS WATSON Adult-onset obesity E66.9 ; BMI 33.0-33.9,adult Z68.33 ; PCOS (polycystic ovarian syndrome) E28.2 ; GERD without esophagitis K21.9 ; Anxiety F41.9 ; Mixed hyperlipidemia E78.2 and Irritable bowel syndrome with constipation K58.1 [facility] [address] [address] 10/19/2024 VERNELL BORHOT Other obesity due to excess calories E66.09 ; BMI 34.0-34.9,adult Z68.34 ; Dietary counseling and surveillance Z71.3 ; Daytime somnolence R40.0 and Snoring R06.83 [facility] [address] [address] 11/30/2024 VERNELL BORHOT Other obesity due to excess calories E66.09 ; BMI 35.0-35.9,adult Z68.35 ; Dietary counseling and surveillance Z71.3 ; Daytime somnolence R40.0 ; Snoring R06.83 and HARMAN (obstructive sleep apnea) G47.33 [facility] [address] 01/11/2025 VERNELL BORHOT Other obesity due to excess calories E66.09 ; BMI 35.0-35.9,adult Z68.35 ; Dietary counseling and surveillance Z71.3 ; Daytime somnolence R40.0 ; Snoring R06.83 and HARMAN (obstructive sleep apnea) G47.33 [facility] [address] [address] 03/03/2025 VERNELL BORHOT Other obesity due to excess calories E66.09 ; BMI 35.0-35.9,adult Z68.35 ; Dietary counseling and surveillance Z71.3 ; HARMAN (obstructive sleep apnea) G47.33 ; Daytime somnolence R40.0 ; Snoring R06.83 and Encounter for examination of blood pressure without abnormal findings Z01.30 [facility] [address] [address] 08/24/2024 REGIS BIRKS [facility] [address] [address] 09/17/2024 REGIS BIRKS [facility] [address] [address] 03/03/2025 VERNELL BORHOT [facility] [address] [address] 09/21/2024 REGIS BIRKS [facility] [address] [address] 11/08/2024 VERNELL BORHOT Other obesity due to excess calories E66.09 [facility] [address] [address] 11/09/2024 VERNELL BORHOT [facility] [address] [address] 11/09/2024 VERNELL BORHOT [facility] [address] [address] 11/10/2024 VERNELL BORHOT Other obesity due to excess calories E66.09 [facility] [address] [address] 11/10/2024 VERNELL BORHOT Other obesity due to excess calories E66.09 [facility] [address] [address] 11/11/2024 VERNELL BORHOT [facility] [address] [address] 12/25/2024 VERNELL WILVERHOT HARMAN (obstructive sle ep apnea) G47.33 [facility] [address] [address] 01/27/2025 VERNELL BORHOT Other obesity due to excess calories E66.09 Assessments Encounter Date Diagnosis (ICD Code) Assessment Notes Treatment Notes Treatment Clinical Notes Section Notes 04/14/2024 Other obesity due to excess calories (ICD-10 - E66.09) #Weight Management 04/14/2024 Labs recently reviewed Continue 2.4 mg of Wegovy Will send Hayley to [facility] pharmacy per her request at $70 monthly [...] track activity level. Consider using apps like e[employer]olar, [employer], lose it, stick as needed for self-monitoring and weight management. Consider group exercises. Consider hiring a case filler. Regular exercise is brandon to sustainable health [...] counseling and psychiatry and Dr Cuevas at [facility]. We would like to cover regular topics [...] software and direct typing Please excuse inadvertent rigger up or typing errors, or uncorrected word substitutions Although every attempt has been made by the provider to proofread this document, occasional misspellings and typographical errors may still be present Due to the previous pandemic, and the use of personal protective equipment (PPE) This may decrease voice recognition accuracy Inadvertent rigger up errors may occur 04/14/2024 BMI 32.0-32.9,adult (ICD-10 - Z68.32) #Weight Management 04/14/2024 Labs recently reviewed Continue 2.4 mg of Wegovy Will send Contrfrieda to [facility] pharmacy per her request at $70 monthly [...] track activity level. Consider using apps like [employer]olar, [employer], lose it, stick as needed for self-monitoring and weight management. Consider group exercises. Consider hiring a case filler. Regular exercise is brandon to sustainable health [...] counseling and psychiatry and Dr Cuevas at [facility]. We would like to cover regular topics [...] software and direct typing Please excuse inadvertent rigger up or typing errors, or uncorrected word substitutions Although every attempt has been made by the provider to proofread this document, occasional misspellings and typographical errors may still be present Due to the previous pandemic, and the use of personal protective equipment (PPE) This may decrease voice recognition accuracy Inadvertent rigger up errors may occur 06/17/2024 Other obesity due [...] track activity level. Consider using apps like [employer]Solar, myfitnesspal, lose it, stick as needed for self-monitoring and weight management. Consider group exercises. Consider hiring a case filler. Regular exercise is brandon to sustainable health [...] counseling and psychiatry and Dr Cuevas at [facility]. We would like to cover regular topics [...] software and direct typing Please excuse inadvertent rigger up or typing errors, or uncorrected word substitutions Although every attempt has been made by the provider to proofread this document, occasional misspellings and typographical errors may still be present Due to the previous pandemic, and the use of personal protective equipment (PPE) This may decrease voice recognition accuracy Inadvertent rigger up errors may occur 08/24/2024 Adult-onset obesity (ICD-10 [...] is continuing to experience constipation. Has tried zcni-qwk-pnhrlfu medications like Colace, fiber, senna, and MiraLAX. [...] Dictation was accomplished with the use of [employer] voice recognition software, which is prone to [...] is continuing to experience constipation. Has tried rang-lbx-lebxlez medications like Colace, fiber, senna, and MiraLAX. [...] Dictation was accomplished with the use of [employer] voice recognition software, which is prone to [...] is continuing to experience constipation. Has tried zhok-ggq-sbjccim medications like Colace, fiber, senna, and MiraLAX. [...] Dictation was accomplished with the use of [employer] voice recognition software, which is prone to [...] software and direct typing Please excuse inadvertent rigger up or typing errors, or uncorrected word substitutions Although every attempt has been made by the provider to proofread this document, occasional misspellings and typographical errors may still be present Due to the previous pandemic, and the use of personal protective equipment (PPE) This may decrease voice recognition accuracy Inadvertent rigger up errors may occur 10/19/2024 BMI 34.0-34.9,adult (ICD-10 [...] software and direct typing Please excuse inadvertent rigger up or typing errors, or uncorrected word substitutions Although every attempt has been made by the provider to proofread this document, occasional misspellings and typographical errors may still be present Due to the previous pandemic, and the use of personal protective equipment (PPE) This may decrease voice recognition accuracy Inadvertent rigger up errors may occur 11/08/2024 Other obesity due [...] software and direct typing Please excuse inadvertent rigger up or typing errors, or uncorrected word substitutions Although every attempt has been made by the provider to proofread this document, occasional misspellings and typographical errors may still be present Due to the previous pandemic, and the use of personal protective equipment (PPE) This may decrease voice recognition accuracy Inadvertent rigger up errors may occur 11/30/2024 BMI 35.0-35.9,adult (ICD-10 [...] software and direct typing Please excuse inadvertent rigger up or typing errors, or uncorrected word substitutions Although every attempt has been made by the provider to proofread this document, occasional misspellings and typographical errors may still be present Due to the previous pandemic, and the use of personal protective equipment (PPE) This may decrease voice recognition accuracy Inadvertent rigger up errors may occur 12/25/2024 HARMAN (obstructive sleep apnea) (ICD-10 - G47.33) 01/11/2025 Other obesity due to excess calories (ICD-10 - E66.09) #Weight Management 01/11/2025 Comprehensive Labs 12/2024 at [facility] CBC stable Renal fun, electrolytes, and [...] software and direct typing Please excuse inadvertent rigger up or typing errors, or uncorrected word substitutions Although every attempt has been made by the provider to proofread this document, occasional misspellings and typographical errors may still be present Due to the previous pandemic, and the use of personal protective equipment (PPE) This may decrease voice recognition accuracy Inadvertent rigger up errors may occur 01/27/2025 Other obesity due [...] software and direct typing Please excuse inadvertent rigger up or typing errors, or uncorrected word substitutions Although every attempt has been made by the provider to proofread this document, occasional misspellings and typographical errors may still be present Due to the previous pandemic, and the use of personal protective equipment (PPE) This may decrease voice recognition accuracy Inadvertent rigger up errors may occur 03/03/2025 BMI 35.0-35.9,adult (ICD-10 [...] software and direct typing Please excuse inadvertent rigger up or typing errors, or uncorrected word substitutions Although every attempt has been made by the provider to proofread this document, occasional misspellings and typographical errors may still be present Due to the previous pandemic, and the use of personal protective equipment (PPE) This may decrease voice recognition accuracy Inadvertent rigger up errors may occur 01/11/2025 BMI 35.0-35.9,adult (ICD-10 - Z68.35) #Weight Management 01/11/2025 Comprehensive Labs 12/2024 at [facility] CBC stable Renal fun, electrolytes, and [...] software and direct typing Please excuse inadvertent rigger up or typing errors, or uncorrected word substitutions Although every attempt has been made by the provider to proofread this document, occasional misspellings and typographical errors may still be present Due to the previous pandemic, and the use of personal protective equipment (PPE) This may decrease voice recognition accuracy Inadvertent rigger up errors may occur 03/03/2025 Dietary counseling and [...] software and direct typing Please excuse inadvertent rigger up or typing errors, or uncorrected word substitutions Although every attempt has been made by the provider to proofread this document, occasional misspellings and typographical errors may still be present Due to the previous pandemic, and the use of personal protective equipment (PPE) This may decrease voice recognition accuracy Inadvertent rigger up errors may occur 11/30/2024 Dietary counseling and [...] software and direct typing Please excuse inadvertent rigger up or typing errors, or uncorrected word substitutions Although every attempt has been made by the provider to proofread this document, occasional misspellings and typographical errors may still be present Due to the previous pandemic, and the use of personal protective equipment (PPE) This may decrease voice recognition accuracy Inadvertent rigger up errors may occur 10/19/2024 Dietary counseling and [...] software and direct typing Please excuse inadvertent rigger up or typing errors, or uncorrected word substitutions Although every attempt has been made by the provider to proofread this document, occasional misspellings and typographical errors may still be present Due to the previous pandemic, and the use of personal protective equipment (PPE) This may decrease voice recognition accuracy Inadvertent rigger up errors may occur 08/24/2024 PCOS (polycystic ovarian [...] is continuing to experience constipation. Has tried zawd-cky-znlqwan medications like Colace, fiber, senna, and MiraLAX. [...] Dictation was accomplished with the use of [employer] voice recognition software, which is prone to [...] is continuing to experience constipation. Has tried auok-epd-snektue medications like Colace, fiber, senna, and MiraLAX. [...] Dictation was accomplished with the use of [employer] voice recognition software, which is prone to [...] track activity level. Consider using apps like [employer]olar, myfitnesspal, lose it, stick as needed for self-monitoring and weight management. Consider group exercises. Consider hiring a case filler. Regular exercise is brandon to sustainable health [...] counseling and psychiatry and Dr Cuevas at [facility]. We would like to cover regular topics [...] software and direct typing Please excuse inadvertent rigger up or typing errors, or uncorrected word substitutions Although every attempt has been made by the provider to proofread this document, occasional misspellings and typographical errors may still be present Due to the previous pandemic, and the use of personal protective equipment (PPE) This may decrease voice recognition accuracy Inadvertent rigger up errors may occur 04/14/2024 Dietary counseling and surveillance (ICD-10 - Z71.3) #Weight Management 04/14/2024 Labs recently reviewed Continue 2.4 mg of Wegovy Will send Hayley to [facility] pharmacy per her request at $70 monthly [...] track activity level. Consider using apps like [employer]olar, myfitnesspal, lose it, stick as needed for self-monitoring and weight management. Consider group exercises. Consider hiring a case filler. Regular exercise is brandon to sustainable health [...] counseling and psychiatry and Dr Cuevas at [facility]. We would like to cover regular topics [...] software and direct typing Please excuse inadvertent rigger up or typing errors, or uncorrected word substitutions Although every attempt has been made by the provider to proofread this document, occasional misspellings and typographical errors may still be present Due to the previous pandemic, and the use of personal protective equipment (PPE) This may decrease voice recognition accuracy Inadvertent rigger up errors may occur 06/17/2024 Dietary counseling and [...] Consider using apps like 7 [employer]ion[employer] excercise, [employer] Labsp[employer], lose it, stick as needed for self-monitoring and weight management. Consider group exercises. Consider hiring a case filler. Regular exercise is brandon to sustainable health [...] counseling and psychiatry and Dr Cuevas at [facility]. We would like to cover regular topics [...] software and direct typing Please excuse inadvertent rigger up or typing errors, or uncorrected word substitutions Although every attempt has been made by the provider to proofread this document, occasional misspellings and typographical errors may still be present Due to the previous pandemic, and the use of personal protective equipment (PPE) This may decrease voice recognition accuracy Inadvertent rigger up errors may occur 08/24/2024 GERD without esophagitis (ICD-10 - K21.9) [...] is continuing to experience constipation. Has tried sled-lqn-ffaghae medications like Colace, fiber, senna, and MiraLAX. [...] Dictation was accomplished with the use of [employer] voice recognition software, which is prone to medical misidentifications and grammatical errors. This are unintentional and the practitioner does try to identify and correct these, but some could still be present. Please do not hesitate to contact practitioner for clarification. 09/21/2024 PCOS (polycystic ovarian syndrome) (ICD-10 - [...] is continuing to experience constipation. Has tried ahyd-bye-dfcynlp medications like Colace, fiber, senna, and MiraLAX. [...] Dictation was accomplished with the use of [employer] voice recognition software, which is prone to [...] software and direct typing Please excuse inadvertent rigger up or typing errors, or uncorrected word substitutions Although every attempt has been made by the provider to proofread this document, occasional misspellings and typographical errors may still be present Due to the previous pandemic, and the use of personal protective equipment (PPE) This may decrease voice recognition accuracy Inadvertent rigger up errors may occur 11/30/2024 Daytime somnolence (ICD-10 [...] software and direct typing Please excuse inadvertent rigger up or typing errors, or uncorrected word substitutions Although every attempt has been made by the provider to proofread this document, occasional misspellings and typographical errors may still be present Due to the previous pandemic, and the use of personal protective equipment (PPE) This may decrease voice recognition accuracy Inadvertent rigger up errors may occur 01/11/2025 Dietary counseling and surveillance (ICD-10 - Z71.3) #Weight Management 01/11/2025 Comprehensive Labs 12/2024 at [facility] CBC stable Renal fun, electrolytes, and [...] software and direct typing Please excuse inadvertent rigger up or typing errors, or uncorrected word substitutions Although every attempt has been made by the provider to proofread this document, occasional misspellings and typographical errors may still be present Due to the previous pandemic, and the use of personal protective equipment (PPE) This may decrease voice recognition accuracy Inadvertent rigger up errors may occur 03/03/2025 HARMAN (obstructive sleep [...] software and direct typing Please excuse inadvertent rigger up or typing errors, or uncorrected word substitutions Although every attempt has been made by the provider to proofread this document, occasional misspellings and typographical errors may still be present Due to the previous pandemic, and the use of personal protective equipment (PPE) This may decrease voice recognition accuracy Inadvertent rigger up errors may occur 01/11/2025 Daytime somnolence (ICD-10 - R40.0) #Weight Management 01/11/2025 Comprehensive Labs 12/2024 at [facility] CBC stable Renal fun, electrolytes, and [...] software and direct typing Please excuse inadvertent rigger up or typing errors, or uncorrected word substitutions Although every attempt has been made by the provider to proofread this document, occasional misspellings and typographical errors may still be present Due to the previous pandemic, and the use of personal protective equipment (PPE) This may decrease voice recognition accuracy Inadvertent rigger up errors may occur 03/03/2025 Daytime somnolence (ICD-10 [...] software and direct typing Please excuse inadvertent rigger up or typing errors, or uncorrected word substitutions Although every attempt has been made by the provider to proofread this document, occasional misspellings and typographical errors may still be present Due to the previous pandemic, and the use of personal protective equipment (PPE) This may decrease voice recognition accuracy Inadvertent rigger up errors may occur 11/30/2024 Snoring (ICD-10 - [...] software and direct typing Please excuse inadvertent rigger up or typing errors, or uncorrected word substitutions Although every attempt has been made by the provider to proofread this document, occasional misspellings and typographical errors may still be present Due to the previous pandemic, and the use of personal protective equipment (PPE) This may decrease voice recognition accuracy Inadvertent rigger up errors may occur 10/19/2024 Snoring (ICD-10 - [...] software and direct typing Please excuse inadvertent rigger up or typing errors, or uncorrected word substitutions Although every attempt has been made by the provider to proofread this document, occasional misspellings and typographical errors may still be present Due to the previous pandemic, and the use of personal protective equipment (PPE) This may decrease voice recognition accuracy Inadvertent rigger up errors may occur 09/21/2024 GERD without esophagitis [...] is continuing to experience constipation. Has tried hprw-fcy-xmzrvtj medications like Colace, fiber, senna, and MiraLAX. [...] Dictation was accomplished with the use of [employer] voice recognition software, which is prone to [...] is continuing to experience constipation. Has tried dvbo-slp-tqmluic medications like Colace, fiber, senna, and MiraLAX. [...] Dictation was accomplished with the use of [employer] voice recognition software, which is prone to [...] is continuing to experience constipation. Has tried hfmc-uod-egwgyhy medications like Colace, fiber, senna, and MiraLAX. [...] Dictation was accomplished with the use of [employer] voice recognition software, which is prone to [...] is continuing to experience constipation. Has tried ttms-coh-swowqoh medications like Colace, fiber, senna, and MiraLAX. [...] Dictation was accomplished with the use of [employer] voice recognition software, which is prone to medical misidentifications and grammatical errors. This are unintentional and the practitioner does try to identify and correct these, but some could still be present. Please do not hesitate to contact practitioner for clarification. 01/11/2025 Snoring (ICD-10 - R06.83) #Weight Management 01/11/2025 Comprehensive Labs 12/2024 at [facility] CBC stable Renal fun, electrolytes, and [...] software and direct typing Please excuse inadvertent rigger up or typing errors, or uncorrected word substitutions Although every attempt has been made by the provider to proofread this document, occasional misspellings and typographical errors may still be present Due to the previous pandemic, and the use of personal protective equipment (PPE) This may decrease voice recognition accuracy Inadvertent rigger up errors may occur 11/30/2024 HARMAN (obstructive sleep [...] software and direct typing Please excuse inadvertent rigger up or typing errors, or uncorrected word substitutions Although every attempt has been made by the provider to proofread this document, occasional misspellings and typographical errors may still be present Due to the previous pandemic, and the use of personal protective equipment (PPE) This may decrease voice recognition accuracy Inadvertent rigger up errors may occur 03/03/2025 Snoring (ICD-10 - [...] software and direct typing Please excuse inadvertent rigger up or typing errors, or uncorrected word substitutions Although every attempt has been made by the provider to proofread this document, occasional misspellings and typographical errors may still be present Due to the previous pandemic, and the use of personal protective equipment (PPE) This may decrease voice recognition accuracy Inadvertent rigger up errors may occur 03/03/2025 Encounter for examination [...] software and direct typing Please excuse inadvertent rigger up or typing errors, or uncorrected word substitutions Although every attempt has been made by the provider to proofread this document, occasional misspellings and typographical errors may still be present Due to the previous pandemic, and the use of personal protective equipment (PPE) This may decrease voice recognition accuracy Inadvertent rigger up errors may occur 01/11/2025 HARMAN (obstructive sleep apnea) (ICD-10 - G47.33) #Weight Management 01/11/2025 Comprehensive Labs 12/2024 at [facility] CBC stable Renal fun, electrolytes, and [...] software and direct typing Please excuse inadvertent rigger up or typing errors, or uncorrected word substitutions Although every attempt has been made by the provider to proofread this document, occasional misspellings and typographical errors may still be present Due to the previous pandemic, and the use of personal protective equipment (PPE) This may decrease voice recognition accuracy Inadvertent rigger up errors may occur 08/24/2024 Irritable bowel syndrome [...] is continuing to experience constipation. Has tried hwqp-jid-uzxowrx medications like Colace, fiber, senna, and MiraLAX. [...] Dictation was accomplished with the use of [employer] voice recognition software, which is prone to [...] is continuing to experience constipation. Has tried lntx-ogo-qrysblf medications like Colace, fiber, senna, and MiraLAX. [...] Dictation was accomplished with the use of [employer] voice recognition software, which is prone to [...] is continuing to experience constipation. Has tried sqwr-gck-eegkpcg medications like Colace, fiber, senna, and MiraLAX. [...] Dictation was accomplished with the use of [employer] voice recognition software, which is prone to [...] Provider Name:VERNELL TAM, 04/14/2025 02:30:00 PM, [address] [facility], [address], [place], [id number], Insurance Providers Payer Name Payer Address Payer Phone Subscriber Number Group Number Insured Name Patient Relationship to Insured Coverage Start Date Coverage End Date [facility] [address] [place] [address] [phone] [id number] Caroline Bernard Self - patient is the [...]
--- OUTSIDE RECORDS SUMMARY | 2025-04-13 16:20 | XMS_ITS | Encounter Summary ---
Author Organization [employer] Address [address] [place] [address] [address] [place] [address] Care Team Providers Care Manager Asset Name Role Phone Komal Ghotra MD Primary Care Provide r Encounter Details Date Type Department Care Team (Late st Contact Info) Description 04/01/[address] [facility] MEDICINE [address] [place] [address] [phone] Komal Ghotra MD [address] [place], [place] [phone] Social History Tobacco Use Types Packs/Day Years [...] on filedocumented in this encounter Care Teams Manager Asset Relationship Specialty Start Date End Date Komal Ghotra MD [address] [place] [address] [phone] PCP - General Family Medicine 12/20/21 documented as of this encounter
== END 2025-04-13 16:34 | disposition home or self-care (01) ==
LOC: HO.HWS 16:03
PROVIDERS: PCP Internal Medicine; Visit Provider Obstetrics & Gynecology
DX: N83.299 Other ovarian cyst, unspecified side (principal)
CPT/HCPCS: 99213

== ENCOUNTER 2025-05-13 11:05 | Outpatient (REF) | payer OTHER, SELFPAY ==
--- OUTSIDE RECORDS SUMMARY | 2025-05-13 12:09 | XMS_ITS | Clinical Summary ---
Author Organization [facility] Address [address] [address] Phone Care Team Providers Care Property Field Adjuster Name Role Phone Komal Gray MD Primary Care Provider Allergies Active Allergy [...] hours as needed for wheezing. 1 Inhaler Active semaglutide (WEGOVY) 2.4 mg/0.75 mL subcutaneous [...] ecorded Are you denied basic needs s uch as food, clothing, or medical care? No 08/10/2023 In the past 12 months have y ou been in a relationship with a person who hurts, threatens, or tries to control you? No 08/10/2023 Are you denied basic needs s uch as food, clothing, or medical care? No [...] HEPATITIS C SCREENING 2000 HIV ONE-TIME SCREENING (18-65 YEARS) 2000 HEPATITIS A VACCINES (1 of 2 - Risk 2-dose series) 2001 PAP SMEAR 2003 PNEUMOCOCCAL VACCINES (0-49 years) (2 of 2 - PCV) 11/19/2019 11/18/2018 MAMMOGRAM 2022 CREATININE LEVEL 08/10/2024 08/10/2023 INFLUENZA VACCINE (#1) 2025 , 05/19/2019, 05/20/2018, Additional history exists COVID-19 VACCINE ( season) 2025 09/27/2020, 08/30/2020 SCREENING FOR DIABETES 08/10/2026 08/10/2023 Adult Td,Tdap [...] EST) SODIUM 141 133 - 146 mmol/L [facility] CHLORIDE 102 96 - 108 mmol/L [facility] POTASSIUM 3.9 3.3 - 5.1 mmol/L [facility] CO2 24 21 - 35 mmol/L [facility] BUN 13 6 - 19 mg/dL [facility] CREATININE 0.80 0.5 - 1.5 mg/dL [facility] GLUCOSE 95 70 - 99 mg/dL [facility] CALCIUM 9.9 8.4 - 10.3 mg/dL [facility] EGFR 95 >59 mL/min/1.7 3m2 [facility] Comment:Estimated glomerular filtration rate calculated using the CKD-EPI refit equation. ANION GAP 19 10 - 20 mmol/L [facility] Blood 08/10/2023 7:38 AM EST 08/10/2023 7:40 AM EST us John Zuniga MD LAB BLOOD ORDERABLES Final Result [facility] [address] [place], [place] [phone] from Last 3 Months or Most Recently Relevant to Health Maintenance Insurance [facility] [address] [place] [address] [facility] Address: [address] [address] Care Teams Property Field Adjuster Relationship Specialty Start Date End Date Komal Gray MD [address] [place] [phone] PCP - General Internal Medicine 08/10/23 Additional Source Comments The information contained in this document represents components of the legal health record. It is not the complete legal health record.[facility]
--- OUTSIDE RECORDS SUMMARY | 2025-05-13 12:09 | XMS_ITS | Encounter Summary ---
Author Organization [facility] Address [address] [facility] [address] [place] [phone] Phone Care Team Providers Care Enthone Solder Stripper Name Role Phone Komal Gray MD Primary Care Provider Encounter Details Date Type Department Care Team (Late st Contact Info) Description 08/10/2023 Procedure Pass [facility], Ct Scan - [address] [phone] Social History Tobacco Use Types Packs/Day Years [...] Orientation Straight 08/10/2023 6: 34 AM EST documented as of this encounter Plan of Treatment Not on file documented as of this encounter Visit Diagnoses Not on filedocumented in this encounter Care Teams Enthone Solder Stripper Relationship Specialty Start Date End Date Komal Gray MD [address] [place] [phone] PCP - General Internal Medicine 08/10/23 documented as of this encounter Additional Source Comments The information contained in this document represents components of the legal health record. It is not the complete legal health record.[facility]
--- OUTSIDE RECORDS SUMMARY | 2025-05-13 12:09 | XMS_ITS | Encounter Summary ---
Author Organization [employer] Address [address] [place] [address] [address] [place] [address] Care Team Providers Care Block Cleaner Name Role Phone Komal Ghotra MD Primary Care Provide r Encounter Details Date Type Department Care Team (Late st Contact Info) Description 04/01/2023 Orders Only [facility] MEDICINE [address] [place] [address] [phone] Komal Ghotra MD [address] [place], [place] [phone] Social History Tobacco Use Types Packs/Day Years [...] on filedocumented in this encounter Care Teams Block Cleaner Relationship Specialty Start Date End Date Komal Ghotra MD [address] [place] [address] [phone] PCP - General Family Medicine 12/20/21 documented as of this encounter
--- OUTSIDE RECORDS SUMMARY | 2025-05-13 12:09 | XMS_ITS | Encounter Summary ---
Author Organization [employer] Address [address] [place] [address] [address] [place] [address] Care Team Providers Care Java Analyst Name Role Phone Komal Ghotra MD Primary Care Provide r Encounter Details Date Type Department Care Team (Late st Contact Info) Description 05/30/2023 Orders Only [facility] MEDICINE [address] [place], [place] [phone] Provider, Maria G, Social History Tobacco Use [...] on filedocumented in this encounter Care Teams Java Analyst Relationship Specialty Start Date End Date Komal Ghotra MD [address] [place], [place] [phone] PCP - General Family Medicine 12/20/21 documented as of this encounter
--- OUTSIDE RECORDS SUMMARY | 2025-05-13 12:09 | XMS_ITS | Encounter Summary ---
Author Organization [employer] Address [address] [place] [address] [address] [place] [address] Care Team Providers Care Splunk Consultant Name Role Phone Komal Ghotra MD Primary Care Provide r Encounter Details Date Type Department Care Team ([facility] st Contact Info) Description 03/29/2025 Orders Only [facility] & PEDS [address] [place], [place] [phone] Baltazar Luevano MD [address] [place] [address] Social History Tobacco Use Types Packs/Day Years [...] Diagnoses Not on filedocumented in this encounter Additional Health Concerns Assessment Noted Time PHQ-9 Depression Total Score: 0 09/09/19 25 11:24 AM EST documented as of this encounter Care Teams Splunk Consultant Relationship Specialty Start Date End Date Komal Ghotra MD [address] [place] [phone] PCP - General Family Medicine 12/20/21 documented as of this encounter
--- OUTSIDE RECORDS SUMMARY | 2025-05-13 12:09 | XMS_ITS | Patient Health Record ---
Author Organization [facility] [address] Address [address] [place] [address] Care Team Providers Care Shirt Presser Name Role Phone VERNELL TAM Unavailable [phone] REGIS WATSON Unavailable [phone] Allergies No Known Allergies Reason For Referral Reason Sleep Medicine Servi thom Diagnosis 1 Daytime sleepiness ( R40.0) Diagnosis 2 Habitual snoring (R0 6.83) Referral Organization [facility] [address] Referring Provider First Name VERNELL Referring Provider Last Name ANEL Referring Provider Speciality Internal M edicine Referred Provider Specialty Pulmonology General Notes Cyndy Zazueta 07/2025 08:58:56 AM > referral form faxed to [phone] and pt given phone [phone] to call and make an appt. Clinical Notes Nelly Milner 04:01:06 PM > I called the office and they informed me that they have contacted the patient and left her voicemails but has not received a callback yet Referral Priority Routine Medications Medication SIG (Take, Route, Frequency, Duration) Notes Start Date End Date Status Amitriptyline HCl 25 MG 1 tablet at bedt rangel Orally Once a day Active Pantoprazole Sodium 40 MG 1 tablet Orally Once a day Active Baby Aspirin Active Ondansetron 4 MG 1 tablet on the tong ue and allow to dissolve prn nausea/vomiting Orally Once a day; Duration: 30 days Active Probiotic 250 MG as directed Orally Active LORazepam 0.5 MG 1 tablet at bedtime as needed Orally Once a day Active Linzess 145 MCG 1 capsule at least 3 0 minutes before the first meal of the day on an empty stomach Orally Once a day; Duration: 30 days 08/24/2024 Active Spironolactone 100 MG 1 tablet Orally TW ICE DAILY Active Zepbound 10 MG/0.5ML INJECT 0.5 ML (10 M G) UNDER THE SKIN ONCE WEEKLY (0.5ML= 50 UNITS); Duration: 28 Active Contrave 8-90 MG Week 1, take 1 table t in the morning Week 2 take 1 tablet in the morning, 1 tablet in the evening Week 3 take 2 tablets in the morning, 1 tablet in the evening Week 4 onward 2 tablets in the morning, 2 tablets in the evening Orally twice a day; Duration: 30 days 04/14/2025 Active Sertraline HCl 150 MG 1 capsule Orally O nce a day Active metFORMIN HCl ER 500 MG 1 tablet with ev ening meal Orally twice a day; Duration: 90 days Active Social History Tobacco Use: Social History Observation Description Date Details (start date - stop date) Never Smoker NA - NA Tobacco Use/Smoking Question Answer Notes Are you a nonsmoker Problems Problem Type SNOMED Code ICD Code Onset Dates Problem Status W/U Status Risk Notes Problem Obesity due to exces s calories (177940202) Other obesity due to excess calories (E66.09) Active confirmed Problem Mixed hyperlipidemia (720759741) Mixed hyperlipidemia (E78.2) Active confirmed Problem Lipid screening (328718672) Encounter for screening for lipoid disorders (Z13.220) Active confirmed Problem Irritable bowel syndrome characterized by constipation (761906604) Irritable bowel syndrome with constipation (K58.1) Active confirmed Problem Anxiety (32019528) Anxiety (F41.9) Active confi rmed Problem Adult health examination (266658899) Adult general medical exam (Z00.00) Active confirmed Problem Obstructive sleep apnea syndrome (96713613) HARMAN (obstructive sleep apnea) (G47.33) Active confirmed Problem Diabetes mellitus screening (913451818) Diabetes mellitus screening (Z13.1) Active confirmed Problem Body mass index 35.0 0 to 39.99 (458108039362973) Body mass index [BMI] 36.0-36.9, adult (Z68.36) Active confirmed Problem Obese class II (465290347881361) BMI 37.0-37.9, adult (Z68.37) Active confirmed Problem Obese class II (292672654364911) BMI 35.0-35.9,adult (Z68.35) Active confirmed Problem Obese class I (337775807940565) BMI 33.0-33.9,adult (Z68.33) Active confirmed Problem BMI 30+ - obesity (110513176) BMI 32.0-32.9,adult (Z68.32) Active confirmed Problem Diabetes mellitus screening (083965200) Screening for diabetes mellitus (Z13.1) Active confirmed Problem Polycystic ovary syndrome (disorder) (735165676) PCOS (polycystic ovarian syndrome) (E28.2) Active confirmed Problem Hypertriglyceridemia (239193624) Hypertriglyceridemia (E78.1) Active confirmed Problem Vitamin B>12< deficiency anaemia (85995696) Anemia due to vitamin B12 deficiency, unspecified B12 deficiency type (D51.9) Active confirmed Problem Obese class II (717992785124777) BMI 38.0-38.9,adult (Z68.38) Active confirmed Problem Body mass index 30.0 0 to 34.99 (337414838598937) BMI 31.0-31.9,adult (Z68.31) Active confirmed Problem Adult-onset obesity (460400427) Adult-onset obesity (E66.9) Active confirmed Problem Body mass index 30.0 0 to 34.99 (873004234798968) BMI 34.0-34.9,adult (Z68.34) Active confirmed Problem Daytime somnolence (364959848892) Daytime somnolence (R40.0) Active confirmed Problem Screening for cardiovascular system disease (418483108) Screening for cardiovascular condition (Z13.6) Active confirmed Problem Gastroesophageal reflux disease (799652560) GERD without esophagitis (K21.9) Active confirmed Problem Excessive daytime sleepiness - normal night sleep (588924160) Daytime sleepiness (R40.0) Active confirmed Problem Avitaminosis D (53574489) Avitaminosis D (E55.9) Active confirmed Problem Endocrine/metabolic screening (237964104) Encounter for screening for endocrine disorder (Z13.29) Active confirmed Problem Lipid screening (648682851) Lipid screening (Z13.220) Active confirmed Problem Habitual snoring (215606219) Habitual snoring (R06.83) Active confirmed Vital Signs Heart Rate 90 /min 04/14/2025 Blood pressure diastolic 80 mm Hg 04/14/2025 Oximetry 97 % 04/14/2025 Height 64 in 04/14/2025 Blood pressure systolic 128 mm Hg 04/14/2025 Weight 203.4 lbs 04/14/2025 BMI 34.91 kg/m2 04/14/2025 Encounters Encounter Location Date Provider Diagnosis [facility] [address] [address] 06/17/2024 VERNELL BORHOT Other obesity due to excess calories E66.09 ; BMI 32.0-32.9,adult Z68.32 and Dietary counseling and surveillance Z71.3 [facility] [address] [address] 08/24/2024 REGIS WATSON Adult-onset obesity E66.9 ; BMI 33.0-33.9,adult Z68.33 ; PCOS (polycystic ovarian syndrome) E28.2 ; GERD without esophagitis K21.9 ; Anxiety F41.9 ; Mixed hyperlipidemia E78.2 and Irritable bowel syndrome with constipation K58.1 [facility] [address] [address] 09/21/2024 REGIS WATSON Adult-onset obesity E66.9 ; BMI 33.0-33.9,adult Z68.33 ; PCOS (polycystic ovarian syndrome) E28.2 ; GERD without esophagitis K21.9 ; Anxiety F41.9 ; Mixed hyperlipidemia E78.2 and Irritable bowel syndrome with constipation K58.1 [facility] [address] [address] 10/19/2024 VERNELL BORHOT Other obesity due to excess calories E66.09 ; BMI 34.0-34.9,adult Z68.34 ; Dietary counseling and surveillance Z71.3 ; Daytime somnolence R40.0 and Snoring R06.83 [facility] [address] [address] 11/30/2024 VERNELL BORHOT Other obesity due to excess calories E66.09 ; BMI 35.0-35.9,adult Z68.35 ; Dietary counseling and surveillance Z71.3 ; Daytime somnolence R40.0 ; Snoring R06.83 and HARMAN (obstructive sleep apnea) G47.33 [facility] [address] [address] 01/11/2025 VERNELL BORHOT Other obesity due to excess calories E66.09 ; BMI 35.0-35.9,adult Z68.35 ; Dietary counseling and surveillance Z71.3 ; Daytime somnolence R40.0 ; Snoring R06.83 and HARMAN (obstructive sleep apnea) G47.33 [facility] [address] [address] 03/03/2025 VERNELL BORHOT Other obesity due to excess calories E66.09 ; BMI 35.0-35.9,adult Z68.35 ; Dietary counseling and surveillance Z71.3 ; HARMAN (obstructive sleep apnea) G47.33 ; Daytime somnolence R40.0 ; Snoring R06.83 and Encounter for examination of blood pressure without abnormal findings Z01.30 [facility] [address] [address] 04/14/2025 VERNELL BORHOT Other obesity due to excess calories E66.09 ; BMI 34.0-34.9,adult Z68.34 ; Dietary counseling and surveillance Z71.3 ; HARMAN (obstructive sleep apnea) G47.33 and Encounter for examination of blood pressure without abnormal findings Z01.30 [facility] [address] [address] 08/24/2024 REGIS BIRKS [facility] [address] [address] 09/17/2024 REGIS BIRKS [facility] [address] [address] 03/03/2025 VERNELL BORHOT [facility] [address] [address] 09/21/2024 REGIS BIRKS [facility] [address] [address] 11/08/2024 VERNELL BORHOT Other obesity due to excess calories E66.09 [facility] [address] [address] 11/09/2024 VERNELL BORHOT [facility] [address] [address] 11/09/2024 VERNELL BORHOT [facility] [address] [address] 11/10/2024 VERNELL WILVERHOT Other obesity due to excess calories E66.09 [facility] [address] [address] 11/10/2024 VERNELL BORHOT Other obesity due to excess calories E66.09 [facility] [address] [address] 11/11/2024 VERNELL BORHOT [facility] [address] [address] 12/25/2024 VERNELL HOLLANDT HARMAN (obstructive sle ep apnea) G47.33 [facility] [address] [address] 01/27/2025 VERNELL PETTITHOT Other obesity due to excess calories E66.09 Assessments Encounter Date Diagnosis (ICD Code) Assessment Notes Treatment Notes Treatment Clinical Notes Section Notes 06/17/2024 Other obesity due to excess calories [...] track activity level. Consider using apps like [employer], meinKaufpal, lose it, stick as needed for self-monitoring and weight management. Consider group exercises. Consider hiring a link trainer. Regular exercise is brandon to sustainable [...] counseling and psychiatry and Dr Cuevas at [facility]. We would like to cover regular topics [...] software and direct typing Please excuse inadvertent family services coordinator or typing errors, or uncorrected word substitutions Although every attempt has been made by the provider to proofread this document, occasional misspellings and typographical errors may still be present Due to the previous pandemic, and the use of personal protective equipment (PPE) This may decrease voice recognition accuracy Inadvertent family services coordinator errors may occur 08/24/2024 Adult-onset obesity (ICD-10 [...] is continuing to experience constipation. Has tried nvvo-vsh-ievkius medications like Colace, fiber, senna, and MiraLAX. [...] Dictation was accomplished with the use of [employer] voice recognition software, which is prone to [...] is continuing to experience constipation. Has tried efuz-vux-mnuutfr medications like Colace, fiber, senna, and MiraLAX. [...] Dictation was accomplished with the use of [employer] Easy voice recognition software, which is prone to [...] is continuing to experience constipation. Has tried qasr-xys-clawdvp medications like Colace, fiber, senna, and MiraLAX. [...] Dictation was accomplished with the use of [employer] Easy voice recognition software, which is prone to [...] and indication for tirzepatide Sleep study Discussed St[employer], will send 2.5 in the interim Total [...] software and direct typing Please excuse inadvertent family services coordinator or typing errors, or uncorrected word substitutions Although every attempt has been made by the provider to proofread this document, occasional misspellings and typographical errors may still be present Due to the previous pandemic, and the use of personal protective equipment (PPE) This may decrease voice recognition accuracy Inadvertent family services coordinator errors may occur 10/19/2024 BMI 34.0-34.9,adult (ICD-10 - Z68.34) #Weight Management 10/19/2024 We discussed the new [place]mount HARMAN trial and indication for tirzepatide Sleep study Discussed [employer], will send 2.5 in the interim Total [...] software and direct typing Please excuse inadvertent family services coordinator or typing errors, or uncorrected word substitutions Although every attempt has been made by the provider to proofread this document, occasional misspellings and typographical errors may still be present Due to the previous pandemic, and the use of personal protective equipment (PPE) This may decrease voice recognition accuracy Inadvertent family services coordinator errors may occur 11/08/2024 Other obesity due [...] software and direct typing Please excuse inadvertent family services coordinator or typing errors, or uncorrected word substitutions Although every attempt has been made by the provider to proofread this document, occasional misspellings and typographical errors may still be present Due to the previous pandemic, and the use of personal protective equipment (PPE) This may decrease voice recognition accuracy Inadvertent family services coordinator errors may occur 11/30/2024 BMI 35.0-35.9,adult (ICD-10 [...] software and direct typing Please excuse inadvertent family services coordinator or typing errors, or uncorrected word substitutions Although every attempt has been made by the provider to proofread this document, occasional misspellings and typographical errors may still be present Due to the previous pandemic, and the use of personal protective equipment (PPE) This may decrease voice recognition accuracy Inadvertent family services coordinator errors may occur 12/25/2024 HARMAN (obstructive sleep apnea) (ICD-10 - G47.33) 01/11/2025 Other obesity due to excess calories (ICD-10 - E66.09) #Weight Management 01/11/2025 Comprehensive Labs 12/2024 at [facility] CBC stable Renal fun, electrolytes, and LFTs [...] software and direct typing Please excuse inadvertent family services coordinator or typing errors, or uncorrected word substitutions Although every attempt has been made by the provider to proofread this document, occasional misspellings and typographical errors may still be present Due to the previous pandemic, and the use of personal protective equipment (PPE) This may decrease voice recognition accuracy Inadvertent family services coordinator errors may occur 01/27/2025 Other obesity due [...] software and direct typing Please excuse inadvertent family services coordinator or typing errors, or uncorrected word substitutions Although every attempt has been made by the provider to proofread this document, occasional misspellings and typographical errors may still be present Due to the previous pandemic, and the use of personal protective equipment (PPE) This may decrease voice recognition accuracy Inadvertent family services coordinator errors may occur 03/03/2025 BMI 35.0-35.9,adult (ICD-10 [...] software and direct typing Please excuse inadvertent family services coordinator or typing errors, or uncorrected word substitutions Although every attempt has been made by the provider to proofread this document, occasional misspellings and typographical errors may still be present Due to the previous pandemic, and the use of personal protective equipment (PPE) This may decrease voice recognition accuracy Inadvertent family services coordinator errors may occur 04/14/2025 Other obesity due to excess calories (ICD-10 - E66.09) #Weight Management 04/14/2025 Continue metformin, spironolactone for PCOS Discussed with her hypoglycemia risk when combined with the dual incretin and that she needs to eat Down 4 pounds of fat mass She will continue 10 mg dosing cont contrave to target different pathway and to reduce cravings; She has decided against sleep study Total time spent today was 30 minutes of which greater than 50% was spent on coordinating and counseling Patient has been found to be obese with a BMI of (34.9). Patient has class (2) obesity Of note, some information is being carried forward from prior records for informational purposes only and is being cited so that efficiency, safety and quality of the patient's care is not compromised This note was prepared using voice recognition software and direct typing Please excuse inadvertent family services coordinator or typing errors, or uncorrected word substitutions Although every attempt has been made by the provider to proofread this document, occasional misspellings and typographical errors may still be present Due to the previous pandemic, and the use of personal protective equipment (PPE) This may decrease voice recognition accuracy Inadvertent family services coordinator errors may occur 04/14/2025 BMI 34.0-34.9,adult (ICD-10 - Z68.34) #Weight Management 04/14/2025 Continue metformin, spironolactone for PCOS Discussed with her hypoglycemia risk when combined with the dual incretin and that she needs to eat Down 4 pounds of fat mass She will continue 10 mg dosing cont contrave to target different pathway and to reduce cravings; She has decided against sleep study Total time spent today was 30 minutes of which greater than 50% was spent on coordinating and counseling Patient has been found to be obese with a BMI of (34.9). Patient has class (2) obesity Of note, some information is being carried forward from prior records for informational purposes only and is being cited so that efficiency, safety and quality of the patient's care is not compromised This note was prepared using voice recognition software and direct typing Please excuse inadvertent family services coordinator or typing errors, or uncorrected word substitutions Although every attempt has been made by the provider to proofread this document, occasional misspellings and typographical errors may still be present Due to the previous pandemic, and the use of personal protective equipment (PPE) This may decrease voice recognition accuracy Inadvertent family services coordinator errors may occur 04/14/2025 Dietary counseling and surveillance (ICD-10 - Z71.3) #Weight Management 04/14/2025 Continue metformin, spironolactone for PCOS Discussed with her hypoglycemia risk when combined with the dual incretin and that she needs to eat Down 4 pounds of fat mass She will continue 10 mg dosing cont contrave to target different pathway and to reduce cravings; She has decided against sleep study Total time spent today was 30 minutes of which greater than 50% was spent on coordinating and counseling Patient has been found to be obese with a BMI of (34.9). Patient has class (2) obesity Of note, some information is being carried forward from prior records for informational purposes only and is being cited so that efficiency, safety and quality of the patient's care is not compromised This note was prepared using voice recognition software and direct typing Please excuse inadvertent family services coordinator or typing errors, or uncorrected word substitutions Although every attempt has been made by the provider to proofread this document, occasional misspellings and typographical errors may still be present Due to the previous pandemic, and the use of personal protective equipment (PPE) This may decrease voice recognition accuracy Inadvertent family services coordinator errors may occur 01/11/2025 BMI 35.0-35.9,adult (ICD-10 - Z68.35) #Weight Management 01/11/2025 Comprehensive Labs 12/2024 at [facility] CBC stable Renal fun, electrolytes, and LFTs [...] software and direct typing Please excuse inadvertent family services coordinator or typing errors, or uncorrected word substitutions Although every attempt has been made by the provider to proofread this document, occasional misspellings and typographical errors may still be present Due to the previous pandemic, and the use of personal protective equipment (PPE) This may decrease voice recognition accuracy Inadvertent family services coordinator errors may occur 03/03/2025 Dietary counseling and [...] software and direct typing Please excuse inadvertent family services coordinator or typing errors, or uncorrected word substitutions Although every attempt has been made by the provider to proofread this document, occasional misspellings and typographical errors may still be present Due to the previous pandemic, and the use of personal protective equipment (PPE) This may decrease voice recognition accuracy Inadvertent family services coordinator errors may occur 11/30/2024 Dietary counseling and [...] software and direct typing Please excuse inadvertent family services coordinator or typing errors, or uncorrected word substitutions Although every attempt has been made by the provider to proofread this document, occasional misspellings and typographical errors may still be present Due to the previous pandemic, and the use of personal protective equipment (PPE) This may decrease voice recognition accuracy Inadvertent family services coordinator errors may occur 10/19/2024 Dietary counseling and [...] software and direct typing Please excuse inadvertent family services coordinator or typing errors, or uncorrected word substitutions Although every attempt has been made by the provider to proofread this document, occasional misspellings and typographical errors may still be present Due to the previous pandemic, and the use of personal protective equipment (PPE) This may decrease voice recognition accuracy Inadvertent family services coordinator errors may occur 08/24/2024 PCOS (polycystic ovarian [...] is continuing to experience constipation. Has tried vpcu-eiq-oloyune medications like Colace, fiber, senna, and MiraLAX. [...] Dictation was accomplished with the use of [employer] voice recognition software, which is prone to [...] is continuing to experience constipation. Has tried xfbz-asa-bguupsp medications like Colace, fiber, senna, and MiraLAX. [...] Dictation was accomplished with the use of [employer] voice recognition software, which is prone to [...] track activity level. Consider using apps like [employer] mionute exce2Catalyzeise, myfitnesspal, lose it, stick as needed for self-monitoring and weight management. Consider group exercises. Consider hiring a link trainer. Regular exercise is brandon to sustainable [...] counseling and psychiatry and Dr Cuevas at [facility]. We would like to cover regular topics [...] software and direct typing Please excuse inadvertent family services coordinator or typing errors, or uncorrected word substitutions Although every attempt has been made by the provider to proofread this document, occasional misspellings and typographical errors may still be present Due to the previous pandemic, and the use of personal protective equipment (PPE) This may decrease voice recognition accuracy Inadvertent family services coordinator errors may occur 06/17/2024 Dietary counseling and [...] track activity level. Consider using apps like [employer], meinKaufpal, lose it, stick as needed for self-monitoring and weight management. Consider group exercises. Consider hiring a link trainer. Regular exercise is brandon to sustainable [...] counseling and psychiatry and Dr Cuevas at [facility]. We would like to cover regular topics [...] software and direct typing Please excuse inadvertent family services coordinator or typing errors, or uncorrected word substitutions Although every attempt has been made by the provider to proofread this document, occasional misspellings and typographical errors may still be present Due to the previous pandemic, and the use of personal protective equipment (PPE) This may decrease voice recognition accuracy Inadvertent family services coordinator errors may occur 09/21/2024 PCOS (polycystic ovarian [...] is continuing to experience constipation. Has tried kfvb-hlx-dcuprbu medications like Colace, fiber, senna, and MiraLAX. [...] Dictation was accomplished with the use of [employer] voice recognition software, which is prone to [...] is continuing to experience constipation. Has tried gnew-eln-pdtifix medications like Colace, fiber, senna, and MiraLAX. [...] Dictation was accomplished with the use of [employer] voice recognition software, which is prone to [...] software and direct typing Please excuse inadvertent family services coordinator or typing errors, or uncorrected word substitutions Although every attempt has been made by the provider to proofread this document, occasional misspellings and typographical errors may still be present Due to the previous pandemic, and the use of personal protective equipment (PPE) This may decrease voice recognition accuracy Inadvertent family services coordinator errors may occur 11/30/2024 Daytime somnolence (ICD-10 [...] software and direct typing Please excuse inadvertent family services coordinator or typing errors, or uncorrected word substitutions Although every attempt has been made by the provider to proofread this document, occasional misspellings and typographical errors may still be present Due to the previous pandemic, and the use of personal protective equipment (PPE) This may decrease voice recognition accuracy Inadvertent family services coordinator errors may occur 03/03/2025 HARMAN (obstructive sleep [...] software and direct typing Please excuse inadvertent family services coordinator or typing errors, or uncorrected word substitutions Although every attempt has been made by the provider to proofread this document, occasional misspellings and typographical errors may still be present Due to the previous pandemic, and the use of personal protective equipment (PPE) This may decrease voice recognition accuracy Inadvertent family services coordinator errors may occur 01/11/2025 Dietary counseling and surveillance (ICD-10 - Z71.3) #Weight Management 01/11/2025 Comprehensive Labs 12/2024 at [facility] CBC stable Renal fun, electrolytes, and LFTs [...] software and direct typing Please excuse inadvertent family services coordinator or typing errors, or uncorrected word substitutions Although every attempt has been made by the provider to proofread this document, occasional misspellings and typographical errors may still be present Due to the previous pandemic, and the use of personal protective equipment (PPE) This may decrease voice recognition accuracy Inadvertent family services coordinator errors may occur 04/14/2025 HARMAN (obstructive sleep apnea) (ICD-10 - G47.33) #Weight Management 04/14/2025 Continue metformin, spironolactone for PCOS Discussed with her hypoglycemia risk when combined with the dual incretin and that she needs to eat Down 4 pounds of fat mass She will continue 10 mg dosing cont contrave to target different pathway and to reduce cravings; She has decided against sleep study Total time spent today was 30 minutes of which greater than 50% was spent on coordinating and counseling Patient has been found to be obese with a BMI of (34.9). Patient has class (2) obesity Of note, some information is being carried forward from prior records for informational purposes only and is being cited so that efficiency, safety and quality of the patient's care is not compromised This note was prepared using voice recognition software and direct typing Please excuse inadvertent family services coordinator or typing errors, or uncorrected word substitutions Although every attempt has been made by the provider to proofread this document, occasional misspellings and typographical errors may still be present Due to the previous pandemic, and the use of personal protective equipment (PPE) This may decrease voice recognition accuracy Inadvertent family services coordinator errors may occur 01/11/2025 Daytime somnolence (ICD-10 - R40.0) #Weight Management 01/11/2025 Comprehensive Labs 12/2024 at [facility] CBC stable Renal fun, electrolytes, and LFTs [...] software and direct typing Please excuse inadvertent family services coordinator or typing errors, or uncorrected word substitutions Although every attempt has been made by the provider to proofread this document, occasional misspellings and typographical errors may still be present Due to the previous pandemic, and the use of personal protective equipment (PPE) This may decrease voice recognition accuracy Inadvertent family services coordinator errors may occur 04/14/2025 Encounter for examination of blood pressure without abnormal findings (ICD-10 - Z01.30) #Weight Management 04/14/2025 Continue metformin, spironolactone for PCOS Discussed with her hypoglycemia risk when combined with the dual incretin and that she needs to eat Down 4 pounds of fat mass She will continue 10 mg dosing cont contrave to target different pathway and to reduce cravings; She has decided against sleep study Total time spent today was 30 minutes of which greater than 50% was spent on coordinating and counseling Patient has been found to be obese with a BMI of (34.9). Patient has class (2) obesity Of note, some information is being carried forward from prior records for informational purposes only and is being cited so that efficiency, safety and quality of the patient's care is not compromised This note was prepared using voice recognition software and direct typing Please excuse inadvertent family services coordinator or typing errors, or uncorrected word substitutions Although every attempt has been made by the provider to proofread this document, occasional misspellings and typographical errors may still be present Due to the previous pandemic, and the use of personal protective equipment (PPE) This may decrease voice recognition accuracy Inadvertent family services coordinator errors may occur 03/03/2025 Daytime somnolence (ICD-10 [...] dosing Will increase to 12.5 when Martha coronado has 12.5 mg dosing option on March [...] software and direct typing Please excuse inadvertent family services coordinator or typing errors, or uncorrected word substitutions Although every attempt has been made by the provider to proofread this document, occasional misspellings and typographical errors may still be present Due to the previous pandemic, and the use of personal protective equipment (PPE) This may decrease voice recognition accuracy Inadvertent family services coordinator errors may occur 11/30/2024 Snoring (ICD-10 - [...] software and direct typing Please excuse inadvertent family services coordinator or typing errors, or uncorrected word substitutions Although every attempt has been made by the provider to proofread this document, occasional misspellings and typographical errors may still be present Due to the previous pandemic, and the use of personal protective equipment (PPE) This may decrease voice recognition accuracy Inadvertent family services coordinator errors may occur 10/19/2024 Snoring (ICD-10 - [...] software and direct typing Please excuse inadvertent family services coordinator or typing errors, or uncorrected word substitutions Although every attempt has been made by the provider to proofread this document, occasional misspellings and typographical errors may still be present Due to the previous pandemic, and the use of personal protective equipment (PPE) This may decrease voice recognition accuracy Inadvertent family services coordinator errors may occur 09/21/2024 GERD without esophagitis [...] is continuing to experience constipation. Has tried amyw-fny-bxckzsx medications like Colace, fiber, senna, and MiraLAX. [...] Dictation was accomplished with the use of [employer] voice recognition software, which is prone to [...] is continuing to experience constipation. Has tried cmrl-ofl-ctmanhq medications like Colace, fiber, senna, and MiraLAX. [...] Dictation was accomplished with the use of [employer] voice recognition software, which is prone to [...] is continuing to experience constipation. Has tried xnbb-qea-aictovu medications like Colace, fiber, senna, and MiraLAX. [...] Dictation was accomplished with the use of [employer] voice recognition software, which is prone to [...] is continuing to experience constipation. Has tried qfos-cuh-neronbb medications like Colace, fiber, senna, and MiraLAX. [...] Dictation was accomplished with the use of [employer] voice recognition software, which is prone to [...] software and direct typing Please excuse inadvertent family services coordinator or typing errors, or uncorrected word substitutions Although every attempt has been made by the provider to proofread this document, occasional misspellings and typographical errors may still be present Due to the previous pandemic, and the use of personal protective equipment (PPE) This may decrease voice recognition accuracy Inadvertent family services coordinator errors may occur 01/11/2025 Snoring (ICD-10 - R06.83) #Weight Management 01/11/2025 Comprehensive Labs 12/2024 at [facility] CBC stable Renal fun, electrolytes, and LFTs [...] software and direct typing Please excuse inadvertent family services coordinator or typing errors, or uncorrected word substitutions Although every attempt has been made by the provider to proofread this document, occasional misspellings and typographical errors may still be present Due to the previous pandemic, and the use of personal protective equipment (PPE) This may decrease voice recognition accuracy Inadvertent family services coordinator errors may occur 03/03/2025 Snoring (ICD-10 - [...] software and direct typing Please excuse inadvertent family services coordinator or typing errors, or uncorrected word substitutions Although every attempt has been made by the provider to proofread this document, occasional misspellings and typographical errors may still be present Due to the previous pandemic, and the use of personal protective equipment (PPE) This may decrease voice recognition accuracy Inadvertent family services coordinator errors may occur 03/03/2025 Encounter for examination [...] software and direct typing Please excuse inadvertent family services coordinator or typing errors, or uncorrected word substitutions Although every attempt has been made by the provider to proofread this document, occasional misspellings and typographical errors may still be present Due to the previous pandemic, and the use of personal protective equipment (PPE) This may decrease voice recognition accuracy Inadvertent family services coordinator errors may occur 01/11/2025 HARMAN (obstructive sleep apnea) (ICD-10 - G47.33) #Weight Management 01/11/2025 Comprehensive Labs 12/2024 at [facility] CBC stable Renal fun, electrolytes, and LFTs [...] software and direct typing Please excuse inadvertent family services coordinator or typing errors, or uncorrected word substitutions Although every attempt has been made by the provider to proofread this document, occasional misspellings and typographical errors may still be present Due to the previous pandemic, and the use of personal protective equipment (PPE) This may decrease voice recognition accuracy Inadvertent family services coordinator errors may occur 08/24/2024 Irritable bowel syndrome [...] is continuing to experience constipation. Has tried jhbs-ozq-fqmabjo medications like Colace, fiber, senna, and MiraLAX. [...] Dictation was accomplished with the use of [employer] Easy voice recognition software, which is prone to [...] is continuing to experience constipation. Has tried vogj-rpx-ysqfwpr medications like Colace, fiber, senna, and MiraLAX. [...] Dictation was accomplished with the use of [employer] Easy voice recognition software, which is prone to [...] is continuing to experience constipation. Has tried shgd-apa-hlqxkrk medications like Colace, fiber, senna, and MiraLAX. [...] Dictation was accomplished with the use of [employer] voice recognition software, which is prone to [...] D,25-OH,TOTAL,IA 11/30/2024 Next Appt Details Provider Name:VERNELL ANEL, 05/25/2025 02:45:00 PM, [address] [facility], [facility], [place], [id number], Insurance Providers Payer Name Payer Address Payer Phone Subscriber Number Group Number Insured Name Patient Relationship to Insured Coverage Start Date Coverage End Date [facility] [address] [place] [address] [phone] [id number] Caroline Bernard Self - patient is the [...]
--- OUTSIDE RECORDS SUMMARY | 2025-05-13 12:09 | XMS_ITS | Encounter Summary ---
Author Organization [employer] Address [address] [place] [address] 7 [place] [address] Care Team Providers Care Paint Brush Maker Name Role Phone Komal Ghotra MD Primary Care Provide r Encounter Details Date Type Department Care Team ([facility] st Contact Info) Description 02/13/2024 Orders Only [facility] MED & PEDS [address] [place], [place] [phone] Baltazar Luevano MD [address] [place] [address] Chronic migraine without aura without status migrainosus, [...] t he electric, gas, oil or water [employer] threatened to shut off services in your [...] intractable documented in this encounter Care Teams Paint Brush Maker Relationship Specialty Start Date End Date Komal Ghotra MD [address] [place] [id number] PCP - General Family Medicine 12/20/21 documented as of this encounter
--- OUTSIDE RECORDS SUMMARY | 2025-05-13 12:09 | XMS_ITS | Encounter Summary ---
Author Organization [employer] Address [address] [facility] 7 [place] [address] Care Team Providers Care Assistant Project Manager Name Role Phone Komal Ghotra MD Primary Care Provide r Reason for Visit * Reason Onset Date Comments Paperwork/Forms 08/06/2023 Encounter Details Date Type Department Care Team ([facility] st Contact Info) Description 08/06/2023 Telephone [facility] MEDICINE [address] [place], [place] [phone] Komal Ghotra MD [address] [place] [address] Paperwork/Forms Social History Tobacco Use Types Packs/Day [...] - 08/06/2023 1:50 PM EST Tc from [facility] from the doctors office of Dr. Sean Newman requesting the referral for as400 analyst on 06/17 - 07/15 for three times and it can be faxed to documented in this encounter Plan of Treatment Not on file documented as of this encounter Visit Diagnoses Not on filedocumented in this encounter Care Teams Assistant Project Manager Relationship Specialty Start Date End Date Komal Ghotra MD [address] [place] [address] PCP - General Family Medicine 12/20/21 documented as of this encounter
--- OUTSIDE RECORDS SUMMARY | 2025-05-13 12:09 | XMS_ITS | Encounter Summary ---
Author Organization [employer] Address [address] [place] [address] [address] [place] [address] Care Team Providers Care Nurse Midwife Name Role Phone Komal Ghotra MD Primary Care Provide r Reason for Visit * Reason Comments Med Refill Encounter Details Date Type Department Care Team (Late st Contact Info) Description 05/06/2023 Refill [facility] MEDICINE [address] [place], [place] [phone] Komal Ghotra MD [address] [place], [place] [phone] Chronic migraine without aura without status migrainosus, [...] intractable documented in this encounter Care Teams Nurse Midwife Relationship Specialty Start Date End Date Komal Ghotra MD [address] [place], [place] [phone] PCP - General Family Medicine 12/20/21 documented as of this encounter
--- OUTSIDE RECORDS SUMMARY | 2025-05-13 12:09 | XMS_ITS | Encounter Summary ---
Author Organization [employer] Address [address] [place] [address] [address] [place] [address] Care Team Providers Care Collections Assistant Name Role Phone Komal Ghotra MD Primary Care Provide r Reason for Visit * Reason Comments Med Refill Encounter Details Date Type Department Care Team ([facility] st Contact Info) Description 02/25/2023 Refill [facility] MEDICINE [address] [place], [place] [phone] Name, MD Kory [address] [place], [place] [phone] Gastroesophageal reflux disease without esophagitis Social History [...] reflux documented in this encounter Care Teams Collections Assistant Relationship Specialty Start Date End Date Komal Ghotra MD [address] [place], [place] [phone] PCP - General Family Medicine 12/20/21 documented as of this encounter
--- OUTSIDE RECORDS SUMMARY | 2025-05-13 12:10 | XMS_ITS | Encounter Summary ---
Author Organization [employer] Address [address] [place] [address] [address] [place] [address] Care Team Providers Care Electro Mechanical Assembler Name Role Phone Komal Ghotra MD Primary Care Provide r Encounter Details Date Type Department Care Team ([facility] st Contact Info) Description 12/24/2023 Orders Only [facility] CHC MED & PEDS [address] [place], [place] [phone] Baltazar Luevano MD [address] [place] [address] Anxiety Social History Tobacco Use Types Packs/Day [...] unspecified documented in this encounter Care Teams Electro Mechanical Assembler Relationship Specialty Start Date End Date Komal Ghotra MD [address] [place] [address] PCP - General Family Medicine 12/20/21 documented as of this encounter
--- OUTSIDE RECORDS SUMMARY | 2025-05-13 12:10 | XMS_ITS | Encounter Summary ---
Author Organization [employer] Address [address] [place] [address] [address] [place] [address] Care Team Providers Care Medical Liaison Name Role Phone Komal Ghotra MD Primary Care Provide r Encounter Details Date Type Department Care Team ([facility] st Contact Info) Description 02/03/2025 Orders Only [facility] CH[facility] MED & PEDS [address] [place], [place] [phone] Baltazar Luevano MD [address] [place] [address] Social History Tobacco Use Types Packs/Day Years [...] documented as of this encounter Care Teams Medical Liaison Relationship Specialty Start Date End Date Komal Ghotra MD [address] [place] [address] PCP - General Family Medicine 12/20/21 documented as of this encounter
--- OUTSIDE RECORDS SUMMARY | 2025-05-13 12:10 | XMS_ITS | Clinical Summary ---
Author Organization [employer] Address [address] [place] [address] 7 [place] [address] Care Team Providers Care Buffing Wheel Former Automatic Name Role Phone Komal Ghotra MD [...] 4 Active Blood Glucose Monitoring Suppl (FreeStyle Verdon Lite) w/Device kitIndications:Hy poglycemia Use to test [...] chew, or split. 60 tablet 11 4 Active hydrOXYzine HCl (Atarax) 25 MG tabletIndications [...] 90 tablet 3 5 11/16/19 26 Active ivermectin (Stromectol) 3 MG tablet 4 tabs on day 1, 4 tabs day 7 8 tablet 5 Active econazole nitrate 1 % cream Apply topically Once per day. 30 g 5 02/04/20 26 Active pantoprazole (ProtoNix) 40 MG EC tabletIndications :Gastroesophageal reflux disease without esophagitis TAKE ONE TABLET EVERY MORNING BEFORE BREAKFAST 30 tablet 3 5 Active Ketotifen Fumarate ( Ketotifen Fumarate) 0.035 % solution Administer 1 drop into affected eye(s) 2 times daily. 5 mL 5 Active Active Problems Problem Noted Date [...] to mild thrombocytosis - plt 455 (2016). Per transfer records - OCPs stopped due [...] Encounters Date Type Department Care Team Description 03/29/2025 Orders Only [facility] [address] [place] [address] Baltazar Luevano MD 03/25/2025 Orders Only [facility] External Provider, [facility] 03/08/2025 Refill [facility] [address] [place] [address] Deanna Ramirez MD Gastroesophageal reflux disease without esophagitis 02/21/2025 Orders Only GENERIC EXTERNAL DATA DEPARTMENT Provider, Generic External Data from Last 3 Months Immunizations Immunization Administration [...] 82 07/08/2024 9:13 AM EDT Temperature 36.5 C (97.7 F) 07/08/2024 9:13 AM EDT Respiratory Rate 17 07/08/2024 9:13 AM EDT Oxygen Saturation 99% 03/08/2024 3:39 PM EDT Inhaled Oxygen Concentration - - Weight 85 kg (187 lb 8 oz) 07/08/2024 9:13 AM ED T Height 162.6 cm (5' 4 ) 07/08/2024 9:13 AM EDT Body Mass Index 32.18 07/08/2024 9:13 AM EDT Plan of Treatment Health Maintenance Due Date Last Done Comments HIV Screening 1980 Disability Screening 1980 Family Planning (PISQ) 1997 HPV Vaccines (1 - 3-dose series) 1997 Hepatitis C Screening 2000 Hepatitis A Vaccines (1 of 2 - Risk 2-dose series) 2001 Hepatitis B Vaccines (2 of 3 - 19+ 3-dose series) 03/07/2014 02/07/2014, 02/07/2014 Pneumococcal Vaccine: Pediatrics (0 to 5 Years) and At-Risk Patients (6 to 49) Years (2 of 2 - PCV) 11/19/2019 11/18/2018 SDOH Screening 03/08/2025 03/08/2024 COVID-19 Vaccine ( season) 2025 08/05/2022, 09/05/2021, 09/28/2020, Additional history exists Influenza Vaccine (#1) 2025 , 08/27/2023, 08/05/2022, Additional history exists Alcohol/Substance Use Screening 07/08/2025 07/08/2024 Depression Screening 09/09/2025 09/09/2024, 09/09/19 25 Tobacco Screening 09/16/2025 09/16/2024 Mammogram 01/19/2026 01/19/2025, 05/0 04/2024, 06/19/2022 Pap Smear 02/22/2028 02/21/2025, 04/2 11/2023, 12/25/2022, Additional history exists DTaP/Tdap/Td Vaccines (2 - Td or Tdap) 11/18/2028 11/18/2018 Lipid Panel 11/24/2028 11/25/2023, 02/26/2022 Cervical Cancer Screening 02/21/2030 HPV/Cotest 02/21/2030 02/21/2025, 12/25/2022 Zoster Vaccines (1 of 2) 2032 RSV Patients and Patients Aged 60 years or older (1 - 1-dose 75+ series) 2057 HIB Vaccines Aged Out No longer eligi ble based on patient's age to complete this topic IPV Vaccines Aged Out No longer eligi ble based on patient's age to complete this topic Meningococcal B Vaccine Aged Out No l onger eligible based on patient's age to complete [...] Procedure Name Priority Date/Time Associated Diagnosis Comments US PELVIS TRANSVAGINAL Routine 4:32 PM EDT PAP SMEAR Routine 02/21/2025 9:40 AM EDT HPV DNA, LOW/HIGH RISK Routine 9:40 AM EDT BI MAMMOGRAM SCREENING TOMOSYNTHESIS BILATERAL Routine 01/19/2025 3:30 PM EDT LIPID PANEL, STANDARD Routine 11/25/2023 8:49 AM EDT Chronic fatigue from Last 3 Months or Most Recently Relevant to Health Maintenance Results * US Pelvis Transvaginal (03/25/2025 4:32 PM EDT) Anatomical Region Laterality Modality Pelvis Ultrasound 03/25/2025 4:32 PM EDT Narrative 03/25/2025 5:38 PM EDT [address] [address] Ultrasound Report Signed Patient: Caroline Bernard MR#: [id number] : 1980 Acct:[id number] Age/Sex: 44 / F ADM Date: 03/25/25 Loc: HO.US Attending Dr: Ryan Zamarripa MD Ordering Physician: Ryan Zamarripa MD Date of Service: 03/25/25 Procedure(s): US pelvic and transvaginal Accession Number(s): [id number] cc: Komal Ghotra MD; Ryan Zamarripa MD EXAMINATION: US PELVIS CLINICAL INFORMATION: N94.9 - Unspecified condition associated with female genital organs COMPARISON: July 25, 2020 TECHNIQUE: Ultrasound of the pelvis is performed using both transabdominal and transvaginal transducers along with Doppler. Transvaginal imaging is performed due to inadequate visualization transabdominally. FINDINGS: Uterus: The uterus is anteverted and measures 10 x 4 x 5 cm. The double wall endometrial thickness is 6 mm. The uterus is smooth in contour and has normal myometrial echogenicity. No visible fibroid. Adnexa: Both ovaries are visualized. There is normal color flow to the adnexa. There is no ovarian torsion. There is no pelvic ascites or fluid collection. Right ovary measures 4.0 x 2.3 x 2.2 cm. Left ovary measures 4.8 x 3.4 x 4.0 cm. The left ovary demonstrates a 3.9 x 3.6 x 3.7 centimeter complex appearing cyst that has internal echogenicity with increased through transmission without internal blood flow. There is trace adjacent free fluid. US/US pelvic and transvaginal IMPRESSION: Complex left ovarian cyst measuring 3.9 cm in length. Probable hemorrhagic cyst, follow-up is not indicated. Electronically signed by: Ariel Fraga MD 03/25/2025 05:34 PM EDT Dictated By: Ariel Fraga MD Signed By: <Electronically signed by Ariel Fraga MD in OV> 03/25/25 1734 DD/ 1632 TD/TT: 03/25/25 1640 Tnt Line Supervisor: Procedure Note Donotuseinterpreter, Image - 03/25/[address] [address] Ultrasound Report Signed Patient: Octavio Bernard#: [id number] : 1980Acct:[id number] Age/Sex: 44 / FADM Date: 03/25/25 Loc: HO.US Attending Dr: Ryan Zamarripa MD Ordering Physician: Ryan Zamarripa MD Date of Service: 03/25/25 Procedure(s): US pelvic and transvaginal Accession Number(s): [id number] cc: Komal Ghotra MD; Ryan Zamarripa MD EXAMINATION: US PELVIS CLINICAL INFORMATION: N94.9 - Unspecified condition associated with female genital organs COMPARISON: July 25, 2020 TECHNIQUE: Ultrasound of the pelvis is performed using both transabdominal and transvaginal transducers along with Doppler. Transvaginal imaging is performed due to inadequate visualization transabdominally. FINDINGS: Uterus: The uterus is anteverted and measures 10 x 4 x 5 cm. The double wall endometrial thickness is 6 mm. The uterus is smooth in contour and has normal myometrial echogenicity. No visible fibroid. Adnexa: Both ovaries are visualized. There is normal color flow to the adnexa. There is no ovarian torsion. There is no pelvic ascites or fluid collection. Right ovary measures 4.0 x 2.3 x 2.2 cm. Left ovary measures 4.8 x 3.4 x 4.0 cm. The left ovary demonstrates a 3.9 x 3.6 x 3.7 centimeter complex appearing cyst that has internal echogenicity with increased through transmission without internal blood flow. There is trace adjacent free fluid. US/US pelvic and transvaginal IMPRESSION: Complex left ovarian cyst measuring 3.9 cm in length. Probable hemorrhagic cyst, follow-up is not indicated. Electronically signed by: Ariel Fraga MD 03/25/2025 05:34 PM EDT Dictated By: Ariel Fraga MD Signed By: <Electronically signed by Ariel Fraga MD in OV> 03/25/25 1734 DD/ 1632 TD/TT: 03/25/25 1640 Tnt Line Supervisor: [facility] External Provider IMG US PROCEDURES Final Result * HPV DNA, Low/High Risk (02/21/2025 9:40 AM EDT) HPV High Risk Negative Negative [facility] HPV Genotype 16 Negative Negative [facility] HPV Genotype 18 Negative Negative [facility] Comment:HPV testing performe d at [facility] (CLIA#[id number]), [address] [place] [address].Testing for HPV was performed using the [employer]-IO COOKIE 6800system. The presence of HPV in the female genital tract isassociated with a number of diseases, including cervicalcarcinoma. The HPV DNA high risk pool tests for HPV 31, 33,35, 39, 45, 51, 52, 56, 58, 59, 66 and 68. The testing forHPV 16 and 18 genotypes has also been performed. A positiveresult indicates detection of nucleic acid sequences fromone or more subtypes, whereas a negative result indicatessuch sequences were not detected. 02/21/2025 9:40 AM EDT 02/21/2025 10:45 AM EDT us Generic External Data Provider LAB BLOOD ORDERAB LES Final Result Performing Organization Address City/State/[facility] Co de Phone Number [facility] [address] [place] [phone] * Pap Smear (02/21/2025 9:40 AM EDT) 02/21/2025 9:40 AM EDT 02/21/2025 10:45 AM EDT Narrative [facility] - 02/23/2025 5:03 PM EDT ----- ------- Name: Caroline Bernard Age/Sex: 44/F : 1980 [id number]#: [id number] Attend Dr: Ryan Zamarripa MD Re02/21/25 Status: [facility] REF Location: [facility] Disch: ----- ------- SPEC : [id number] RECD: 02/21/25 STATUS: [place] NUM: [id number] PRITI: 02/21/[address] [facility] [address]: Ryan Zamarripa MD ENTERED: 02/21/25 SP TYPE: Pap Smr OTHR DR: Komal Ghotra MD ORDERED: Pap Smear, PAP path review Interpretation General Category: Negative for intraepithelial lesion/malignancy. Adequacy: Endocervical component absent. Interpretation: Reactive cellular changes. Parakeratosis. HPV High Risk: Negative HPV Genotyping 16: Negative HPV Genotyping 18: Negative Clinical Information LMP: Unknown date Previous PAP test: 12/31/2023, ELLI 3 Other history: Cervical intraepithelial neoplasia Grade III with severe dysplasia Material Received ThinPrep-Cervical PAP Disclaimer As of June 30, 2024, the technical services to include automated prescreening performed by the ThinPrep Imaging System, PAP screening and HPV testing will be performed at [facility] (IA #[id number]), [address] [place] [address]. Testing for HPV was performed using the [employer] COOKIE 6800 system. The presence of HPV in the female genital tract is associated with a number of diseases, including cervical carcinoma. The HPV DNA high risk pool tests for HPV 31, 33, 35, 39, 45, 51, 52, 56, 58, 59, 66 and 68. The testing for HPV 16 and 18 genotypes has also been performed. A positive result indicates detection of nucleic acid sequences from one or more subtypes, whereas a negative result indicates such sequences were not detected. All professional services are performed by [facility] ([address] [place] [phone]; ; CLIA #[id number]). The PAP Test is a screening procedure with the inherent possibility of both false negative and false positive results. Results should be interpreted in the context of historic and current clinical findings. Reliability of the PAP Test is enhanced by performing the test on a regular repetitive basis. CONTINUED ON NEXT PAGE ----- ------- Name: Caroline Bernard Age/Sex: 44/F : 1980 Unit#: [id number] Attend Dr: Ryan Zamarripa MD Re02/21/25 Status: DEP REF Location: HO.LNP Disch: ----- ------- SPEC : [id number] RECD: 02/21/25 STATUS: [place] NUM: [id number] PRITI: 02/21/[address] [facility] [address]: Ryan Zamarripa MD ENTERED: 02/21/25 SP TYPE: Pap Smr OTHR DR: Komal Ghotra MD ORDERED: Pap Smear, PAP path review Copies To: Komal Ghotra MD [address] [address] Ryan Zamarripa MD [facility] [address] [place], [place] [phone] ----- ------- Signed (signature on file) Radha Luisa 02/23/25 1703 ----- ------- END OF REPORT us Generic External Data Provider LAB CYTOLOGY EMELIA LOMAS Final Result [facility] [address] [place] [phone] * BI Mammogram Screening Tomosynthesis Bilateral (01/19/2025 3:30 PM EDT) Anatomical Region Laterality Modality Breast Bilateral Mammography 01/19/2025 3:30 PM EDT Narrative 01/28/2025 4:07 PM EDT [facility] [address] [place] [address] [place] [address] Mammography Report Signed Patient: Caroline Bernard MR#: [id number] : 1980 Acct:[id number] Age/Sex: 44 / F ADM Date: 01/19/25 Loc: [facility] Attending Dr: Komal Spivey MD Ordering Physician: Komal Ghotra MD Results: 1Negative Date of Service: 01/19/25 Follow Up: 1 Year From Orig inal Mammogram Procedure(s): MM tomosynthesis screening BI Accession Number(s): [id number] cc: Komal Ghotra MD EXAMINATION: MM SCREENING DIGITAL BREAST TOMOSYNTHESIS, BILATERAL CLINICAL INFORMATION: Screening. Asymptomatic. COMPARISON: Mammography: Comparison is made with available priors TECHNIQUE: Digital breast mammography with tomosynthesis is performed in both the craniocaudal and mediolateral oblique views along with computer-aided detection (CAD). FINDINGS: There are scattered areas of fibroglandular [...] target due date for their next mammogram. Electronically signed by: Brittni Panchal DO 01/28/2025 04:04 PM EDT Dictated By: Brittni Panchal DO Signed By: <Electronically signed by Brittni Panchal DO in OV> 01/28/25 1604 DD/ 1530 TD/TT: 01/19/25 1545 Tnt Line Supervisor: Procedure Note Donotuseinterpreter, Image - 01/28/2025 [facility] [address] [place] [address] Mammography Report Signed Patient: Octavio Bernard#: [id number] : 1980Acct:[id number] Age/Sex: 44 / FADM Date: 01/19/25 Loc: HO.MAMMO Attending Dr: Komal Spivey MD Ordering Physician: Komal Ghotra MDResults: 1Negative Date of Service: 01/19/25Follow Up: 1 Year From Orig inal Mammogram Procedure(s): MM tomosynthesis screening BI Accession Number(s): [id number] cc: Komal Ghotra MD EXAMINATION: MM SCREENING DIGITAL BREAST TOMOSYNTHESIS, BILATERAL CLINICAL INFORMATION: Screening. Asymptomatic. COMPARISON: Mammography: Comparison is made with available priors TECHNIQUE: Digital breast mammography with tomosynthesis is performed in both the craniocaudal and mediolateral oblique views along with computer-aided detection (CAD). FINDINGS: There are scattered areas of fibroglandular [...] target due date for their next mammogram. Electronically signed by: Brittni Panchal DO 01/28/2025 04:04 PM EDT RP Dictated By: Brittni Panchal DO Signed By: <Electronically signed by Brittni Panchal DO in OV> 01/28/25 1604 DD/ 1530 TD/TT: 01/19/25 1545 Tnt Line Supervisor: Komal Spivey MD IMG BI PROCEDURES Fin al Result * (ABNORMAL) Lipid Panel, Standard (11/25/2023 8:49 AM EDT) Triglycerides 180(H) <150 mg/dL [facility] Comment:Desirable Triglyceri de: less than 150 mg/dLBorderline High Triglyceride 150-199 mg/dLHigh Triglyceride: 200-499 mg/dLVery High Triglyceride: greater than or equal to 5OO mg/dL Cholesterol 211(H) <200 mg/dL [facility] Comment:Desirable Cholestero l: less than 200 mg/dLBorderline High Cholesterol: 200-239 mg/dLHigh Cholesterol: greater than 239 mg/dL LDL Cholesterol Calculated 130(H) <100 mg/dL [facility] Comment:Desirable LDL: less than 100 mg/dLNear Optimal/Above Optimal LDL: 110- 129 mg/dLBorderline High LDL: 130-159 mg/dLHigh LDL: 160-189 mg/dLVery High LDL: greater than or equal to 190 mg/dL HDL Cholesterol 45 >40 mg/dL [facility] Comment:Desirable HDL: great er than 40 mg/dL Note: This HDL assay may give artificially low results in patients with liver disease. Blood Venous blood specimen / Unknown 11/25/2023 8:49 AM EDT 11/25/2023 1:59 PM EDT us Komal Spivey MD LAB BLOOD ORDERABLES Final Result [facility] [address] [place] [phone] from Last 3 Months or Most Recently Relevant to Health Maintenance Insurance , [address] [place] [phone] Care Teams Buffing Wheel Former Automatic Relationship Specialty Start Date End Date Komal Ghotra MD [address] [place] [address] PCP - General Family Medicine 12/20/21
--- OUTSIDE RECORDS SUMMARY | 2025-05-13 12:10 | XMS_ITS | Encounter Summary ---
Author Organization [employer] Address [address] [place] [address] 7 [place] [address] Care Team Providers Care Junior Assistant Manager Name Role Phone Komal Ghotra MD Primary Care Provide r Encounter Details Date Type Department Care Team ([facility] st Contact Info) Description 09/16/2024 Orders Only [facility] [address] [place], [place] [phone] Baltazar Luevano MD [address] [place] [address] Acute cough (Primary Dx) Social History Tobacco [...] documented as of this encounter Care Teams Junior Assistant Manager Relationship Specialty Start Date End Date Komal Ghotra MD [address] [place] [address] PCP - General Family Medicine 12/20/21 documented as of this encounter
[2025-05-14 08:43] LABS: CA-125 11 U/mL (<35)
== END 2025-05-13 11:06 | disposition home or self-care (01) ==
LOC: HO.CHCLDS 11:05
PROVIDERS: Visit Provider Obstetrics & Gynecology
DX: N83.299 Other ovarian cyst, unspecified side (principal)
CPT/HCPCS: 36415; 86304